=== PATIENT | female | born 1960 | race Caucasian/White ===

== ENCOUNTER 2024-02-18 18:49 | Emergency (ER) | payer MEDICARE, OTHER, SELFPAY ==
[2024-02-18 19:00] VITALS: BP 128/84; PULSE 99; TEMP 36.8; O2SAT 98; BMI 29.0
--- NOTE | 2024-02-18 19:27 | ED_ITS ---
HPI HPI - Extremity Injury (Upper) General Chief Complaint: Extremity Injury, Upper Stated Complaint: UPPER EXTREMITY INJURY Time Seen by Provider: 02/18/24 19:24 Source: patient Mode of arrival: walk-in History of Present Illness HPI narrative: patient states she was playing around with her and grabbed his belt loop. States he turned and her fingers did not slide out and she cut her hand on the belt loop. Has a lac of the web space btw left middle and ring finger. No numbness or weakness. Denies other injury or complaint. She does not remember the last time she had a tetanus shot. 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 Related Data Allergies Allergy/AdvReac Type Severity Reaction Status Date / Time No Known Drug Allergies Allergy Verified 02/18/24 19:03 Opioid HPI Opioid Management Most Recent Pain and Opioid Data: No Data to Display Review of Systems ROS Status of ROS 10 or more systems reviewed and unremark able except as noted in history and below Exam Constitutional Vital Signs, click to edit/add: Last Vital Signs Temp 98.2 F 02/18/24 19:00 Pulse 86 02/18/24 20:38 Resp 16 02/18/24 20:38 BP 130/66 02/18/24 20:38 Pulse Ox 98 02/18/24 20:38 O2 Del Method Room Air 02/18/24 19:00 Common normals: no apparent distress, average body habitus, oriented x3, no limitations, healthy appearing, alert and well nourished [facility] Common normals: normocephalic and head/scalp atraumatic Eye Common normals: PERRL, EOMs intact bilaterally and conjunctivae normal Respiratory Common normals: normal respiratory effort, no retractions, no use of accessory muscles and clear to auscultation bilaterally Cardio Common normals: regular rate, regular rhythm, S1 normal heart sound and S2 normal heart sound Extremity Other: lac btw web space left ring and middle finger. SQ tissue exposed. No obvious FB. sensation of fingers WNL. No obvious weakness of the fingers. ROM limited by pain Neuro Common normals: oriented x3, CN's II-XII intact bilaterally, moves all extremities, no focal motor deficits and no sensory deficits noted Psych Appearance: grossly normal Course Vital Signs Vital signs: Vital Signs Temperature 98.2 F 02/18/24 19:00 Pulse Rate 99 H 02/18/24 19:00 Respiratory Rate 18 02/18/24 19:00 Blood Pressure 128/84 02/18/24 19:00 Pulse Oximetry 98 02/18/24 19:00 Oxygen Delivery Method Room Air 02/18/24 19:00 Temperature 98.2 F 02/18/24 19:00 Pulse Rate 86 02/18/24 20:38 Respiratory Rate 16 02/18/24 20:38 Blood Pressure 130/66 02/18/24 20:38 Pulse Oximetry 98 02/18/24 20:38 Oxygen Delivery Method Room Air 02/18/24 19:00 MDM - Extremity Injury (Upper) MDM Narrative Medical decision making narrative: patient presents with lac web space btw left ring and middle finger. lac repaired as above. Patient discharged and advised to have the wound rechecked in 2-3 days and stitches removed in 10-12 days Discharge Plan Discharge Stand Alone Forms: Work/School Release, Portal Instructions Chief Complaint: Extremity Injury, Upper Clinical Impression: Laceration of hand, left Patient Disposition: Home, Self-Care Condition: Good Mode of Transportation: Private Vehicle Print Language: Welsh Instructions: Laceration (ED) Additional Instructions: have wound rechecked in 2-3 days and stitches removed in 10-12 days Referrals: Physician,Non-Staff, MD [Physician] - 1 week Discharge Date/Time: 02/18/24 20:47 Procedures ED Procedure Instructions Procedures Procedures: 3-3.5 cm SQ lac web space btw left middle and ring finger. lac extends from volar to dorsal side of the hand. No FB seen. 1% lido as local. site cleaned and repaired with # 10 4.0 Prolene sutures. Patient tolerated well. No compl ications.
--- NOTE | 2024-02-18 19:31 | XR_ITS ---
The [address] [address] Patient Name: DEBBIE KC MRN: [id number] date: 1960 Sex: F Assigned Patient Location: ER Current Patient Location: Accession/Order Number: [id number] Exam Date: 02/18/2024 19:40 Report Date: 02/18/2024 20:46 At the request of: ANGELA SEPULVEDA Procedure: XR hand LT min 3V EXAM: XR hand LT min 3V HISTORY: FB soft tissue injury/laceration between third and fourth digit. COMPARISON: None. TECHNIQUE: PA, oblique, lateral x-ray left hand. FINDINGS: Negative for fracture or foreign body. Minor degenerative change without significant joint space narrowing. Normal-appearing carpal bones and wrist. XR/XR hand LT min 3V IMPRESSION: Negative for fracture or foreign body. Electronically authenticated by: MARIBEL FERRARA Date: 02/18/2024 20:46
[2024-02-18] MEDS: ADACEL DIPH,PERTUSS(ACELL),TET VAC/PF 0.5 ML ADULT SYRINGE IM (19:34)
[2024-02-18] MEDS: LIDOCAINE HCL 1% 100 MG/10 ML MDV INJ (19:37)
--- NOTE | 2024-02-18 19:42 | PC.NURSE ---
Gapping laceration web space of 3rd and fourth finger left hand
[2024-02-18 20:38] VITALS: BP 130/66; PULSE 86; O2SAT 98
[2024-02-18] MEDS: AMOXICILLIN/POTASSIUM CLAV 1 TAB TABLET PO ×2 (20:39)
== END 2024-02-18 20:47 | disposition home or self-care (01) ==
PROVIDERS: Emergency Provider Internal Medicine; PCP Internal Medicine
DX: S61.412A Laceration without foreign body of left hand, initial encounter (principal); W45.8XXA Other foreign body or object entering through skin, initial encounter; Z23 Encounter for immunization
CPT/HCPCS: 12002; 73130; 90471; 90715; 99284

== ENCOUNTER 2024-06-22 08:24 | Outpatient (OUT) | payer MEDICARE, OTHER, SELFPAY ==
--- OUTSIDE RECORDS SUMMARY | 2024-06-22 08:39 | XMS_ITS | CCD ---
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 Helio Brice Attending David Brice, Dr. Helio Llanes Primary Care HAN Tamayo Referring Unavailable DELANEY, HAN Referring Unavailable HAN BALTAZAR Attending Unavailable Helio Brice DO Primary Care Provider [phone] HELIO BRICE Primary Care Unavailable LAURIE ANDUJAR Referring Unavailable ERMIAS BOLDEN Attending Unavailable HELIO BRICE Primary Care Unavailable ERMIAS BOLDEN Attending Unavailable ERMIAS BOLDEN Referring Unavailable HELIO BRICE Primary Care Unavailable NABIL MCCANN Referring Unavailable PATRICIA JOE Attending Unavailable HELIO BRICE Primary Care Unavailable SELF, SELF Referring Unavailable PATRICIA JOE Attending Unavailable NABIL MCCANN Referring Unavailable CHARISSA, PATRICIA Annmarie Attending Unavailable HELIO BRICE Primary Care Unavailable SELF, SELF Referring Unavailable HELIO BRICE Primary Care Unavailable NABIL MCCANN Attending Unavailable HELIO BRICE Primary Care Unavailable WILBUR LONGO Attending Unavailable NABIL MCCANN Referring Unavailable HELIO BRICE Primary Care Unavailable HELIO BRICE Primary Care Unavailable HELIO BRICE Primary Care Unavailable HELIO MILLER Attending Unavailable HELIO BRICE Primary Care Unavailable CONSULT, SURGERY - ORTHOPAEDICS Consulting Unavailable NABIL MCCANN Referring Unavailable NABIL MCCANN Admitting Unavailable ELIELNABIL Attending Unavailable HELIO BRICE Primary Care Unavailable SELF, SELF Referring Unavailable HIS ELIELSTACY Lionel Attending Unavailable HELIO BRICE Primary Care Unavailable GIGI MEYERS Attending Unavailable NABIL MCCANN Referring Unavailable YANET SALAZAR Attending Unavailable HELIO BRICE Attending Unavailable HELIO BRICE Referring Unavailable HELIO BRICE Attending Unavailable JACQUE AG Attending Unavailable JACQUE AG Attending Unavailable JACQUE AG Attending Unavailable YANET SALAZAR Attending Unavailable HELIO BRICE Referring Unavailable CHEPE MARKS Attending Unavailable Helio Brice DO Primary Care Provider Helio Brice DO Primary Care Provider HELIO BRICE Referring Unavailable HELIO BRICE Primary Care Unavailable HELIO BRICE Referring Unavailable HELIO BRICE Primary Care Unavailable Allergies Allergy Classification Reported Allergen(s) Allergy Type Date of Onset Reaction(s) Facility (1 source) Tetracycline Drug Allergy [facility] Repository (4 sources) Tetracycline Drug Allergy 02-15-2023 [facility] Medications Current Medications Medication Drug Class(es) Dates Sig (Normalized) Sig (Original) [id number] 200 actuat albuterol 0.09 mg/actuat metered dose inhaler (8 sources) beta2-Adrenergic Agonist take 2 puff(s) by inhalation every four hours as needed Albuterol 108 (90 Base) MCG/ACT Aero Soln inhaler 2 puffs Inhalation every 4hrs as needed for 90 days 0 Active atorvastatin 10 mg oral tablet (16 sources) HMG-CoA Reductase Inhibitor Start: 12-01-2023 take 1 tablet by mouth once daily atorvastatin (Lipitor) 10 MG tablet Indications: Hyperlipidemia, unspecified hyperlipidemia type (CMS/HCC) Take 1 tablet (10 mg) by mouth Daily 90 tablet 3 12/01/2023 Active Start: 11-16-2022 take 1 tablet by destiny th once daily at dinner Atorvastatin 10 MG tablet Take 1 tablet by mouth Daily (with dinner). 0 11/16/2022 Active calcium carbonate 500 mg oral tablet (8 sources) Start: 09-07-2022 calcium carbonate (Os-Rubio) 1250 (500 Ca) MG tablet every 12 (twelve) hours. 09/07/2022 Active clindamycin 150 mg oral capsule (3 sources) Lincosamide Antibacterial Start: 02-15-2023 End: 02-22-2023 take 3 capsules by mouth every eight hours Clindamycin 150 MG capsule Take 3 capsules by mouth every 8 hours for 7 days. 63 capsule 0 02/15/2023 02/22/2023 Active erythromycin 0.005 mg/mg ophthalmic ointment (8 sources) Macrolide, Macrolide Antimicrobial Start: 12-31-2022 Erythromycin 5 MG/GM Ointment ophthalmic ointment APPLY ONE-HALF inch strip to affected eye(s) DAILY AT BEDTIME for 30 days 0 12/31/2022 Active esomeprazole 20 mg delayed release oral capsule (16 sources) Proton Pump Inhibitor take 1 capsule by mouth before mealtime esomeprazole (NexIUM) [address] capsule Take 20 mg by mouth in the morning. Take before meals. Do not open capsule.. Active fexofenadine hydrochloride 180 mg oral tablet (8 sources) Histamine-1 Receptor Antagonist fexofenadine (Breanne) 180 MG tablet 1 (one) time each day at the same time. Active fluconazole 150 mg oral tablet (1 source) Azole Antifungal Start: 02-24-2023 End: 02-24-2023 take 1 tablet by mouth once Fluconazole 150 MG tablet Take 1 tablet by mouth once for 1 dose. 1 tablet 0 02/24/2023 02/24/2023 Active fluticasone propionate 0.05 mg/actuat metered dose nasal spray (16 sources) Corticosteroid Start: 12-01-2023 take 1 spray(s) nasal route once daily fluticasone (Flonase) 50 MCG/ACT nasal spray Indications: Seasonal allergies Administer 1 spray into each nostril Daily Shake gently. Before first use, prime pump. After use, clean tip and replace cap. 48 g 3 12/01/2023 Active fluticasone 50 M CG/ACT Suspension nasal spray 1 spray in each nostril Nasally 2 x a day for 90 days 0 Active gabapentin 100 mg oral capsule (4 sources) Anti-epileptic Agent Start: 02-15-2023 End: 03-17-2023 take 1 capsule by mouth three times daily Gabapentin 100 MG capsule Take 1 capsule by mouth 3 times daily. 90 capsule 0 02/15/2023 Active ibuprofen 200 mg oral tablet (8 sources) Nonsteroidal Anti-inflammatory Drug take 1 tablet by mouth in the morning ibuprofen 200 MG tablet Take 200 mg by mouth in the morning and 200 mg before bedtime. Active metFORMIN hydrochloride 500 mg oral tablet (16 sources) Biguanide Start: 12-01-2023 take 1 tablet by mouth in the morning metFORMIN (Glucophage) 500 MG tablet Indications: Type 2 diabetes mellitus with other specified complication, unspecified whether usp insulin use (CMS/HCC) Take 1 tablet (500 mg) by mouth in the morning and 1 tablet (500 mg) in the evening. Take with meals. 180 tablet 3 12/01/2023 Active Start: 11-16-2022 metFORMIN 500 MG tablet Take 1 tablet by mouth. 0 11/16/2022 Active oxyCODONE hydrochloride 5 mg oral tablet (6 sources) Opioid Agonist Start: 02-01-2023 End: 02-06-2023 take 1 tablet by mouth every six hours as needed for pain oxyCODONE 5 MG tablet Indications: Post-operative pain , Carpal tunnel syndrome of right wrist , Lesion of right ulnar nerve , De Quervain's disease (radial styloid tenosynovitis) Take 1 tablet by mouth every 6 hours as needed for Moderate Pain or Severe Pain for up to 5 days. 12 tablet 0 02/01/2023 Active venlafaxine 37.5 mg oral tablet (16 sources) Serotonin and Norepinephrine Reuptake Inhibitor Start: 12-01-2023 take 1 tablet by mouth in the morning venlafaxine (Effexor) 37.5 MG tablet Indications: Major depressive disorder with single episode, remission status unspecified (CMS/HCC) Take 1 tablet (37.5 mg) by mouth in the morning and 1 tablet (37.5 mg) before bedtime. 180 tablet 3 12/01/2023 Active Start: 11-16-2022 take 1 tablet by destiny th twice daily venlafaxine 37.5 MG tablet Take 1 tablet by mouth Twice daily. 0 11/16/2022 Active Completed/Discontinued Medications Medication Drug Class(es) Dates Sig (Normalized) Sig (Original) calcium chloride 0.0014 meq/ml / potassium chloride 0.004 meq/ml / sodium chloride 0.103 meq/ml / sodium lactate 0.028 meq/ml injectable solution (1 source) Start: 02-01-2023 End: 02-01-2023 Lactated ringers IV solution ceFAZolin 2000 mg injection (2 sources) Cephalosporin Antibacterial Start: 02-15-2023 End: 02-15-2023 ceFAZolin (ANCEF) 2 g in dextrose 100 mL premix IVPB Start: 02-01-2023 End: 02-01-2023 take 2 g intravenously every eight hours ceFAZolin (ANCEF) 2 g in dextrose 100 mL premix IVPB 1 ml dexamethasone phosphate 4 mg/ml injection (2 sources) Corticosteroid Start: 05-26-2023 End: 05-26-2023 dexAMETHasone (DECADRON) injection 4 mg 10 ml lidocaine hydrochloride 10 mg/ml injection (4 sources) Antiarrhythmic, Amide Local Anesthetic Start: 05-26-2023 End: 05-26-2023 Lidocaine (XYLOCAINE) 10 mg/mL injection 0.5 mL Start: 02-15-2023 End: 02-15-2023 Lidocaine (XYLOCAINE) 10 mg/ mL injection 50 mg Start: 02-15-2023 End: 02-15-2023 Lidocaine 1% (PF) (XYLOCAINE MPF) 1 % injection lidocaine 1% buffered in sod ium bicarbonate 1-8.4 % injection SOSY 1 mL (1 source) Start: 02-01-2023 End: 02-01-2023 lidocaine 1% buffered in sod ium bicarbonate 1-8.4 % injection SOSY 1 mL Problems Active Problems Problem Classification Problem Date Documented Date Episodic/Chronic Diabetes mellitus with complications (10 sources) Type 2 diabetes mellitus; Translations: [Type 2 diabetes mellitus with other specified complication] Onset: 02-17-2023 02-17-2023 Chronic Disorders of lipid metabolism (13 sources) Hyperlipidemia, unspecified; Translations: [Hyperlipidemia] Onset: 09-16-2022 Chronic Esophageal disorders (8 sources) Gastroesophageal reflux disease; Translations: [Gastro-esophageal reflux disease without esophagitis] Onset: 02-17-2023 02-17-2023 Chronic Mood disorders (10 sources) Recurrent major depression in partial remission; Translations: [Major depressive disorder, recurrent, in partial remission] Onset: 02-17-2023 02-17-2023 Chronic Open wounds of extremities (6 sources) Laceration of left hand; Translations: [Laceration without foreign body of left hand, subsequent encounter] 03-01-2024 Episodic Other connective tissue disease (2 sources) Pain in right hand; Translations: [Pain in right hand] Onset: 01-06-2023 Episodic Other connective tissue disease (2 sources) Radial styloid tenosynovitis; Translations: [Radial styloid tenosynovitis [de Quervain]] 01-24-2023 Episodic Other nervous system disorders (11 sources) Carpal tunnel syndrome of right wrist; Translations: [Carpal tunnel syndrome, right upper limb] Onset: 02-02-2023 01-27-2023 Chronic Other nervous system disorders (1 source) Lesion of ulnar nerve; Translations: [Lesion of ulnar nerve, unspecified upper limb] 02-01-2023 Chronic Other nervous system disorders (1 source) Carpal tunnel syndrome; Translations: [Carpal tunnel syndrome, unspecified upper limb] 02-01-2023 Chronic Other nervous system disorders (1 source) Lesion of right ulnar nerve; Translations: [Lesion of ulnar nerve, right upper limb] 02-01-2023 Chronic Other nervous system disorders (7 sources) Radial tunnel syndrome; Translations: [Lesion of radial nerve, right upper limb] Onset: 02-02-2023 02-02-2023 Chronic Other nervous system disorders (9 sources) Lesion of ulnar nerve, right upper limb; Translations: [Lesion of ulnar nerve] Onset: 02-02-2023 02-02-2023 Chronic Other nervous system disorders (2 sources) Carpal tunnel syndrome, right upper limb; Translations: [Carpal tunnel syndrome, right upper limb] Onset: 03-14-2023 Chronic Other nervous system disorders (2 sources) Lesion of radial nerve, right upper limb; Translations: [Lesion of radial nerve, right upper limb] Onset: 02-02-2023 Chronic Other nervous system disorders (2 sources) Lesion of ulnar nerve, unspecified upper limb; Translations: [Lesion of ulnar nerve, unspecified upper limb] Onset: 02-01-2023 Chronic Other nervous system disorders (2 sources) Carpal tunnel syndrome, unspecified upper limb; Translations: [Carpal tunnel syndrome, unspecified upper limb] Onset: 02-01-2023 Chronic Other nervous system disorders (1 source) Postoperative pain ; Translations: [Other acute postprocedural pain] 02-01-2023 Episodic Other non-traumatic joint disorders (4 sources) Pain in right wrist; Translations: [Pain in right wrist] Onset: 01-06-2023 Episodic Other non-traumatic joint disorders (2 sources) Pain of right wrist; Translations: [Pain in right wrist] 01-24-2023 Episodic Other nutritional; endocrine; and metabolic disorders (19 sources) Obese class I; Translations: [Obesity, unspecified] Onset: 01-24-2023 01-24-2023 Chronic Prolapse of female genital organs (2 sources) Other female genital prolapse; Translations: [Other female genital prolapse] Onset: 06-26-2024 Chronic Past or Other Problems Problem Classification Problem Date Documented Date Episodic/Chronic E Codes: Fall (1 source) Unspecified fall, initial encounter; Translations: [UNSPECIFIED FALL INITIAL ENCOUNTER] Onset: 09-08-2021 Episodic Other connective tissue disease (8 sources) Tenosynovitis of right radial styloid; Translations: [Radial styloid tenosynovitis [de Quervain]] Onset: 02-02-2023 02-02-2023 Episodic Other connective tissue disease (2 sources) Radial styloid tenosynovitis [de Quervain]; Translations: [Radial styloid tenosynovitis (de quervain)] Onset: 02-02-2023 Episodic Other diseases of veins and lymphatics (8 sources) Vascular insufficiency; Translations: [Venous insufficiency (chronic) (peripheral)] Onset: 03-03-2023 03-03-2023 Episodic Other lower respiratory disease (4 sources) Cough; Translations: [Acute cough] Onset: 04-12-2023 Resolved: 10-20-2023 10-20-2023 Episodic Other lower respiratory disease (4 sources) Cough; Translations: [Acute cough] Onset: 04-12-2023 Resolved: 10-20-2023 10-20-2023 Episodic Other nervous system disorders (2 sources) Other acute postprocedural pain; Translations: [Other acute postprocedural pain] Onset: 02-01-2023 Episodic Other non-traumatic joint disorders (3 sources) Pain in right ankle and joints of right foot; Translations: [PAIN IN RIGHT ANKLE] Onset: 09-07-2021 Episodic Other non-traumatic joint disorders (8 sources) Pain in wrist; Translations: [Pain in right wrist] Onset: 11-11-2022 Resolved: 10-20-2023 10-20-2023 Episodic Other screening for suspected conditions (not mental disorders or infectious disease) (10 sources) Raised TSH level; Translations: [Other specified abnormal findings of blood chemistry] Onset: 02-09-2024 02-09-2024 Episodic Other upper respiratory infections (8 sources) Upper respiratory infection; Translations: [Acute upper respiratory infection, unspecified] Onset: 04-12-2023 Resolved: 10-20-2023 10-20-2023 Episodic Spondylosis; intervertebral disc disorders; other back problems (4 sources) Cervical radiculopathy; Translations: [Radiculopathy, cervical region] Onset: 02-16-2023 02-15-2023 Episodic Sprains and strains (1 source) Sprain of unspecified ligament of right ankle, initial encounter; Translations: [SPRAIN UNS LIGAMENT RT ANKLE INIT] Onset: 09-08-2021 Episodic Results Test Name Value Interpretation Reference Range Facility No Panel Informationon 03-08 Neelam Sprague 03/13/2024 3:16 PM Suture Removal Date/Time: 03/08/2024 11:40 AM Performed by: Jacque Ag NP Authorized by: Jacque Ag NP Consent: Consent obtained: Verbal Consent given by: Patient Risks, benefits, and alternatives were discussed: yes Risks discussed: Wound separation and pain [place] protocol: Procedure explained and questions answered to patient or proxy's satisfaction: yes Procedure details: Wound appearance: No signs of infection Comments: All sutures removed. Top layer of epidermis gaping post removal. Steristrips placed with good approx and closure of laceration. [facility] Jarvam [facility] UPPER EXTREMITY INJECTION: R extensor compartment 05-30-2023 Radiology Study observation (narrative) [facility] UPPER EXTREMITY INJECTION: R extensor compartment 05-26-2023 OLVIN Bolton 05/30/2023 10:24 AM UPPER EXTREMITY INJECTION: R extensor compartment 1 Date/Time: 05/26/2023 11:00 AM Performed by: OLVIN Bolton Authorized by: OLVIN Bolton Supporting Documentation Indications: pain Procedure Details: Procedure: tendon sheath / ligament injection Location: wrist - R extensor compartment 1 Local Anesthetic: ethyl chloride (cold spray) Needle size: 27 G Approach: radial Medications administered: 0.5 mL Lidocaine 10 mg/mL; 4 mg dexAMETHasone 4 MG/ML Medication Verification: I have personally verified and performed the final check of the medication(s) used in this procedure prior to administration. The following items were included during the verification process for medication(s) administered: drug name, strength, volume, expiration, physical integrity and appearance of the medication(s). Consent: Consent was obtained prior to the procedure after discussion of the risks, benefits and alternatives, and expected outcomes were discussed with the patient. The possibilities of reaction to medication, bleeding, infection, the need for additional procedures, failure to diagnosis a condition, and creating a complication requiring operation were discussed with the patient. The patient concurred with the proposed plan, giving consent. Preparation: Patient was prepped in the usual sterile fashion. The patient was prepped with alcohol. [facility] MRI SPINE CERVICAL WITHOUT C [facility] 02-24-2023 MRI SPINE CERVICAL WITHOUT CONTRAST EXAM: MRI SPINE CERVICAL WITHOUT CONTRAST, 02/16/2023 11:11 AM COMPARISON: No priors available for comparison. CLINICAL INDICATIONS: 62 years Female eval for c6-c7 radicular symptoms right side; RELEVANT CLINICAL HISTORY: M54.12:Cervical radiculopathy TECHNIQUE: A series of sagittal and axial multisequence images of the cervical spine were obtained without intravenous contrast using standard protocol. Study was performed at [address]. FINDINGS: Alignment is normal. Vertebral bodies are within normal limits in height and marrow signal. Prevertebral and paraspinal soft tissues are within normal limits. Multilevel loss of disc space height. Multilevel endplate degenerative changes of the cervical spine notably at the superior and inferior endplate of C6, and superior endplate of C7. Visualized spinal cord is within normal limits in caliber and signal. Craniocervical junction and visualized posterior fossa are within normal limits. By levels: C1-C2: Atlanto-axial relationship is within normal limits. C2-C3: Disc osteophyte complex with eccentric right osteophytic spurring partially effacing the right ventral-lateral aspect of the thecal sac. No significant spinal canal or foraminal compromise. C3-C4: Disc osteophyte complex with eccentric right osteophytic spurring and right facet hypertrophy partially effacing the right ventral-lateral aspect of the thecal sac and causing mild right-sided foraminal narrowing. No significant spinal canal compromise. C4-C5: Disc osteophyte complex with asymmetric right greater than left facet hypertrophy causing mild right-sided foraminal narrowing. No significant spinal canal stenosis. C5-C6: Disc osteophyte complex with bilateral facet and uncovertebral hypertrophy causing moderate bilateral foraminal narrowing and mild spinal canal narrowing. C6-C7: Disc osteophyte complex with mild bilateral facet and uncovertebral hypertrophy causing mild spinal canal narrowing, mild right-sided and moderate left-sided neural foraminal narrowing. C7-T1: No disc herniation, cervical stenosis, or foraminal stenosis. IMPRESSION: Multilevel degenerative changes of the cervical spine with moderate bilateral foraminal narrowing at C5-C6 and moderate left-sided foraminal narrowing at C6-C7. I personally viewed and interpreted these images and I have reviewed and approved this report. Normal [facility] CBC AND ELECTRONIC DIFFon Basophils (Bld) [#/Vol] 0.07 10*3/uL Normal 0.00-0.15 [facility] Comment on above: Performed By: #### L [id number] #### [facility] (DEFAULT) [address] [address] Basophils/100 WBC (Bld) 0.5 % Normal [facility] Comment on above: Performed By: #### L [id number] #### [facility] (DEFAULT) [address] [address] DIFF STATUS Electronic Differential Normal [facility] Comment on above: Performed By: #### L [id number] #### [facility] (DEFAULT) [address] [address] Eosinophils (Bld) [#/Vol] 0.36 10*3/uL Normal 0.00-0.42 [facility] Comment on above: Performed By: #### L [id number] #### [facility] (DEFAULT) [address] [address] Eosinophils/100 WBC (Bld) 2.8 % Normal [facility] Comment on above: Performed By: #### L [id number] #### [facility] (DEFAULT) [address] [address] Hematocrit (Bld) [Volume fraction] 42.1 % Normal 34.9-44.3 [facility] Comment on above: Performed By: #### L [id number] #### [facility] (DEFAULT) [address] [address] Hemoglobin (Bld) [Mass/Vol] 13.7 g/dL Normal 11.4-15.2 [facility] Comment on above: Performed By: #### L [id number] #### [facility] (DEFAULT) [address] [address] Immature Grans % 0.2 % Normal [facility] Comment on above: Performed By: #### L [id number] #### [facility] (DEFAULT) [address] [address] Immature Grans Absolute < Normal <=0.08 [facility] Comment on above: Performed By: #### L [id number] #### [facility] (DEFAULT) [address] [address] Lymphocytes (Bld) [#/Vol] 3.83 10*3/uL High 1.16-3.51 [facility] Comment on above: Performed By: #### L [id number] #### [facility] (DEFAULT) [address] [address] Lymphocytes/100 WBC (Bld) 30.1 % Normal [facility] Comment on above: Performed By: #### L [id number] #### [facility] (DEFAULT) [address] [address] MCV (RBC) [Entitic vol] 93.6 fL Normal 79.6-97.7 [facility] Comment on above: Performed By: #### L [id number] #### [facility] (DEFAULT) [address] [address] Mean Cell Hgb 30.4 pg Normal 25.9-33.9 [facility] Comment on above: Performed By: #### L [id number] #### [facility] (DEFAULT) [address] [address] Mean Cell Hgb Conc 32.5 g/dL Normal 31.4-35.9 [facility] Comment on above: Performed By: #### L [id number] #### [facility] (DEFAULT) [address] [address] Monocytes (Bld) [#/Vol] 1.03 10*3/uL High 0.22-0.87 [facility] Comment on above: Performed By: #### L [id number] #### [facility] (DEFAULT) [address] [address] Monocytes/100 WBC (Bld) 8.1 % Normal [facility] Comment on above: Performed By: #### L [id number] #### [facility] (DEFAULT) [address] [address] Nucleated RBC 0.0 /100 WBC Normal <=0.[address] [facility] Comment on above: Performed By: #### L [id number] #### [facility] (DEFAULT) [address] [address] Platelet mean volume (Bld) [Entitic vol] 9.2 fL Normal 8.5-12.2 [facility] Comment on above: Performed By: #### L [id number] #### [facility] (DEFAULT) [address] [address] Platelets (Bld) [#/Vol] 285 10*3/uL Normal 150-393 [facility] Comment on above: Performed By: #### L [id number] #### [facility] (DEFAULT) [address] [place] [address] RBC (Bld) [#/Vol] 4.50 10*6/uL Normal 3.91-5.04 [facility] Comment on above: Performed By: #### L [id number] #### [facility] (DEFAULT) [address] [place] [address] RBC Distribution 13.2 % Normal 10.8-14.9 [facility] Comment on above: Performed By: #### L [id number] #### [facility] (DEFAULT) [address] [place] [address] Segs + Bands Auto 58.3 % Normal [facility] Comment on above: Performed By: #### L [id number] #### [facility] (DEFAULT) [address] [place] [address] Segs + Bands,Absolute Auto 7.42 K/uL High 1.64-7.28 [facility] Comment on above: Performed By: #### L [id number] #### [facility] (DEFAULT) [address] [place] [address] WBC (Bld) [#/Vol] 12.74 10*3/uL High 3.99-11.19 [facility] Comment on above: Performed By: #### L [id number] #### [facility] (DEFAULT) [address] [place] [id number] CH 7 - EDon 02-15-2023 Anion gap [Moles/Vol] 12 mmol/L Normal 7-17 [facility] Comment on above: Performed By: #### C 7ED #### [facility] (DEFAULT) [address] [place] [address] Chloride [Moles/Vol] 101 mmol/L Normal 98-108 [facility] Comment on above: Performed By: #### C 7ED #### [facility] (DEFAULT) [address] [place] [address] CO2 [Moles/Vol] 26 mmol/L Normal 21-[address] [facility] Comment on above: Performed By: #### C 7ED #### [facility] (DEFAULT) [address] [address] Creatinine [Mass/Vol] 0.99 mg/dL Normal 0.50-1.20 [facility] Comment on above: Performed By: #### C 7ED #### [facility] (DEFAULT) [address] [address] GFR/1.73 sq M.predicted among non-blacks MDRD (S/P/Bld) [Vol rate/Area] 64 mL/min/{1.73_m2} Normal >=60 [facility] Comment on above: Result Comment: Repo rted eGFR is based on the CKD-EPI 2020 equation using creatinine, age, and sex. Performed By: #### C 7ED #### [facility] (DEFAULT) [address] [address] Glucose [Mass/Vol] 187 mg/dL High 70-99 [facility] Comment on above: Performed By: #### C 7ED #### [facility] (DEFAULT) [address] [address] Osmolality [Osmolality] 293 mosm/kg Normal 278-305 [facility] Comment on above: Performed By: #### C 7ED #### [facility] (DEFAULT) [address] [address] Potassium [Moles/Vol] 4.1 mmol/L Normal 3.5-5.0 [facility] Comment on above: Performed By: #### C 7ED #### [facility] (DEFAULT) [address] [address] Sodium [Moles/Vol] 135 mmol/L Normal 135-145 [facility] Comment on above: Performed By: #### C 7ED #### [facility] (DEFAULT) [address] [place] [address] Urea nitrogen [Mass/Vol] 23 mg/dL Normal 7-25 [facility] Comment on above: Performed By: #### C 7ED #### [facility] (DEFAULT) [address] [place] [address] Urea nitrogen/Creatinine [Mass ratio] 23 mg/mg Normal [facility] Comment on above: Performed By: #### C 7ED #### [facility] (DEFAULT) [address] [place] [address] CBC AND ELECTRONIC DIFFon Basophils (Bld) [#/Vol] 0.07 10*3/uL 0.00 - 0.15 K/uL [facility] Basophils/100 WBC (Bld) 0.5 % [facility] Differential cell count method Nom (Bld) Electronic Differential [facility] Eosinophils (Bld) [#/Vol] 0.36 10*3/uL 0.00 - 0.42 K/uL [facility] Eosinophils/100 WBC (Bld) 2.8 % [facility] Erythrocyte distribution width (RBC) [Ratio] 13.2 % 10.8 - 14.9 % [facility] Hematocrit (Bld) [Volume fraction] 42.1 % 34.9 - 44.3 % [facility] Hemoglobin (Bld) [Mass/Vol] 13.7 g/dL 11.4 - 15.2 g/dL [facility] Immature granulocytes (Bld) [#/Vol] K/uL NINF - 0.08 K/uL [facility] Immature granulocytes/100 WBC (Bld) 0.2 % [facility] Interpretation and review of laboratory results Abnormal [facility] Lymphocytes (Bld) [#/Vol] 3.83 10*3/uL High 1.16 - 3.51 K/uL [facility] Lymphocytes/100 WBC (Bld) 30.1 % [facility] MCH (RBC) [Entitic mass] 30.4 pg 25.9 - 33.9 pg [facility] MCHC (RBC) [Mass/Vol] 32.5 g/dL 31.4 - 35.9 g/dL [facility] MCV (RBC) [Entitic vol] 93.6 fL 79.6 - 97.7 fL [facility] Monocytes (Bld) [#/Vol] 1.03 10*3/uL High 0.22 - 0.87 K/uL [facility] Monocytes/100 WBC (Bld) 8.1 % [facility] Neutrophils (Bld) [#/Vol] 7.42 10*3/uL High 1.64 - 7.28 K/uL [facility] Nucleated RBC/100 WBC (Bld) [Ratio] 0.0 % [facility] Platelet mean volume (Bld) [Entitic vol] 9.2 fL 8.5 - 12.2 fL [facility] Platelets (Bld) [#/Vol] 285 10*3/uL 150 - 393 K/uL [facility] RBC (Bld) [#/Vol] 4.50 10*6/uL [facility] Segmented neutrophils/100 WBC (Bld) 58.3 % [facility] WBC (Bld) [#/Vol] 12.74 10*3/uL High 3.99 - 11 .19 K/uL [facility] CHM 7 - EDon 02-14-2023 Anion gap [Moles/Vol] 12 mmol/L 7 - 17 mmol/L [facility] Chloride [Moles/Vol] 101 mmol/L 98 - 10 8 mmol/L [facility] CO2 [Moles/Vol] 26 mmol/L 21 - 31 mmol/L [facility] Creatinine [Mass/Vol] 0.99 mg/dL 0.50 - 1.20 mg/dL [facility] GFR/1.73 sq M.predicted CKD-EPI (S/P/Bld) [Vol rate/Area] 64 - PINF [facility] Comment on above: Reported eGFR is bas ed on the CKD-EPI 2020 equation using creatinine, age, and sex. Glucose [Mass/Vol] 187 mg/dL High 70 - 99 mg/dL [facility] Interpretation and review of laboratory results Abnormal [facility] Osmolality Calc [Osmolality] 293 [facility] Potassium [Moles/Vol] 4.1 mmol/L 3.5 - 5.0 mmol/L [facility] Sodium [Moles/Vol] 135 mmol/L 135 - 145 mmol/L [facility] Urea nitrogen [Mass/Vol] 23 mg/dL 7 - 25 mg/dL [facility] Urea nitrogen/Creatinine [Mass ratio] 23 mg/mg [facility] No Panel Informationon 02-14 [facility] GLUCOSE POCon 02-01-2023 Glucose [Mass/Vol] 132 mg/dL High 70 - 99 mg/dL [facility] Interpretation and review of laboratory results Abnormal [facility] POC Sample Type BLOD [facility] Test performed at address of the patient encounter. [facility] Glucose [Mass/Vol] 125 mg/dL High 70 - 99 mg/dL [facility] Interpretation and review of laboratory results Abnormal [facility] POC Sample Type BLOD [facility] Test performed at address of the patient encounter. [facility] US Unspecified body region d uring surgeryOrdered By: Unassigned Pacs on 02-01-2023 [facility] Work Phone: [place] Unspecified body region d uring surgeryon 02-01-2023 Radiology Study observation (narrative) [facility] CT CARDIAC SCORINGon 023 CT CARDIAC SCORING Patient Name: ELVIRA AVALOS STUDY: CT CARDIAC SCORING; 09/16/2022 9:52 am INDICATION: E78.5 Hyperlipidemia, unspecified. COMPARISON: None. ACCESSION NUMBER(S): [id number] ORDERING CLINICIAN: HELIO BRICE TECHNIQUE: Using prospective ECG gating, CT scan of the coronary arteries was performed without intravenous contrast. Coronary calcium scoring was performed according to the method of Agatston. FINDINGS: The score and distribution of calcium in the coronary arteries is as follows: LM: 0. LAD: 0. LCx: 0. RCA: 0. Total: 0. The visualized segments of the lungs are normally expanded. The visualized mid/lower ascending thoracic aorta measures 3.5 cm in diameter. The heart is normal in size. No pericardial effusion is present. No gross evidence of mediastinal or hilar lymphadenopathy is identified. IMPRESSION: 1. Coronary artery calcium score of 0*. *Coronary artery calcium scoring may be helpful in predicting the risk for future coronary heart disease events. According to the [employer] Clinical Expert Consensus Task Force, such testing provides important prognostic information in patients with more than one coronary heart disease risk factor. The coronary artery calcium score correlates with the annual risk of a non-fatal myocardial infarction or coronary heart disease . Coronary artery score Annual Risk 0-99 0.4% 100-399 1.3% >400 2.4% These three breakpoints correspond to lower, intermediate and high risk states for future coronary events. Such information should be used, along with appropriate clinical judgment, to make decisions regarding the intensity of risk factor management strategies to treat blood lipids and to modify other non-lipid coronary risk factors. Reference: Irvine P et al. Circulation. 2007; 115:402-426 Electronically signed by: EDY CHAUHAN MD Normal [facility] SCREENING MAMMOGRAM W/CHHAYA, BILATERAL*on 04-08-2022 SCREENING MAMMOGRAM W/CHHAYA, BILATERAL* CLINICAL HISTORY: Screening Mammogram COMPARISON: Priors from 2020, 2018, 2017 TECHNIQUE: 2D and 3D mammogram imaging of both breasts was performed. RESULT: DENSITY: There are scattered areas of fibroglandular density. There is no suspicious mass, asymmetry, architectural distortion, or calcification. No significant change since the prior mammograms. IMPRESSION: BIRADS 1 : NEGATIVE, NORMAL INTERVAL FOLLOW UP FOLLOW-UP: 12 months DENSITY: Scattered MAMMOGRAPHY IS VERY IMPORTANT TO YOUR HEALTH. THE CURRENT [employer] GUIDELINES RECOMMENDS ANNUAL MAMMOGRAPHY BEGINNING AT AGE 40 THIS FACILITY USES A REMINDER SYSTEM TO ENSURE ALL PATIENTS RECEIVE REMINDER NOTIFICATIONS AT THE APPROPRIATE TIME BASED ON THE RECOMMENDATIONS OF THIS EXAM. Board Certified Radiologist. Accredited by the ACR and FDA. Report reported and signed by Trevor Pina on 04/09/2022 1001 Normal [employer] [facility] [employer] MRI Wrist w/o Righton 2021 MRI Wrist w/o Right CLINICAL HISTORY: Radial sided wrist pain since a fall. COMPARISON: Radiographs of the wrist 01/25/2022 TECHNIQUE: Multiplanar multisequence MRI of the right wrist was performed without contrast FINDINGS: Scapholunate and lunotriquetral ligaments are intact. Articular disc and styloid and foveal attachments of the triangular fibrocartilage complex are intact. Dorsal and volar radioulnar ligaments appear intact. There is attenuation and abnormal signal of the extensor pollicis brevis and abductor pollicis longus tendons. Mild adjacent soft tissue edema. Visualized flexor and extensor tendons are otherwise intact. Median nerve is of normal signal and morphology. No evidence of recent fracture. Mild degenerative changes of the wrist. IMPRESSION: Severe sprain and/or partial tearing of extensor pollicis brevis and abductor pollicis longus tendons with mild adjacent soft tissue edema. No evidence of recent fracture. Mild degenerative changes of the wrist. Report reported and signed by Saroj Romero on 02/25/2022 1421 Normal [facility] XR Forearm 2 Views Righton 0 12-14-2021 XR Forearm 2 Views Right Refer to concurrent right humerus radiograph dictation. Report reported and signed by Trevor Pina on 12/14/2021 1436 Addendum: Large field of the imaging with nondisplaced fracture involving the proximal radial head. Report reported and signed by Trevor Pina on 12/16/2021 1338 Normal [facility] Specialist XR Hip Complete Right*on XR Hip Complete Right* Refer to concurrent right humerus radiograph dictation. Report reported and signed by Trevor Pina on 12/14/2021 1436 Normal [facility] Specialist XR Humerus Righton 2 XR Humerus Right CLINICAL HISTORY: Fall with forearm pain. Proximal humerus pain. Lateral right hip pain. COMPARISON: None. RESULT: Right humerus: No acute fracture of the right humerus. Alignment at the shoulder and elbow are grossly maintained. Right forearm: No distinct acute fracture involving the right radius or ulna. No distinct elbow joint effusion. No distinct acute fracture about the wrist on the large field of view. Scattered degenerative changes within the wrist. Bony pelvis/hips: Bony pelvis appears intact without acute fracture. No acute hip fracture. Mild degenerative changes both hips. Degenerative changes lower lumbar spine. SI joints and pubic symphysis maintained. IMPRESSION: No acute osseous findings involving the right humerus, right forearm, or bony pelvis/hips. Report reported and signed by Trevor Pina on 12/14/2021 1435 Normal [facility] [employer] XR ANKLE RT MIN 3 VIEWSon XR ANKLE RT MIN 3 VIEWS EXAM: XR ANKLE RT MIN 3 VIEWS, XR FOOT RT MIN 3 VIEWS HISTORY: Unspecified fall COMPARISON: None. FINDINGS: 3 views of the right ankle, 3 views of the right foot. There is no acute fracture or dislocation. The joint spaces are well-maintained. There is mild degenerative arthrosis of the great toe interphalangeal joint. There is no soft tissue abnormality. IMPRESSION: No acute osseous abnormality. Consider repeat radiographs in 7-10 days to assess for an occult fracture. Electronically authenticated by: JANNA COTTON Date: 2021-09-07 11:39 Normal [facility] Coding Queryon 03-22-2019 Coding Query - From: Trevor Joshua MD To: Ceci Greene; Sent: 03/22/2019 16:18:37 EDT Subject: RE: Coding Query It looks like we recorded a 04135, but I had believed because she was going to ahve to repeat things with Dr. Diamond, but it looks like she went elsewhere so we can bill the 00958. Thank you. Inocencio Joshua MD From: Ceci Greene To: Trevor Joshua MD; Sent: 03/21/2019 13:34:03 EDT Subject: Coding Query Dr. Joshua, There are no charges attached to this 02/28/19 OV. Do you know what level/cpt code you would like to charge? Thanks Ceci Orellana [facility] Vital Signs Date Time Vital Sign Value Performing Clinician Facility 03-08-2024 11:20-0400 Body mass index (BMI) [Ratio] 28.98 kg/m2 Jacque Ag [employer] SUPERVISOR Work Phone: [facility] 03-08-2024 11:20-0400 Body temperature 97 [degF] Jacque Ancelmo [employer] SUPERVISOR Work Phone: [facility] 03-08-2024 11:20-0400 Body weight 83.92 kg Jacque Dalecarson [employer] SUPERVISOR Work Phone: [facility] 03-08-2024 11:20-0400 Diastolic blood pressure 66 mm[Hg] Jacque Ancelmo [employer] SUPERVISOR Work Phone: [facility] 03-08-2024 11:20-0400 Heart rate 88 /min Jacque Ancelmo [employer] SUPER[employer]OR Work Phone: [facility] 03-08-2024 11:20-0400 SaO2% (BldA) [Mass fraction] 99 % Jacque Ancelmo [employer] SUPERVISOR Work Phone: [facility] 03-08-2024 11:20-0400 Systolic blood pressure 128 mm[Hg] Jacque Ancelmo [employer] SUPERVISOR Work Phone: [facility] 03-05-2024 09:37-0400 Body mass index (BMI) [Ratio] 28.98 kg/m2 Jacque Ancelmo [employer] SUPERVISOR Work Phone: [facility] 03-05-2024 09:37-0400 Body temperature 98.01 [degF] Jacque Ancelmo [employer] SUPERVISOR Work Phone: [facility] 03-05-2024 09:37-0400 Body weight 83.92 kg Jacque Ancelmo [employer] SUPERVISOR Work Phone: [facility] 03-05-2024 09:37-0400 Heart rate 73 /min Jacque Ancelmo [employer] SUPER[employer]OR Work Phone: [facility] 03-05-2024 09:37-0400 SaO2% (BldA) [Mass fraction] 98 % Jacque Ancelmo [employer] SUPERVISOR Work Phone: [facility] 03-01-2024 11:18-0400 Body mass index (BMI) [Ratio] 28.98 kg/m2 Jacque Ancelmo [employer] SUPERVISOR Work Phone: [facility] 03-01-2024 11:18-0400 Body temperature 97.7 [degF] Jacque Arriagamarcella [employer] SUPERVISOR Work Phone: [facility] 03-01-2024 11:18-0400 Body weight 83.92 kg Jacque Ag [employer] SUPERVISOR Work Phone: [facility] 03-01-2024 11:18-0400 Diastolic blood pressure 78 mm[Hg] Jacque Arriagamarcella [employer] SUPERVISOR Work Phone: [facility] 03-01-2024 11:18-0400 Heart rate 76 /min Jacque Arriagamarcella [employer] SUPERVISOR Work Phone: [facility] 03-01-2024 11:18-0400 SaO2% (BldA) [Mass fraction] 97 % Jacque Ag [employer] SUPERVISOR Work Phone: [facility] 03-01-2024 11:18-0400 Systolic blood pressure 122 mm[Hg] Jacque Arriagamarcella [employer] SUPERVISOR Work Phone: [facility] 02-09-2024 09:49-0400 Body height 170.2 cm Helio Brice DO Work Phone: [facility] 02-09-2024 09:49-0400 Body mass index (BMI) [Ratio] 28.98 kg/m2 Helio Brice DO Work Phone: [facility] 02-09-2024 09:49-0400 Body weight 83.92 kg Helio Brice DO Work Phone: [facility] 02-09-2024 09:49-0400 Diastolic blood pressure 90 mm[Hg] Helio Brice DO Work Phone: [facility] 02-09-2024 09:49-0400 Heart rate 62 /min Helio Brice DO Work Phone: [facility] 02-09-2024 09:49-0400 SaO2% (BldA) [Mass fraction] 97 % Helio Brice DO Work Phone: [facility] 02-09-2024 09:49-0400 Systolic blood pressure 110 mm[Hg] Helio Brice DO Work Phone: [facility] 05-26-2023 10:48-0500 Body height 170.2 cm Patriciamiguel Joe [employer] DIST[employer]OR OPERATOR[employer]IOR [employer] Work Phone: [facility] 05-26-2023 10:48-0500 Body mass index (BMI) [Ratio] 31.79 kg/m2 Patriciamiguel Acuñaeo [employer] DISTRIBUTOR OPERATOR[employer]IOR [employer] Work Phone: [facility] 05-26-2023 10:48-0500 Body weight 92.08 kg Patricia 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 [employer] Work Phone: [facility] 02-16-2023 10:47-0400 Diastolic blood pressure 72 mm[Hg] Ermias Bolden MD Work Phone: [facility] 02-16-2023 10:47-0400 Heart rate 67 /min Ermias Bolden MD Work Phone: [facility] 02-16-2023 10:47-0400 Systolic blood pressure 133 mm[Hg] Ermias Bolden MD Work Phone: [facility] 02-15-2023 12:53-0400 Body height 170.2 cm Ermias Bolden MD Work Phone: [facility] 02-15-2023 12:53-0400 Body mass index (BMI) [Ratio] 31.48 kg/m2 Ermias Bolden MD Work Phone: [facility] 02-15-2023 12:53-0400 Body temperature 97.39 [degF] Ermias Bolden MD Work Phone: [facility] 02-15-2023 12:53-0400 Body weight 91.17 kg Ermias Bolden MD Work Phone: [facility] 02-15-2023 12:53-0400 Heart rate 78 /min Ermias Bolden MD Work Phone: [facility] 02-15-2023 12:53-0400 Respiratory rate 16 /min Ermias Bolden MD Work Phone: [facility] 02-15-2023 12:53-0400 SaO2% (BldA) [Mass fraction] 98 % Ermias Bolden MD Work Phone: [facility] 02-15-2023 10:26-0400 Body temperature 97.59 [degF] Helio Miller MD Work Phone: [facility] 02-15-2023 10:26-0400 Diastolic blood pressure 65 mm[Hg] Helio Miller MD Work Phone: [facility] 02-15-2023 10:26-0400 Heart rate 61 /min Helio Miller MD Work Phone: [facility] 02-15-2023 10:26-0400 Respiratory rate 16 /min Helio Miller MD Work Phone: [facility] 02-15-2023 10:26-0400 SaO2% (BldA) [Mass fraction] 94 % Helio Miller MD Work Phone: [facility] 02-15-2023 10:26-0400 Systolic blood pressure 143 mm[Hg] Helio Miller MD Work Phone: [facility] 02-14-2023 21:06-0400 Body height 170.2 cm Helio Miller MD Work Phone: [facility] 02-01-2023 11:00-0400 Diastolic blood pressure 81 mm[Hg] Nabil Mccann MD Work Phone: [facility] 02-01-2023 11:00-0400 Heart rate 61 /min Nabil Mccann MD Work Phone: [facility] 02-01-2023 11:00-0400 Respiratory rate 15 /min Nabil Mccann MD Work Phone: [facility] 02-01-2023 11:00-0400 SaO2% (BldA) [Mass fraction] 96 % Nabil Mccann MD Work Phone: [facility] 02-01-2023 11:00-0400 Systolic blood pressure 155 mm[Hg] Nabil Mccann MD Work Phone: [facility] 02-01-2023 10:17-0400 Body temperature 97.2 [degF] Nabil Mccann MD Work Phone: [facility] 02-01-2023 08:00-0400 Body height 170.2 cm Nabil Mccann MD Work Phone: [facility] 02-01-2023 08:00-0400 Body mass index (BMI) [Ratio] 30.57 kg/m2 Nabil Mccann MD Work Phone: [facility] 02-01-2023 08:00-0400 Body weight 88.54 kg Nabil Mccann MD Work Phone: [facility] 01-27-2023 15:13-0400 Body height 170.2 cm Monika Suazo RN [facility] 01-27-2023 15:13-0400 Body mass index (BMI) [Ratio] 30.85 kg/m2 Monika Suazo RN [facility] 01-27-2023 15:13-0400 Body weight 89.36 kg Monika Suazo RN [facility] 01-27-2023 10:31-0400 Body height 170.2 cm Nabil Mccann MD Work Phone: [facility] 01-27-2023 10:31-0400 Body mass index (BMI) [Ratio] 30.92 kg/m2 Nabil Mccann MD Work Phone: [facility] 01-27-2023 10:31-0400 Body weight 89.54 kg Nabil Mccann MD Work Phone: [facility] 01-24-2023 10:58-0400 Body height 170.2 cm Nabil Mccann MD Work Phone: [facility] 01-24-2023 10:58-0400 Body mass index (BMI) [Ratio] 30.84 kg/m2 Nabil Mccann MD Work Phone: [facility] 01-24-2023 10:58-0400 Body weight 89.31 kg Nabil Mccann MD Work Phone: [facility] Encounters Encounter Date Encounter Type Care Provider Facility Start: 06-26-2024 ambulatory [facility] Start: 06-06-2024 End: 06-06-2024 ambulatory [facility] Start: 06-06-2024 End: 06-06-2024 Subsequent hospital visit by physician Fozia Ruiz PT [facility] Start: 03-08-2024 End: 03-08-2024 ambulatory JACQUE AG Not Available Start: 03-08-2024 End: 03-08-2024 Office outpatient visit 25 minutes Jacque Ag [employer] SUPERVISOR Work Phone: [facility] Comment on above: Laceration of left h and, foreign body presence unspecified, subsequent encounter (Primary Dx) Start: 03-05-2024 End: 03-05-2024 Office outpatient visit 15 minutes Jacque Ag [employer] SUPERVISOR Work Phone: [facility] Comment on above: Laceration of left h and, foreign body presence unspecified, subsequent encounter (Primary Dx) Start: 03-05-2024 End: 03-05-2024 ambulatory JACQUE AG Not Available Start: 03-01-2024 End: 03-01-2024 ambulatory JACQUE AG Not Available Start: 03-01-2024 End: 03-01-2024 Office outpatient visit 15 minutes Jacque Ag [employer] SUPERVISOR Work Phone: [facility] Comment on above: Laceration of left h and, foreign body presence unspecified, subsequent encounter (Primary Dx) Start: 02-09-2024 End: 02-09-2024 Office outpatient visit 25 minutes Helio Brice DO Work Phone: [facility] Comment on above: Type 2 diabetes gwen itus with other specified complication, without long-term current use of insulin (CMS/HCC) (Primary Dx); Mixed hyperlipidemia (CMS/HCC); Recurrent major depressive disorder, in partial remission (HCC) (CMS/HCC); Elevated TSH Start: 02-09-2024 End: 02-09-2024 ambulatory HELIO BRICE Not Available Start: 10-20-2023 End: 10-20-2023 ambulatory HELIO BRICE Not Available Start: 08-23-2023 End: 08-23-2023 ambulatory YANET SALAZAR Not Available Start: 06-14-2023 End: 06-14-2023 ambulatory CHEPE MARKS Not Available Start: 06-03-2023 End: 06-03-2023 ambulatory YANET SALAZAR Not Available Start: 05-26-2023 ambulatory SELF SELF Facility:[facility] Start: 05-26-2023 End: 05-26-2023 Office outpatient visit 15 minutes Patricia Joe [employer] DIST[employer]OR OPERATOR[employer]IOR [employer] Work Phone: [facility] Comment on above: Right wrist pain (Pr imary Dx) Start: 03-14-2023 ambulatory NABIL MCCANN Facility: [facility] Start: 02-24-2023 ambulatory HELIO BRICE Facili ty:[facility] Start: 02-24-2023 End: 02-24-2023 Postop follow up visit related to original px Patricia Joe [employer] DISTRIBUTOR OPERATOR[employer]IOR [employer] Work Phone: [facility] Comment on above: Carpal tunnel syndro me on right (Primary Dx); Radial tunnel syndrome, right; De Quervain's tenosynovitis, right; Cubital tunnel syndrome on right Start: 02-18-2023 ambulatory HELIO Delcid ty:[facility] Start: 02-16-2023 ambulatory HELIO Anguiano BABS Delcid ty:[facility] Start: 02-16-2023 End: 02-16-2023 Subsequent hospital visit by physician Ermias Bolden MD Work Phone: [facility] Comment on above: Arrived Start: 02-15-2023 ambulatory HELIO Annmarie MADISONBABS Farhana ty:[facility] Start: 02-15-2023 End: 02-15-2023 Office consultation new/estab patient 60 min Ermias Bolden MD Work Phone: [facility] Comment on above: Cervical radiculopat hy (Primary Dx) Start: 02-15-2023 End: 02-15-2023 Emergency department patient visit HELIO MILLER Facility:[facility] Start: 02-15-2023 End: 02-15-2023 Emergency department patient visit Helio Miller MD Work Phone: [facility] Start: 02-01-2023 End: 02-01-2023 ambulatory NABIL MCCANN Facility:[facility] Start: 02-01-2023 End: 02-01-2023 Subsequent hospital visit by physician Nabil Mccann MD Work Phone: Outpatient Surgery [facility] Comment on above: Lesion of ulnar nerv e Start: 01-27-2023 End: 01-27-2023 Preprocedural examination done Wilbur Longo MD Work Phone: [facility] Start: 01-27-2023 End: 01-27-2023 ambulatory Wilbur Longo MD Work Phone: Pre-Procedure Preparation [facility] Comment on above: Pre-op evaluation (P rimary Dx) Start: 01-27-2023 Encounter for other preprocedural examination GIGI MEYERS Facility[facility] Start: 01-27-2023 ambulatory SELF SELF Facility[facility] Start: 01-27-2023 End: 01-27-2023 Office outpatient visit 25 minutes Nabil Mccann MD Work Phone: [facility] Comment on above: Carpal tunnel syndro me on right (Primary Dx) Start: 01-27-2023 ambulatory WILBUR LONGO Facilsaul ty:[facility] Start: 01-27-2023 End: 01-27-2023 Subsequent hospital visit by physician Wilbur Longo MD Work Phone: Neurodiagnostic Testing Outpatient Care [facility] Comment on above: Arrived Start: 01-24-2023 ambulatory HELIO BRICE Facili ty:[facility] Start: 01-24-2023 End: 01-24-2023 Office outpatient new 45 minutes Nabil Mccann MD Work Phone: [facility] [place] Comment on above: Carpal tunnel syndro me on right (Primary Dx); De Quervain's tenosynovitis; Right wrist pain Start: 01-06-2023 End: 01-07-[address] [facility] Start: 09-16-[address] Helio Gilbert Facility:[id number] Start: 09-07-2021 End: 09-07-2021 ambulatory AUGUST MENJIVAR Facility:[id number] Start: 07-25-2019 End: 07-25-2019 Subsequent hospital visit by physician Fozia REARDON [facility] Comment on above: Arrived Start: 07-06-2019 End: 07-06-2019 Subsequent hospital visit by physician Gaby Corona PTA [facility] Comment on above: Canceled (Patient) Start: 06-07-2019 End: 06-07-2019 Subsequent hospital visit by physician Savannah Parrish PTA [facility] Comment on above: Canceled (Patient) Start: 06-04-2019 End: 06-04-2019 Subsequent hospital visit by physician Iftikhar Sanchez PTA [facility] Start: 05-28-2019 End: 05-28-2019 Subsequent hospital visit by physician Fozia [facility] Comment on above: Arrived Start: 05-25-2019 End: 05-25-2019 Subsequent hospital visit by physician Savannah [facility] Start: 05-22-2019 End: 05-22-2019 Subsequent hospital visit by physician Savannah [facility] Comment on above: Canceled (Patient) Start: 05-15-2019 End: 05-15-2019 Subsequent hospital visit by physician Savannah [facility] Comment on above: Canceled (Late Cance llation) Start: 05-11-2019 End: 05-11-2019 Subsequent hospital visit by physician [facility] Start: 05-09-2019 End: 05-09-2019 Subsequent hospital visit by physician Iftikhar [facility] Start: 05-03-2019 End: 05-03-2019 Subsequent hospital visit by physician [facility] Start: 05-02-2019 End: 05-02-2019 Subsequent hospital visit by physician Fozia [facility] Comment on above: Arrived Start: 04-30-2019 End: 04-30-2019 Subsequent hospital visit by physician Fozia [facility] Comment on above: Canceled (Patient) Start: 04-26-2019 End: 04-26-2019 Subsequent hospital visit by physician [facility] Start: 04-24-2019 End: 04-24-2019 Subsequent hospital visit by physician Savannah [facility] Start: 04-19-2019 End: 04-19-2019 Subsequent hospital visit by physician [facility] Start: 04-17-2019 End: 04-17-2019 Subsequent hospital visit by physician Savannah [facility] Start: 04-16-2019 End: 04-16-2019 Subsequent hospital visit by physician Iftikhar [facility] Comment on above: Canceled (Patient) Start: 04-12-2019 End: 04-12-2019 Subsequent hospital visit by physician Fozia Ruzi [facility] Comment on above: Arrived Start: 04-09-2019 End: 04-09-2019 Subsequent hospital visit by physician Iftikhar REARDON [facility] Start: 04-05-2019 End: 04-05-2019 Subsequent hospital visit by physician Savannah CARMICHAEL [facility] Start: 04-03-2019 End: 04-03-2019 Subsequent hospital visit by physician Savannah CARMICHAEL [facility] Start: 03-29-2019 End: 03-29-2019 [facility] Start: 03-26-2019 End: 03-26-2019 Subsequent hospital visit by physician Fozia Ruiz [facility] Comment on above: Arrived Start: 03-23-2019 End: 03-23-2019 [facility] Comment on above: Canceled (Patient) Start: 03-21-2019 End: 03-21-2019 Subsequent [facility] Comment on above: Arrived Procedures Date Procedure Procedure Detail Performing Clinician Start: 03-08-2024 SUTURE/STAPLE REMOVAL L chava Ag NP Work Phone: Start: 05-26-2023 Injection 1 tendon sheath/ligament aponeurosis Patricia A 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 [employer] Work Phone: Start: 02-14-2023 CBC AND ELECTRONIC DIFF Cale Lei MD Work Phone: Start: 02-14-2023 Complete blood count with white cell differential, automated Cale Lei MD Work Phone: Start: 02-14-2023 Creatinine blood Cale Lei MD Work Phone: Start: 02-14-2023 MINT GREEN TOP TUBE Rosangela Lei MD Work Phone: Start: 02-01-2023 Glucose measurement, blood Nabil Mccann MD Work Phone: Start: 02-01-2023 US Unspecified body region during surgery German Zarate MD Work Phone: Start: 02-01-2023 Glucose measurement, blood Nabil Mccann MD Work Phone: Start: 04-08-2022 Mammography Helio cardenas DO Work Phone: Plan of Treatment Date Care Activity Detail Author Start: 2033 Respiratory Syncytial Virus (RSV) or age 60 yrs+ (1 - 1-dose 75+ series) Respiratory Syncytial Virus (RSV) or age 60 yrs+ (1 - 1-dose 75+ series) [facility] Start: 11-06-2026 Screening for malignant neoplasm of colon [facility] Start: 01-30-2025 Urine screening for protein Diabetes: Urine Protein Screening [facility] Start: 10-19-2024 Medicare Annual Wellness (AWV) Medicare Annual Wellness (AWV) [facility] Start: 06-22-2024 End: 06-22-2024 Patient encounter procedure 06/22/2024 9:00 AM EST Office Visit [facility] [address] [phone] Helio Brice DO [address] [facility] [address] [place] [address] [facility] Start: 06-15-2024 End: 06-15-2024 Patient encounter procedure 06/15/2024 3:00 PM EST Appointment [facility] [address] [place] [address] Iftikhar Sanchez, REINSURANCE CLAIMS ANALYST weakness of pelvic floor [facility] Comment on above: weakness of pelvic floor Start: 05-24-2024 Annual Wellness Visit (Medicare) Annual Wellness Visit (Medicare) [facility] Start: 05-11-2024 End: 08-11-2024 CBC W Auto Differential panel - Blood CBC and differential Lab Routine Type 2 diabetes mellitus with other specified complication, without long-term current use of insulin ([facility]) Mixed hyperlipidemia ([facility]/HCC) Recurrent major depressive disorder, in partial remission (HCC) (CMS/HCC) Elevated TSH Expected: 05/11/2024 (Approximate), Expires: 08/11/2024 [facility] Work Phone: Comment on above: Expected: 05/11/2024 (Approximate), Expi res: 08/11/2024 Start: 05-11-2024 End: 08-11-2024 Comprehensive metabolic 2000 panel - Serum or Plasma Comprehensive metabolic panel Lab Routine Type 2 diabetes mellitus with other specified complication, without long-term current use of insulin (CMS/HCC) Mixed hyperlipidemia (CMS/HCC) Recurrent major depressive disorder, in partial remission (HCC) (CMS/HCC) Elevated TSH Expected: 05/11/2024 (Approximate), Expires: 08/11/2024 [facility] Comment on above: Expected: 05/11/2024 (Approximate), Expi res: 08/11/2024 Start: 05-11-2024 End: 08-11-2024 Hemoglobin a1c with eag Hemoglobin a1c with eag Lab Routine Type 2 diabetes mellitus with other specified complication, without long-term current use of insulin (CMS/HCC) Expected: 05/11/2024 (Approximate), Expires: 08/11/2024 [facility] Comment on above: Expected: 05/11/2024 (Approximate), Expi res: 08/11/2024 Start: 05-11-2024 End: 08-11-2024 Thyrotropin [Units/volume] in Serum or Plasma TSH Lab Routine Elevated TSH Expected: 05/11/2024 (Approximate), Expires: 08/11/2024 [facility] Comment on above: Expected: 05/11/2024 (Approximate), Expi res: 08/11/2024 Start: 05-11-2024 End: 08-11-2024 Thyroxine (T4) free [Mass/volume] in Serum or Plasma T4, free Lab Routine Elevated TSH Expected: 05/11/2024 (Approximate), Expires: 08/11/2024 [facility] Comment on above: Expected: 05/11/2024 (Approximate), Expi res: 08/11/2024 Start: 05-11-2024 End: 02-22-2025 Triiodothyronine (T3) Free [Mass/volume] in Serum or Plasma T3, free Lab Routine Elevated TSH Expected: 05/11/2024 (Approximate), Expires: 08/11/2024 [facility] Comment on above: Expected: 05/11/2024 (Approximate), Expi res: 08/11/2024 Start: 05-02-2024 Hemoglobin A1c measurement Diabetes: Hemoglobin A1C [facility] Start: 04-08-2024 Screening for malignant neoplasm of breast Breast cancer screen [facility] Start: 02-19-2024 COVID-19 Vaccine () COVID-19 Vaccine () [facility] Start: 02-19-2024 Influenza vaccination Influenza Vaccine (#1) [facility] Start: 01-19-2024 Influenza vaccination Flu vaccine (#1) [facility] Start: 10-23-2023 Glaucoma screening Diabetes: Retinopathy Screening [facility] Start: 04-08-2023 Screening for malignant neoplasm of breast Mammogram [facility] Start: 03-14-2023 End: 03-14-2023 Telemedicine consultation with patient 03/14/2023 12:40 PM EDT Telemedicine [facility] [id number] [place] [phone] Patricia Joe, ASPHALT DISTRIBUTOR OPERATOR-[facility] [address] [facility] [address] [phone] [facility] Start: 03-14-2023 End: 03-14-2023 Patient encounter procedure 03/14/2023 10:15 AM EDT Office Visit [facility] [address] [place] [address] Ermias Bolden MD [address] [place] [address] [facility] Start: 02-24-2023 End: 02-24-2023 Patient encounter procedure 02/24/2023 1:00 PM EDT Office Visit [facility] [address] [facility] [address] [place] [phone] Patricia Joe, ASPHALT DISTRIBUTOR OPERATOR-SENIOR [employer] [address] [facility] [address] [place] [phone] [facility] Start: 02-18-2023 Influenza vaccination INFLUENZA VACCINE (#1) [facility] Start: 02-18-2023 End: 02-18-2023 Telemedicine consultation with patient 02/18/2023 10:40 AM EDT Telemedicine [facility] [address] [facility] [address] [place] [phone] Patricia Joe, ASPHALT DISTRIBUTOR OPERATOR-SENIOR [employer] [address] [facility] [address] [place] [address] [facility] Start: 02-16-2023 End: 02-16-2023 Patient encounter procedure [facility] Start: 02-15-2023 End: 02-16-2024 MR Cervical spine WO contrast MRI SPINE CERVICAL WITHOUT CONTRAST Imaging Routine Cervical radiculopathy Expected: 02/15/2023, Expires: 02/16/2024 [facility] Comment on above: Expected: 02/15/2023, Expires: Start: 02-15-2023 End: 02-15-2023 Patient encounter procedure 02/15/2023 1:00 PM EDT Office Visit [facility] [address] [place] [phone] Ermias Bolden MD [address] [place] [address] [facility] Start: 02-10-2023 End: 02-10-2023 Patient encounter procedure [facility] Start: 02-01-2023 End: 02-01-2023 Admission to same day surgery center 02/01/2023 9:35 AM EDT - 02/01/2023 10:50 AM EDT Surgery Outpatient Surgery [facility] [address] [facility] [address] [place] [address] Nabil Mccann MD [address] [facility] [address] [place] [address] ENDOSCOPY CARPAL TUNNEL RELEASE Outpatient Surgery [facility] Comment on above: ENDOSCOPY CARPAL TUNNEL RELEASE Start: 02-01-2023 End: 02-01-2023 Arthrocentesis aspir&/inj interm jt/burs w/o us [facility] Start: 02-01-2023 End: 02-01-2023 Incision extensor tendon sheath wrist [facility] Start: 02-01-2023 End: 02-01-2023 Ndsc wrst surg w/rls transvrs carpl ligm [facility] Start: 02-01-2023 End: 02-01-2023 Neuroplasty &/transposition ulnar nerve elbow [facility] Start: 02-01-2023 End: 02-01-2023 Neurp major prph nrv arm/leg opn oth/thn spec [facility] Start: 02-01-2023 Subsequent hospital visit by physician 02/01/2023 7:30 AM EDT Hospital Encounter Outpatient Surgery [facility] [address] [facility] [address] [place] [address] Nabil Mccann MD [address] [facility] [address] [place] [address] Lesion of ulnar nerve Outpatient Surgery [facility] Comment on above: Lesion of ulnar nerve Start: 06-27-2021 Screening for malignant neoplasm of breast MAMMOGRAM SCREENING DISCUSSION [facility] Start: 08-15-2019 End: 08-15-2019 Appointment [facility] Start: 07-06-2019 End: 07-06-2019 Patient encounter procedure 07/06/2019 Appointment Physical Therapy Savannah Parrish PTA [facility] Start: 07-02-2019 End: 07-02-2019 Patient encounter procedure [facility] Start: 06-07-2019 End: 06-07-2019 Appointment 06/07/2019 Appointment Physical Therapy Savannah Parrish PTA [facility] Start: 06-04-2019 End: 06-04-2019 Appointment 06/04/2019 Appointment Physical Therapy Iftikhar Sanchez PTA [facility] Start: 06-01-2019 End: 06-01-2019 Appointment CARON [facility] Start: 05-28-2019 End: 05-28-2019 Appointment [facility] Start: 05-25-2019 End: 05-25-2019 Appointment 05/25/2019 Appointment Physical Therapy Savannah Parrish PTA [facility] Start: 05-22-2019 End: 05-22-2019 Appointment 05/22/2019 Appointment Physical Therapy Savannah Parrish PTA [facility] Start: 05-15-2019 End: 05-15-2019 Appointment 05/15/2019 Appointment Physical Therapy Savannah Parrish PTA [facility] Start: 05-14-2019 End: 05-14-2019 Appointment [facility] Start: 05-11-2019 End: 05-11-2019 Appointment 05/11/2019 Appointment Physical Therapy Savannah Parrish PTA [facility] Start: 05-09-2019 End: 05-09-2019 Appointment 05/09/2019 Appointment Physical Therapy Iftikhar Sanchez PTA [facility] Start: 04-30-2019 End: 04-30-2019 Appointment [facility] Start: 04-26-2019 End: 04-26-2019 Appointment 04/26/2019 Appointment Physical Therapy Savannah Parrish PTA [facility] Start: 04-24-2019 End: 04-24-2019 Appointment 04/24/2019 Appointment Physical Therapy Savannah Parrish PTA [facility] Start: 04-23-2019 End: 04-23-2019 Appointment 04/23/2019 Appointment Physical Therapy Iftikhar Sanchez REINSURANCE CLAIMS ANALYST [facility] Start: 04-19-2019 End: 04-19-2019 Appointment 04/19/2019 Appointment Physical Therapy Savannah Parrish REINSURANCE CLAIMS ANALYST [facility] Start: 04-16-2019 End: 04-16-2019 Appointment 04/16/2019 Appointment Physical Therapy Iftikhar Sanchez REINSURANCE CLAIMS ANALYST [facility] Start: 04-12-2019 End: 04-12-2019 Appointment [facility] Start: 04-09-2019 End: 04-09-2019 Appointment 04/09/2019 Appointment Physical Therapy Iftikhar Sanchez REINSURANCE CLAIMS ANALYST [facility] Start: 04-05-2019 End: 04-05-2019 Appointment 04/05/2019 Appointment Physical Therapy Savannah Parrish REINSURANCE CLAIMS ANALYST [facility] Start: 04-03-2019 End: 04-03-2019 Appointment 04/03/2019 Appointment Physical Therapy Savannah Parrish REINSURANCE CLAIMS ANALYST [facility] Start: 03-29-2019 End: 03-29-2019 Appointment 03/29/2019 Appointment Physical Therapy Savannah Parrish REINSURANCE CLAIMS ANALYST [facility] Start: 03-26-2019 End: 03-26-2019 Appointment 03/26/2019 Appointment Physical Therapy Fozia Ruiz PT [facility] Start: 03-23-2019 End: 03-23-2019 Appointment 03/23/2019 Appointment Physical Therapy Savannah Parrish REINSURANCE CLAIMS ANALYST [facility] Start: 02-18-2019 Influenza vaccination Flu vaccine (#1) [place], [place] Start: 06-20-2017 DTaP/Tdap/Td vaccine (2 - Tdap) DTaP/Tdap/Td vaccine (2 - Tdap) [facility] Start: 2008 Breast cancer screen Breast cancer screen [place], [place] Start: 2008 Colon cancer screen colonoscopy Colon cancer screen colonoscopy [place], [place] Start: 2008 Shingles Vaccine (1 of 2) Shingles Vaccine (1 of 2) [facility] Start: 2008 Zoster vaccine hzv live for subcutaneous use ZOSTER (SHINGLES) VACCINE (1 of 2) [facility] Start: 2003 Screening for malignant neoplasm of colon [facility] Start: 1998 Lipid panel [facility] Start: 1998 Lipid screen Lipid screen [place], [place] Start: 1988 Screening for malignant neoplasm of cervix [facility] Start: 1979 Cervical cancer screen Cervical cancer screen [place], [place] Start: 1979 Screening for malignant neoplasm of cervix [facility] Start: 1977 DTaP/Tdap/Td vaccine (1 - Tdap) DTaP/Tdap/Td vaccine (1 - Tdap) [place] Start: 1977 Third diphtheria, tetanus and acellular pertussis (DTaP) vaccination TDAP (ADULT) [facility] Start: 1976 Hepatitis C screening Hepatitis C screen [facility] Start: 1973 HIV screen HIV screen [place], [place] Start: 1973 HIV screening [facility] Start: 1970 Depression Screen Depression Screen [facility] Start: 1958 Hepatitis C screen Hepatitis C screen [place], [place] Start: 1958 Hepatitis C screening HEPATITIS C VIRUS SCREENING [facility] Start: 1958 Screening for malignant neoplasm of colon [facility] Start: 1958 Tetanus vaccination TETANUS [facility] End: 02-01-2023 ASPIRATION OR INJECTION INTERMEDIATE JOINT BURSA ASPIRATION OR INJECTION INTERMEDIATE JOINT BURSA Imaging Routine Lesion of ulnar nerve Carpal tunnel syndrome One Time for 1 Occurrences starting 02/01/2023 until 02/01/2023 [facility] Comment on above: One Time for 1 Occurrences starting 01/18 until 02/01/2023 Electromyography EMG & NERVE CON DUCTION Neurology Routine Carpal tunnel syndrome on right Ordered: 01/24/2023 [facility] Comment on above: Ordered: 01/24/2023 End: 02-14-2023 GOLD TOP TUBE [facility] Comment on above: Once for 1 Occurrences starting 02/15/20 until 02/14/2023 End: 02-14-2023 LAVENDER TOP TUBE [facility] Comment on above: Once for 1 Occurrences starting 02/15/20 23 until 02/14/2023 End: 02-14-2023 LT BLUE TOP TUBE [facility] Comment on above: Once for 1 Occurrences starting 02/15/20 until 02/14/2023 End: 02-16-2023 MR Cervical spine WO contrast [facility] Comment on above: 1 Occurrences starting 02/16/2023 until 02/16/2023 End: 02-14-2023 RAINBOW DRAW [facility] Work Phone: Comment on above: One Time for 1 Occurrences starting 01/19 until 02/14/2023 Immunizations Immunization Date Immunization Notes Care Provider Javier andrews 10-20-2023 Pneumococcal Conjuga te PCV 20 Helio Brice DO Work Phone: [facility] 02-27-2023 influenza, injectabl e, quadrivalent, preservative free Helio Brice DO Work Phone: [facility] 02-27-2023 influenza virus vaccine, unspecified formulation Helio Brice DO Work Phone: [facility] 04-16-2021 influenza, injectabl e, quadrivalent, preservative free Helio Brice DO Work Phone: [facility] 04-16-2021 influenza virus vaccine, unspecified formulation Monika Suazo RN [facility] 09-24-2020 Pfizer Purple Cap SARS-CoV-2 Vaccination Helio Brice DO Work Phone: [facility] 09-03-2020 Pfizer Purple Cap SARS-CoV-2 Vaccination Helio Brice DO Work Phone: [facility] 05-08-2019 Influenza, injectabl e, Madin [place] Canine Kidney, quadrivalent with preservative Helio Brice DO Work Phone: [facility] 04-14-2018 Influenza, injectabl e, Madin [place] Canine Kidney, quadrivalent with preservative Helio Brice DO Work Phone: [facility] 04-03-2017 influenza, injectabl e, quadrivalent, preservative free Helio Brice DO Work Phone: [facility] Healthcare Payers Date Payer Category Payer Medicare MEDICARE MEDICAR E PART B [id number] 2023-Present [address] [address] [place] [address] Medicare [id number] 2023 Medicare [id number] 2016 Unknown [facility] A xxxxxxxxx 2016-Present [phone] [address] [place] [address] xxxxxxxxx [id number] 2016 Unknown [id number] 2016 Unknown [id number] 1959 Self-pay 1959 Unknown [id number] 1958 Unknown [id number] 2.16.840.1.535026.3.579.2.593 1958 Unknown [id number] 2.16.840.1.284068.3.579.2.593 1958 Unknown [id number] 2.16.840.1.530783.3.579.2.106 8 1958 Unknown [id number] 2.16.840.1.937793.3.579.2.594 1958 Unknown [id number] 2.16.840.1.243187.3.579.2.594 1958 Unknown [id number] 2.16.840.1.360039.3.579.2.594 1958 Unknown [id number] 2.16.840.1.342187.3.579.2.594 1958 Unknown [id number] 2.16.840.1.299992.3.579.2.594 1958 Unknown [id number] 2.16.840.1.748417.3.579.2.594 1958 Unknown [id number] 2.16.840.1.321687.3.579.2.594 1958 Unknown [id number] 2.16.840.1.914100.3.579.2.594 1958 Unknown [id number] 2.16.840.1.136956.3.579.2.594 1958 Unknown [id number] 2.16.840.1.902504.3.579.2.594 1958 Unknown [id number] 2.16.840.1.772669.3.579.2.594 1958 Unknown [id number] 2.16.840.1.983580.3.579.2.594 1958 Unknown [id number] 2.16.840.1.163949.3.579.2.594 1958 Unknown [id number] 2.16.840.1.141898.3.579.2.594 1958 Unknown [id number] 2.16.840.1.649976.3.579.2.125 9 1958 Unknown [id number] 2.16.840.1.648336.3.579.2.125 9 1958 Unknown [id number] 1960 Unknown [id number] 9 1960 Unknown [id number] 9 1958 Unknown [id number] 9 1960 Unknown [id number] 9 1958 Unknown [id number] 9 1960 Unknown [id number] 1960 Unknown [id number] Unknown [id number] Social History Date Type Detail Facility [facility] if [facility] smoked [place] Start: 1960 Sex Assigned At Not on file [place] Start: 12-06-2022 End: 01-27-2023 Tobacco smoking status NHIS Never smoked tobacco [facility] Start: 12-06-2022 End: 01-27-2023 Tobacco use and exposure Smokeless tobacco non-user [facility] Start: 01-27-2023 End: 02-01-2023 Alcohol intake Ex-drinker (finding) [facility] Start: 01-27-2023 End: 10-20-2023 History of Social function [facility] Start: 01-27-2023 End: 10-20-2023 Tobacco use panel [facility] smoking consumption unknown [facility] Start: 02-15-2023 End: 03-05-2024 Alcohol intake Lifetime non-drinker (finding) [facility] How often to you hav e a drink containing alcohol? Never [facility] How many standard drinks containing alcohol do you have on a typical day? Patient does not drink [facility] Start: 12-09-2022 Alcohol Comment caffeine several cans of diet coke [facility] Start: 1960 Sex assigned at Female [facility] Start: 02-14-2023 Gender identity Identifies as female gender (finding) [facility] Start: 02-14-2023 Sexual orientation Heterosexual (finding) [facility] Medical Equipment Procedure Code Equipment Code Equipment Origin al Text Equipment Identifier Dates 1 Device in the morning and 1 Device before bedtime. [id number] Start: 10-20-2023 Clinical Notes 01-24-2023 to 03-08-2024 Jacque Ag, KYRIE - 03/08/2024 11:15 AM Cj Ag, KYRIE - 03/05/2024 9:30 AM Cj Ag, KYRIE - 03/01/2024 11:15 AM OLVIN Tracey - 05/26/2023 11:00 AM EST Note Date & Type Note Facility 03-08-2024 History of Presen t illness Narrative Associated Order(s): Suture Removal Post-Procedure Diagnose(s): Laceration of left hand, foreign body presence unspecified, subsequent encounter HPI: Historian of HPI: patient Elvira Avalos is a 63 y.o. female who presents today to the Urgent Care with the following complaints and denials which have been present for 2 week(s) C/O Denies Symptom Comments [x] [] Laceration [] [x] Rash [] [x] Lump [] [x] Bump [] [x] Depression [] [x] abscess [] [x] cellulitis [] [x] itching [] [x] pain [] [x] burning [] [x] Sensation of insects crawling Additional Comments: Pt had sutures placed in her left palm 3 weeks ago at the [facility]. Pt presents for suture removal today. Pt states she is not sure the area is closed up like it should be . ROS: A complete system ROS was performed and negative aside from the pertinent positives noted in the HPI and PE. Examination General Examination: General Examination: Alert, oriented, normal affect, well appearing, in no acute distress, well developed, well nourished Head: normocephalic, atraumatic Skin: web space left hand, 3rd and 4th fingers with laceration present with sutures intact. No s/s infection. Musculoskeletal: left Hand: FROM [place] intact: Swelling: none Palpable tenderness: none Extremities: no cyanosis Peripheral pulses: 2+ radial, 2+ ulnar, nail nemesio intact Neurologic: sensory exam intact Psych: alert, oriented, cognitive function intact, cooperative with exam Patient ID: Elvira Avalos is a 63 y.o. female. Suture Removal Date/Time: 03/08/2024 11:40 AM Performed by: Jacque Ag NP Authorized by: Jacque Ag NP Consent: Consent obtained: Verbal Consent given by: Patient Risks, benefits, and alternatives were discussed: yes Risks discussed: Wound separation and pain [place] protocol: Procedure explained and questions answered to patient or proxy's satisfaction: yes Procedure details: Wound appearance: No signs of infection Comments: All sutures removed. Top layer of epidermis gaping post removal. Steristrips placed with good approx and closure of laceration. 1. Laceration of left hand, foreign body presence unspecified, subsequent encounter Due to length of time sutures intact, all sutures removed at this time. Steri strips placed. Keep clean and dry at this time. Immediate eval if new, worsening or warning s/s otherwise follow up if sx not fully resolved over next 7 days. If delayed healing remains, consider referral to wound clinic. Consulted Dr Orellana regarding pt and plan of care. documented in this encounter [facility] 03-05-2024 History of Presen t illness Narrative HPI: Historian of HPI: patient Elvira Avalos is a 63 y.o. female who presents today to the Urgent Care with the following complaints and denials which have been present for 2 week(s) C/O Denies Symptom Comments [x] [] Lesion [] [x] Rash [] [x] Lump [] [x] Bump [] [x] Depression [] [x] abscess [] [x] cellulitis [] [x] itching [] [x] pain [] [x] burning [] [x] Sensation of insects crawling Additional Comments: Pt had sutures placed in her left palm 16 days ago at the [facility]. Pt presents for suture removal today. Pt states she is not sure the area is closed up like it should be . ROS: A complete system ROS was performed and negative aside from the pertinent positives noted in the HPI and PE. Examination General Examination: General Examination: Alert, oriented, normal affect, well appearing, in no acute distress, well developed, well nourished Head: normocephalic, atraumatic Skin: web space left hand, 3rd and 4th fingers with laceration present with sutures intact. No s/s infection. Musculoskeletal: left Hand: FROM [place] intact: Swelling: none Palpable tenderness: none Extremities: no cyanosis Peripheral pulses: 2+ radial, 2+ ulnar, nail nemesio intact Neurologic: sensory exam intact Psych: alert, oriented, cognitive function intact, cooperative with exam 1. Laceration of left hand, foreign body presence unspecified, subsequent encounter X4 sutures removed and area begins gaping. Remaining sutures left intact at this time. Keep clean and dry. Follow up this Thurs for recheck. Consulted Dr Orellana regarding pt and plan of care. documented in this encounter [facility] 03-01-2024 History of Presen t illness Narrative HPI: Historian of HPI: patient Elvira Avalos is a 63 y.o. female who presents today to the Urgent Care with the following complaints and denials which have been present for 12 days, pt states she needs 10 sutures removed located on her left hand in between fingers 3 and 4. Pt states she got the sutures placed in at [facility]. Pt states she is currently not having any sx or issues from the laceration or sutures. C/O Denies Symptom Comments [x] [] Lesion Laceration in between fingers 3 and 4. [] [x] Rash [] [x] Lump [] [x] Bump [] [x] Depression [] [x] abscess [] [x] cellulitis [] [x] itching [] [x] pain [] [x] burning [] [x] Sensation of insects crawling Additional Comments: pt has taken placed on an ATB and finished the ATB. OTC medication with relief ROS: A complete system ROS was performed and negative aside from the pertinent positives noted in the HPI and PE. Examination General Examination: General Examination: Alert, oriented, normal affect, well appearing, in no acute distress, well developed, well nourished Head: normocephalic, atraumatic Skin: web space left hand, 3rd and 4th fingers with laceration present with sutures intact. There is mild gaping noted when tension placed on along laceration edges. No s/s infection. Musculoskeletal: left Hand: FROM [place] intact: Swelling: none Palpable tenderness: none Extremities: no cyanosis Peripheral pulses: 2+ radial, 2+ ulnar, nail nemesio intact Neurologic: sensory exam intact Psych: alert, oriented, cognitive function intact, cooperative with exam 1. Laceration of left hand, foreign body presence unspecified, subsequent encounter Discussed sutures need to remain in place at this time due to concern for dehiscence if removed at this time. Keep clean and dry. Stop ointments. Cleanse with H2O2 daily. Leave [employer]. Immediate eval if new, worsening sx otherwise follow up this Tuesday for recheck and suture removal. documented in this encounter [facility] 05-26-2023 History of Presen t illness Narrative Associated Order(s): UPPER EXTREMITY INJECTION: R extensor compartment 1 Post-Procedure Diagnose(s): Right wrist pain Images from the original note were not included. Chief Complaint Patient presents with Right Wrist - Follow-up 16 week follow up, Right ulnar nerve decompression. Right endoscopic carpal tunnel release. Right radial tunnel decompression. Right dorsal compartment release. Right ulnar carpal injection. DOS 02/01/23 [place]: Elvira is a 62 y.o. patient is here today for a postop follow-up visit, ~ 16 weeks. She is well known to me PROCEDURES: 02/01/23 Dr. Mccann 1. Right ulnar nerve decompression. 2. Right endoscopic carpal tunnel release. 3. Right radial tunnel decompression. 4. Right dorsal compartment release. 5. Right ulnar carpal injection Patient of Dr. Mccann, well known to me. Comes in today with improvement at all of her surgery sites except her radial wrist. She has been to extensive therapy OT after the surgery and this area continues to be intermittently swollen and her therapists all feel that there is possibly a retained suture. She did have an exploration of this area for an abscess on 02/15/23. Physical Exam: A&Ox3 with normal affect and normal gait. Right upper extremity exam: Radial sided wrist incision is healed. I am unable to palpate a suture or foreign body. No open areas or redness. Able to actively range fingers, hand, wrist and elbow Negative Katie's test NVI A/P Elvira is a 62 y.o. patient who is ~ 16 weeks from surgery. She is doing well with postoperative course from all of the surgical procedures done except residual intermittent radial wrist pain at the first dorsal compartment site. Intermittent swelling. Has done OT. OT concerned for retained suture. She did have an exploration of this area for an abscess on 02/15/23. ICD-10-CM 1. Right wrist pain M25.531 The plan for the patient includes: - Unsure if a suture is retained without exploring. Dr. Mccann also saw her today. He recommended a local subcutaneous injection of steroid. She elected to proceed. See procedure note. Ice on and off the next few days. Continue to work on scar massage. WBAT and use as pain allows - If any questions and/or concerns the patient will call the office. - Followup prn with Dr. Mccann if this does not resolve UPPER EXTREMITY INJECTION: R extensor compartment 1 Date/Time: 05/26/2023 11:00 AM Performed by: OLVIN Bolton Authorized by: OLVIN Bolton Supporting Documentation Indications: pain Procedure Details: Procedure: tendon sheath / ligament injection Location: wrist - R extensor compartment 1 Local Anesthetic: ethyl chloride (cold spray) Needle size: 27 G Approach: radial Medications administered: 0.5 mL Lidocaine 10 mg/mL; 4 mg dexAMETHasone 4 MG/ML Medication Verification: I have personally verified and performed the final check of the medication(s) used in this procedure prior to administration. The following items were included during the verification process for medication(s) administered: drug name, strength, volume, expiration, physical integrity and appearance of the medication(s). Consent: Consent was obtained prior to the procedure after discussion of the risks, benefits and alternatives, and expected outcomes were discussed with the patient. The possibilities of reaction to medication, bleeding, infection, the need for additional procedures, failure to diagnosis a condition, and creating a complication requiring operation were discussed with the patient. The patient concurred with the proposed plan, giving consent. Preparation: Patient was prepped in the usual sterile fashion. The patient was prepped with alcohol. - A copy of today's visit was electronically sent to the attending for review documented in this encounter [facility] 02-24-2023 History of Presen t illness Narrative Chief Complaint Patient presents with Right Elbow - Post Op Visit 3 week follow up, Right ulnar nerve decompression. Right endoscopic carpal tunnel release. Right radial tunnel decompression. Right dorsal compartment release. Right ulnar carpal injection. DOS 02/01/23 Right Thumb - Post Op Visit 3 week follow up, Right ulnar nerve decompression. Right endoscopic carpal tunnel release. Right radial tunnel decompression. Right dorsal compartment release. Right ulnar carpal injection. DOS 02/01/23 [place]: Elvira is a 62 y.o. patient is here today for a postop follow-up visit, ~ 3 weeks She was seen in the ED on 02/15/23 and underwent an I&D of her right first dorsal compartment incision. I did a telehealth visit with her on 02/18/23 and she was doing well. Taking Clindamycin and stopped and then restarted because her redness started to return. Appears to be irritation from a thick suture. Denies drainage. Feels like she is getting a yeast infection In OT and has a progress note with her today. She feels improvement in her symptoms to date. PROCEDURES: 02/01/23 Dr. Mccann 1. Right ulnar nerve decompression. 2. Right endoscopic carpal tunnel release. 3. Right radial tunnel decompression. 4. Right dorsal compartment release. 5. Right ulnar carpal injection. Physical Exam: Right upper extremity exam: Radial sided wrist incision is clean, dry and intact with one suture. Mild redness, no drainage Able to actively range fingers, hand, wrist and elbow NVI A/P Elvira is a 62 y.o. patient who is ~ 3 weeks from surgery. She is doing well with postoperative course. ICD-10-CM 1. Carpal tunnel syndrome on right G56.01 2. Radial tunnel syndrome, right G56.31 3. De Quervain's tenosynovitis, right M65.4 4. Cubital tunnel syndrome on right G56.21 The plan for the patient includes: - Suture removed in the office today with instructions on local wound care with soap and water. - Continue OT, signed the care plan - Instructed on ROM, scar massage and WBAT - Diflucan 150mg x1 prescribed. Will followup with OB if not improved - Continue pain control as needed. - If any questions and/or concerns the patient will call the office. - Followup 2 weeks telehealth with me - A copy of today's visit was electronically sent to the attending for review documented in this encounter [facility] 02-15-2023 History of Presen t illness Narrative Images from the original note were not included. Attending Physician Note (YESSICA) I personally examined and evaluated the patient. I reviewed the case and the medical record with the resident. Based on the history and exam, I agree with the medical decision making. Dr. Mansfield performed the interview and exam however, I was present and participated significantly in the evaluation, examination, and documentation of this patient. Elvira Avalos presents with ongoing right upper extremity numbness and tingling sensation. She also this pain starts in her neck and radiates down the lateral aspect of her arm to her fingers. Unfortunately even though she has had several upper extremity surgeries, this has persisted. She has had an EMG which suggested a possible cervical radiculopathy. As such we will obtain a cervical MRI to further evaluate for possible spine causes to this pain. She is interested in possible injection options however we will perform this imaging 1st prior to proceeding. [facility] Referral: Neck and back pain History of Present Illness Elvira Avalos is a 62 y.o. female with a history of neck pain here to establish medical care. Pain Location: Right scapula and back shoulder. Pain radiates: Yes, right arm Pain duration: Constant Timing: Years Pain severity: 4/10 Pain described as Sharp Aggravating Factors: activity Relieving Factors: rest Associated numbness/tingling: Yes Associated weakness: No The patient denies difficulty with bowel or bladder control, unintentional weight loss, fevers, chills, or night sweats, arm or leg weakness, saddle anesthesia, pain which is worse at night, recent trauma, IV drug use, issues with balance or changes in writing or hand dexterity. Current medications for this issue: - none Treatment --Physical therapy: none --Injections: none --Spine Surgery: none [facility] Report Reviewed 02/15/23 Review of Systems Remainder of ROS was negative or as above and below. (positive if in bold) General/Constitutional: no fevers, night sweats, or unintentional wt loss GI: No new diarrhea or constipation : No new dysuria or incontinence MSK: per HPI Neuro: per HPI Surgical History Past Surgical History: Procedure Laterality Date ENDOSCOPY CARPAL TUNNEL RELEASE Right 02/01/2023 Laterality: Right; Surgeon: Nabil Mccann MD; Location: [facility] DECOMPRESSION TRANSPOSITION ULNAR NERVE ELBOW Right 02/01/2023 Laterality: Right; Surgeon: Nabil Mccann MD; Location: [facility] DECOMPRESSION MAJOR PERIPHERAL NERVE Right 02/01/2023 Laterality: Right; Surgeon: Nabil Mccann MD; Location: [facility] INCISION TENDON SHEATH WRIST Right 02/01/2023 Laterality: Right; Surgeon: Nabil Mccann MD; Location: [facility] ASPIRATION OR INJECTION INTERMEDIATE JOINT BURSA Right 02/01/2023 Laterality: Right; Surgeon: Nabil cMcann MD; Location: [facility] Social History Social History Tobacco Use Smoking status: Never Smokeless tobacco: Never Vaping Use Vaping Use: Never used Substance Use Topics Alcohol use: Never Drug use: Never Physical Examination Pulse 78 Temp 97.4 F (36.3 C) (Temporal) Resp 16 Ht 1.702 m (5' 7 ) Wt 91.2 kg (201 lb) SpO2 98% BMI 31.48 kg/m Smoking Status Never Body mass index is 31.48 kg/m . GENERAL: NAD, good eye contact, well appearing, responds appropriately. Obese/Overweight: no HEENT: Atraumatic, normocephalic. EOMI grossly intact to tracking examiner, sclerae anicteric. PSYCH: Affect appears normal, mood congruent. Observation: Visible Spine/Back Deformity: no Palpation: Tenderness to palpation of the cervical paraspinal muscles and scapular area: yes ROM: Pain worse with rotation. Seated SLR: while seated was normal in bilateral lower extremities. Spurling's Test: - on R, - on L Empty can test: - Manual Muscle Testing: Upper Extremity MMT: -/5 SA EF EE WE Inter. APB Right 5 5 5 5 5 5 Left 5 5 5 5 5 5 Sensation: Grossly normal to light touch over BUL. Gait: Grossly Normal Labs and imaging Reviewed Images and radiology reports personally reviewed. Diagnostic studies were also reviewed with and explained to patient using their images, reports, diagrams, and/or models. Lab Results Component Value Date SODIUM 135 02/14/2023 POTASSIUM 4.1 02/14/2023 CHLORIDE 101 02/14/2023 CO2 26 02/14/2023 BUN 23 02/14/2023 CREATSERUM 0.99 02/14/2023 GLUCOSE 187 (H) 02/14/2023 Lab Results Component Value Date WBC 12.74 (H) 02/14/2023 HGB 13.7 02/14/2023 HCT 42.1 02/14/2023 PLATELET 285 02/14/2023 MCV 93.6 02/14/2023 No results found for: SEDRATE No results found for: CRP EMG 01/2023 Assessment and Plan Trish is a pleasant patient who came with c/o chronic upper back pain that has been getting worse over the months. She has recently underwent R ulnar and carpal tunnel release for nerve entrapment. Associative symptoms include tingling, numbness in C5, T1 distribution and weakness. Pain is mainly in R paraspinal and scapular area and radiates to the right arm. She has been doing PT for her entrapment issues and she is not taking any medication for this pain. Unfortunately, her son unexpectedly recently and her pain is limiting her ability to take care of grandsons. The patient's pain appears to be multifactorial in nature with multiple possible pain generators. However, history and physical is mostly consistent with a radicular source of pain. The differential diagnosis would include disk herniation with subsequent nerve root compression or degenerative spondylosis leading to central canal stenosis or neuroforaminal stenosis as potential etiologies. Plan: Physical Therapy -Start physical therapy Imaging -Will obtain MRI of the Spine, as is warranted at this time to further investigate the spine in the setting of in the setting of progressive and worsening symptoms Medical management to be discussed/communicated with the referring physician/ clinician. Ermias Bolden MD Interventional Pain Management Department of Anesthesiology This note was dictated using medical dictation software [employer]. This note has been proofread for errors but typos and grammatical errors from dictation may still be present. Fred Mansfield MD Department of Anesthesiology documented in this encounter [facility] 02-15-2023 Emergency department Note ED Attending Chief complaint: Chief Complaint Patient presents with Post-Op Problem Elvira Avalos is a 62 y.o. female Past Medical History: Diagnosis Date Arthritis Depression Diabetes mellitus Migraine BP 143/65 Pulse 61 Temp 97.6 F (36.4 C) (Oral) Resp 16 Ht 1.702 m (5' 7 ) SpO2 94% BMI 30.57 kg/m Smoking Status Never This patient's history and physical exam were performed by the resident. On 02/14/2023 I saw and examined the patient. I discussed the history and examination with the resident and agree with the plan of care. Medical Decision Making Amount and/or Complexity of Data Reviewed External Data Reviewed: notes. Details: OR notes Discussion of management or test interpretation with external provider(s): Orthopedic hand Risk Prescription drug management. Differential diagnosis includes but is not limited to the following:: Infected surgical wound Patient with hand surgery several weeks ago. She has new redness and tenderness at the site of her carpal tunnel portion of the surgery. We consulted Orthopedic can three evaluate her. They recommended one dose of IV followed by oral antibiotics. Patient will be discharged on these medications. Helio Miller MD 02/15/23 1447 Helio Miller MD 02/15/23 1447 EMERGENCY DEPARTMENT ENCOUNTER CHIEF COMPLAINT Chief Complaint Patient presents with Post-Op Problem HPI Elvira Avalos is a 62 y.o. female with history significant for prior carpal tunnel release who presents with a chief complaint as above. Went to clinic two days ago and had some redness and tenderness noted to site of carpal tunnel issue. No fever, chills, or SOB. PAST MEDICAL HISTORY Past Medical History: Diagnosis Date Arthritis Depression Diabetes mellitus Migraine SURGICAL HISTORY Past Surgical History: Procedure Laterality Date ENDOSCOPY CARPAL TUNNEL RELEASE Right 02/01/2023 Laterality: Right; Surgeon: Nabil Mccann MD; Location: [facility] DECOMPRESSION TRANSPOSITION ULNAR NERVE ELBOW Right 02/01/2023 Laterality: Right; Surgeon: Nabil Mccann MD; Location: [facility] DECOMPRESSION MAJOR PERIPHERAL NERVE Right 02/01/2023 Laterality: Right; Surgeon: Nabil Mccann MD; Location: [facility] INCISION TENDON SHEATH WRIST Right 02/01/2023 Laterality: Right; Surgeon: Nabil Mccann MD; Location: [facility] ASPIRATION OR INJECTION INTERMEDIATE JOINT BURSA Right 02/01/2023 Laterality: Right; Surgeon: Nabil Mccann MD; Location: [facility] CURRENT MEDICATIONS Current Outpatient Medications Medication Sig Albuterol 108 (90 Base) MCG/ACT Aero Soln inhaler 2 puffs Inhalation every 4hrs as needed for 90 days Atorvastatin 10 MG tablet Take 1 tablet by mouth Daily (with dinner). Erythromycin 5 MG/GM Ointment ophthalmic ointment APPLY ONE-HALF inch strip to affected eye(s) DAILY AT BEDTIME for 30 days esomeprazole [address] capsule Take 1 capsule by mouth. fluticasone 50 MCG/ACT Suspension nasal spray 1 spray in each nostril Nasally 2 x a day for 90 days metFORMIN 500 MG tablet Take 1 tablet by mouth. oxyCODONE 5 MG tablet Take 1 tablet by mouth every 6 hours as needed for Moderate Pain or Severe Pain for up to 5 days. venlafaxine 37.5 MG tablet Take 1 tablet by mouth Twice daily. ALLERGIES Not on File FAMILY HISTORY No family history on file. SOCIAL HISTORY Social History Socioeconomic History Marital status: Spouse name: Not on file Number of children: Not on file Years of education: Not on file Highest education level: Not on file Occupational History Not on file Tobacco Use Smoking status: Never Smokeless tobacco: Never Vaping Use Vaping Use: Never used Substance and Sexual Activity Alcohol use: Not Currently Drug use: Never Sexual activity: Not on file Other Topics Concern Not on file Social History Narrative Not on file Social Determinants of Health Financial Resource Strain: Not on file Food Insecurity: Not on file Transportation Needs: Not on file Physical Activity: Not on file Stress: Not on file Social Connections: Not on file Intimate Partner Violence: Not on file Housing Stability: Not on file PHYSICAL EXAM Vital Signs:BP 147/70 (BP Position: Sitting) Pulse 64 Temp 97.4 F (36.3 C) Resp 16 Ht 1.702 m (5' 7 ) SpO2 97% BMI 30.57 kg/m Smoking Status Never Physical Exam HENT: Right Ear: External ear normal. Left Ear: External ear normal. Cardiovascular: Rate and Rhythm: Normal rate and regular rhythm. Pulses: Normal pulses. Heart sounds: Normal heart sounds. Musculoskeletal: General: Tenderness present. Comments: Redness noted to surgical site on wrist. Labs: Results for orders placed or performed during the hospital encounter of 02/15/23 [facility] 7 - ED Result Value Ref Range Sodium 135 135 - 145 mmol/L Potassium 4.1 3.5 - 5.0 mmol/L Chloride 101 98 - 108 mmol/L CO2 26 21 - 31 mmol/L Glucose 187 (H) 70 - 99 mg/dL BUN 23 7 - 25 mg/dL Creatinine 0.99 0.50 - 1.20 mg/dL Bun/Crea Ratio 23 Osmolality (Calculated) 293 278 - 305 mOsm/kg Anion Gap 12 7 - 17 mmol/L eGFR, CKD-EPI, Female 64 >=60 mL/min/1.73m2 CBC AND ELECTRONIC DIFF Result Value Ref Range WBC Count 12.74 (H) 3.99 - 11.19 K/uL RBC Count 4.50 3.91 - 5.04 M/uL Hemoglobin 13.7 11.4 - 15.2 g/dL Hematocrit 42.1 34.9 - 44.3 % Mean Cell Volume 93.6 79.6 - 97.7 fL Mean Cell Hgb 30.4 25.9 - 33.9 pg Mean Cell Hgb Conc 32.5 31.4 - 35.9 g/dL RBC Distribution 13.2 10.8 - 14.9 % Platelet Count 285 150 - 393 K/uL Mean Platelet Volume 9.2 8.5 - 12.2 fL DIFF STATUS Electronic Differential Segs + Bands Auto 58.3 % Immature Grans % 0.2 % Lymphocyte % Auto 30.1 % Monocyte % Auto 8.1 % Eosinophil % Auto 2.8 % Basophil % Auto 0.5 % Nucleated RBC 0.0 <=0.2 /100 WBC Segs + Bands,Absolute Auto 7.42 (H) 1.64 - 7.28 K/uL Immature Grans Absolute <0.04 <=0.08 K/uL Abs Lymph Auto 3.83 (H) 1.16 - 3.51 K/uL Abs [place] Auto 1.03 (H) 0.22 - 0.87 K/uL Abs Eos Auto 0.36 0.00 - 0.42 K/uL Abs Baso Auto 0.07 0.00 - 0.15 K/uL Radiology: No orders to display ED COURSE & MEDICAL DECISION MAKING Elvira Avalos is a 62 y.o. female who presents with post op problem Differential includes but not limited to: Local site infection Plan: consult ortho and then likely dispo Will give one dose of IV antibiotics and then send off with 7 days of clinda. I reviewed previous records, examined and spoke to the patient, and ordered the above labs, imaging, therapeutics, and consultations. I have discussed the patient with the attending physician and they agree with the work up and plan. Impression: Post op cellulitis Disposition: Home This note was dictated with Vocab dictation software. Every effort was made to correct edits but please excuse any incorrections. Medical Decision Making De Quervain's tenosynovitis, right: chronic illness or injury with exacerbation, progression, or side effects of treatment Amount and/or Complexity of Data Reviewed Labs: ordered. Risk Prescription drug management. Alexx Fraser MD PGY-2 Emergency Medicine Alexx Fraser MD Resident 02/15/23 1101 Pt arrives with complaint of concern for infection at right wrist surgical site. Pt states surgery to area for Quervain tenosynovitis. Pt states today increased redness and tender to touch. Pt arrives with skin pen applied to area. Area with redness, no drainage visualized. documented in this encounter [facility] 02-15-2023 Physician Emergency department Note ED Attending Chief complaint: Chief Complaint Patient presents with Post-Op Problem Elvira Avalos is a 62 y.o. female Past Medical History: Diagnosis Date Arthritis Depression Diabetes mellitus Migraine BP 143/65 Pulse 61 Temp 97.6 F (36.4 C) (Oral) Resp 16 Ht 1.702 m (5' 7 ) SpO2 94% BMI 30.57 kg/m Smoking Status Never This patient's history and physical exam were performed by the resident. On 02/14/2023 I saw and examined the patient. I discussed the history and examination with the resident and agree with the plan of care. Medical Decision Making Amount and/or Complexity of Data Reviewed External Data Reviewed: notes. Details: OR notes Discussion of management or test interpretation with external provider(s): Orthopedic hand Risk Prescription drug management. Differential diagnosis includes but is not limited to the following:: Infected surgical wound Patient with hand surgery several weeks ago. She has new redness and tenderness at the site of her carpal tunnel portion of the surgery. We consulted Orthopedic can three evaluate her. They recommended one dose of IV followed by oral antibiotics. Patient will be discharged on these medications. Helio Miller MD 02/15/23 1447 Helio Miller MD 02/15/23 1447 [facility] Work Phone: 02-15-2023 Hospital Discharg e instructions Alexx Fraser MD - 02/15/2023 11:46 AM EDT Please follow up in hand clinic after antibiotics are given. The following attachments cannot be sent through Care Everywhere.De Quervain's: Tendon Release: Post-op (Turkish)documented in this encounter [facility] 02-15-2023 Physician Emergency department Note EMERGENCY DEPARTMENT ENCOUNTER CHIEF COMPLAINT Chief Complaint Patient presents with Post-Op Problem HPI Elvira Avalos is a 62 y.o. female with history significant for prior carpal tunnel release who presents with a chief complaint as above. Went to clinic two days ago and had some redness and tenderness noted to site of carpal tunnel issue. No fever, chills, or SOB. PAST MEDICAL HISTORY Past Medical History: Diagnosis Date Arthritis Depression Diabetes mellitus Migraine SURGICAL HISTORY Past Surgical History: Procedure Laterality Date ENDOSCOPY CARPAL TUNNEL RELEASE Right 02/01/2023 Laterality: Right; Surgeon: Nabil Mccann MD; Location: [facility] PERIOP DECOMPRESSION TRANSPOSITION ULNAR NERVE ELBOW Right 02/01/2023 Laterality: Right; Surgeon: Nabil Mccann MD; Location: [facility] PERIOP DECOMPRESSION MAJOR PERIPHERAL NERVE Right 02/01/2023 Laterality: Right; Surgeon: Nabil Mccann MD; Location: [facility] PERIOP INCISION TENDON SHEATH WRIST Right 02/01/2023 Laterality: Right; Surgeon: Nabil Mccann MD; Location: [facility] PERIOP ASPIRATION OR INJECTION INTERMEDIATE JOINT BURSA Right 02/01/2023 Laterality: Right; Surgeon: Nabil Mccann MD; Location: [facility] PERIOP CURRENT MEDICATIONS Current Outpatient Medications Medication Sig Albuterol 108 (90 Base) MCG/ACT Aero Soln inhaler 2 puffs Inhalation every 4hrs as needed for 90 days Atorvastatin 10 MG tablet Take 1 tablet by mouth Daily (with dinner). Erythromycin 5 MG/GM Ointment ophthalmic ointment APPLY ONE-HALF inch strip to affected eye(s) DAILY AT BEDTIME for 30 days esomeprazole [address] capsule Take 1 capsule by mouth. fluticasone 50 MCG/ACT Suspension nasal spray 1 spray in each nostril Nasally 2 x a day for 90 days metFORMIN 500 MG tablet Take 1 tablet by mouth. oxyCODONE 5 MG tablet Take 1 tablet by mouth every 6 hours as needed for Moderate Pain or Severe Pain for up to 5 days. venlafaxine 37.5 MG tablet Take 1 tablet by mouth Twice daily. ALLERGIES Not on File FAMILY HISTORY No family history on file. SOCIAL HISTORY Social History Socioeconomic History Marital status: Spouse name: Not on file Number of children: Not on file Years of education: Not on file Highest education level: Not on file Occupational History Not on file Tobacco Use Smoking status: Never Smokeless tobacco: Never Vaping Use Vaping Use: Never used Substance and Sexual Activity Alcohol use: Not Currently Drug use: Never Sexual activity: Not on file Other Topics Concern Not on file Social History Narrative Not on file Social Determinants of Health Financial Resource Strain: Not on file Food Insecurity: Not on file Transportation Needs: Not on file Physical Activity: Not on file Stress: Not on file Social Connections: Not on file Intimate Partner Violence: Not on file Housing Stability: Not on file PHYSICAL EXAM Vital Signs:BP 147/70 (BP Position: Sitting) Pulse 64 Temp 97.4 F (36.3 C) Resp 16 Ht 1.702 m (5' 7 ) SpO2 97% BMI 30.57 kg/m Smoking Status Never Physical Exam HENT: Right Ear: External ear normal. Left Ear: External ear normal. Cardiovascular: Rate and Rhythm: Normal rate and regular rhythm. Pulses: Normal pulses. Heart sounds: Normal heart sounds. Musculoskeletal: General: Tenderness present. Comments: Redness noted to surgical site on wrist. Labs: Results for orders placed or performed during the hospital encounter of 02/15/23 [facility] 7 - ED Result Value Ref Range Sodium 135 135 - 145 mmol/L Potassium 4.1 3.5 - 5.0 mmol/L Chloride 101 98 - 108 mmol/L CO2 26 21 - 31 mmol/L Glucose 187 (H) 70 - 99 mg/dL BUN 23 7 - 25 mg/dL Creatinine 0.99 0.50 - 1.20 mg/dL Bun/Crea Ratio 23 Osmolality (Calculated) 293 278 - 305 mOsm/kg Anion Gap 12 7 - 17 mmol/L eGFR, CKD-EPI, Female 64 >=60 mL/min/1.73m2 CBC AND ELECTRONIC DIFF Result Value Ref Range WBC Count 12.74 (H) 3.99 - 11.19 K/uL RBC Count 4.50 3.91 - 5.04 M/uL Hemoglobin 13.7 11.4 - 15.2 g/dL Hematocrit 42.1 34.9 - 44.3 % Mean Cell Volume 93.6 79.6 - 97.7 fL Mean Cell Hgb 30.4 25.9 - 33.9 pg Mean Cell Hgb Conc 32.5 31.4 - 35.9 g/dL RBC Distribution 13.2 10.8 - 14.9 % Platelet Count 285 150 - 393 K/uL Mean Platelet Volume 9.2 8.5 - 12.2 fL DIFF STATUS Electronic Differential Segs + Bands Auto 58.3 % Immature Grans % 0.2 % Lymphocyte % Auto 30.1 % Monocyte % Auto 8.1 % Eosinophil % Auto 2.8 % Basophil % Auto 0.5 % Nucleated RBC 0.0 <=0.2 /100 WBC Segs + Bands,Absolute Auto 7.42 (H) 1.64 - 7.28 K/uL Immature Grans Absolute <0.04 <=0.08 K/uL Abs Lymph Auto 3.83 (H) 1.16 - 3.51 K/uL Abs [place] Auto 1.03 (H) 0.22 - 0.87 K/uL Abs Eos Auto 0.36 0.00 - 0.42 K/uL Abs Baso Auto 0.07 0.00 - 0.15 K/uL Radiology: No orders to display ED COURSE & MEDICAL DECISION MAKING Elvira Avalos is a 62 y.o. female who presents with post op problem Differential includes but not limited to: Local site infection Plan: consult ortho and then likely dispo Will give one dose of IV antibiotics and then send off with 7 days of clinda. I reviewed previous records, examined and spoke to the patient, and ordered the above labs, imaging, therapeutics, and consultations. I have discussed the patient with the attending physician and they agree with the work up and plan. Impression: Post op cellulitis Disposition: Home This note was dictated with [employer] dictation software. Every effort was made to correct edits but please excuse any incorrections. Medical Decision Making De Quervain's tenosynovitis, right: chronic illness or injury with exacerbation, progression, or side effects of treatment Amount and/or Complexity of Data Reviewed Labs: ordered. Risk Prescription drug management. Alexx Fraser MD PGY-2 Emergency Medicine Alexx Fraser MD Resident 02/15/23 1101 [facility] 02-14-2023 Emergency department Note Pt arrives with complaint of concern for infection at right wrist surgical site. Pt states surgery to area for Quervain tenosynovitis. Pt states today increased redness and tender to touch. Pt arrives with skin pen applied to area. Area with redness, no drainage visualized. [facility] 02-01-2023 History of Presen t illness Narrative 10:50 AM Reviewed AVS, discharge instructions, nerve block, sling, prescription, follow-up appointment, and when to call the office with patient and patient's . All questions answered. Peripheral IV access removed. Prescription for oxycodone sent to patient's pharmacy. Patient states readiness for discharge. Kenisha Armstrong RN documented in this encounter [facility] 02-01-2023 Hospital Discharg e instructions DIONE Martins - 02/01/2023 10:13 AM EDT [facility] Home Care after Hand or Upper Extremity Surgery 1. PAIN CONTROL Prescription Medications: Oxycodone: this is a narcotic pain medication. You may experience nausea, constipation, and/or tiredness from this medication. You should use this for breakthrough pain. Over the Counter Medications: If you are medically able to do so, take 1 Aleve 220 mg in the morning and 1 in the evening for up to 10 days after surgery. You can stop if your post-operative pain is controlled sooner. If you are medically able to do so, take Tylenol Arthritis (or any brand of acetaminophen 8-hour) every 8 hours for up to 10 days after surgery. Take no more than 4000 mg in a 24-hour period. Tylenol Arthritis plus Aleve work together as a team to make each other stronger. The maximum amount of Tylenol is 4000 mg from all sources in a 24-hour period. Remember; don t substitute any other medication for the Tylenol. It must be Tylenol (also called acetaminophen) for it to work as a team. Remember also that the Tylenol Arthritis is taken every 8 hours, or three times a day, and Aleve is only twice a day. Over the Counter Medications to take as needed: Colace: You can take this if you are taking a narcotic pain medication to prevent constipation. Hold for loose stools or diarrhea. Take 100 mg 1-2 times a day. Pepcid: You can take this while taking Naproxen/Aleve or other NSAIDs such as ibuprofen/Motrin/Advil to prevent stomach upset or Acid-reflux symptoms. Take 1 tablet 1-2 times a day. Elevation: Keep your arm elevated above the level of your heart as much as possible to prevent swelling and help with pain. Ice: You can apply an ice pack for 20 minutes at a time outside of your splint or dressing (for instance on the forearm or in your arm pit.) Put a protective layer against your skin. Other medications: You may restart your own medications that you have at home as prescribed by your respective physicians. 2. DRESSINGS AND WOUND CARE Remove the dressings or splint in two days. You may cover your incision(s) with a light dressing, band-aid or leave it uncovered. Begin washing the incision(s) gently with soap and water after the dressing is removed. Pat dry with a soft towel. Do not soak your incision(s) in water including in dish water, bath tub or hot tub. Do not use creams, salves or balms on your incision(s). 3. DIET AND ACTIVITY Drink plenty of fluids and eat light meals today. Start your regular diet when you feel up to it. Work on moving your fingers if they are available, making a fist and opening the fist. Limit your activity. No heavy lifting, pushing or pulling. 4. NERVE BLOCK You may have received a nerve block as part of your anesthesia. If so, your arm will be completely numb from the shoulder down. If you had a block, use the sling it until the block wears off, then for comfort. The length of time the block will work is different for every patient. The block often wears off suddenly and you may experience rebound pain. If this happens, do not panic. Sometimes the pain is worse when the block first wears off, then returns to a more tolerable level. You should take pain medication before your block wears off. If you wait until the feeling returns to your arm you may find it difficult to get back ahead of the pain. 5. WHAT TO EXPECT AFTER SURGERY Pain controlled with medication, ice and elevation Minimal drainage from incision Swelling 6. WHEN TO CALL YOUR DOCTOR If you cannot get your pain under control If you have a temperature greater than 101 degrees Fahrenheit For increased amounts of redness, swelling or drainage from the incision For bleeding through your dressing Other Instructions: Please be sure to eat the day of your post op appointment before you come. This can help prevent you from feeling sick or lightheaded. Do not drive, operate equipment, sign important papers or make important decisions for 24 hours after anesthesia. Smoking and all nicotine products can impair bone healing and lead to wound infections. If you smoke or use tobacco, please consider quitting or cutting back as much as possible. You should not drive if you are in a splint or sling. Contacts: If you have any questions or problems, contact your doctor s office during office hours. [address], [address] [place] [address] Phone: [phone]). If after hours, call or the hospital blueprint machine operator at and ask for the Hand Resident media sales consultant or go to your local or [facility] Emergency room. documented in this encounter [facility] 02-01-2023 Nurse Surgical operation note Patient transferred to PACU via cart. Report given to [facility]RISTINE Sims. [facility] Note Patient transferred to PACU via cart. Report given to CHRISTINE Sims. documented in this encounter [facility] 02-01-2023 Nurse Note Timeout completed at the bedside correct pt, correct MRN, correct birthday, correct procedure and allergies reviewed pt is comfortable 2liters nasal cannula applied [facility] 02-01-2023 Miscellaneous Notes Timeout completed at the bedside correct pt, correct MRN, correct birthday, correct procedure and allergies reviewed pt is comfortable 2liters nasal cannula applied documented in this encounter [facility] 01-27-2023 Instructions Monika Suazo RN - 01/27/2023 3:30 PM EDT Here is a copy of the instructions we reviewed. Please let me know if you have any additional questions or concerns before the day of your surgery that I can help you with. Patient Medication Instructions: ONLY TAKE Nexium, claritin, effexor on the morning of surgery with a small sip of water, if tolerated on an empty stomach. DO NOT TAKE any other medications on the morning of surgery unless directed by your surgeon. If you use inhalers then use all your inhalers morning of surgery. Also BRING your inhalers with you to surgery. - Do NOT take Herbal Medication (including multi-vitamin, fish oil (Cicero-3), garlic, Glucosamine - Chondroitin ,gingko, ginseng, Vitamin E, probiotics) vitamins and supplements 7 days before surgery, unless surgeon instructed differently. - Do NOT take Excedrin, ibuprofen, Advil, Voltaren (Diclofenac), Motrin, naproxen, or Aleve, Mobic (Meloxicam) for 5 days before surgery, unless your surgeon tells you otherwise. *Exception-Patients of the [facility] & [facility]remity Center do not need to hold these medications before surgery* Acetaminophen (Tylenol) is ok to take up until the day of surgery, unless surgeon instructed differently. If you use inhalers then use all your inhalers morning of surgery. Also BRING your inhalers with you to surgery. Patient Pre-Operative Instructions: - Do NOT wear any jewelry, body piercing's, watches, rings, hairpieces, makeup, contact lenses with you the day of your surgery your surgery. - Shower the night before or the morning of surgery. If your surgeon provided you with a special soap, follow those directions for showering the night before and day of your surgery. - DO NOT Put anything on your skin, hair or NAILS, including makeup and nail lithuanian - Do NOT shave, or pluck hair from anywhere near the surgical site 48 hours prior to surgery. Diet Instructions - NO food or drink after midnight the night before surgery (No Candy, Mints and/or Gum) - [place] your teeth and rinse your mouth the morning of surgery. YOU ARE REQUIRED TO HAVE A RESPONSIBLE ADULT DRIVE YOU TO YOUR PROCEDURE, STAY DURING YOUR SURGERY , AND LISTEN TO DISCHARGE INSTRUCTIONS - Please call [phone] to update a nurse if you start any new medications, if you are hospitalized or if you have a new medical condition diagnosed prior to your surgery date. If you have cold or flu symptoms, please call your provider before your scheduled visit. On the day of surgery, limit responsible person to 1 adult. IF YOU HAVE ANY QUESTIONS IN REGARDS TO YOUR SURGERY , PLEASE CONTACT YOUR SURGEON'S OFFICE. You will receive reminders by text or phone between 3:30-4:00 pm. If you do not receive this communication, please call the physician's office. 4 Business Days before surgery: Courtesy text or call to remind you of your upcoming surgery. 3 Business Days before surgery: Arrival text or call to inform you what time you need to arrive for your surgery. Please arrive at [phone] [phone] on the first floor for surgery documented in this encounter [facility] 01-27-2023 Surgery Preoperative evaluation and management note Procedure Information Visit type: Video chat Planned Procedure: ENDOSCOPY CARPAL TUNNEL RELEASE - Right Date of Planned Procedure:02-01-23 Surgeon Name: Dr. Mccann Anesthesia Type: block/mac DNR Status: DNR not discussed during anesthesia pre-evaluation Patient does not have difficulty lying flat If yes what is the problem? Nursing Disposition Disposition: RN-OK for [facility] as Scheduled. Patient verbalizes understanding of pre surgery instructions. promise han in past 90 days Privacy Information What is the best phone # to reach you at between 7am-3pm: [phone] May leave detailed message regarding surgery details Ok to leave message with another individual: Name and relationship to patient: Contact phone number: Comment: Surgical Transportation Ride & caregiver name day of procedure: sheldon avalos Relationship to patient: Patient History Patient has a family doctor Name:Helio Brice [address] [place] [address] Last visit this summer Corticosteroid Use Steroid use Allergies Nasal spray as needed Patient Surgical History prior surgeries Anesthetic History Have you or a family member had a problem with Anesthesia or Surgery? Took a long time to wake up? No for patient The pt or family member did not need to go to the ICU Have you or a family member had a high fever or malignant hyperthemia? No for patient Did someone say that they had a hard time putting in the breathing tube or did you wake up with a VERY BAD sore throat? No for patient Anesthesia Comment: States some N & V after surgery but nothing severe Airway Patient has numbness or tingling in arms or hands when they move their neck Patient does not have a history of severe pain or limited movement of the neck Patient does not have a limited mouth opening or problems opening their mouth Patient has no TMJ problem TMJ severity: PONV: no PONV PONV Comment: Sleep Apnea Assessment Patient does not have Obstructive Sleep Apnea Did patient have a sleep study: Sleep study date if applicable: CPAP Recommended? CPAP: Patient does not snore loudly Cardiovascular History Have you ever had any heart problems? no heart problem Respiratory History Have you had any lung or breathing problems? no respiratory complications If you use inhalers, do they help you? Any triggers related to your asthma? Do you get short of breath when you lie flat? How long before you get short of breath? Respiratory Comment: Uses inhaler when gets bronchitis. Diabetic History Patient has: diabetes Patient is:not using insulin Patient does: no blood sugar check at home How often: What are the usual results? Diabetes Comment: Uses metformin -does not check BS at home. States A1C around 5.9-6.5 Last drawn at PCP office this summer-unable to locate in care everywhere. Last A1C found in care everywhere is dated 08/26/22 with value of 7.1 Gastrointestinal History Patient has no gastrointestinal problem Gastrointestinal problem comment: Patient has no difficulty swallowing Patient has history of frequent: no vomiting When was the last time you threw up or spit up? Patient has heartburn indicated as severe Patient has a history of no liver disease Hepatitis, jaundice or other liver disease comment: Gastrointestinal comment: Renal History Patient has no kidney problem (excluding kidney stones) Kidney problem comment: Patient requires Days and location of dialysis: Neurological History Patient has a history of neurological problem MS or other neurologic problem comment: right hand pain Patient has no difficulty walking Wheelchair or movement limitation comment: Patient does not have a history of a stroke or bleeding in the brain Patient has history of no TIA TIA comment: Patient has a history of no seizures How long ago? Seizure details: Hematologic/Vascular History Patient has no bleeding problem history Bleeding problem details: Patient has no sickle cell disease Type: Patient has no blood clot present in their history within the leg or lung Blood clot in lung or leg details: Patient has no history of aortic aneurysm or other blood vessel Aortic aneurysm or other blood vessel comment: Other History Vitals Wt Readings from Last 3 Encounters: 01/27/23 89.4 kg (197 lb) 01/27/23 89.5 kg (197 lb 6.4 oz) 01/24/23 89.3 kg (196 lb 14.4 oz) Ht Readings from Last 3 Encounters: 01/27/23 1.702 m (5' 7 ) 01/27/23 1.702 m (5' 7 ) 01/24/23 1.702 m (5' 7 ) Body mass index is 30.85 kg/m . Lab No results found for: HGBA1C Allergies Patient has no allergy information on record. Medications has a current medication list which includes the following prescription(s): albuterol, atorvastatin, erythromycin, esomeprazole, fluticasone, metformin, and venlafaxine. Problem List Patient Active Problem List Diagnosis Obesity (BMI 30.0-34.9) Smoking/Tobacco Social History Tobacco Use Smoking status: Never Smokeless tobacco: Never Vaping Use Vaping Use: Never used Substance Use Topics Alcohol use: Not Currently Drug use: Never [facility] 01-27-2023 Surgical operatio n note Procedure Information Visit type: Video chat Planned Procedure: ENDOSCOPY CARPAL TUNNEL RELEASE - Right Date of Planned Procedure:02-01-23 Surgeon Name: Dr. Mccann Anesthesia Type: block/mac DNR Status: DNR not discussed during anesthesia pre-evaluation Patient does not have difficulty lying flat If yes what is the problem? Nursing Disposition Disposition: RN-OK for [facility] as Scheduled. Patient verbalizes understanding of pre surgery instructions. promise guille in past 90 days Privacy Information What is the best phone # to reach you at between 7am-3pm: [phone] May leave detailed message regarding surgery details Ok to leave message with another individual: Name and relationship to patient: Contact phone number: Comment: Surgical Transportation Ride & caregiver name day of procedure: sheldon avalos Relationship to patient: Patient History Patient has a family doctor Name:Helio Brice [address] [place] [address] Last visit this summer Corticosteroid Use Steroid use Allergies Nasal spray as needed Patient Surgical History prior surgeries Anesthetic History Have you or a family member had a problem with Anesthesia or Surgery? Took a long time to wake up? No for patient The pt or family member did not need to go to the ICU Have you or a family member had a high fever or malignant hyperthemia? No for patient Did someone say that they had a hard time putting in the breathing tube or did you wake up with a VERY BAD sore throat? No for patient Anesthesia Comment: States some N & V after surgery but nothing severe Airway Patient has numbness or tingling in arms or hands when they move their neck Patient does not have a history of severe pain or limited movement of the neck Patient does not have a limited mouth opening or problems opening their mouth Patient has no TMJ problem TMJ severity: PONV: no PONV PONV Comment: Sleep Apnea Assessment Patient does not have Obstructive Sleep Apnea Did patient have a sleep study: Sleep study date if applicable: CPAP Recommended? CPAP: Patient does not snore loudly Cardiovascular History Have you ever had any heart problems? no heart problem Respiratory History Have you had any lung or breathing problems? no respiratory complications If you use inhalers, do they help you? Any triggers related to your asthma? Do you get short of breath when you lie flat? How long before you get short of breath? Respiratory Comment: Uses inhaler when gets bronchitis. Diabetic History Patient has: diabetes Patient is:not using insulin Patient does: no blood sugar check at home How often: What are the usual results? Diabetes Comment: Uses metformin -does not check BS at home. States A1C around 5.9-6.5 Last drawn at PCP office this summer-unable to locate in care everywhere. Last A1C found in care everywhere is dated 08/26/22 with value of 7.1 Gastrointestinal History Patient has no gastrointestinal problem Gastrointestinal problem comment: Patient has no difficulty swallowing Patient has history of frequent: no vomiting When was the last time you threw up or spit up? Patient has heartburn indicated as severe Patient has a history of no liver disease Hepatitis, jaundice or other liver disease comment: Gastrointestinal comment: Renal History Patient has no kidney problem (excluding kidney stones) Kidney problem comment: Patient requires Days and location of dialysis: Neurological History Patient has a history of neurological problem MS or other neurologic problem comment: right hand pain Patient has no difficulty walking Wheelchair or movement limitation comment: Patient does not have a history of a stroke or bleeding in the brain Patient has history of no TIA TIA comment: Patient has a history of no seizures How long ago? Seizure details: Hematologic/Vascular History Patient has no bleeding problem history Bleeding problem details: Patient has no sickle cell disease Type: Patient has no blood clot present in their history within the leg or lung Blood clot in lung or leg details: Patient has no history of aortic aneurysm or other blood vessel Aortic aneurysm or other blood vessel comment: Other History Vitals Wt Readings from Last 3 Encounters: 01/27/23 89.4 kg (197 lb) 01/27/23 89.5 kg (197 lb 6.4 oz) 01/24/23 89.3 kg (196 lb 14.4 oz) Ht Readings from Last 3 Encounters: 01/27/23 1.702 m (5' 7 ) 01/27/23 1.702 m (5' 7 ) 01/24/23 1.702 m (5' 7 ) Body mass index is 30.85 kg/m . Lab No results found for: HGBA1C Allergies Patient has no allergy information on record. Medications has a current medication list which includes the following prescription(s): albuterol, atorvastatin, erythromycin, esomeprazole, fluticasone, metformin, and venlafaxine. Problem List Patient Active Problem List Diagnosis Obesity (BMI 30.0-34.9) Smoking/Tobacco Social History Tobacco Use Smoking status: Never Smokeless tobacco: Never Vaping Use Vaping Use: Never used Substance Use Topics Alcohol use: Not Currently Drug use: Never documented in this encounter [facility] 01-27-2023 History of Presen t illness Narrative Chief Complaint Patient presents with Right Wrist - Follow-up EMG results HISTORY OF PRESENT ILLNESS Elvira Avalos presents to the [facility] for follow up of right upper extremity pain. We sent her for an EMG. Past Medical History: Diagnosis Date Arthritis Depression Diabetes mellitus Migraine Past Surgical History: Procedure Laterality Date ENDOSCOPY CARPAL TUNNEL RELEASE Right 02/01/2023 Laterality: Right; Surgeon: Nabil Mccann MD; Location: [facility] PERIOP DECOMPRESSION TRANSPOSITION ULNAR NERVE ELBOW Right 02/01/2023 Laterality: Right; Surgeon: Nabil Mccann MD; Location: [facility] PERIOP DECOMPRESSION MAJOR PERIPHERAL NERVE Right 02/01/2023 Laterality: Right; Surgeon: Nabil Mccann MD; Location: [facility] PERIOP INCISION TENDON SHEATH WRIST Right 02/01/2023 Laterality: Right; Surgeon: Nabil Mccann MD; Location: [facility] PERIOP ASPIRATION OR INJECTION INTERMEDIATE JOINT BURSA Right 02/01/2023 Laterality: Right; Surgeon: Nabil Mccann MD; Location: [facility] PERIOP Current Outpatient Medications: Albuterol 108 (90 Base) MCG/ACT Aero Soln inhaler, 2 puffs Inhalation every 4hrs as needed for 90 days, Disp: , Rfl: Atorvastatin 10 MG tablet, Take 1 tablet by mouth Daily (with dinner)., Disp: , Rfl: Erythromycin 5 MG/GM Ointment ophthalmic ointment, APPLY ONE-HALF inch strip to affected eye(s) DAILY AT BEDTIME for 30 days, Disp: , Rfl: esomeprazole [address] capsule, Take 1 capsule by mouth., Disp: , Rfl: fluticasone 50 MCG/ACT Suspension nasal spray, 1 spray in each nostril Nasally 2 x a day for 90 days, Disp: , Rfl: metFORMIN 500 MG tablet, Take 1 tablet by mouth., Disp: , Rfl: oxyCODONE 5 MG tablet, Take 1 tablet by mouth every 6 hours as needed for Moderate Pain or Severe Pain for up to 5 days., Disp: 12 tablet, Rfl: 0 venlafaxine 37.5 MG tablet, Take 1 tablet by mouth Twice daily., Disp: , Rfl: Not on File ROS: negative for shortness of breath or chest pain PHYSICAL EXAMINATION General appearance: alert, well-appearing, no acute distress Alert and oriented times 3 Right Upper Extremity: Tenderness to palpation: 1st DC, radial tunnel ROM of affected joint(s): normal Instability: none + tinel's at wrist and elbow REVIEW OF STUDIES EMG: mild CTS and CuTS ASSESSMENT 1. Right cubital tunnel syndrome. 2. Right carpal tunnel syndrome. 3. Right radial tunnel syndrome. 4. Right de Quervain tenosynovitis. 5. Right ulnar-sided wrist pain. PLAN We discussed treatment options. she opted for surgical treatment. Risks and benefits of the procedure were explained to the patient including: Bleeding, infection, risks of anesthesia, incomplete relief of symptoms, damage to surrounding structures, postoperative stiffness. These risks were explained and the patient did wish to proceed. Follow up after surgery without x-rays on return Patient was instructed to call the office with questions or concerns. documented in this encounter [facility] 01-24-2023 History of Presen t illness Narrative Chief Complaint Patient presents with Right Wrist - Pain RHD right wrsit pain-- Pt fell down the stairs on 11/2021 fell onto this arm.Hasd a subsepquent fall since. Was told she had DeQ syndrome. Has been wearing splint for a few weeks, helps somewhat. [place]: Elvira Avalos is a 62 y.o. right handed female who has been sent to [facility] for an evaluation of right hand pain. Ms. Avalos reports onset of pain about the radial aspect of the hand and wrist approximately 20 year ago. She has tried a variety of splints and braces over that time. She had a fall in November 2021 that resulted in a radial head fracture and she began seeing OT, who helped with her elbow and wrist. She no longer has issues with the elbow, but she continues to have problems with the right hand. Currently, she complains of pain along the radial aspect of the wrist and the base of the thumb. She occasionally has pain about the ulnar aspect of the wrist, but does not feel this is particularly activity limiting. She notes some numbness/tingling in the middle, ring, and small fingers. She feels an electric shock feeling from her neck down the back of her arm. She has difficulty with gripping, twisting motion, and lifting. Her pain is improved with thumb spica splinting. She had a steroid injection in the right 1st dorsal compartment in Fall 2021. She did not feel that it helped, though her pain is now decreased since prior to the injection. She had a 1st CMC injection performed in December 2022 and does not feel that this improved her pain. Over the last couple of months, she has noted intermittent bruising overlying the first dorsal compartment with activity. 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 No past surgical history on file. No family history on file. Social History Socioeconomic History Marital status: No current outpatient medications on file. Not on File ROS: General: Negative for fevers, chills, night sweats Cardiovascular: Negative for chest pain or dyspnea on exertion GI: Negative nausea or vomiting Physical Exam: Right Upper Extremity Exam Ht 1.702 m (5' 7 ) Wt 89.3 kg (196 lb 14.4 oz) BMI 30.84 kg/m , Body mass index is 30.84 kg/m . General: Well-appearing female with no acute distress. Skin: clean, dry and intact. No cellulitis, warmth, or active drainage from the area. without edema. Vascular: Fingers are warm and well perfused with good capillary refill. Neurovascular: Neurovascular intact distally in the radial, median, and ulnar nerve distribution. Pulmonary: Respirations unlabored, no SOB Psych: Alert and oriented x3 Musculoskeletal: Hypopigmentation of the skin overlying the first dorsal compartment. Tender to palpation of the right hand overlying the first dorsal compartment, mildly tender to palpation of the 1st CMC and the volar ulnar aspect of the wrist. Full elbow and wrist ROM. Pain radially with ulnar deviation of the wrist. Able to flex/extend/abduct all digits against resistance. Sensation intact to light touch in the radial, median, and ulnar nerve distributions. Slight hyperesthesia of the SBRN distribution at the wrist. Hand is warm and well perfused. Special tests: Positive Spurlings. Mildly positive tinels over the medial elbow. Mildly positive elbow flexion compression. Negative Tinels at the volar wrist. Negative modified durkans. Positive Finkelsteins. Mildly positive CMC grind. Imaging: Independently reviewed/interpreted: MRI of the right wrist performed in Feb 2022 demonstrates a small cyst on the volar, ulnar aspect of the wrist. There is increased fluid signal, consistent with inflammation within the first dorsal compartment. Radiographs of the right hand were performed in [place] on 01/06/2023. Images not available at this time, radiologist read indicates degenerative changes of the radiocarpal, intercarpal, and 1st CMC joints. A/P Ms. Avalos is a 62 year old right hand dominant female with right hand pain that is likely multifactorial. 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 She has mild ulnar sided wrist pain, which we have discussed can be from both arthritis as well as the cyst noted on MRI. Though she continues to have radial sided wrist pain, her symptoms have improved somewhat after injections/bracing. She will continue use of the thumb spica splint as needed for activity. We have discussed additional treatment with possible surgical intervention if symptoms fail to improve or worsen. We have discussed that her numbness/tingling symptoms can be due to peripheral nerve compression, but her complaint of neck pain and symptoms radiating from the neck down her arm are concerning for cervical radiculopathy. We have recommended undergoing EMG/NCS to help delineate the source nerve compression. She will follow up after the EMG/NCS has been completed for review of results and discussion of treatment options. She can follow up for results review via telehealth if desired. She was advised to contact the clinic if any questions or concerns arise in the interim. This patient was seen and examined with Dr. Mccann. Li Grimaldo MD I saw and evaluated the patient with the fellow and agree with the fellow's plan. Please see the fellow's note for further details about the patient's history and findings. Diagnosis: Encounter Diagnoses Name Primary? Carpal tunnel syndrome on right Yes De Quervain's tenosynovitis Right wrist pain Sincerely, Nabil Mccann M.D. Professor of Orthopaedics [facility] documented in this encounter [facility] Evaluation note Diagnosis Pre-op evaluation- Primary Preoperative examination, unspecified Lesion of ulnar nerve Carpal tunnel syndrome [facility] Carpal tunnel syndrome on right Carpal tunnel syndrome Lesion of ulnar nerve Carpal tunnel syndrome [facility] Diagnosis Carpal tunnel syndrome on right- Primary Carpal tunnel syndrome De Quervain's tenosynovitis Radial styloid tenosynovitis Right wrist pain Pain in joint, forearm Lesion of ulnar nerve Carpal tunnel syndrome [facility] Diagnosis Post-operative pain- Primary Other acute postoperative pain Lesion of ulnar nerve Carpal tunnel syndrome Carpal tunnel syndrome of right wrist Carpal tunnel syndrome Lesion of right ulnar nerve Lesion of ulnar nerve De Quervain's disease (radial styloid tenosynovitis) Radial styloid tenosynovitis [facility] Diagnosis Carpal tunnel syndrome on right- Primary Carpal tunnel syndrome [facility] Diagnosis De Quervain's tenosynovitis, right- Primary Radial styloid tenosynovitis [facility] Diagnosis Cervical radiculopathy- Primary Brachial neuritis or radiculitis nos [facility] Diagnosis Cervical radiculopathy Brachial neuritis or radiculitis nos [facility] Diagnosis Carpal tunnel syndrome on right- Primary Carpal tunnel syndrome Radial tunnel syndrome, right De Quervain's tenosynovitis, right Radial styloid tenosynovitis Cubital tunnel syndrome on right Lesion of ulnar nerve [facility] Diagnosis Right wrist pain- Primary Pain in joint, forearm [facility] Diagnosis Laceration of left hand, foreign body presence unspecified, subsequent encounter- Primary [facility] Diagnosis Type 2 diabetes mellitus with other specified complication, without long-term current use of insulin (CMS/HCC)- Primary Mixed hyperlipidemia (CMS/HCC) Mixed hyperlipidemia Recurrent major depressive disorder, in partial remission (HCC) (CMS/HCC) Elevated TSH Other abnormal blood chemistry documented in this encounter [facility] Summary Purpose Family History No Family History Records FoundNo Family History Records FoundNo Family History Records FoundNo Family History Records FoundNo Family History Records FoundNo Family History Records FoundNo Family History Records FoundNo Family History Records Found Advance Directives No Advanced Directives Records FoundDocuments on File Type Date Recorded Patient Steel Tester Expl anation Advance Directives and Living Will Power of Dairy Technologist Documents on File Type Date Recorded Patient Steel Tester Expl anation Advance Directives and Living Will Power of Dairy Technologist Reason for Referral Specialty Diagnoses / Procedures Referred By Lyle andrade Referred To Contact Diagnoses Carpal tunnel syndrome on right Procedures EMG & NERVE CONDUCTION Nabil Mccann MD [address] [facility] [address] [place] [address] Referral ID Status Reason Start Date Expiration Date V isits Requested Visits Authorized [id number] New Request 01/24/2023 02/18/2024 1 1 Specialty Diagnoses / Procedures Referred By Lyle t Referred To Contact Procedures US IMAGING OR German Zarate MD [address] [place] [address] [place] [phone] Referral ID Status Reason Start Date Expiration Date V isits Requested Visits Authorized [id number] New Request 02/01/2023 02/26/2024 1 1 Specialty Diagnoses / Procedures Referred By Lyle t Referred To Contact Diagnoses Cervical radiculopathy Procedures MRI SPINE CERVICAL WITHOUT CONTRAST [place] MRI, CERV SPINE Ermias Bolden MD [address] [place] [address] Referral ID Status Reason Start Date Expiration Date V isits Requested Visits Authorized [id number] Auth Not Needed 02/15/2023 03/11/2024 1 1 Referral ID Status Reason Start Date Expiration Date Visits Re quested Visits Authorized [id number] Closed 02/15/2023 03/11/2024 1 1 Additional Source Comments INFORMATION SOURCE (unrecogn ized section and content) DATE CREATED AUTHOR 03/22/2019 [facility] DATE CREATED AUTHOR AUTHOR'S ORGANIZ ATION 12/30/2021 [facility] DATE CREATED AUTHOR AUTHOR'S ORGANIZ ATION 04/13/2022 [facility] dical Specialist DATE CREATED AUTHOR AUTHOR'S ORGANIZ ATION 09/21/2022 [facility] DATE CREATED AUTHOR AUTHOR'S ORGANIZ ATION 01/07/2023 [facility] DATE CREATED AUTHOR AUTHOR'S ORGANIZ ATION 06/01/2023 [facility] DATE CREATED AUTHOR AUTHOR'S ORGANIZ ATION 03/10/2024 [facility] dical Specialists EPIC DATE CREATED AUTHOR AUTHOR'S ORGANIZ ATION 06/16/2024 [facility] Reason for Visit (unrecogniz ed section and content) Status Reason Specialty Diagnoses / Procedures Referred By Contact Referred To Contact Closed Physical Therapy Diagnoses Other female genital prolapse Other muscle spasm Procedures PT EVAL AND TREAT Yessica Zhang MD [address] [facility] [address] [place] [address] [facility] Floor [address] [facility] [place] [address] Fozia Ruiz, PT Reason Comments Preoperative Assessment Specialty Diagnoses / Procedures Referred By Contac t Referred To Contact Diagnoses Carpal tunnel syndrome on right Procedures EMG & NERVE CONDUCTION Nabil Mccann MD [address] [facility] [address] [place] [address] Referral ID Status Reason Start Date Expiration Date V isits Requested Visits Authorized [id number] New Request 01/24/2023 02/18/2024 1 1 Reason Comments Pain RHD right wrsit pain -- Pt fell down the stairs on 11/2021 fell onto this arm.Hasd a subsepquent fall since. Was told she had DeQ syndrome. Has been wearing splint for a few weeks, helps somewhat. Specialty Diagnoses / Procedures Referred By Lyle andrade Referred To Contact Orthopaedic Surgery / Sports Medicine Diagnoses Wrist pain Procedures NEW HAND MYCHART OPEN Nabil Mccann MD [address] [place] [phone] Referral ID Status Reason Start Date Expiration Date V isits Requested Visits Authorized [id number] New Request 01/24/2023 02/18/2024 1 1 Specialty Diagnoses / Procedures Referred By Lyle andrade Referred To Contact Diagnoses Lesion of ulnar nerve Carpal tunnel syndrome 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] Carpal tunnel syndrome [G56.00] Procedures NV WRIST ARTHROSCOP,RELEASE XVERS LIG NV REVISE ULNAR NERVE AT ELBOW NV REVISE/REPAIR ARM/LEG NERVE NV INCIS TENDON SHEATH,RADIAL STYLOID NV ARTHROCENTESIS ASPIR&/INJ INTERM JT/BURS W/O US ENDOSCOPY CARPAL TUNNEL RELEASE DECOMPRESSION TRANSPOSITION ULNAR NERVE ELBOW DECOMPRESSION MAJOR PERIPHERAL NERVE INCISION TENDON SHEATH WRIST ASPIRATION OR INJECTION INTERMEDIATE JOINT BURSA Nabil Mccann MD [address] [place] [phone] [facility] [address] [place] [address] Referral ID Status Reason Start Date Expiration Date Visits Re quested Visits Authorized [id number] 1 1 Reason Comments Follow-up EMG results Reason Comments Post-Op Problem Reason Comments New Patient Right side, numbness in the back of the arm, scapula right side, OT believes the start of winging. EMG study done 3 weeks ago Specialty Diagnoses / Procedures Referred By Lyle andrade Referred To Contact Spine Diagnoses Neck pain Laurie Andujar PAC [address] [phone] Referral ID Status Reason Start Date Expiration Date V isits Requested Visits Authorized [id number] New Request 02/08/2023 03/04/2024 1 1 Specialty Diagnoses / Procedures Referred By Lyle andrade Referred To Contact Diagnoses Cervical radiculopathy Procedures MRI SPINE CERVICAL WITHOUT CONTRAST [place] MRI, CERV SPINE Cortez, Ermias, MD [address] [place] [address] Referral ID Status Reason Start Date Expiration Date Visits Re quested Visits Authorized [id number] Closed 02/15/2023 03/11/2024 1 1 Reason Comments Post Op Visit 3 week follow up, Ri ght ulnar nerve decompression.Right endoscopic carpal tunnel release.Right radial tunnel decompression. Right dorsal compartment release.Right ulnar carpal injection.DOS 02/01/23 Reason Comments Follow-up 16 week follow up, R ight ulnar nerve decompression.Right endoscopic carpal tunnel release.Right radial tunnel decompression. Right dorsal compartment release.Right ulnar carpal injection.DOS 02/01/23 Reason Comments 4 month follow up [facility] follow up for A1C. She had labs done prior to this visit. She would like to have an RX to take with them to [place]. They will be staying with their grand kids for an extended period of time and would like to have an antibiotic just incase. Specialty Diagnoses / Procedures Referred By Lyle andrade Referred To Contact Physical Therapy Diagnoses Other female genital prolapse Procedures HC PT THERAPEUTIC EXERCISE,EA 15 MIN HC PT EVAL LOW COMPLEX Helio Brice DO [address] [place] [address] Fozia Ruiz PT Referral ID Status Reason Start Date Expiration Date V isits Requested Visits Authorized [id number] Authorized 06/06/2024 06/19/2025 1 99 Care Teams (unrecognized sec tion and content) Upholstery Auto Trimmer Relationship Specialty Start Date End Date Helio Brice DO [address] [place] [address] PCP - General 01/24/23 Upholstery Auto Trimmer Relationship Specialty Start Date End Date Helio Brice DO [address] [place] [address] PCP - General 01/24/23 Upholstery Auto Trimmer Relationship Specialty Start Date End Date Helio Brice DO [address] [place] [address] PCP - General 01/24/23 Upholstery Auto Trimmer Relationship Specialty Start Date End Date Helio Brice DO [address] [place] [address] PCP - General 01/24/23 Upholstery Auto Trimmer Relationship Specialty Start Date End Date Helio Brice DO [address] [place] [address] PCP - General 01/24/23 Upholstery Auto Trimmer Relationship Specialty Start Date End Date Helio Brice DO [address] [place] [address] PCP - General 01/24/23 Upholstery Auto Trimmer Relationship Specialty Start Date End Date Helio Brice DO [address] [place] [address] PCP - General 01/24/23 Upholstery Auto Trimmer Relationship Specialty Start Date End Date Helio Brcie DO [address] [place] [address] PCP - General 01/24/23 Upholstery Auto Trimmer Relationship Specialty Start Date End Date Helio Brice DO [address] [place] [address] PCP - General 01/24/23 Upholstery Auto Trimmer Relationship Specialty Start Date End Date Helio Brice DO [address] [place] [address] PCP - General 01/24/23 Upholstery Auto Trimmer Relationship Specialty Start Date End Date Helio Brice DO [address] [place] [address] PCP - General Internal Medicine 12/06/22 Upholstery Auto Trimmer Relationship Specialty Start Date End Date BabsHelio DO [address] [place] [address] PCP - General Internal Medicine 12/06/22 Upholstery Auto Trimmer Relationship Specialty Start Date End Date BabsHelio DO [address] [place] [address] PCP - General Internal Medicine 03/20/19 Scheduled Active and Recently Administ ered Medications (unrecognized section and content) Medication Order 01/30/2023 01/31/2023 02/01/2023 Acetaminophen (TYLENOL) tablet 975 mg 975 mg, Oral, ONCE, 1 dose, On Tue02/01/23 at 0830, Pre-op/Pre-Proc 0830 (Canceled Entry - Provider: System Discharge - Comment: Automatically canceled at discontinue of medication order) ceFAZolin (ANCEF) 2 g in dextrose 100 mL premix IVPB 2 g, Intravenous, Administer over 30 Minutes, EVERY 8 HOURS NON-STANDARD, First dose on Tue02/01/23 at 0830, Until Discontinued 0830 (Canceled Entry - Provider: System Discharge - Comment: Automatically canceled at discontinue of medication order)0855 (Given - Provider: Amaya Sanches APRN-CONE CLEANER) Gabapentin (NEURONTIN) capsule 300 mg 300 mg, Oral, ONCE, 1 dose, On Tue02/01/23 at 0830, Pre-op/Pre-Proc 0830 (Canceled Entry - Provider: System Discharge - Comment: Automatically canceled at discontinue of medication order) Continuous Medication Order 01/30/2023 01/31/2023 02/01/2023 Lactated ringers IV solution Intravenous, at 20 mL/hr, CONTINUOUS, Starting on Tue02/01/23 at 0830, Until Tue02/01/23 at 1348, Pre-op/Pre-Proc 0845 ($$New Bag$$ - Provider: Logan Forbes MD)1011 (Stopped - Provider: Amaya Sanches APRN-CONE CLEANER) PRN Medication Order 01/30/2023 01/31/2023 02/01/2023 dexAMETHasone PF (DECADRON) injection (CANCELED) NEEDED, Starting on Tue02/01/23 at 0921, Until Tue02/01/23 at 1013, Intra-op/Intra-Proc 0921 (Canceled Entry - Provider: Nabil Mccann MD - Comment: On field for injection at the end of the case.)1002 (Given - Provider: DIONE Martins) lidocaine 1% buffered in sodium bicarbonate 1-8.4 % injection SOSY 1 mL 1 mL, Intradermal, ONCE NEEDED, 1 dose, Starting on Tue02/01/23 at 0820, Until Tue02/01/23 at 1348, Other, Use for peripheral IV insertion, Use when inserting peripheral IV, Pre-op/Pre-Proc Scheduled Medication Order 02/13/2023 02/14/2023 02/15/2023 ceFAZolin (ANCEF) 2 g in dextrose 100 mL premix IVPB (COMPLETED) 2 g, Intravenous, Administer over 30 Minutes, ONCE, 1 dose, On Tue02/15/23 at 1030 1113 ($$New Bag$$ - Provider: Maria Esther Chávez RN)1201 (Stopped - Provider: Maria Esther Chávez RN) Lidocaine (XYLOCAINE) 10 mg/mL injection 50 mg (COMPLETED) 50 mg (5 mL), Infiltration, ONCE, 1 dose, On Tue02/15/23 at 0915 0900 (Given - Provid er: Maria Esther Chávez RN - Comment: Administered by physician pre-procedure) No Frequency Medication Order 02/13/2023 02/14/2023 02/15/2023 Lidocaine 1% (PF) (XYLOCAINE MPF) 1 % injection 1 dose, Starting on Tue02/15/23 at 0850, Until Tue02/15/23 at 1253, Created by cabinet override 0901 (Not Given - Pr ovider: Maria Esther Chávez RN - Reason: Other) FOR RECORDS PERTAINING TO PATIENTS WHO ARE OR HAVE BEEN ENROLLED IN A CHEMICAL DEPENDENCY/SUBSTANCEABUSE PROGRAM, SOME INFORMATION MAY BE OMITTED. This clinical summary was aggregated from multiple sources. Caution should be exercised in using it in the provision of clinical care. This summary normalizes information from multiple sources, and as a consequence, information in this document may materially change the coding, format and clinical context of patient data. In addition, data may be omitted in some cases. CLINICAL DECISIONS SHOULD BE BASED ON THE PRIMARY CLINICAL RECORDS. [employer] provides no warranty or guarantee of the accuracy or completeness of information in this document.
[2024-06-22 09:17] LABS: Basophils Absolute Auto 0.1 10^3/uL (0.0-0.1); Basophils Percent Auto 0.9 % (0.2-2.0); Eosinophils Absolute Auto 0.2 10^3/uL (0.0-0.7); Eosinophils Percent Auto 3.6 % (0.9-7.0); Hematocrit 39.3 % (36.0-48.0); Hemoglobin 12.9 g/dL (12.0-16.0); Immature Granulocytes Abs Auto 0.01 10^3/uL (0.00-0.03); Immature Granulocytes Pct Auto 0.2 % (0.0-0.5); Lymphocytes Absolute Auto 2.4 10^3/uL (1.2-3.8); Mean Corpuscular HGB Conc 32.8 g/dL (29.9-35.2); Mean Corpuscular Hemoglobin 30.2 pg (26.7-34.0); Mean Platelet Volume 9.2 fL (9.5-13.5); Monocytes Absolute Auto 0.8 10^3/uL (0.3-0.8); Monocytes Percent Auto 11.7 % (1.7-12.0); Neutrophils Absolute Auto 3.1 10^3/uL (1.4-6.5); Neutrophils Percent Auto 46.6 % (43.0-75.0); Platelet Count 265 10^3/uL (150-450); Red Blood Count 4.27 10^6/uL (4.20-5.40); Red Cell Distribution Width 12.8 % (11.0-15.0); White Blood Count 6.6 10^3/uL (4.0-11.0)
[2024-06-22 09:28] LABS: Estimated Average Glucose 169 mg/dL; Glycohemoglobin A1C 7.5 % (4.5-6.2)
[2024-06-22 10:21] LABS: Alanine Aminotransferase 27 U/L (14-59); Albumin Globulin Ratio 1.3; Albumin Level 3.9 g/dL (3.4-5.0); Alkaline Phosphatase 120 U/L (46-116); Anion Gap 12.5; Aspartate Amino Transferase 18 U/L (15-37); BUN Creatinine Ratio 23.3; Bilirubin Total 0.5 mg/dL (0.2-1.0); Calcium 8.8 mg/dL (8.5-10.1); Carbon Dioxide 28.3 mmol/L (21.0-32.0); Chloride 103 mmol/L (98-107); Estimated GFR (African America >60 (>=60 mL/min/1.73m^2); Estimated GFR (Non-African Ame >60 (>=60 mL/min/1.73m^2); Free T3 2.24 pg/mL (2.18-3.98); Globulin 2.9 g/dL; Glucose 146 mg/dL (74-106); Potassium 3.8 mmol/L (3.5-5.1); Sodium 140 mmol/L (136-145); Thyroid Stimulating Hormone 2.817 uIU/mL (0.358-3.740); Total Protein 6.8 g/dL (6.4-8.2)
== END 2024-06-22 08:25 | disposition home or self-care (01) ==
LOC: LAB 08:26
PROVIDERS: PCP Internal Medicine; Visit Provider Internal Medicine
DX: R79.89 Other specified abnormal findings of blood chemistry (principal); E11.69 Type 2 diabetes mellitus with other specified complication; E78.2 Mixed hyperlipidemia; F33.41 Major depressive disorder, recurrent, in partial remission
CPT/HCPCS: 36415; 80053; 83036; 84439; 84443; 84481; 85025

== ENCOUNTER 2025-02-08 07:55 | Outpatient (OUT) | payer MEDICARE, OTHER, SELFPAY ==
--- OUTSIDE RECORDS SUMMARY | 2025-01-25 10:00 | XMS_ITS | Encounter Summary ---
Author Organization [facility] Address [address] [place] [address] Care Team Providers Care Mortuary Technician Name Role Phone Saroj Penn MD Primary Care Provider [phone] Reason for Visit * Consultation (Routine) - Authorized Specialty Diagnoses / Procedures Referred By Lyle andrade Referred To Contact Physical Therapy Diagnoses Neck pain Procedures [place] OFFICE/OUTPATIENT [facility] 60 MINUTES Helio Callejas DO [address] [facility] [address] [place] [address] Phone: tel: fax: Ana Ramirez PT Referral ID Status Reason Start Date Expiration Date Visits Requested Visits Authorized [id number] Authorized Consult and Treat 12/07/2024 06/19/2025 10 20 Encounter Details Date Type Department Care Team (Late st Contact Info) Description 01/25/2025 10:00 AM EDT Treatment [facility] [address] [place] [address] Barry Zarate PTA Pain, neck (Primary Dx); Neck pain Social History Tobacco Use Types Packs/Day Years Used Date Smoking Tobacco: Never Smokeless Tobacco: Never Alcohol Use Standard Drinks/Week Comments Never 0 (1 standard drink = 0.6 oz pure alcohol) caffeine several cans of diet coke AUDIT-C Answer Date Recorded Q1: How often do you have a drink containing alcohol? Never 10/20/2023 Q2: How many drinks containi ng alcohol do you have on a typical day when you are drinking? Patient does not drink Q3: How often do you have si x or more drinks on one occasion? Never 10/20/2023 PHQ-2 Answer Date Recorded Patient Health Questionnaire-2 Score 6 10/20/2023 Comments Unknown Sex and Gender Information Value Date Recorded Sex Assigned at Female 02/14/2023 4:27 PM EDT Legal Sex Female 9:35 PM EDT Gender Identity Female 02/14/2023 4:27 PM EDT Sexual Orientation Straight 02/14/2023 4: 27 PM EDT documented as of this encounter Progress Notes * Barry Zarate, AUTOMATIC GLOVE TURNER AND FORMER - 01/25/2025 10:00 AM EDT Images from the original note were not included. Physical Therapy Treatment Visit Patient Name: Elvira Avalos Today's Date: 01/25/2025 Encounter Diagnoses Name Primary? Pain, neck Yes Neck pain Visit number: 12 Timed Code Treatment: 30 minutes Total Treatment Time: 60 minutes Time In: 10:00 AM Time Out: 11:00 AM History: Pt states she has been having neck pain for quite some time. Pt states she fell about 3 year ago which effected right UE. Right arm was treated with improvements but states told her untilher neck is worked, her right UE will not improve. Pt states she has been doing therapy locally andwhen out of town ([place]). 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 States she has also noticed her arms going numb. States she was having numbness in bilateral UE in the past but was not happening as frequently when she was getting therapy in [place]. 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 Thinks tingling is more on thumb side of hands. Getting a lot of neck pain and PINEDA throughout the evening. Precautions: [place] Subjective: Pt is pleased with her progress, no N/T. Pt reports she was more aware of posture mechanics when playing harp. Pain: denies Objective: PT Evaluation (12/07/2024) CERVICAL AROM: 25 degrees flexion, 40 degrees extension with right sided neck pain, 23 degrees right SB, 25 degrees left SB, 49 degrees right rotation, 53 degrees left rotation Joint play: limited mobility noted with right lateral glides MMT: bilateral UE strength grossly 4+/5 except right thumb extension 4-/5. Journeyman Operator Assistant: right 50 psi, left 52 psi Palpation: increase muscle tone bilateral UT, mild to moderate tenderness bilateral UT and LS Special Test: Cervical compression negative; ipsilateral neck pain noted with bilateral Neurological: Reflexes: not tested Myotomes: decreased right C7 Dermatomes: intact Special test: negative Hoffmans Treatment: Manual Therapy: (15 minutes ) Delivered manual ther pt supine cervical distraction, SOR, upper trapleveator stretching, CROM all to improve mobility decrease pain and inflammation. MET R/L UT. Therapeutic Exercise: (15 minutes supervised, 30 minutes total) guided pt through ther and flex ex per grid to improve cervical postural scapular muscle complex stability, functional mobility and strength UBE () focusing on postural Therapeutic Activity: Exercises to improve dynamic activities, functional tasks, functional mobility to return to prior activity level as needed. Neuromuscular re-education: Balance Training, Muscle Facilitation, Dynamic Stability, Core Stabilization, and Blood Flow Restriction Training (BFRT) as needed. Modalities: (15 minutes) Post session, pt prone IFC/ MHP to cervical area to reduce pain and musclesoreness Assessment: Visit #12 for pt with complaints of cervical / neck pain with I.E on 12-07-24. Reports positive feedback from PT interventions, denies numbness and tingling. Discussed posture mechanics when playing harp, pt verbalized understanding. Progressing per tolerance. Responding appropriately to PT interventions Outcome Measure: Neck Disability Index (NDI): 1950 Rehab Diagnosis: Short Term Goal: To be met in 2 weeks Goal 1: Pt to be instructed in home exercise program. Injection Molding Machine Setter Goals: To be met in 10 weeks Goal 1: Pt to report independence and compliance with home program. Met and progressing Goal 2: Pt to achieve 60 degrees of bilateral cervical rotation to assist with driving and ADL's. progressing Goal 3: Pt to report pain no greater than 2/10 in cervical region with functional mobility and ADL's. met Goal 4: Pt to score no greater than 10/50 on NDI indicating improved QOL. progressing Pt will benefit from skilled PT for 2x/week from 12/07/2024 to 03/01/2025 to address the above impairments. I hereby deem this POC medically necessary. Please sign below. Date: Cosigned by Ana Ramirez, PT at 01/25/2025 2:37 PM EDT documented in this encounter Plan of Treatment Upcoming Encounters Date Type Department Care Team (Late st Contact Info) Description 02/12/2025 8:30 AM EDT Office Visit [facility] [place] [facility] [address] [place] [address] Stephane Cope, KYRIE [address] [place] [address] 02/20/2025 1:00 PM EDT Treatment [facility] [address] [facility] [address] [place] [address] Tereza Coppola, AUTOMATIC GLOVE TURNER AND FORMER 02/22/2025 1:30 PM EDT Treatment [facility] [address] [place] [address] Tereza Coppola, AUTOMATIC GLOVE TURNER AND FORMER 02/26/2025 11:00 AM EDT Treatment [facility] [address] [facility] [address] [place] [address] Tereza Coppola, AUTOMATIC GLOVE TURNER AND FORMER documented as of this encounter Visit Diagnoses Diagnosis Pain, neck- Primary Neck pain Cervicalgia documented in this encounter Care Teams Mortuary Technician Relationship Specialty Start Date End Date Saroj Penn MD [address] [place] [address] PCP - General Internal Medicine 01/08/25 documented as of this encounter
--- OUTSIDE RECORDS SUMMARY | 2025-01-29 14:30 | XMS_ITS | Encounter Summary ---
Author Organization [facility] Address [address] [place] [address] Care Team Providers Care Lecturer Of Portuguese Name Role Phone Saroj Penn MD Primary Care Provider [phone] Reason for Visit * Consultation (Routine) - Authorized Specialty Diagnoses / Procedures Referred By Lyle andrade Referred To Contact Physical Therapy Diagnoses Neck pain Procedures [place] OFFICE/OUTPATIENT [facility] 60 MINUTES Helio Callejas DO [address] [facility] [address] [place] [address] Phone: tel: fax: Ana Ramirez PT Referral ID Status Reason Start Date Expiration Date Visits Requested Visits Authorized [id number] Authorized Consult and Treat 12/07/2024 06/19/2025 10 20 Encounter Details Date Type Department Care Team (Late st Contact Info) Description 01/29/2025 2:30 PM EDT Treatment [facility] [address] [place] [phone] Tereza Coppola, CLERK OF WORKS Pain, neck (Primary Dx); Neck pain Social [...] as of this encounter Progress Notes * Tereza Coppola, CLERK OF WORKS - 01/29/2025 2:30 PM EDT Images from the original note were not included. Physical Therapy Treatment Visit Patient Name: Elvira Avalos Today's Date: 01/29/2025 Encounter Diagnoses Name Primary? Pain, neck Yes Neck pain Visit number: 13 Timed Code Treatment: 41 minutes Total Treatment Time: 60 minutes Time In: 2:30 PM Time Out: 3:30 PM History: Pt states she has been having neck pain for quite some time. Pt states she fell about 3 year ago which effected right UE. Right arm was treated with improvements but states told her untilher neck is worked, her right UE will not improve. Pt states she has been doing therapy locally andwhen out of town ([place]). 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 States she has also noticed her arms going numb. States she was having numbness in bilateral UE in the past but was not happening as frequently when she was getting therapy in [place]. 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 Thinks tingling is more on thumb side of hands. Getting a lot of neck pain and PINEDA throughout the evening. Precautions: [place] Subjective: Pt is pleased with her progress, [...] grossly 4+/5 except right thumb extension 4-/5. C Architect: right 50 psi, left 52 psi Palpation: increase muscle tone bilateral UT, mild to moderate tenderness bilateral UT and LS Special Test: Cervical compression negative; ipsilateral neck pain noted with bilateral Neurological: Reflexes: not tested Myotomes: decreased right C7 Dermatomes: intact Special test: negative Hoffmans Treatment: Manual Therapy: (18 minutes ) Delivered manual ther pt supine cervical distraction, SOR, upper trapleveator stretching, CROM all to improve mobility decrease pain and inflammation. MET R/L UT. Therapeutic Exercise: (23 minutes supervised, minutes total) guided pt through ther and flex ex pergrid to improve cervical postural scapular muscle complex stability, functional mobility and strength UBE (4 min) focusing on postural Therapeutic Activity: Exercises to improve dynamic activities, functional tasks, functional mobility to return to prior activity level as needed. Neuromuscular re-education: Balance Training, Muscle Facilitation, Dynamic Stability, Core Stabilization, and Blood Flow Restriction Training (BFRT) as needed. Modalities: (15 minutes) Post session, pt prone IFC/ MHP to cervical area to reduce pain and musclesoreness Assessment: Visit #13 for pt with complaints of cervical / neck pain with I.E on 12-07-24. Reports positive feedback from PT interventions, denies numbness and tingling. Discussed posture mechanics when playing harp, pt verbalized understanding. Progressing per tolerance. Responding appropriately to PT interventions Outcome Measure: Neck Disability Index (NDI): 19/50 Rehab Diagnosis: Short Term Goal: To be met in 2 weeks Goal 1: Pt to be instructed in home exercise program. Fci Goals: To be met in 10 weeks [...] Please sign below. Date: Cosigned by Ana Ramirez PT at 01/30/2025 4:29 PM EDT documented in this encounter Plan of Treatment Upcoming Encounters Date Type Department Care Team (Late st Contact Info) Description 02/12/2025 8:30 AM EDT Office Visit [facility] [place] [facility] [address] [facility] [address] [place] [address] Stephane Cope NP [address] [facility] [address] [place] [address] 02/20/2025 1:00 PM EDT Treatment [facility] [address] [place] [address] Tereza Coppola, TIFFANY 02/22/2025 1:30 PM EDT Treatment [facility] [address] [place] [address] Tereza Coppola, TIFFANY 02/26/2025 11:00 AM EDT Treatment [facility] [address] [place] [address] Tereza Coppola PTA documented as of this encounter Visit Diagnoses Diagnosis Pain, neck- Primary Neck pain Cervicalgia documented in this encounter Care Teams Lecturer Of Portuguese Relationship Specialty Start Date End Date Saroj Penn MD [address] [facility] [address] [place] [address] PCP - General Internal Medicine 01/08/25 documented as of this encounter
--- OUTSIDE RECORDS SUMMARY | 2025-01-31 10:30 | XMS_ITS | Encounter Summary ---
Author Organization [facility] Address [address] [place] [address] Care Team Providers Care Stone Paver Name Role Phone Saroj Penn MD Primary Care Provider [phone] Reason for Visit * Consultation (Routine) - Authorized Specialty Diagnoses / Procedures Referred By Lyle andrade Referred To Contact Physical Therapy Diagnoses Neck pain Procedures CT OFFICE/OUTPATIENT [facility] 60 MINUTES Helio Callejas DO [address] [facility] [address] [place] [address] Phone: tel: fax: Ana Ramirez PT Referral ID Status Reason Start Date Expiration Date Visits Requested Visits Authorized [id number] Authorized Consult and Treat 12/07/2024 06/19/2025 10 20 Encounter Details Date Type Department Care Team (Late st Contact Info) Description 01/31/2025 10:30 AM EDT Treatment [facility] [address] [place] [address] Tereza Coppola, COUNSELOR EDUCATION PROFESSOR Pain, neck (Primary Dx); Neck pain Social [...] this encounter Progress Notes * Tereza Coppola, COUNSELOR EDUCATION PROFESSOR - 01/31/2025 10:30 AM EDT Images from the original note were not included. Physical Therapy Treatment Visit Patient Name: Elvira Avalos Today's Date: 01/31/2025 Encounter Diagnoses Name Primary? Pain, neck Yes Neck pain Visit number: 14 Timed Code Treatment: 32 minutes Total Treatment Time: 60 minutes Time In: 10:30 AM Time Out: 11:350 AM History: Pt states she has been having neck pain for quite some time. Pt states she fell about 3 year ago which effected right UE. Right arm was treated with improvements but states told her untilher neck is worked, her right UE will not improve. Pt states she has been doing therapy locally andwhen out of town ([place]). 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 States she has also noticed her arms going numb. States she was having numbness in bilateral UE in the past but was not happening as frequently when she was getting therapy in [place]. 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 Thinks tingling is more on thumb side of hands. Getting a lot of neck pain and PINEDA throughout the evening. Precautions: [place] Subjective: Pt is pleased with her progress, [...] grossly 4+/5 except right thumb extension 4-/5. Weblogic Administrator: right 50 psi, left 52 psi Palpation: [...] R/L UT. Therapeutic Exercise: (15 minutes supervised, 25 minutes total) guided pt through ther and flex ex per grid to improve cervical postural scapular muscle complex stability, functional mobility and strength UBE (5 min) focusing on postural Therapeutic Activity: Exercises to improve dynamic activities, functional tasks, functional mobility to return to prior activity level as needed. Neuromuscular re-education: Balance Training, Muscle Facilitation, Dynamic Stability, Core Stabilization, and Blood Flow Restriction Training (BFRT) as needed. Modalities: (15 minutes) Post session, pt prone IFC/ MHP to cervical area to reduce pain and musclesoreness Assessment: Visit #14 for pt with complaints of cervical / [...] to be instructed in home exercise program. Pot Fluxer Goals: To be met in 10 weeks [...] Date: Cosigned by Ana Ramirez PT at 02/01/2025 2:30 PM EDT documented in this encounter Plan of Treatment Upcoming Encounters Date Type Department Care Team (Late st Contact Info) Description 02/12/2025 8:30 AM EDT Office Visit [facility] [address] [facility] [address] [place] [address] Stephane Cope NP [address] [facility] [address] [place] [address] 02/20/2025 1:00 PM EDT Treatment [facility] [address] [place] [address] Tereza Coppola, TIFFANY 02/22/2025 1:30 PM EDT Treatment [facility] [address] [place] [address] Tereza Coppola, TIFFANY 02/26/2025 11:00 AM EDT Treatment [facility] [address] [place] [address] Tereza Coppola PTA documented as of this encounter Visit Diagnoses Diagnosis Pain, neck- Primary Neck pain Cervicalgia documented in this encounter Care Teams Stone Paver Relationship Specialty Start Date End Date Saroj Penn MD [address] [facility] [address] [place] [address] PCP - General Internal Medicine 01/08/25 documented as of this encounter
--- OUTSIDE RECORDS SUMMARY | 2025-02-08 08:00 | XMS_ITS | Encounter Summary ---
Author Organization [facility] Address [address] [place] [address] Care Team Providers Care Radiological Technician Name Role Phone Saroj Penn MD Primary Care Provider [phone] Encounter Details Date Type Department Care Team (Late st Contact Info) Description 01/29/2025 Bamboo flowsheet [facility] [address] [place] [address] Tereza Coppola, TIFFANY Social History Tobacco Use Types Packs/Day Years [...] PM EDT documented as of this encounter Plan of Treatment Upcoming Encounters Date Type Department Care Team (Late st Contact Info) Description 02/12/2025 8:30 AM EDT Office Visit [facility] [place] [facility] [address] [place] [address] Stephane Cope, KYRIE [address] [place] [address] 02/20/2025 1:00 PM EDT Treatment [facility] [address] [place] [address] Tereza Coppola, SENIOR BI ARCHITECT 02/22/2025 1:30 PM EDT Treatment [facility] [address] [place] [address] Tereza Coppola, SENIOR BI ARCHITECT 02/26/2025 11:00 AM EDT Treatment [facility] [address] [place] [address] Tereza Coppola, SENIOR BI ARCHITECT documented as of this encounter Visit Diagnoses Not on filedocumented in this encounter Care Teams Radiological Technician Relationship Specialty Start Date End Date Saroj Penn MD [address] [place] [address] PCP - General Internal Medicine 01/08/25 documented as of this encounter
--- OUTSIDE RECORDS SUMMARY | 2025-02-08 08:00 | XMS_ITS | Encounter Summary ---
Author Organization [facility] Address [address] [place] [address] Care Team Providers Care Patient Accounting Representative Name Role Phone Saroj Penn MD Primary Care Provider [phone] Encounter Details Date Type Department Care Team (Latest Contact Info) Description 01/25/2025 Travel Social History Tobacco Use Types Packs/Day Years [...] Description 02/12/2025 8:30 AM EDT Office Visit [facility] [address] [place] [address] Stephane Cope, TRIMMER CLIMBER [address] [facility] [address] [place] [address] 02/20/2025 1:00 PM EDT Treatment [facility] [address] [facility] [address] [place] [address] Tereza Coppola, HOME ENERGY RATER 02/22/2025 1:30 PM EDT Treatment [facility] [address] [facility] [address] [place] [address] Tereza Coppola, HOME ENERGY RATER 02/26/2025 11:00 AM EDT Treatment [facility] [address] [facility] [address] [place] [address] Tereza Coppola, HOME ENERGY RATER documented as of this encounter Visit Diagnoses Not on filedocumented in this encounter Care Teams Patient Accounting Representative Relationship Specialty Start Date End Date Saroj Penn MD [address] [facility] [address] [place] [address] PCP - General Internal Medicine 01/08/25 documented as of this encounter
--- OUTSIDE RECORDS SUMMARY | 2025-02-08 08:00 | XMS_ITS | Encounter Summary ---
Author Organization [facility] Address [address] [place] [address] Care Team Providers Care [employer] Name Role Phone Saroj Penn MD Primary Care Provider [phone] Encounter Details Date Type Department Care Team (Late st Contact Info) Description 01/31/2025 Bamboo flowsheet [facility] [address] [place] [address] Tereza Coppola, TIFFANY Social History [...] [address] [place] [address] Stephane Cope, KYRIE [address] [place] [address] 02/20/2025 1:00 PM EDT Treatment [facility] [address] [place] [address] Tereza Coppola, JOSS HOUSE KEEPER 02/22/2025 1:30 PM EDT Treatment [facility] [address] [place] [address] Tereza Coppola, JOSS HOUSE KEEPER 02/26/2025 11:00 AM EDT Treatment [facility] [address] [place] [address] Tereza Coppola, JOSS HOUSE KEEPER documented as of this encounter Visit Diagnoses Not on filedocumented in this encounter Care Teams [employer] Relationship Specialty Start Date End Date Saroj Penn MD [address] [place] [address] PCP - General Internal Medicine 01/08/25 documented as of this encounter
--- OUTSIDE RECORDS SUMMARY | 2025-02-08 08:00 | XMS_ITS | Encounter Summary ---
Author Organization [facility] Address [address] [place] [address] Care Team Providers Care Grave Digger Name Role Phone Unavailable Primary Care Provider Unavailabl e Source Comments In the event this information is protected by the Federal Confidentiality of Alcohol and Drug AbusePatient Records regulations: The Federal rules restrict any use of the information to criminally investigate or prosecute any alcohol or drug abuse patient.[facility] Encounter Details Date Type Department Care Team (Late st Contact Info) Description 2023 [place] [address] Provider, [facility] Medicare Coverage of Physical Exams Social History Tobacco Use Types Packs/Day Years Used Date Smoking Tobacco: Never Assessed Comments Unknown Sex and Gender Information Value Date Recorded Sex Assigned at Female 12/30/2022 2:41 PM EDT Legal Sex Female 2:34 PM EDT Gender Identity Female 12/30/2022 2:41 PM EDT Sexual Orientation Straight 12/30/2022 2: 41 PM EDT documented as of this encounter Plan of Treatment Not on file documented as of this encounter Visit Diagnoses Not on filedocumented in this encounter
--- OUTSIDE RECORDS SUMMARY | 2025-02-08 08:00 | XMS_ITS | Clinical Summary ---
Author Organization [facility] Address [address] [place] [address] Care Team Providers Care Show Host/Hostess Name Role Phone Saroj Penn MD Primary Care Provider [phone] Allergies No known active allergies Medications fexofenadine (Breanne) 180 MG tablet 1 (one) time each day at the same time. Active ibuprofen 200 MG tablet Take 200 mg by mouth in the morning and 200 mg before bedtime. Active Lancets 28G miscIndications:Ty pe 2 diabetes mellitus with other specified complication, without long-term current use of insulin (HCC) 1 Device in the morning and 1 Device before bedtime. 100 each 11 06/27/19 25 Active glucose blood test stripIndications:T ype 2 diabetes mellitus with other specified complication, without long-term current use of insulin (HCC) 1 each by Other route in the morning and 1 each in the evening and 1 each before bedtime. One touch Ultra 2. 100 each 3 06/28/19 25 Active meloxicam (Mobic) 15 MG tabletIndications: Pain of left hip Take 1 tablet (15 mg) by mouth in the morning. 30 tablet 3 09/04/19 25 Active atorvastatin (Lipitor) 10 MG tabletIndications: Hyperlipidemia, unspecified hyperlipidemia type Take 1 tablet (10 mg) by mouth Daily 90 tablet 3 01/11/20 25 Active fluticasone (Flonase) 50 MCG/ACT nasal sprayIndications:S easonal allergies Administer 1 spray into each nostril Daily Shake gently. Before first use, prime pump. After use, clean tip and replace cap. 48 g 3 01/11/20 25 Active venlafaxine (Effexor) 37.5 MG tabletIndications: Major depressive disorder with single episode, remission status unspecified Take 1 tablet (37.5 mg) by mouth in the morning and 1 tablet (37.5 mg) before bedtime. 90 tablet 3 01/11/20 25 025 Active metFORMIN (Glucophage) 500 MG tabletIndications: Type 2 diabetes mellitus with other specified complication, unspecified whether shelter insulin use (HCC) Take 1 tablet (500 mg) by mouth in the morning and 1 tablet (500 mg) in the evening. Take with meals. 180 tablet 3 01/11/20 25 Active esomeprazole (NexIUM) [address] capsuleIndications :Gastroesophageal reflux disease without esophagitis Take 1 capsule (20 mg) by mouth in the morning. Take before meals. Do not open capsule. 90 capsule 01/11/20 25 Active Cholecalciferol (Vitamin D) 50 MCG (1999) capsuleIndications :Vitamin D deficiency Take 1 capsule (50 mcg) by mouth Daily 100 capsule 3 01/11/20 25 Active esomeprazole (NexIUM) [address] capsule Take 20 mg by mouth in the morning. Take before meals. Do not open capsule.. 025 Discontin ued(Reord er) atorvastatin (Lipitor) 10 MG tabletIndications: Hyperlipidemia, unspecified hyperlipidemia type Take 1 tablet (10 mg) by mouth Daily 90 tablet 3 12/01/19 24 025 Discontin ued(Reord er) fluticasone (Flonase) 50 MCG/ACT nasal sprayIndications:S easonal allergies Administer 1 spray into each nostril Daily Shake gently. Before first use, prime pump. After use, clean tip and replace cap. 48 g 3 12/01/19 24 025 Discontin ued(Reord er) Cholecalciferol (Vitamin D) 50 MCG (1999 UT) capsule Take by mouth 12/19 09/19 025 Discontin ued(Reord er) venlafaxine (Effexor) 37.5 MG tabletIndications: Major depressive disorder with single episode, remission status unspecified Take 1 tablet (37.5 mg) by mouth in the morning and 1 tablet (37.5 mg) before bedtime. Do all this for 14 days. 28 tablet 10/27/19 025 Discontin ued(Reord er) metFORMIN (Glucophage) 500 MG tabletIndications: Type 2 diabetes mellitus with other specified complication, unspecified whether shelter insulin use (HCC) TAKE 1 TABLET BY MOUTH 2 TIMES A DAY IN THE MORNING AND EVENING WITH MEALS FOR 14 DAYS 28 tablet 11/02/19 025 Discontin ued(Reord er) Active Problems Problem Noted Date Diagnosed Date Venous insufficiency 03/03/2023 GERD (gastroesophageal reflux disease) Hyperlipidemia, unspecified 02/17/2023 Recurrent major depressive disorder, in partial remission 02/17/2023 Type 2 diabetes mellitus with other specified co mplication 02/17/2023 Obesity (BMI 30.0-34.9) 01/24/2023 Resolved Problems Problem Noted Date Diagnosed Date Resolved Date Elevated TSH 02/09/2024 06/27/2024 Upper respiratory tract infection 04/12/2023 10/20/2023 Acute cough 04/12/2023 10/20/2023 Acute pain of right wrist 11/11/2022 Encounters Date Type Department Care Team Description 01/31/2025 10:30 AM EDT Treatment [facility] [address] [facility] [address] [place] [address] Kelbley, Tereza, SUPERVISOR JOINERS Pain, neck (Primary Dx); Neck pain 01/31/2025 Bamboo flowsheet [facility] [address] [facility] [address] [place] [address] Kelbley, Tereza, SUPERVISOR JOINERS 01/31/2025 Travel 01/29/2025 2:30 PM EDT Treatment [facility] [address] [facility] [address] [place] [address] Kelbley, Tereza, SUPERVISOR JOINERS Pain, neck (Primary Dx); Neck pain 01/29/2025 Bamboo flowsheet [facility] [address] [facility] [address] [place] [address] Kelbley, Tereza, SUPERVISOR JOINERS 01/29/2025 Travel 01/25/2025 10:00 AM EDT Treatment [facility] [address] [place] [address] Elliot Barry, SUPERVISOR JOINERS Pain, neck (Primary Dx); Neck pain 01/25/2025 Travel 01/23/2025 2:30 PM EDT Treatment [facility] [address] [place] [address] Elliot Barry, SUPERVISOR JOINERS Pain, neck (Primary Dx); Neck pain 01/23/2025 Bamboo flowsheet [facility] [address] [place] [address] Elliot Barry, SUPERVISOR JOINERS 01/23/2025 Travel 01/18/2025 2:00 PM EDT Treatment [facility] [address] [place] [address] Tereza Coppola, SUPERVISOR JOINERS Pain, neck (Primary Dx); Neck pain 01/18/2025 Bamboo flowsheet [facility] [address] [place] [address] Tereza Coppola, SUPERVISOR JOINERS 01/18/2025 Travel 01/14/2025 Telephone [facility] [address] [place] [address] Tereza Coppola, SUPERVISOR JOIN[employer] Cx PT today 01/10/2025 Refill [facility] [address] [place] [phone] Saroj Penn MD Vitamin D deficiency; Gastroesophageal reflux disease without esophagitis 01/10/2025 Refill [facility] [address] [place] [address] Helio Callejas DO Hyperlipidemia, unspecified hyperlipidemia type ; Seasonal allergies; Major depressive disorder with single episode, remission status unspecified ; Type 2 diabetes mellitus with other specified complication, unspecified whether watermelon inspector insulin use (HCC) 01/09/2025 2:00 PM EDT Treatment [facility] [address] [place] [address] Kelbley, Tereza, SUPERVISOR JOINERS Pain, neck (Primary Dx); Neck pain 01/09/2025 Bamboo flowsheet [facility] [address] [place] [address] Kelbley, Tereza, SUPERVISOR JOINERS 01/09/2025 Travel 01/02/2025 2:30 PM EDT Treatment [facility] [address] [place] [address] Kelbley, Tereza, SUPERVISOR JOINERS Pain, neck (Primary Dx); Neck pain 01/02/2025 Bamboo flowsheet [facility] [address] [place] [address] Kelbley, Tereza, SUPERVISOR JOINERS 01/02/2025 Travel 12/31/2024 10:00 AM EDT Treatment [facility] [address] [place] [address] Lars Meyer T, PT Pain, neck (Primary Dx); Neck pain 12/31/2024 Bamboo flowsheet [facility] [address] [place] [address] Lars Meyer T, PT 12/31/2024 Travel 12/26/2024 10:00 AM EDT Treatment [facility] [address] [place] [address] Kelbley, Tereza, SUPERVISOR JOINERS Pain, neck (Primary Dx); Neck pain 12/26/2024 Bamboo flowsheet [facility] [address] [place] [address] Kelbley, Tereza, SUPERVISOR JOINERS 12/26/2024 Travel 12/24/2024 9:30 AM EDT Treatment [facility] [address] [place] [address] Vasquezbley, Tereza, SUPERVISOR JOINERS Pain, neck (Primary Dx) 12/24/2024 Bamboo flowsheet [facility] [address] [facility] [address] [place] [address] Kelbley, Tereza, SUPERVISOR JOINERS 12/24/2024 Travel 12/19/2024 9:00 AM EDT Treatment [facility] [address] [facility] [address] [place] [address] Lars Meyer T, PT Pain, neck (Primary Dx); Neck pain 12/19/2024 Bamboo flowsheet [facility] [address] [facility] [address] [place] [address] Lars Meyer T, PT 12/19/2024 Travel 12/17/2024 10:00 AM EDT Treatment [facility] [address] [facility] [address] [place] [address] Lars Meyer T, PT Pain, neck (Primary Dx); Neck pain 12/17/2024 Bamboo flowsheet [facility] [address] [facility] [address] [place] [address] Lars Meyer T, PT 12/17/2024 Travel 12/10/2024 1:00 PM EDT Treatment [facility] [address] [facility] [address] [place] [address] Kelbley, Tereza, SUPERVISOR JOINERS Pain, neck (Primary Dx); Neck pain 12/10/2024 Bamboo flowsheet [facility] [address] [facility] [address] [place] [address] Vasquezbley, Tereza, SUPERVISOR JOINERS 12/10/2024 Travel 12/10/2024 Plan of Care Documentation [facility] [address] [facility] [address] [place] [address] 12/07/2024 7:30 AM EDT Evaluation [facility] [address] [facility] [address] [place] [address] Ana Ramirez, PT Pain, neck (Primary Dx); Neck pain 12/07/2024 Bamboo flowsheet [facility] [address] [place] [place] [address] Ana Ramirez, PT 12/07/2024 Travel 12/05/2024 Telephone [facility] [place] [facility] [address] [place] [address] Yashira Jacobs Wants to go back to PT for Neck Issues 11/19/2024 9:35 AM EDT Office Visit [facility] [place] [facility] [address] [place] [address] 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, 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 Rash (Primary Dx) 11/19/2024 Travel from Last 3 Months Immunizations Immunization Administration Dates Next Due Influenza, injectable, MDCK, quadrivalent 2018,04/14/2018 Influenza, injectable, quadr ivalent, preservative free 02/27/2023,04/16/2021,04/03/2017 Influenza, trivalent, adjuvanted 06/27/2024 Pfizer Purple Cap SARS-CoV-2 Vaccination 021,09/03/2020 Pneumococcal Conjugate PCV 20 10/20/2023 Family History Medical History Relation Name Comments Diabetes Father Inocencio Junior Heart disease Father Inocencio Pacheco Arthritis Maternal Grandmother Cristina Garcia Stroke Maternal Grandmother Cristina Garcia Vision loss Maternal Grandmother Cristina Garcia Arthritis Mother Lee Ann Pacheco Hearing loss Mother Lee Ann Pacheco Miscarriages / Stillbirths Mother Lee Ann Domingo ld Heart disease Paternal Grandmother Chelsea Rajput s Relation Name Status Comments Father Inocencio Pacheco Maternal Grandmother Cristina Garcia Mother Lee Ann Pacheco Alive Paternal Grandmother Chelsea Dougherty Social History Tobacco Use Types Packs/Day Years [...] Orientation Straight 02/14/2023 4: 27 PM EDT Last Filed Vital Signs Vital Sign Reading Time Taken Comments Blood Pressure 116/78 11/19/2024 9:44 AM EDT Pulse 68 11/19/2024 9:44 AM EDT Temperature 36.5 C (97.7 F) 11/19/2024 9:44 AM EDT Respiratory Rate 18 06/14/2023 12:19 PM EST Oxygen Saturation 98% 11/19/2024 9:44 AM EDT Inhaled Oxygen Concentration - - Weight 84.4 kg (186 lb) 11/19/2024 9:44 AM EDT Height 170.2 cm (5' 7 ) 02/09/2024 9:49 AM EDT Body Mass Index 29.13 02/09/2024 9:49 AM EDT Plan of Treatment Upcoming Encounters Date Type Department Care Team (Late st Contact Info) Description 02/12/2025 8:30 AM EDT Office Visit [facility] [address] [place] [address] Stephane Cope NP [address] [place] [address] 02/20/2025 1:00 PM EDT Treatment [facility] [address] [place] [place] [address] Tereza Coppola PTA 02/22/2025 1:30 PM EDT Treatment [facility] [address] [place] [address] KyreeTereza pastrana, SUPERVISOR JOINERS 02/26/2025 11:00 AM EDT Treatment [facility] [address] [place] [place] [address] Tereza Coppola, SUPERVISOR JOINERS Health Maintenance Due Date Last Done Comments CT Colonography 1960 Colonoscopy 1960 FIT 1960 FOBT 1960 Medicare Annual Wellness (AWV) 1960 Sigmoidoscopy 1960 Diabetes: Retinopathy Screening 10/23/2023 10/22/2021, 10/22/2021, 07/13/2021, Additional history exists Diabetes: Hemoglobin A1C 05/02/2024 024, 12/21/2023, 10/17/2023, Additional history exists Diabetes: Urine Protein Screening 10/16/2024 10/17/2023, 08/26/2022, 12/09/2021, Additional history exists Influenza Vaccine (#1) 2025 , 02/27/2023, 04/16/2021, Additional history exists Mammogram 07/30/2025 07/30/2024, 03/21, 06/27/2020, Additional history exists Colorectal Cancer Screening 11/06/2026 FIT-DNA 11/06/2026 11/07/2023, 01/12/2021 Pneumococcal Vaccine: 65+ Years Completed 4 Procedures Procedure Name Priority Date/Time Associated Diagnosis Comments BI MAMMOGRAM SCREENING TOMOSYNTHESIS BILATERAL Routine 07/30/2024 7:44 PM EST Breast cancer screening by mammogram HEMOGLOBIN A1C WITH EAG Routine 01/31/2024 8:00 AM EDT LAB COLOGUARD COLON CANCER SCREEN Routine 11/07/2023 7:45 PM EDT Colon cancer screening MICROALBUMIN / CREATININE URINE RATIO Routine 10/17/2023 8:21 AM EDT Type 2 diabetes mellitus with other specified complication, without long-term current use of insulin (HCC) COLOR FUNDUS PHOTOGRAPHY - OU - BOTH EYES Routine 10/22/2021 12:00 PM EDT from Last 3 Months or Most Recently Relevant to Health Maintenance Results * Bilateral screening mammogram with tomosynthesis (07/30/2024 7:44 PM EST) Anatomical Region Laterality Modality Breast Bilateral Mammography 08/01/2024 12:1 1 PM EST Impressions 08/01/2024 12:18 PM EST Impression: No specific evidence of malignancy seen in either breast. BIRADS 2 - Benign Findings DENSITY: There are scattered areas of fibroglandular density. FOLLOW-UP: Routine Screening Mammogram ELECTRONICALLY SIGNED BY: Tejinder Melo M.D. Narrative 08/01/2024 12:18 PM EST Examination: BI MAMMOGRAM SCREENING TOMOSYNTHESIS BILATERAL Clinical History: breast cancer screening Technique: Screening digital mammography study of both breasts was performed with 2-D and 3-D tomosynthesis imaging. Study was compared to the prior exam dated 04/08/2022. Findings: There is no evidence of interval dominant spiculated mass, grouped microcalcifications, or skin thickening which would be suggestive of malignancy. A few benign-appearing calcifications noted bilaterally. Axillary lymph nodes are noted on the left which appear grossly unremarkable. Partially visualized axillary lymph node suggested on the right which appears grossly unremarkable. Procedure Note Tejinder Melo MD - 08/01/2024 Examination: BI MAMMOGRAM SCREENING TOMOSYNTHESIS BILATERAL Clinical History: breast cancer screening Technique: Screening digital mammography study of both breasts wasperformed with 2-D and 3-D tomosynthesis imaging. Study was compared tothe prior exam dated 04/08/2022. Findings: There is no evidence of interval dominant spiculated mass,grouped microcalcifications, or skin thickening which would be suggestiveof malignancy. A few benign-appearing calcifications noted bilaterally. Axillary lymphnodes are noted on the left which appear grossly unremarkable. Partiallyvisualized axillary lymph node suggested on the right which appearsgrossly unremarkable. IMPRESSION: Impression: No specific evidence of malignancy seen in either breast. BIRADS 2 - Benign Findings DENSITY: There are scattered areas of fibroglandular density. FOLLOW-UP: Routine Screening Mammogram ELECTRONICALLY SIGNED BY: Tejinder Melo M.D. us Helio Callejas DO IMG BI PROCEDURES Final Resu lt * (ABNORMAL) Hemoglobin a1c with eag (01/31/2024 8:00 AM EDT) Hemoglobin A1C 7.2(H) <5.7 % of total Hgb [facility] Comment: For someone without known diabetes, a hemoglobin A1c value of 6.5% or greater indicates that they may have diabetes and this should be confirmed with a follow-up test. For someone with known diabetes, a value <7% indicates that their diabetes is well controlled and a value greater than or equal to 7% indicates suboptimal control. A1c targets should be individualized based on duration of diabetes, age, comorbid conditions, and other considerations. Currently, no consensus exists regarding use of hemoglobin A1c for diagnosis of diabetes for children. EAG (MG/DL) 160 mg/dL [facility] EAG (MMOL/L) 8.9 mmol/L [facility] Comment: This test was performed on the Monica ervin c503 platform. Effective 06/06/23, a change in test platforms from the Cade Bin Tripper Operator to the Monica ervin c503 may have shifted HbA1c results compared to historical results. Based on laboratory validation testing conducted at [facility], the Monica platform relative to the Cade platform had an average increase in HbA1c value of < or = 0.3%. This difference is within accepted variability established by the National Glycohemoglobin Standardization Program. Note that not all individuals will have had a shift in their results and direct comparisons between historical and current results for testing conducted on different platforms is not recommended. 01/31/2024 8:00 AM EDT 01/31/2024 3:06 PM EDT Narrative [facility] - 02/01/2024 3:02 AM EDT FASTING:YES FASTING: YES Resulting Agency Comment Performing Organization Information Site ID: QPT Name: [facility] Address: [address] [place] [address], [address] [place] [id number] Director: Molina Norwood MD us Helio Callejas DO LAB BLOOD ORDERABLES Final R esult [facility] * Cologuard?? colon cancer screening (11/07/2023 7:45 PM EDT) NONINV COLON CA DNA+OCC BLD SCRN STL-IMP Negative Negative 11/15/2023 8:33 PM EDT [facility] (CLIA #:[id number]) Comment: NEGATIVE TEST RESULT. A negative Cologuard result indicates a low likelihood that a colorectal cancer (CRC) or advanced adenoma (adenomatous polyps with more advanced pre-malignant features) is present. The chance that a person with a negative Cologuard test has a colorectal cancer is less than 1 in 1500 (negative predictive value >99.9%) or has an advanced adenoma is less than 5.3% (negative predictive value 94.7%). These data are based on a prospective cross-sectional study of 10,000 individuals at average risk for colorectal cancer who were screened with both Cologuard and colonoscopy. (Jersey Austin et al, N Engl J Med 2014;370(14):4453-1670) The normal value (reference range) for this assay is negative. COLOGUARD RE-SCREENING RECOMMENDATION: Periodic colorectal cancer screening is an important part of preventive healthcare for asymptomatic individuals at average risk for colorectal cancer. Following a negative Cologuard result, the [place] Cancer Society and U.S. Multi-Society Task Force screening guidelines recommend a Cologuard re-screening interval of 3 years. References: [place] [employer] Guideline for Colorectal Cancer Screening: https://www.cancer.org/cancer/rzqpd-diuwux-tsizxw/birywklwx-kkstcpnpf-uehdtrv/ac s-rec ommendations.html.; Wisam DK, Sienna CR, Preet HawkinsK, Colorectal Cancer Screening: Recommendations for Physicians and Patients from the U.S. Multi-Society Task Force on Colorectal Cancer Screening , Am J Gastroenterology 2017; 112:4696-3221. TEST DESCRIPTION: Composite algorithmic analysis of stool DNA-biomarkers with hemoglobin immunoassay. Quantitative values of individual biomarkers are not reportable and are not associated with individual biomarker result reference ranges. Cologuard is intended for colorectal cancer screening of adults of either sex, 45 years or older, who are at average-risk for colorectal cancer (CRC). Cologuard has been approved for use by the U.S. FDA. The performance of Cologuard was established in a cross sectional study of average-risk adults aged 50-84. Cologuard performance in patients ages 45 to 49 years was estimated by sub-group analysis of near-age groups. Colonoscopies performed for a positive result may find as the most clinically significant lesion: colorectal cancer [4.0%], advanced adenoma (including sessile serrated polyps greater than or equal to 1cm diameter) [20%] or non- advanced adenoma [31%]; or no colorectal neoplasia [45%]. These estimates are derived from a prospective cross-sectional screening study of 10,000 individuals at average risk for colorectal cancer who were screened with both Cologuard and colonoscopy. (Jersey Guadarrama al, N Engl J Med 2014;370(14):5527-5531.) Cologuard may produce a false negative or false positive result (no colorectal cancer or precancerous polyp present at colonoscopy follow up). A negative Cologuard test result does not guarantee the absence of CRC or advanced adenoma (pre-cancer). The current Cologuard screening interval is every 3 years. ([place] Cancer Society and U.S. Multi-Society Task Force). Cologuard performance data in a 10,000 patient pivotal study using colonoscopy as the reference method can be accessed at the following location: www.[employer]/results. Additional description of the Cologuard test process, warnings and precautions can be found at www.[email or web address].com. Stool specimen (specimen) 11/07/2023 7:45 PM EDT 11/09/2023 9:16 AM EDT Helio Callejas DO LAB MOLECULAR DIAGNOSTICS OR DERABLES Final Result [facility] (CLIA #:[id number]) [address] [address], [facility] (CLIA #:[id number]) [address] [address] * Microalbumin / creatinine urine ratio (10/17/2023 8:21 AM EDT) CREATININE, RANDOM URINE 82 20 - 275 mg/dL [facility] ALBUMIN, URINE <0.2 See Note: mg/dL [facility] Comment: Reference Range: Reference Range Not established ALBUMIN/CREATININE RATIO, RANDOM URINE NOTE <30 mg/g creat [facility] Comment: NOTE: The urine albumin value is less than 0.2 mg/dL therefore we are unable to calculate excretion and/or creatinine ratio. The ADA defines abnormalities in albumin excretion as follows: Albuminuria Category Result (mg/g creatinine) Normal to Mildly increased <30 Moderately increased 30-299 Severely increased > OR = 300 The ADA recommends that at least two of three specimens collected within a 3-6 month period be abnormal before considering a patient to be within a diagnostic category. Urine Urine specimen obtained by clean catch procedure / Unknown 10/17/2023 8:21 AM EDT 10/17/2023 8:21 AM EDT Narrative [facility] - 10/18/2023 1:20 PM EDT FASTING:YES FASTING: YES Resulting Agency Comment Performing Organization Information Site ID: QPT Name: [facility] Address: [address] [place] [address], [address] [place] [phone] Director: Molina Norwood MD Helio Callejas DO LAB URINE ORDERABLES Final R esult [facility] * Color Fundus Photography - OU - Both Eyes (10/22/2021 12:00 PM EDT) Anatomical Region Laterality Modality Head Fundus Photograp hy 10/22/2021 12:0 0 PM EDT Narrative 10/22/2021 12:00 PM EDT PERFORMED AT [facility] LOCATION:[id number] Procedure Note CONVERSION, GENERIC - 11/03/2022 PERFORMED AT [facility] LOCATION:[id number] Helio Callejas DO OPHTH PHOTOGRAPHY Final Resu lt from Last 3 Months or Most Recently Relevant to Health Maintenance Insurance [facility] MEDICARE Care Teams Show Host/Hostess Relationship Specialty Start Date End Date Saroj Penn MD [address] [place] [address] PCP - General Internal Medicine 01/08/25
--- OUTSIDE RECORDS SUMMARY | 2025-02-08 08:00 | XMS_ITS | Encounter Summary ---
Author Organization [facility] Address [address] [place] [address] Care Team Providers Care Wicker Worker Name Role Phone Helio Callejas DO Primary Care Provider [phone] Saroj Penn MD Primary Care Provider [phone] Encounter Details Date Type Department Care Team (Late st Contact Info) Description 03/20/2024 Orders Only [facility] [address] [place] [id number] A, Unknown Practice [address] [place], [place] [id number] Social History Tobacco Use Types Packs/Day Years [...] [address] [place] [address] Stephane Cope, PPAP COORDINATOR [address] [place] [address] 02/20/2025 1:00 PM EDT Treatment [facility] [address] [place] [address] Tereza Coppola, NEWSPAPER EDITOR MANAGING 02/22/2025 1:30 PM EDT Treatment [facility] [address] [place] [address] Tereza Coppola, NEWSPAPER EDITOR MANAGING 02/26/2025 11:00 AM EDT Treatment [facility] [address] [place] [address] Tereza Coppola, NEWSPAPER EDITOR MANAGING documented as of this encounter Procedures Procedure Name Priority Date/Time Associated Diagnosis Comments DIABETIC RETINOPATHY SCREENING - OU - BOTH EYES Routine 10/22/2021 3:10 PM EDT DIABETIC RETINOPATHY SCREENING - OU - BOTH EYES Routine 07/13/2021 3:09 PM EST DIABETIC RETINOPATHY SCREENING - OU - BOTH EYES Routine 12/24/2020 3:09 PM EDT documented in this encounter Results * Diabetic Retinopathy Screening - OU - Both Eyes (10/22/2021 3:10 PM EDT) Anatomical Region Laterality Modality Head Other us Unknown Practice [facility]GR[facility] Final Resul t * Diabetic Retinopathy Screening - OU - Both Eyes (07/13/2021 3:09 PM EST) Anatomical Region Laterality Modality Head Other us Unknown Practice A OPHTH PHOTOGRAPHY Final Resul t * Diabetic Retinopathy Screening - OU - Both Eyes (12/24/2020 3:09 PM EDT) Anatomical Region Laterality Modality Head Other us Unknown Practice A OPH[facility] PHOTOGRAPHY Final Resul t documented in this encounter Visit Diagnoses Not on filedocumented in this encounter Care Teams Wicker Worker Relationship Specialty Start Date End Date Helio Callejas DO [address] [place] [address] PCP - General Internal Medicine 12/06/22 01/07/25 Saroj Penn MD [address] [place] [address] PCP - General Internal Medicine 01/08/25 documented as of this encounter
--- OUTSIDE RECORDS SUMMARY | 2025-02-08 08:00 | XMS_ITS | Clinical Summary ---
Author Organization [facility] Address [address] [place], [place] [id number] Care Team Providers Care Senior Business Development Analyst Name Role Phone Unavailable Primary Care Provider Unavailabl e Social History Tobacco Use Types Packs/Day Years Used Date Smoking Tobacco: Never Assessed Comments Unknown Sex and Gender Information Value Date Recorded Sex Assigned at Female 12/30/2022 2:41 PM EDT Legal Sex Female 2:34 PM EDT Gender Identity Female 12/30/2022 2:41 PM EDT Sexual Orientation Straight 12/30/2022 2: 41 PM EDT Plan of Treatment Health Maintenance Due Date Last Done Comments Anxiety Screening 1976 Depression Screening 1976 Hepatitis C Screening 1976 DTaP,Tdap,Td Vaccine (1 - Tdap) [address] Colonography 2003 Cologuard (FIT-DNA) 2003 Colonoscopy 2003 Colorectal Cancer Screening 2003 Diabetes Screening 2003 Fecal Occult Blood 2003 Lipid Screening 2003 Sigmoidoscopy 2003 Pneumococcal Vaccine: 50+ (1 of 1 - PCV) 2008 Shingrix Vaccine (1 of 2) 2008 Bone Density Screening 2023 Advance Directive Discussion 06/20/2024 Influenza Vaccine (#1) 2025 RSV Vaccine (1 - 1-dose 75+ series) 2033 Insurance
--- OUTSIDE RECORDS SUMMARY | 2025-02-08 08:00 | XMS_ITS | Encounter Summary ---
Author Organization [facility] Address [address] [place] [address] Care Team Providers Care Incident Manager Name Role Phone Saroj Penn MD Primary Care Provider [phone] Encounter Details Date Type Department Care Team (Latest Contact Info) Description 01/29/2025 Travel Social History Tobacco Use Types Packs/Day [...] Medicine [address] [place] [address] Stephane Cope, CHEMICAL PLANT WORKER [address] [facility] [address] [place] [address] 02/20/2025 1:00 PM EDT Treatment [facility] [address] [facility] [address] [place] [address] Tereza Coppola, JOB COST ESTIMATOR 02/22/2025 1:30 PM EDT Treatment [facility] [address] [facility] [address] [place] [address] Tereza Coppola, JOB COST ESTIMATOR 02/26/2025 11:00 AM EDT Treatment [facility] [address] [facility] [address] [place] [address] Tereza Coppola, JOB COST ESTIMATOR documented as of this encounter Visit Diagnoses Not on filedocumented in this encounter Care Teams Incident Manager Relationship Specialty Start Date End Date Saroj Penn MD [address] [facility] [address] [place] [address] PCP - General Internal Medicine 01/08/25 documented as of this encounter
--- OUTSIDE RECORDS SUMMARY | 2025-02-08 08:00 | XMS_ITS | Continuity of Care Document ---
Author Organization [facility] Address [address] [place] [address] Care Team Providers Care Iron Caster Name Role Phone JúniorHelio dover Primary Care Provider Encounters Date Type Department Care Team Description 06/26/2024 8:30 AM EST Office Visit [facility] [place] [address] [phone] Derrick Thorpe MD Greater trochanteric bursitis of left hip (Primary Dx); Tendinopathy of left gluteus medius; Iliotibial band syndrome of left side; Weakness of left hip 05/26/2023 11:00 AM EST Office Visit [facility] [place] [address] [facility] [address] [place] [address] Mary Lou Joe, CUSTOMER SERVICER-CORN CROP SUPERVISOR Right wrist pain (Primary Dx) 03/14/2023 12:40 PM EDT Telemedicine [facility] [place] [address] [facility] [address] [place] [address] Mary Lou Joe, CUSTOMER SERVICER-CORN CROP SUPERVISOR Carpal tunnel syndrome on right (Primary Dx); Radial tunnel syndrome, right; De Quervain's tenosynovitis, right; Cubital tunnel syndrome on right 03/09/2023 Orders Only [facility] Out[facility] [address] [address] Ermias Toro MD Facet arthropathy, cervical (Primary Dx) 02/24/2023 1:00 PM EDT Office Visit [facility] [place] [address] [facility] [address] [place] [phone] Dimeo, Mary Lou A, CUSTOMER SERVICER-CORN CROP SUPERVISOR Carpal tunnel syndrome on right (Primary Dx); Radial tunnel syndrome, right; De Quervain's tenosynovitis, right; Cubital tunnel syndrome on right 02/22/2023 Telephone Central Scheduling [address] [place] [address] Dimeo, Mary Lou A, CUSTOMER SERVICER-CORN CROP SUPERVISOR Advice Only (Call back ) 02/18/2023 10:40 AM EDT Telemedicine [facility] [place] [address] [facility] [address] [place] [address] Dimeo, Mary Lou A, CUSTOMER SERVICER-CORN CROP SUPERVISOR Carpal tunnel syndrome on right (Primary Dx); Radial tunnel syndrome, right; De Quervain's tenosynovitis, right; Cubital tunnel syndrome on right 02/16/2023 10:33 AM EDT - 02/16/2023 11:59 PM EDT Hospital Encounter Department of Radiology [address] [facility] [address] [place] [phone] Ermias Toro MD Discharge Disposition: Home or Self Care 02/15/2023 Telephone Central Scheduling [address] [place] [address] Josh Mccann MD Other 02/15/2023 1:00 PM EDT Office Visit Sp[facility] Care Out[facility] [address] [phone] Ermias Toro MD Cervical radiculopathy (Primary Dx) 02/15/2023 7:19 AM EDT - 02/15/2023 12:09 PM EDT Emergency [place] [facility] [address] [place], [place] [address] [place] [phone] Helio Miller MD Discharge Disposition: Home or Self Care 02/08/2023 Telephone Central Scheduling [address] [place] [address] Josh Mccann MD Referral 02/02/2023 Telephone Central Scheduling [address] [place] [address] Josh Mccann MD Order Request 02/01/2023 9:35 AM EDT - 02/01/2023 10:50 AM EDT Surgery Outpatient Surgery [facility] [address] [place] [address] Josh Mccann MD ENDOSCOPY CARPAL TUNNEL RELEASE 02/01/2023 8:55 AM EDT Anesthesia Event Outpatient Surgery [facility] [address] [place] [address] Logan Forbes MD Lawrence, Alec T, MD 02/01/2023 7:23 AM EDT - 02/01/2023 11:48 AM EDT Hospital Encounter Outpatient Surgery [facility] [address] [place] [address] Josh Mccann MD Lesion of ulnar nerve Discharge Disposition: Home or Self Care 01/27/2023 3:30 PM EDT Telemed Clin Support Pre-Procedure Preparation [facility] [address] [place] [address] Gloria Patel MD Heard, Jarrett A, MD McBrien, Lora, RN Pre-op evaluation (Primary Dx) 01/27/2023 10:30 AM EDT Office Visit [facility] [place] [address] [facility] [address] [place] [address] Josh Mccann MD Carpal tunnel syndrome on right (Primary Dx) 01/27/2023 8:23 AM EDT - 01/27/2023 11:59 PM EDT Hospital Encounter Neurodiagnostic Testing Outpatient Care [address] [phone] Gloria Patel MD Discharge Disposition: Home or Self Care 01/24/2023 11:10 AM EDT Office Visit Sports Medicine Outpatient Care [address] [place] [address] Josh Mccann MD Carpal tunnel syndrome on right (Primary Dx); De Quervain's tenosynovitis; Right wrist pain Medications Albuterol 108 (90 Base) MCG/ACT Aero Soln inhaler 2 puffs Inhalation every 4hrs as needed for 90 days Active Atorvastatin 10 MG tablet Take 1 tablet by mouth Daily (with dinner). 3 Active Erythromycin 5 MG/GM Ointment ophthalmic ointment APPLY ONE-HALF inch strip to affected eye(s) DAILY AT BEDTIME for 30 days 3 Active esomeprazole [address] capsule Take 1 capsule by mouth. Active fluticasone 50 MCG/ACT Suspension nasal spray 1 spray in each nostril Nasally 2 x a day for 90 days Active metFORMIN 500 MG tablet Take 1 tablet by mouth. 3 Active venlafaxine 37.5 MG tablet Take 1 tablet by mouth Twice daily. 3 Active oxyCODONE 5 MG tabletIndications :Post-operative pain,Carpal tunnel syndrome of right wrist,Lesion of right ulnar nerve,De Quervain's disease (radial styloid tenosynovitis) Take 1 tablet by mouth every 6 hours as needed for Moderate Pain or Severe Pain for up to 5 days. 12 tablet 3 Active Gabapentin 100 MG capsule Take 1 capsule by mouth 3 times daily. 90 capsule 3 Active Meloxicam 15 MG tabletIndications :Greater trochanteric bursitis of left hip,Tendinopathy of left gluteus medius,Iliotibial band syndrome of left side,Weakness of left hip Take 1 tablet by mouth daily. Take with food 30 tablet 1 5 Active Active Problems Problem Noted Date Diagnosed Date Radial tunnel syndrome, right 02/02/2023 De Quervain's tenosynovitis, right 02/02/2023 Cubital tunnel syndrome on right 02/02/2023 Right carpal tunnel syndrome 02/02/2023 Obesity (BMI 30.0-34.9) 01/24/2023 Family History Medical History Relation Name Comments Diabetes Father Dad Myocardial Infarction Father Dad Stroke Maternal Grandmother Gram C Vision Problems Mother Mom Diabetes Paternal Grandmother Grama B Relation Name Status Comments Father Dad Maternal Grandmother Gram C Mother Mom Paternal Grandmother Grama B Social History Smoking Status as of 02/08/2025 Tobacco Use Types Packs/Day Years Used Date Smoking Tobacco: Never Assessed Sex and Gender Information Value Date Recorded Sex Assigned at Not on file Legal Sex Female 9:44 PM EDT Gender Identity Female 06/25/2024 6:16 PM EST Sexual Orientation Straight 06/25/2024 6: 16 PM EST Last Filed Vital Signs Vital Sign Reading Time Taken Comments Blood Pressure 133/72 02/16/2023 10:47 AM EDT Pulse 67 02/16/2023 10:47 AM EDT Temperature 36.3 C (97.4 F) 02/15/2023 12:53 PM EDT Respiratory Rate 16 02/15/2023 12:53 PM EDT Oxygen Saturation 98% 02/15/2023 12:53 PM EDT Inhaled Oxygen Concentration - - Weight 92.1 kg (203 lb) 05/26/2023 10:48 AM EST Height 170.2 cm (5' 7 ) 05/26/2023 10:48 AM EST Body Mass Index 31.79 05/26/2023 10:48 AM EST Plan of Treatment Not on file Procedures Procedure Name Priority Date/Time Associated Diagnosis Comments DE INJECT TENDON SHEATH/LIGAMENT PERFORMABLE Routine 05/26/2023 11:00 AM EST Right wrist pain MRI SPINE CERVICAL WITHOUT CONTRAST Routine 02/16/2023 11:11 AM EDT Cervical radiculopathy LT BLUE TOP TUBE Routine 02/14/2023 10:1 2 PM EDT LAVENDER TOP TUBE Routine 02/14/2023 10: 12 PM EDT MINT GREEN TOP TUBE Routine 02/14/2023 1 0:12 PM EDT GOLD TOP TUBE Routine 02/14/2023 10:12 PM EDT CBC AND ELECTRONIC DIFF STAT 02/14/2023 10:12 PM EDT RAINBOW DRAW Routine 02/14/2023 10:12 PM EDT CHM 7 - ED STAT 02/14/2023 10:12 PM EDT CBC, EDIF, PLATELET STAT 02/14/2023 1 0:12 PM EDT GLUCOSE POC Routine 02/01/2023 10:42 AM EDT CHG US GUIDANCE NEEDLE PLACEMENT IMG S&I Routine 02/01/2023 9:25 AM EDT DE INJECTION AA&/STRD OTHER PERIPHERAL NERVE/BRANCH Routine 02/01/2023 9:25 AM EDT HC INJECTION ANESTHETIC PERIPHERAL NERVE OR BRANCH Routine 02/01/2023 9:25 AM EDT DE INJECTION AA&/STRD BRACHIAL PLEXUS W/IMG GDN Routine 02/01/2023 9:24 AM EDT HC INJECTION NERVE BRACHIAL PLEXUS FOR PAIN MGMT INCL IMAGING GUIDANCE Routine 02/01/2023 9:24 AM EDT US IMAGING OR Routine 02/01/2023 9:01 AM EDT DE ARTHROCENTESIS ASPIR&/INJ INTERM JT/BURS W/O US 02/01/2023 8:57 AM EDT Lesion of ulnar nerve Carpal tunnel syndrome DE INCISION EXTENSOR TENDON SHEATH WRIST 02/01/2023 8:57 AM EDT Lesion of ulnar nerve Carpal tunnel syndrome DE NEURP MAJOR PRPH NRV ARM/LEG OPN OTH/THN SPEC 02/01/2023 8:57 AM EDT Lesion of ulnar nerve Carpal tunnel syndrome DE NEUROPLASTY &/TRANSPOSITION ULNAR NERVE ELBOW 02/01/2023 8:57 AM EDT Lesion of ulnar nerve Carpal tunnel syndrome DE NDSC WRST SURG W/RLS TRANSVRS CARPL LIGM 02/01/2023 8:57 AM EDT Lesion of ulnar nerve Carpal tunnel syndrome GLUCOSE POC Routine 02/01/2023 8:13 AM EDT ASPIRATION OR INJECTION INTERMEDIATE JOINT BURSA Routine 02/01/2023 7:51 AM EDT Lesion of ulnar nerve Carpal tunnel syndrome EMG AND NERVE CONDUCTION (SCANNED) Routine 01/27/2023 MRI (OUTSIDE) Routine 02/25/2022 MRI WRIST RIGHT (OUTSIDE IMAGE) Routine 02/25/2022 Results * DE INJECT TENDON SHEATH/LIGAMENT PERFORMABLE (05/26/2023 11:00 AM EST) Anatomical Region Laterality Modality Other Narrative 05/26/2023 11:00 AM EST OLVIN Bolton 05/30/2023 10:24 AM UPPER EXTREMITY [...] fashion. The patient was prepped with alcohol. us Mary Lou BAH BEDSIDE PROCEDURES Final Result * MRI SPINE CERVICAL WITHOUT CONTRAST (02/16/2023 11:11 AM EDT) Anatomical Region Laterality Modality C-spine Magnetic Resonan ce 02/24/2023 10:4 3 AM EDT Impressions 02/24/2023 11:14 AM EDT IMPRESSION: Multilevel degenerative changes of the cervical spine with moderate bilateral foraminal narrowing at C5-C6 and moderate left-sided foraminal narrowing at C6-C7. I personally viewed and interpreted these images and I have reviewed and approved this report. Narrative 02/24/2023 11:14 AM EDT EXAM: MRI SPINE CERVICAL WITHOUT CONTRAST, 02/16/2023 [...] disc herniation, cervical stenosis, or foraminal stenosis. Procedure Note VenuGilma phillip DIONE Anguiano - 02/24/2023 EXAM: MRI SPINE CERVICAL WITHOUT CONTRAST, 02/16/2023 11:11 AM COMPARISON: No priors available for comparison. CLINICAL INDICATIONS: 62 years Female eval for c6-c7 radicular symptomsright side; RELEVANT CLINICAL HISTORY: M54.12:Cervical radiculopathy TECHNIQUE: A series of sagittal and axial multisequence images of thecervical spine were obtained without intravenous contrast using standard protocol. Study was performed at [address] [place]. FINDINGS: Alignment is normal. Vertebral bodies are within normal limits in height and marrow signal. Prevertebral and paraspinal soft tissues are within normal limits. Multilevel loss of disc space height. Multilevel endplate degenerative changes of the cervical spine notably atthe superior and inferior endplate of C6, and superior endplate of C7. Visualized spinal cord is within normal limits in caliber and signal. Craniocervical junction and visualized posterior fossa are within normal limits. By levels: C1-C2: Atlanto-axial relationship is within normal limits. C2-C3: Disc osteophyte complex with eccentric right osteophytic spurringpartially effacing the right ventral-lateral aspect of the thecal sac. Nosignificant spinal canal or foraminal compromise. C3-C4: Disc osteophyte complex with eccentric right osteophytic spurring andright facet hypertrophy partially effacing the right ventral-lateral aspect ofthe thecal sac and causing mild right-sided foraminal narrowing. Nosignificant spinal canal compromise. C4-C5: Disc osteophyte complex with asymmetric right greater than left facet hypertrophy causing mild right-sided foraminal narrowing. No significant spinal canal stenosis. C5-C6: Disc osteophyte complex with bilateral facet and uncovertebralhypertrophy causing moderate bilateral foraminal narrowing and mild spinal canal narrowing. C6-C7: Disc osteophyte complex with mild bilateral facet and uncovertebral hypertrophy causing mild spinal canal narrowing, mild right-sided andmoderate left-sided neural foraminal narrowing. C7-T1: No disc herniation, cervical stenosis, or foraminal stenosis. IMPRESSION IMPRESSION: Multilevel degenerative changes of the cervical spine with moderatebilateral foraminal narrowing at C5-C6 and moderate left-sided foraminal narrowingat C6-C7. I personally viewed and interpreted these images and I have reviewed and approved this report. us Ermias Toro MD MR ORDERABLES Final Result * (ABNORMAL) CBC AND ELECTRONIC DIFF (02/14/2023 10:12 PM EDT) WBC Count 12.74(H) 3.99 - 11.19 K/uL 02/14/2023 10:30 PM EDT [facility] RBC Count 4.50 3.91 - 5.04 M/uL 02/14/2023 10:30 PM EDT [facility] Hemoglobin 13.7 11.4 - 15.2 g/dL 02/14/2023 10:30 PM EDT [facility] Hematocrit 42.1 34.9 - 44.3 % 02/14/2023 10:30 PM EDT [facility] Mean Cell Volume 93.6 79.6 - 97.7 fL 02/14/2023 10:30 PM EDT [facility] Mean Cell Hgb 30.4 25.9 - 33.9 pg 02/14/2023 10:30 PM EDT [facility] Mean Cell Hgb Conc 32.5 31.4 - 35.9 g/dL 02/14/2023 10:30 PM EDT [facility] RBC Distribution 13.2 10.8 - 14.9 % 02/14/2023 10:30 PM EDT [facility] Platelet Count 285 150 - 393 K/uL 02/14/2023 10:30 PM EDT [facility] Mean Platelet Volume 9.2 8.5 - 12.2 fL 02/14/2023 10:30 PM EDT [facility] DIFF STATUS Electronic Differential 02/14/2023 10:30 PM EDT [facility] Segs + Bands Auto 58.3 % 02/14/2023 10:30 PM EDT [facility] Immature Grans % 0.2 % 02/14/2023 10:30 PM EDT [facility] Lymphocyte % Auto 30.1 % 02/14/2023 10:30 PM EDT [facility] Monocyte % Auto 8.1 % 10:30 PM EDT [facility] Eosinophil % Auto 2.8 % 02/14/2023 10:30 PM EDT [facility] Basophil % Auto 0.5 % 10:30 PM EDT [facility] Nucleated RBC 0.0 <=0.2 /100 WBC 02/14/2023 10:30 PM EDT [facility] Segs + Bands,Absolute Auto 7.42(H) 1.64 - 7.28 K/uL 02/14/2023 10:30 PM EDT [facility] Immature Grans Absolute <0.04 <=0.08 K/uL 02/14/2023 10:30 PM EDT [facility] Abs Lymph Auto 3.83(H) 1.16 - 3.51 K/uL 02/14/2023 10:30 PM EDT [facility] Abs [place] Auto 1.03(H) 0.22 - 0.87 K/uL 02/14/2023 10:30 PM EDT [facility] Abs Eos Auto 0.36 0.00 - 0.42 K/uL 02/14/2023 10:30 PM EDT [facility] Abs Baso Auto 0.07 0.00 - 0.15 K/uL 02/14/2023 10:30 PM EDT [facility] Blood Venipuncture / Unknown 02/14/2023 10:12 PM EDT 02/14/2023 10:25 PM EDT us Cale Lei MD HEMATOLOGY ORDERABLES Final Res ult Performing Organization Address [facility] Co de Phone Number [facility] [address] [place] [address] * LT BLUE TOP TUBE (02/14/2023 10:12 PM EDT) Blood Venipuncture / Unknown 02/14/2023 10:12 PM EDT 02/14/2023 10:25 PM EDT us Cale Lei MD HEMATOLOGY ORDERABLES Final Res ult Performing Organization Address [facility] Co de Phone Number [facility] [address] [place] [address] * LAVENDER TOP TUBE (02/14/2023 10:12 PM EDT) Blood Venipuncture / Unknown 02/14/2023 10:12 PM EDT 02/14/2023 10:25 PM EDT us Cale Lei MD HEMATOLOGY ORDERABLES Final Res ult Performing Organization Address [facility] de Phone Number [facility] [address] [place] [address] * MINT GREEN TOP TUBE (02/14/2023 10:12 PM EDT) Blood Venipuncture / Unknown 02/14/2023 10:12 PM EDT 02/14/2023 10:25 PM EDT us Cale Lei MD CHEMISTRY ORDERABLES Final Resu lt Performing Organization Address [facility] Phone Number [facility] [address] [place] [address] * GOLD TOP TUBE (02/14/2023 10:12 PM EDT) Blood Venipuncture / Unknown 02/14/2023 10:12 PM EDT 02/14/2023 10:25 PM EDT us Cale Lei MD CHEMISTRY ORDERABLES Final Resu lt Performing Organization Address [facility] de Phone Number [facility] [address] [place] [address] * (ABNORMAL) [facility] 7 - ED (02/14/2023 10:12 PM EDT) Sodium 135 135 - 145 mmol/L 02/14/2023 10:52 PM EDT [facility] Potassium 4.1 3.5 - 5.0 mmol/L 02/14/2023 10:52 PM EDT [facility] Chloride 101 98 - 108 mmol/L 02/14/2023 10:52 PM EDT [facility] CO2 26 21 - 31 mmol/L 02/14/2023 10:52 PM EDT [facility] Glucose 187(H) 70 - 99 mg/dL 02/14/2023 10:52 PM EDT [facility] BUN 23 7 - 25 mg/dL 02/14/2023 10:52 PM EDT [facility] Creatinine 0.99 0.50 - 1.20 mg/dL 02/14/2023 10:52 PM EDT [facility] Bun/Crea Ratio 23 02/14/2023 10:52 PM EDT [facility] Osmolality (Calculated) 293 278 - 305 mOsm/kg 02/14/2023 10:52 PM EDT [facility] Anion Gap 12 7 - 17 mmol/L 02/14/2023 10:52 PM EDT [facility] eGFR, CKD-EPI, Female 62 >=60 mL/min/1.7 3m2 02/14/2023 10:52 PM EDT [facility] Comment:Reported eGFR is bas ed on the CKD-EPI 2020 equation using creatinine, age, and sex. Blood Venipuncture / Unknown 02/14/2023 10:12 PM EDT 02/14/2023 10:25 PM EDT us Cale Lei MD CHEMISTRY ORDERABLES Final Resu lt [facility] [address] [place] [address] * (ABNORMAL) GLUCOSE POC (02/01/2023 10:42 AM EDT) Only the most recent of2 resultswithin the time period is included. Glucose (POC Device) 132(H) 70 - 99 mg/dL 02/01/2023 10:49 AM EDT [facility] POC Sample Type BLOD 02/01/2023 10:49 AM EDT [facility] Blood 02/01/2023 10:4 2 AM EDT 02/01/2023 10:49 AM EDT Narrative [facility] - 02/01/2023 10:49 AM EDT Test performed at address of the patient encounter. us Josh Mccann MD POINT OF CARE TESTING Final Res ult U [facility] [address] [place] [address] * HC INJECTION ANESTHETIC PERIPHERAL NERVE OR BRANCH, DE INJECTION AA&/STRD OTHER PERIPHERAL NERVE/BRANCH, CHG US GUIDANCE NEEDLE PLACEMENT IMG S&I (02/01/2023 9:25 AM EDT) Anatomical Region Laterality Modality Other Narrative 02/01/2023 9:25 AM EDT Logan Forbes MD 02/01/2023 12:45 PM Nerve Block Other Peripheral [id number] Patient location during procedure: pre-op Room: Reason for block: post-op pain management Diagnosis: Pain in right upper arm Staffing Anesthesiologist: Logan Forbes MD Other staff: Mary Lou Jason RN Performed: Anesthesiologist [place] Protocol Verbal consent obtained Written consent obtained Risks and benefits discussed Consent given by: patient Patient states understanding of procedure being performed: Yes The patient's understanding of the procedure matches consent given Procedure consent matches procedure scheduled Relevant documents present and verified: Yes Test results available and properly labeled: N/A Site marked: Yes Imaging studies available: N/A Required blood products, implants, devices, and special equipment available Patient identity confirmed: verbally with patient, provided demographic data, arm band and hospital-assigned identification number Immediately prior to procedure a time out was called to verify the correct patient, procedure, equipment, product support manager and site/side marked as required Procedure Details Patient position: sitting Prep: ChloraPrep, cap and mask and sterile gloves Patient monitoring: heart rate, cardiac cath lab technologist, continuous pulse ox and blood pressure Laterality: right Technique: ultrasound guided Medications documented on the MAR Number of Attempts: 1 Needle Needle type: B-bevel Needle gauge: Other ((25 G)) Needle length: Other ((1.5 inch)) Needle localization: ultrasound guidance Assessment Injection: incremental injection Blood aspirated: no Pain on injection: no Paresthesia: no Paresthesia pain: EPIC#[id number] ORDER Additional Notes Vital signs stable throughout the procedure. Patient responsive to verbal commands throughout the procedure. Intercostobrachial block was requested by Dr. Mccann for post-operative analgesia in medial arm area not covered by brachial plexus block. us Logan Forbes MD BEDSIDE PROCEDURES Edited Resu lt - Final * HC INJECTION NERVE BRACHIAL PLEXUS FOR PAIN MGMT INCL IMAGING GUIDANCE, DE INJECTION AA&/STRD BRACHIAL PLEXUS W/IMG GDN (02/01/2023 9:24 AM EDT) Anatomical Region Laterality Modality Other Narrative 02/01/2023 9:24 AM EDT Logan Forbes MD 02/01/2023 12:44 PM Nerve Block Supraclavicular [id number] Patient location during procedure: pre-op Room: Reason for block: post-op pain management Diagnosis: Right arm pain Staffing Anesthesiologist: Logan Forbes MD Other staff: Mary Lou Jason RN Performed: Anesthesiologist [place] Protocol Verbal consent obtained Written consent obtained Risks and benefits discussed Consent given by: patient Patient states understanding of procedure being performed: Yes The patient's understanding of the procedure matches consent given Procedure consent matches procedure scheduled Relevant documents present and verified: Yes Test results available and properly labeled: N/A Site marked: Yes Imaging studies available: N/A Required blood products, implants, devices, and special equipment available Patient identity confirmed: verbally with patient, provided demographic data, arm band and hospital-assigned identification number Immediately prior to procedure a time out was called to verify the correct patient, procedure, equipment, product support manager and site/side marked as required Procedure Details Patient position: sitting Prep: ChloraPrep, cap and mask and sterile gloves Patient monitoring: heart rate, cardiac cath lab technologist, continuous pulse ox and blood pressure Laterality: right Technique: ultrasound guided Medications documented on the MAR Number of Attempts: 1 Needle Needle type: Blunt tip Needle gauge: Other ((22 G)) Needle length: 50 mm Needle localization: ultrasound guidance Assessment Injection: incremental injection and local visualized surrounding nerve on ultrasound Blood aspirated: no Pain on injection: no Paresthesia: no Paresthesia pain: EPIC#[id number] ORDER Additional Notes Vital signs stable throughout the procedure. Patient responsive to verbal commands throughout the procedure. Supraclavicular block was requested by Dr. Mccann for post-op analgesia. us Logan Forbes MD BEDSIDE PROCEDURES Edited Resu lt - Final * US IMAGING OR (02/01/2023 9:01 AM EDT) Anatomical Region Laterality Modality Ultrasound 02/01/2023 9:01 AM EDT us German Zarate MD US ORDERABLES Final Result * EMG AND NERVE CONDUCTION (SCANNED) (01/27/2023) us Historical Provider NEUROLOGY ORDERABLES Edited Result - Final * MRI WRIST RIGHT (OUTSIDE IMAGE) (02/25/2022) 02/25/2022 Narrative RADIOLOGY - 01/24/2023 5:52 PM EDT Outside Imaging Study for Support of Clinical Care. This study was sent from an outside facility to [facility] for support of clinical care of the patient within the [facility]. Procedure Note [facility] Outside Orders, External Images - 01/24/2023 Outside Imaging Study for Support of Clinical Care. This study was sentfrom an outside facility to [facility] for support of clinical care of thepatient within the [facility] system. us Josh Mccann MD MR ORDERABLES Final Result RADIOLOGY * MRI (OUTSIDE) (02/25/2022) us Historical Provider MR ORDERABLES Final Result Visit Diagnoses Diagnosis Start Date Carpal tunnel syndrome on right Carpal tunnel syndrome 01/24/2023 De Quervain's tenosynovitis Radial styloid tenosynovitis 01/24/2023 Right wrist pain Pain in joint, forearm 01/24/2023 Pre-op evaluation Preoperative examination, unspecified 01/27/2023 Carpal tunnel syndrome on right Carpal tunnel syndrome 01/27/2023 Carpal tunnel syndrome on right Carpal tunnel syndrome 01/27/2023 Lesion of ulnar nerve 02/01/2023 Carpal tunnel syndrome 02/01/2023 Lesion of ulnar nerve 02/01/2023 Carpal tunnel syndrome 02/01/2023 Post-operative pain Other acute postoperative pain 02/01/2023 Carpal tunnel syndrome of right wrist Carpal tunnel syndrome 02/01/2023 Lesion of right ulnar nerve Lesion of ulnar nerve 02/01/2023 De Quervain's disease (radial styloid tenosynovitis) Radial styloid tenosynovitis 02/01/2023 Right carpal tunnel syndrome Carpal tunnel syndrome 02/02/2023 Cubital tunnel syndrome on right Lesion of ulnar nerve 02/02/2023 Radial tunnel syndrome, right 02/02/2023 De Quervain's tenosynovitis, right Radial styloid tenosynovitis 02/02/2023 Neck pain Cervicalgia 02/08/2023 Cervical radiculopathy Brachial neuritis or radiculitis nos 02/15/2023 De Quervain's tenosynovitis, right Radial styloid tenosynovitis 02/15/2023 Cervical radiculopathy Brachial neuritis or radiculitis nos 02/16/2023 Carpal tunnel syndrome on right Carpal tunnel syndrome 02/18/2023 Radial tunnel syndrome, right 02/18/2023 De Quervain's tenosynovitis, right Radial styloid tenosynovitis 02/18/2023 Cubital tunnel syndrome on right Lesion of ulnar nerve 02/18/2023 Carpal tunnel syndrome on right Carpal tunnel syndrome 02/24/2023 Radial tunnel syndrome, right 02/24/2023 De Quervain's tenosynovitis, right Radial styloid tenosynovitis 02/24/2023 Cubital tunnel syndrome on right Lesion of ulnar nerve 02/24/2023 Facet arthropathy, cervical Cervical spondylosis without myelopathy 03/09/2023 Carpal tunnel syndrome on right Carpal tunnel syndrome 03/14/2023 Radial tunnel syndrome, right 03/14/2023 De Quervain's tenosynovitis, right Radial styloid tenosynovitis 03/14/2023 Cubital tunnel syndrome on right Lesion of ulnar nerve 03/14/2023 Right wrist pain Pain in joint, forearm 05/26/2023 Greater trochanteric bursitis of left hip Enthesopathy of hip region 06/26/2024 Tendinopathy of left gluteus medius Enthesopathy of hip region 06/26/2024 Iliotibial band syndrome of left side Other disorder of muscle, ligament, and fascia 06/26/2024 Weakness of left hip 06/26/2024 Care Teams Iron Caster Relationship Specialty Start Date End Date Helio Callejas DO [address] [place] [address] PCP - General 01/24/23
--- OUTSIDE RECORDS SUMMARY | 2025-02-08 08:00 | XMS_ITS | Clinical Summary ---
Author Organization [facility] Address [address], [address] [place] [address] Care Team Providers Care Motor Runner Name Role Phone Helio Callejas DO Primary Care Provider [phone] Social History Tobacco Use Types Packs/Day Years Used Date Smoking Tobacco: Never Assessed Comments Unknown Sex and Gender Information Value Date Recorded Sex Assigned at Female 06/04/2024 11:34 PM EST Legal Sex Female 11:04 AM EDT Gender Identity Female 06/04/2024 11:34 PM EST Sexual Orientation Straight 06/04/2024 11 :34 PM EST Plan of Treatment Health Maintenance Due Date Last Done Comments Depression Screen 1970 Hepatitis C screen 1976 Lipids 1998 Colonoscopy 2003 FIT/FOBT: Average risk 2003 Sigmoidoscopy/CT colonography 2003 Shingles vaccine (1 of 2) 2008 COVID-19 Vaccine ( season) 2024 03/17/2023, 03/11/2022, 09/24/2020, Additional history exists Breast cancer screen 04/08/2024 04/08/2022, 06/27/2020, 08/01/2017, Additional history exists Annual Wellness Visit (Medicare) 05/24/2024 Flu vaccine (#1) 01/18/2025 06/27/2024, 03/2023, 04/16/2021, Additional history exists Colorectal Cancer Screen 11/06/2026 Fecal-DNA (Cologuard): Average risk 11/06/2026 11/07/2023 Respiratory Syncytial Virus (RSV) or age 60 yrs+ (1 - 1-dose 75+ series) 2033 DTaP/Tdap/Td vaccine (3 - Td or Tdap) 02/17/2034 02/18/2024, 06/20/2007 DEXA (modify frequency per FRAX score) Completed 08/30/2022, 02/12/2020 Pneumococcal 0-49 years Vaccine Discontinued 10/20/2023 Pneumococcal 50+ years Vaccine Completed 10/20/2023 Hepatitis A vaccine Aged Out No longe r eligible based on patient's age to complete this topic Hepatitis B vaccine Aged Out No longe r eligible based on patient's age to complete this topic Hib vaccine Aged Out No longer eligi ble based on patient's age to complete this topic Meningococcal (ACWY) vaccine Aged Out No longer eligible based on patient's age to complete this topic Meningococcal B vaccine Aged Out No l onger eligible based on patient's age to complete this topic Polio vaccine Aged Out No longer elig ible based on patient's age to complete this topic [place] [address] [address] [place] [address] MEDICARE [place] [id number] Care Teams Motor Runner Relationship Specialty Start Date End Date Helio Callejas DO [address] [place] [address] PCP - General Internal Medicine 03/20/19
--- OUTSIDE RECORDS SUMMARY | 2025-02-08 08:00 | XMS_ITS | Clinical Summary ---
Author Organization [facility] Address [address] [place] [address] Care Team Providers Care Carton Lettering Machine Operator Name Role Phone Helio Callejas MD Primary Care Provider [phone] Allergies No known active allergies Medications albuterol 90 mcg/actuation inhaler 2 puffs Inhalation every 4hrs as needed for 90 days Active atorvastatin (Lipitor) 10 mg tablet Take 10 mg by mouth in the morning. 3 Active erythromycin (Romycin) 5 mg/gram (0.5 %) ophthalmic ointment APPLY ONE-HALF inch strip to affected eye(s) DAILY AT BEDTIME for 30 days 3 Active esomeprazole (NexIUM) [address] capsule Take 20 mg by mouth. Active fluticasone (Flonase) 50 mcg/actuation nasal spray 1 spray in each nostril Nasally 2 x a day for 90 days Active metFORMIN (Glucophage) 500 mg tablet Take 500 mg by mouth. 3 Active venlafaxine (Effexor) 37.5 mg tablet Take 37.5 mg by mouth twice a day. 3 Active Social History Tobacco Use Types Packs/Day Years Used Date Smoking Tobacco: Never Smokeless Tobacco: Never Alcohol Use Standard Drinks/Week Comments Never 0 (1 standard drink = 0.6 oz pur e alcohol) Humiliation, Afraid, Rape, and Kick questionnair e Answer Date Recorded Within the last year, have y ou been afraid of your partner or ex-partner? No 01/06/2023 Within the last year, have y ou been humiliated or emotionally abused in other ways by your partner or ex-partner? No Within the last year, have y ou been kicked, hit, slapped, or otherwise physically hurt by your partner or ex-partner? No 01/06/2023 Within the last year, have y ou been raped or forced to have any kind of sexual activity by your partner or ex-partner? No 01/06/2023 PHQ-2 Answer Date Recorded Patient Health Questionnaire-2 Score 0 01/06/2023 [place] [facility] [place] Answer Date Rec orded Within the last year, have y ou been afraid of your partner or ex-partner? No 01/06/2023 Within the last year, have y ou been humiliated or emotionally abused in other ways by your partner or ex-partner? No 01/06/2023 Within the last year, have y ou been kicked, hit, slapped, or otherwise physically hurt by your partner or ex-partner? No 01/06/2023 Within the last year, have y ou been raped or forced to have any kind of sexual activity by your partner or ex-partner? No 01/06/2023 Physically or Sexually Abused Not on file Comments Unknown Sex and Gender Information Value Date Recorded Sex Assigned at Not on file Legal Sex Female 3:51 PM EDT Gender Identity Not on file Sexual Orientation Not on file Last Filed Vital Signs Vital Sign Reading Time Taken Comments Blood Pressure - - Pulse - - Temperature - - Respiratory Rate - - Oxygen Saturation - - Inhaled Oxygen Concentration - - Weight 87.1 kg (192 lb) 01/06/2023 1:04 PM EDT Height 170.2 cm (5' 7 ) 01/06/2023 1:04 PM EDT Body Mass Index 30.07 01/06/2023 1:04 PM EDT Plan of Treatment Health Maintenance Due Date Last Done Comments CT Colonography 1958 Colonoscopy 1958 Colorectal Cancer Screening 1958 FIT-DNA 1958 FIT 1958 FOBT 1958 Sigmoidoscopy 1958 Depression Screening 1970 Adult Tetanus 1980 Mammogram 1998 Pneumococcal Vaccine: 50+ Years (1 of 1 - PCV) 2008 Zoster Vaccines (1 of 2) 2008 Fall Risk Screening 2023 COVID-19 Vaccine ( season) 2024 03/11/2022, 09/24/2020, 09/03/2020 Influenza Vaccine (#1) 2025 , 05/08/2019, 04/14/2018, Additional history exists HIB Vaccines Aged Out No longer eligi ble based on patient's age to complete this topic HPV Vaccines Aged Out No longer eligi ble based on patient's age to complete this topic IPV Vaccines Aged Out No longer eligi ble based on patient's age to complete this topic Meningococcal B Vaccine Aged Out No l onger eligible based on patient's age to complete this topic Meningococcal Vaccine Aged Out No yumiko sanjiv eligible based on patient's age to complete this topic Rotavirus Vaccines Aged Out No longer eligible based on patient's age to complete this topic Care Teams Carton Lettering Machine Operator Relationship Specialty Start Date End Date Helio Callejas MD [address] PCP - General 12/22/22
--- OUTSIDE RECORDS SUMMARY | 2025-02-08 08:00 | XMS_ITS | Encounter Summary ---
Author Organization [facility] Address [address] [address] Care Team Providers Care Brokerage Purchase And Sale Clerk Name Role Phone Helio Callejas DO Primary Care Provider Saroj Penn MD Primary Care Provider [phone] Encounter Details Date Type Department Care Team (Late st Contact Info) Description 02/22/2024 Orders Only [facility] [address] [place] [id number] Jaswinder Paez MD [address] [place] [phone] (Work) Social History Tobacco Use Types Packs/Day Years [...] 02/12/2025 8:30 AM EDT Office Visit [facility] [address] [place] [address] Stephane Cope NP [address] [place] [address] 02/20/2025 1:00 PM EDT Treatment [facility] [address] [place] [address] Tereza Coppola, BLASTING COAL MINER 02/22/2025 1:30 PM EDT Treatment [facility] [address] [place] [address] Felicia Coppolaissa, BLASTING COAL MINER 02/26/2025 11:00 AM EDT Treatment [facility] [address] [place] [address] Tereza Coppola, BLASTING COAL MINER documented as of this encounter Procedures Procedure Name Priority Date/Time Associated Diagnosis Comments XR HAND 3+ VIEWS LEFT Routine 02/18/2024 1:16 PM EDT documented in this encounter Results * XR hand 3+ views left (02/18/2024 1:16 PM EDT) Anatomical Region Laterality Modality Upper Extremities, Hand Left Radiogra phic Imaging us Jaswinder Paez MD IMG XR PROCEDURES Final Result documented in this encounter Visit Diagnoses Not on filedocumented in this encounter Care Teams Brokerage Purchase And Sale Clerk Relationship Specialty Start Date End Date Helio Callejas DO [address] [place] [address] PCP - General Internal Medicine 12/06/22 01/07/25 Saroj Penn MD [address] [facility] [address] [place] [address] PCP - General Internal Medicine 01/08/25 documented as of this encounter
--- OUTSIDE RECORDS SUMMARY | 2025-02-08 08:00 | XMS_ITS | CCD ---
Author Organization [facility] Care Team Providers Care Help Desk Support Name Role Phone Helio Brice Primary Care Provider AUGUST MENJIVAR Attending Unavailable DR HELIO BRICE Primary Care Unavailable AUGUST MENJIVAR Admitting Unavailable AUGUST MENJIVAR Consulting Unavailable JANNA COTTON Consulting Unavailable DR HELIO BRICE Primary Care Unavailable MISC, DR LONG Admitting Unavailable MISC, DR LONG Attending Unavailable Babs, Dr. Helio Llanes Attending David Brice, Dr. Helio Llanes Primary Care David leary DELANEYHAN VARGAS Referring Unavailable DELANEY, HAN Referring Unavailable DELANEY HAN Attending Unavailable Helio Brice DO Primary Care Provider Helio Brice DO Primary Care Provider Helio Brice DO Primary Care Provider CARLOS THORPE Attending Unavailable HELIO BRICE Primary Care Unavailable SELF, SELF Referring Unavailable HELIO BRICE Primary Care Unavailable HELIO BRICE Referring Unavailable HELIO BRICE Primary Care Unavailable HELIO BRICE Referring Unavailable HELIO BRICE Primary Care Unavailable HELIO BRICE Referring Unavailable HELIO BRICE Referring Unavailable HELIO BRICE Primary Care Unavailable Saroj Penn MD Primary Care Provider TEREZA VALLECILLO Attending Unavailable HELIO BRICE Referring Unavailable HERNÁN MADSEN Attending Unavailable HELIO BRICE Referring Unavailable HELIO BRICE Referring Unavailable HERNÁN MADSEN Attending Unavailable HELIO BRICE Referring Unavailable HERNÁN MADSEN Attending Unavailable BABS, HELIO A Referring Unavailable JACQUE AG Attending Unavailable ANA RAMIREZ Attending Unavailable BABSHELIO DOMINGUEZ A Referring Unavailable KELMICHAELY, TEREZA Attending Unavailable BABSHELIO A Referring Unavailable HERNÁN MADSEN Attending Unavailable BABS, HELIO A Referring Unavailable BLACKSTON, HERNÁN T Attending Unavailable BABSARLETH DOMINGUEZREY A Referring Unavailable KELMICHAELY, TEREZA Attending Unavailable BABS, HELIO A Referring Unavailable KELBLEY, TEREZA Attending Unavailable BABS, HELIO A Referring Unavailable BLACKSTON, HERNÁN T Attending Unavailable BABS, HELIO A Referring Unavailable KELBLEY, TEREZA Attending Unavailable BABS, HELIO A Referring Unavailable KELBLEY, TEREZA Attending Unavailable BABS, HELIO A Referring Unavailable YONYY, TEREAZ Attending Unavailable BABSHELIO DOMINGUEZ A Referring Unavailable BARRY CHANG Attending Unavailable BABS, HELIO A Referring Unavailable BARRY CHANG Attending Unavailable BABS, HELIO A Referring Unavailable KELMICHAELY, TEREZA Attending Unavailable BABS, HELIO A Referring Unavailable KELBLEY, TEREZA Attending Unavailable BABS, HELIO A Referring Unavailable BABSHELIO DOMINGUEZ Attending Unavailable JACQUE AG Attending Unavailable JACQUE AG Attending Unavailable JACQUE AG Attending Unavailable BABSHELIO DOMINGUEZ Attending Unavailable BABSHELIO DOMINGUEZ A Referring Unavailable BABSHELIO A Referring Unavailable BLACKSHERNÁN WOOD T Attending Unavailable BABS, HELIO A Referring Unavailable HERNÁN MADSEN T Attending Unavailable BABSHELIO DOMINGUEZ A Referring Unavailable HERNÁN MADSEN T Attending Unavailable HELIO BRICE A Referring Unavailable Allergies Allergy Classification Reported Allergen(s) Allergy Type Date of Onset Reaction(s) Facility (1 source) Tetracycline Drug Allergy [facility] Repository (4 sources) Tetracycline Drug Allergy 02-15-2023 [facility] Medications Current Medications Medication Drug Class(es) Dates Sig (Normalized) Sig (Original) [id number] 200 actuat albuterol 0.09 mg/actuat metered dose inhaler (9 sources) beta2-Adrenergic Agonist take 2 puff(s) by inhalation every four hours as needed Albuterol 108 (90 Base) MCG/ACT Aero Soln inhaler 2 puffs Inhalation every 4hrs as needed for 90 days Active atorvastatin 10 mg oral tablet (20 sources) HMG-CoA Reductase Inhibitor Start: 11-16-2022 take 1 tablet by mouth once daily atorvastatin (Lipitor) 10 MG tablet Indications: Hyperlipidemia, unspecified hyperlipidemia type Take 1 tablet (10 mg) by mouth Daily 90 tablet 3 01/10/2025 Active calcium carbonate 500 mg oral tablet (11 sources) Start: 09-07-2022 End: 06-28-2024 calcium carbonate (Os-Rubio) 1250 (500 Ca) MG tablet every 12 (twelve) hours. 09/07/2022 06/28/2024 Discontinued cholecalciferol 0.05 mg oral capsule (20 sources) Vitamin D Start: 01-10-2025 take 1 capsule by mouth once daily Cholecalciferol (Vitamin D) 50 MCG (2000 UT) capsule Indications: Vitamin D deficiency Take 1 capsule (50 mcg) by mouth Daily 100 capsule 3 01/10/2025 Active clindamycin 150 mg oral capsule (3 sources) Lincosamide Antibacterial Start: 02-15-2023 End: 02-22-2023 take 3 capsules by mouth every eight hours Clindamycin 150 MG capsule Take 3 capsules by mouth every 8 hours for 7 days. 63 capsule 0 02/15/2023 02/22/2023 Active erythromycin 0.005 mg/mg ophthalmic ointment (9 sources) Macrolide, Macrolide Antimicrobial Start: 12-31-2022 Erythromycin 5 MG/GM Ointment ophthalmic ointment APPLY ONE-HALF inch strip to affected eye(s) DAILY AT BEDTIME for 30 days 12/31/2022 Active esomeprazole 20 mg delayed release oral capsule (20 sources) Proton Pump Inhibitor Start: 01-10-2025 take 1 capsule by mouth before mealtime esomeprazole (NexIUM) [address] capsule Indications: Gastroesophageal reflux disease without esophagitis Take 1 capsule (20 mg) by mouth in the morning. Take before meals. Do not open capsule. 90 capsule 3 01/10/2025 Active fexofenadine hydrochloride 180 mg oral tablet (20 sources) Histamine-1 Receptor Antagonist fexofenadine (Breanne) 180 [...] propionate 0.05 mg/actuat metered dose nasal spray (20 sources) Corticosteroid Start: 12-01-2023 take 1 spray(s) nasal route once daily fluticasone (Flonase) 50 MCG/ACT nasal spray Indications: Seasonal allergies Administer 1 spray into each nostril Daily Shake gently. Before first use, prime pump. After use, clean tip and replace cap. 48 g 3 01/10/2025 Active fluticasone 50 M CG/ACT Suspension nasal spray 1 spray in each nostril Nasally 2 x a day for 90 days Active gabapentin 100 mg oral capsule (5 sources) Anti-epileptic Agent Start: 02-15-2023 End: 03-17-2023 take 1 capsule by mouth three times daily Gabapentin 100 MG capsule Take 1 capsule by mouth 3 times daily. 90 capsule 02/15/2023 Active ibuprofen 200 mg oral tablet (20 sources) Nonsteroidal Anti-inflammatory Drug take 1 tablet by mouth in the morning ibuprofen 200 MG tablet Take 200 mg by mouth in the morning and 200 mg before bedtime. Active meloxicam 15 mg oral tablet (20 sources) Nonsteroidal Anti-inflammatory Drug Start: 09-03-2024 take 1 tablet by mouth in the morning meloxicam (Mobic) 15 MG tablet Indications: Pain of left hip Take 1 tablet (15 mg) by mouth in the morning. 30 tablet 3 09/03/2024 Active Start: 06-26-2024 take 1 tablet by destiny th in the morning meloxicam (Mobic) 15 MG tablet Take 15 mg by mouth in the morning. 06/26/2024 Active metFORMIN hydrochloride 500 mg oral tablet (20 sources) Biguanide Start: 11-01-2024 take 1 tablet by mouth in the morning metFORMIN (Glucophage) 500 MG tablet Indications: Type 2 diabetes mellitus with other specified complication, unspecified whether [place] insulin use (HCC) Take 1 tablet (500 mg) by mouth in the morning and 1 tablet (500 mg) in the evening. Take with meals. 180 tablet 3 01/10/2025 Active Start: 11-16-2022 take 1 tablet by destiny th in the morning metFORMIN (Glucophage) 500 MG tablet Indications: Type 2 diabetes mellitus with other specified complication, unspecified whether [place] [facility] insulin use (CMS/HCC) Take 1 tablet (500 mg) by mouth in the morning and 1 tablet (500 mg) in the evening. Take with meals. 180 tablet 3 12/01/2023 Active oxyCODONE hydrochloride 5 mg oral tablet (7 sources) Opioid Agonist Start: 02-01-2023 End: 02-06-2023 [...] for up to 5 days. 12 tablet 02/01/2023 Active predniSONE 20 mg oral tablet (2 sources) Start: 11-19-2024 End: 11-24-2024 take 1 tablet by mouth in the morning predniSONE (Deltasone) 20 MG tablet Indications: Rash Take 1 tablet (20 mg) by mouth in the morning and 1 tablet (20 mg) before bedtime. Do all this for 5 days. 10 tablet 11/19/2024 11/24/2024 Active valACYclovir 1000 mg oral tablet (2 sources) Herpesvirus Nucleoside Analog DNA Polymerase Inhibitor, Herpes Simplex Virus Nucleoside Analog DNA Polymerase Inhibitor, Herpes Zoster Virus Nucleoside Analog DNA Polymerase Inhibitor Start: 11-19-2024 End: 11-26-2024 take 1 tablet by mouth every eight hours valACYclovir (Valtrex) 1 g tablet Indications: Rash Take 1 tablet (1,000 mg) by mouth every 8 (eight) hours for 7 days 21 tablet 11/19/2024 11/26/2024 Active venlafaxine 37.5 mg oral tablet (20 sources) Serotonin and Norepinephrine Reuptake Inhibitor Start: 10-26-2024 End: 04-10-2025 take 1 tablet by mouth in the morning venlafaxine (Effexor) 37.5 MG tablet Indications: Major depressive disorder with single episode, remission status unspecified Take 1 tablet (37.5 mg) by mouth in the morning and 1 tablet (37.5 mg) before bedtime. 90 tablet 3 01/10/2025 04/10/2025 Active Start: 11-16-2022 take 1 tablet by destiny th in the morning venlafaxine (Effexor) 37.5 MG tablet Indications: Major depressive disorder with single episode, remission status unspecified (CMS/[facility]) Take 1 tablet (37.5 mg) by mouth in the morning and 1 tablet (37.5 mg) before bedtime. 180 tablet 3 12/01/2023 Active Completed/Discontinued Medications Medication Drug Class(es) Dates [...] Documented Date Episodic/Chronic Diabetes mellitus with complications (20 sources) Type 2 diabetes mellitus; Translations: [Type 2 diabetes mellitus with other specified complication] Onset: 02-17-2023 02-17-2023 Chronic Disorders of lipid metabolism (20 sources) Hyperlipidemia, unspecified; Translations: [Hyperlipidemia] Onset: 09-16-2022 Chronic Esophageal disorders (20 sources) Gastroesophageal reflux disease; Translations: [Gastro-esophageal reflux disease without esophagitis] Onset: 02-17-2023 02-17-2023 Chronic Immunizations and screening for infectious disease (2 sources) Needs influenza immunization; Translations: [Encounter for immunization] 06-27-2024 Episodic Mood disorders (20 sources) Recurrent major depression in partial remission; Translations: [Major depressive disorder, recurrent, in partial remission] Onset: 02-17-2023 02-17-2023 Chronic Open wounds of extremities (6 sources) Laceration of left hand; Translations: [Laceration without foreign body of left hand, subsequent encounter] 03-01-2024 Episodic Other aftercare (2 sources) Patient encounter status; Translations: [Other director long term care (current) drug therapy] 06-27-2024 Episodic Other connective tissue disease (2 sources) Pain in right hand; Translations: [Pain in right hand] Onset: 01-06-2023 Episodic Other connective tissue disease (2 sources) Radial styloid tenosynovitis; Translations: [Radial styloid tenosynovitis [de Quervain]] 01-24-2023 Episodic Other connective tissue disease (7 sources) Trochanteric bursitis; Translations: [Trochanteric bursitis, left hip] 06-26-2024 Episodic Other connective tissue disease (1 source) Disorder of tendon; Translations: [Unspecified disorder of synovium and tendon, left thigh] 06-26-2024 Episodic Other connective tissue disease (1 source) Iliotibial band friction syndrome of left knee; Translations: [Iliotibial band syndrome, left leg] 06-26-2024 Episodic Other connective tissue disease (1 source) Disorder of hip; Translations: [Other symptoms and signs involving the musculoskeletal system] 06-26-2024 Episodic Other connective tissue disease (2 sources) Trochanteric bursitis, left hip; Translations: [Trochanteric bursitis, left hip] Onset: 06-26-2024 Episodic Other connective tissue disease (2 sources) Unspecified disorder of synovium and tendon, left thigh; Translations: [Unspecified disorder of synovium and tendon, left thigh] Onset: 06-26-2024 Episodic Other connective tissue disease (2 sources) Iliotibial band syndrome, left leg; Translations: [Iliotibial band syndrome, left leg] Onset: 06-26-2024 Episodic Other connective tissue disease (2 sources) Other symptoms and signs involving the musculoskeletal system; Translations: [Other symptoms and signs involving the musculoskeletal system] Onset: 06-26-2024 Episodic Other nervous system disorders (12 sources) Carpal tunnel syndrome of right wrist; [...] limb] 02-01-2023 Chronic Other nervous system disorders (8 sources) Radial tunnel syndrome; Translations: [Lesion of radial nerve, right upper limb] Onset: 02-02-2023 02-02-2023 Chronic Other nervous system disorders (8 sources) Lesion of ulnar nerve, right upper limb; Translations: [Lesion of ulnar nerve] Onset: 02-02-2023 02-02-2023 Chronic Other nervous system disorders (1 source) Postoperative pain ; Translations: [Other acute postprocedural pain] 02-01-2023 Episodic Other non-traumatic joint disorders (2 sources) Pain in right wrist; Translations: [Pain in right wrist] Onset: 01-06-2023 Episodic Other non-traumatic joint disorders (2 sources) Pain of right wrist; Translations: [Pain in right wrist] 01-24-2023 Episodic Other non-traumatic joint disorders (12 sources) Hip pain; Translations: [Pain in left hip] 06-27-2024 Episodic Other nutritional; endocrine; and metabolic disorders (20 sources) Obese class I; Translations: [Obesity, unspecified] Onset: 01-24-2023 01-24-2023 Chronic Other skin disorders (2 sources) Eruption; Translations: [Rash and other nonspecific skin eruption] 11-19-2024 Episodic Prolapse of female genital organs (2 sources) Other female genital prolapse; Translations: [Other female genital prolapse] Onset: 07-10-2024 Chronic Retinal detachments; defects; vascular occlusion; and retinopathy (2 sources) Age related macular degeneration; Translations: [Unspecified macular degeneration] 06-27-2024 Chronic Spondylosis; intervertebral disc disorders; other back problems (20 sources) Cervical radiculopathy; Translations: [Radiculopathy, cervical region] 02-15-2023 Episodic Past or Other Problems Problem Classification Problem Date Documented Date Episodic/Chronic E Codes: Fall (1 source) Unspecified fall, initial encounter; Translations: [UNSPECIFIED FALL INITIAL ENCOUNTER] Onset: 09-08-2021 Episodic Other connective tissue disease (9 sources) Tenosynovitis of right radial styloid; Translations: [Radial styloid tenosynovitis [de Quervain]] Onset: 02-02-2023 02-02-2023 Episodic Other diseases of veins and lymphatics (20 sources) Vascular insufficiency; Translations: [Venous insufficiency (chronic) (peripheral)] Onset: 03-03-2023 03-03-2023 Episodic Other lower respiratory disease (4 sources) Cough; Translations: [Acute cough] Onset: 04-12-2023 Resolved: 10-20-2023 10-20-2023 Episodic Other lower respiratory disease (20 sources) Cough; Translations: [Acute cough] Onset: 04-12-2023 Resolved: 10-20-2023 10-20-2023 Episodic Other non-traumatic joint disorders (3 sources) Pain in right ankle and joints of right foot; Translations: [PAIN IN RIGHT ANKLE] Onset: 09-07-2021 Episodic Other non-traumatic joint disorders (20 sources) Pain in wrist; Translations: [Pain in right wrist] Onset: 11-11-2022 Resolved: 10-20-2023 10-20-2023 Episodic Other screening for suspected conditions (not mental disorders or infectious disease) (20 sources) Raised TSH level; Translations: [Other specified abnormal findings of blood chemistry] Onset: 02-09-2024 Resolved: 06-27-2024 02-09-2024 Episodic Other upper respiratory infections (20 sources) Upper respiratory infection; Translations: [Acute upper respiratory infection, unspecified] Onset: 04-12-2023 Resolved: 10-20-2023 10-20-2023 Episodic Sprains and strains (1 source) Sprain of unspecified ligament of right ankle, initial encounter; Translations: [SPRAIN UNS LIGAMENT RT ANKLE INIT] Onset: 09-08-2021 Episodic Results Test Name Value Interpretation Reference Range Facility BI MAMMOGRAM SCREENING TOMOS YKENDRICKHESIS BILATERALon 07-30-2024 BI MAMMOGRAM SCREENING TOMOSYNTHESIS BILATERAL This is a summary report. The complete report is available in the patient's medical record. If you cannot access the medical record, please contact the sending organization for a detailed fax or copy. Examination: BI MAMMOGRAM SCREENING TOMOSYNTHESIS BILATERAL Clinical [...] on the right which appears grossly unremarkable. IMPRESSION: Impression: No specific evidence of malignancy seen in either breast. BIRADS 2 - Benign Findings DENSITY: There are scattered areas of fibroglandular density. FOLLOW-UP: Routine Screening Mammogram ELECTRONICALLY SIGNED BY: Tejinder Melo M.D. Normal Not Available XR HIP 2 OR 3 VW LEFTon XR HIP 2 OR 3 VW LEFT XR HIP 2 OR 3 VW LEFT Reason for exam: Left lateral hip pain, left jame pain Prior comparative studies: None Findings: Joint space narrowing with sclerosis and osteophyte formation is present in both hips, right more so than left. No fracture or malalignment is apparent. SI joints are symmetric. Sacral ala are intact. IMPRESSION: 1. Moderate degenerative changes of both hips, right more so than left. Normal Not Available XR Hip - left 3 Viewson XR HIP 2 OR 3 VW LEF T Reason for exam: Left lateral hip pain, left jame pain Prior comparative studies: None Findings: Joint space narrowing with sclerosis and osteophyte formation is present in both hips, right more so than left. No fracture or malalignment is apparent. SI joints are symmetric. Sacral ala are intact. IMPRESSION: 1. Moderate degenerative changes of both hips, right more so than left. IMAGING Willie Addison MD - 06/27/2024 XR HIP 2 OR 3 VW LEFT Reason for exam: Left lateral hip pain, left jame pain Prior comparative studies: None Findings: Joint space narrowing with sclerosis and osteophyte formation is present in both hips, right more so than left. No fracture or malalignment is apparent. SI joints are symmetric. Sacral ala are intact. IMPRESSION: 1. Moderate degenerative changes of both hips, right more so than left. [facility] Radiology Study observation (narrative) [facility] XR Hip - left 3 ViewsOrdered By: Willie Addison on 06-27-2024 [facility] [employer] Work Phone: ALL CBC WITH AUTO DIFFon BASOPHILS ABSOLUTE AUTO 0.1 [facility] Basophils/100 WBC (Bld) 0.9 % 0.2 - 2.0 % [facility] Eosinophils/100 WBC (Bld) 3.6 % 0.9 - 7.0 % [facility] Erythrocyte distribution width (RBC) [Ratio] 12.8 % 11.0 - 15.0 % [facility] Hematocrit (Bld) [Volume fraction] 39.3 % 36.0 - 48.0 % [facility] [employer] e Hemoglobin (Bld) [Mass/Vol] 12.9 g/dL 12.0 - 16.0 g/dL [facility] IMMATURE GRANULOCYTES ABS AUTO 0.01 [facility] Immature granulocytes/100 WBC (Bld) 0.2 % 0.0 - 0.5 % [facility] Interpretation and review of laboratory results Abnormal [facility] LYMPHOCYTES ABSOLUTE AUTO 2.4 [facility] Lymphocytes/100 WBC (Bld) 37 % 20.5 - 60.0 % [facility] MCH (RBC) [Entitic mass] 30.2 pg 26.7 - 34.0 pg [facility] MCHC (RBC) [Mass/Vol] 32.8 g/dL 29.9 - 35.2 g/dL [facility] MCV (RBC) [Entitic vol] 92 fL 81.0 - 99.0 fL [facility] MONOCYTES ABSOLUTE AUTO 0.8 [facility] Monocytes/100 WBC (Bld) 11.7 % 1.7 - 12.0 % [facility] NEUTROPHILS ABSOLUTE AUTO 3.1 [facility] Neutrophils/100 WBC (Bld) 46.6 % 43.0 - 75.0 % [facility] Platelet mean volume (Bld) [Entitic vol] 9.2 fL Low 9.5 - 13.5 fL [facility] EO # 0.2 [facility] PLT 265 [facility] RBC 4.27 [facility] WBC 6.6 [facility] No Panel Informationon 03-08 Neelam Sprague 03/13/2024 3:16 PM Suture Removal Date/Time: 03/08/2024 11:40 AM Performed by: Jacque Ag NP Authorized by: Jacque Ag NP Consent: Consent obtained: Verbal Consent given by: Patient Risks, benefits, and alternatives were discussed: yes Risks discussed: Wound separation and pain [place] protocol: Procedure explained and questions answered to patient or proxy's satisfaction: yes Procedure details: Wound appearance: No signs of infection Comments: All sutures removed. Top layer of epidermis gaping post removal. Steristrips placed with good approx and closure of laceration. [facility] UPPER EXTREMITY INJECTION: R extensor compartment 05-30-2023 Radiology Study observation (narrative) [facility] UPPER EXTREMITY INJECTION: R extensor compartment 05-26-2023 [...] fashion. The patient was prepped with alcohol. [facility] CBC AND ELECTRONIC DIFFon Basophils (Bld) [#/Vol] 0.07 10*3/uL 0.00 - 0.15 K/uL [facility] Basophils/100 WBC (Bld) 0.5 % [facility] Differential cell count method Nom (Bld) Electronic Differential [facility] Eosinophils (Bld) [#/Vol] 0.36 10*3/uL 0.00 - 0.42 K/uL [facility] Eosinophils/100 WBC (Bld) 2.8 % [facility] Erythrocyte distribution width (RBC) [Ratio] 13.2 % 10.8 - 14.9 % [facility] Hematocrit (Bld) [Volume fraction] 42.1 % 34.9 - 44.3 % [facility] Hemoglobin (Bld) [Mass/Vol] 13.7 g/dL 11.4 - 15.2 g/dL [facility] Immature granulocytes (Bld) [#/Vol] K/uL NINF - 0.08 K/uL [facility] Immature granulocytes/100 WBC (Bld) 0.2 % [facility] Interpretation and review of laboratory results Abnormal [facility] Lymphocytes (Bld) [#/Vol] 3.83 10*3/uL High 1.16 - 3.51 K/uL [facility] Lymphocytes/100 WBC (Bld) 30.1 % [facility] MCH (RBC) [Entitic mass] 30.4 pg 25.9 - 33.9 pg [facility] MCHC (RBC) [Mass/Vol] 32.5 g/dL 31.4 - 35.9 g/dL [facility] MCV (RBC) [Entitic vol] 93.6 fL 79.6 - 97.7 fL [facility] Monocytes (Bld) [#/Vol] 1.03 10*3/uL High 0.22 - 0.87 K/uL [facility] Monocytes/100 WBC (Bld) 8.1 % [facility] Neutrophils (Bld) [#/Vol] 7.42 10*3/uL High 1.64 - 7.28 K/uL [facility] Nucleated RBC/100 WBC (Bld) [Ratio] 0.0 % [facility] Platelet mean volume (Bld) [Entitic vol] 9.2 fL 8.5 - 12.2 fL [facility] Platelets (Bld) [#/Vol] 285 10*3/uL 150 - 393 K/uL [facility] RBC (Bld) [#/Vol] 4.50 10*6/uL [facility] Segmented neutrophils/100 WBC (Bld) 58.3 % [facility] WBC (Bld) [#/Vol] 12.74 10*3/uL High 3.99 - 11 .19 K/uL [facility] CHM 7 - EDon 02-14-2023 Anion gap [Moles/Vol] 12 mmol/L 7 - 17 mmol/L [facility] Chloride [Moles/Vol] 101 mmol/L 98 - 10 8 mmol/L [facility] CO2 [Moles/Vol] 26 mmol/L 21 - 31 mmol/L [facility] Creatinine [Mass/Vol] 0.99 mg/dL 0.50 - 1.20 mg/dL [facility] GFR/1.73 sq M.predicted CKD-EPI (S/P/Bld) [Vol rate/Area] 64 - PINF [facility] Comment on above: Reported eGFR is bas ed on the CKD-EPI 2020 equation using creatinine, age, and sex. Glucose [Mass/Vol] 187 mg/dL High 70 - 99 mg/dL [facility] Interpretation and review of laboratory results Abnormal [facility] Osmolality Calc [Osmolality] 293 [facility] Potassium [Moles/Vol] 4.1 mmol/L 3.5 - 5.0 mmol/L [facility] Sodium [Moles/Vol] 135 mmol/L 135 - 145 mmol/L [facility] Urea nitrogen [Mass/Vol] 23 mg/dL 7 - 25 mg/dL [facility] Urea nitrogen/Creatinine [Mass ratio] 23 mg/mg [facility] No Panel Informationon 02-14 [facility] GLUCOSE POCon 02-01-2023 Glucose [Mass/Vol] 132 mg/dL High 70 - 99 mg/dL [facility] Interpretation and review of laboratory results Abnormal [facility] POC Sample Type [facility] Test performed at address of the patient encounter. [facility] Glucose [Mass/Vol] 125 mg/dL High 70 - 99 mg/dL [facility] Interpretation and review of laboratory results Abnormal [facility] POC Sample Type [facility] Test performed at address of the patient encounter. [facility] US Unspecified body region d uring surgeryOrdered By: Unassigned Pacs on 02-01-2023 [facility] Work Phone: US Unspecified body region d uring surgeryon 02-01-2023 Radiology Study observation (narrative) [facility] CT CARDIAC SCORINGon 023 CT CARDIAC SCORING Patient Name: ELVIRA AVALOS STUDY: CT CARDIAC SCORING; 09/16/2022 9:52 am INDICATION: E78.5 Hyperlipidemia, unspecified. COMPARISON: None. ACCESSION NUMBER(S): [id number] ORDERING CLINICIAN: HELIO BRICE TECHNIQUE: Using prospective [...] coronary heart disease events. According to the [employer] Clinical Expert Consensus [...] modify other non-lipid coronary risk factors. Reference: Bolton P et al. Circulation. 2007; 115:402-426 Electronically signed by: EDY CHAUHAN MD Normal [facility] SCREENING MAMMOGRAM W/CHHAYA, BILATERAL*on 04-08-2022 SCREENING MAMMOGRAM [...] VERY IMPORTANT TO YOUR HEALTH. THE CURRENT [employer] GUIDELINES RECOMMENDS ANNUAL MAMMOGRAPHY BEGINNING AT AGE 38 THIS FACILITY USES A REMINDER SYSTEM TO ENSURE ALL PATIENTS RECEIVE REMINDER NOTIFICATIONS AT THE APPROPRIATE TIME BASED ON THE RECOMMENDATIONS OF THIS EXAM. Board Certified Radiologist. Accredited by the ACR and FDA. Report reported and signed by Trevor Pina on 04/09/2022 1001 Normal [facility] MRI Wrist w/o Righton 2021 MRI Wrist [...] by Saroj Romero on 02/25/2022 1421 Normal [facility] XR Forearm 2 Views Righton 0 12-14-2021 XR Forearm 2 Views Right Refer to concurrent right humerus radiograph dictation. Report reported and signed by Trevor Pina on 12/14/2021 1436 Addendum: Large field of the imaging with nondisplaced fracture involving the proximal radial head. Report reported and signed by Trevor Pina on 12/16/2021 1338 Normal [facility] Specialist XR Hip Complete Right*on XR Hip Complete Right* Refer to concurrent right humerus radiograph dictation. Report reported and signed by Trevor Pina on 12/14/2021 1436 Normal [facility] XR Humerus Righton 2 XR Humerus Right [...] bony pelvis/hips. Report reported and signed by Trevro Pina on 12/14/2021 1435 Normal [facility] Process Control Specialist XR ANKLE RT MIN 3 VIEWSon XR [...] by: JANNA COTTON Date: 2021-09-07 11:39 Normal [facility] Coding Queryon 03-22-2019 Coding Query - From: Trevor Joshua MD To: Ceci Greene; Sent: 03/22/2019 16:18:37 EDT Subject: RE: Coding Query It looks like we recorded a [id number], but I had believed because she was going to ahve to repeat things with Dr. Diamond, but it looks like she went elsewhere so [place] [id number]. Thank you. Inocencio Joshua MD From: Ceci Greene To: Trevor Joshua MD; Sent: 03/21/2019 13:34:03 EDT Subject: Coding Query Dr. Joshua, There are no charges attached to this 02/28/19 OV. Do you know what level/cpt code you would like to charge? Joey Orellana [facility] Vital Signs Date Time Vital Sign Value Performing Clinician Facility 11-19-2024 09:44-0400 Body mass index (BMI) [Ratio] 29.13 kg/m2 Jacque Ag NP Work Phone: [facility] 11-19-2024 09:44-0400 Body temperature 97.7 [degF] Jacque Ancelmo FINISHING MACHINE OPERATOR AUTOMATIC Work Phone: [facility] 11-19-2024 09:44-0400 Body weight 84.37 kg Jacque Dalecarson FINISHING MACHINE OPERATOR [employer]OMATIC Work Phone: [facility] 11-19-2024 09:44-0400 Diastolic blood pressure 78 mm[Hg] Jacque Ancelmo FINISHING MACHINE OPERATOR AUTOMATIC Work Phone: [facility] 11-19-2024 09:44-0400 Heart rate 68 /min Jacque Ancelmo FINISHING MACHINE OPERATOR AUTOMATIC Work Phone: [facility] 11-19-2024 09:44-0400 SaO2% (BldA) [Mass fraction] 98 % Jacque Ancelmo FINISHING MACHINE OPERATOR AUTOMATIC Work Phone: [facility] 11-19-2024 09:44-0400 Systolic blood pressure 116 mm[Hg] Jacque Ancelmo FINISHING MACHINE OPERATOR AUTOMATIC Work Phone: [facility] 06-27-2024 10:03-0500 Body mass index (BMI) [Ratio] 29.13 kg/m2 Heliosoraya Brice DO Work Phone: [facility] 06-27-2024 10:03-0500 Body weight 84.37 kg Helio Brice DO Work Phone: [facility] 06-27-2024 10:03-0500 Diastolic blood pressure 82 mm[Hg] Helio Babs DO Work Phone: [facility] 06-27-2024 10:03-0500 Heart rate 86 /min Heliosoraya Brice DO Work Phone: [facility] 06-27-2024 10:03-0500 SaO2% (BldA) [Mass fraction] 96 % Heliosoraya Brice DO Work Phone: [facility] 06-27-2024 10:03-0500 Systolic blood pressure 122 mm[Hg] Helio Brice DO Work Phone: [facility] 03-08-2024 11:20-0400 Body mass index (BMI) [Ratio] 28.98 kg/m2 Jacque Arriagas FINISHING MACHINE OPERATOR AUTOMATIC Work Phone: [facility] 03-08-2024 11:20-0400 Body temperature 97 [degF] Jacque Ancelmo FINISHING MACHINE OPERATOR AUTOMATIC Work Phone: [facility] 03-08-2024 11:20-0400 Body weight 83.92 kg Jacque Ancelmo FINISHING MACHINE OPERATOR AUTOMATIC Work Phone: [facility] 03-08-2024 11:20-0400 Diastolic blood pressure 66 mm[Hg] Jacque Ancelmo FINISHING MACHINE OPERATOR AUTOMATIC Work Phone: [facility] 03-08-2024 11:20-0400 Heart rate 88 /min Jacque Ancelmo FINISHING MACHINE OPERATOR AUTOMATIC Work Phone: [facility] 03-08-2024 11:20-0400 SaO2% (BldA) [Mass fraction] 99 % Jacque Ancelmo FINISHING MACHINE OPERATOR AUTOMATIC Work Phone: [facility] 03-08-2024 11:20-0400 Systolic blood pressure 128 mm[Hg] Jacque Ancelmo FINISHING MACHINE OPERATOR AUTOMATIC Work Phone: [facility] 03-05-2024 09:37-0400 Body mass index (BMI) [Ratio] 28.98 kg/m2 Jacque Ancelmo FINISHING MACHINE OPERATOR AUTOMATIC Work Phone: [facility] 03-05-2024 09:37-0400 Body temperature 98.01 [degF] Jacque Ancelmo FINISHING MACHINE OPERATOR AUTOMATIC Work Phone: [facility] 03-05-2024 09:37-0400 Body weight 83.92 kg Jacque Ancelmo FINISHING MACHINE OPERATOR AUTOMATIC Work Phone: [facility] 03-05-2024 09:37-0400 Heart rate 73 /min Jacque Ancelmo FINISHING MACHINE OPERATOR AUTOMATIC Work Phone: [facility] 03-05-2024 09:37-0400 SaO2% (BldA) [Mass fraction] 98 % Jacque Ancelmo FINISHING MACHINE OPERATOR AUTOMATIC Work Phone: [facility] 03-01-2024 11:18-0400 Body mass index (BMI) [Ratio] 28.98 kg/m2 Jacque Ag FINISHING MACHINE OPERATOR AUTOMATIC Work Phone: [facility] 03-01-2024 11:18-0400 Body temperature 97.7 [degF] Jacque Ancelmo FINISHING MACHINE OPERATOR AUTOMATIC Work Phone: [facility] 03-01-2024 11:18-0400 Body weight 83.92 kg Jacque Ag FINISHING MACHINE OPERATOR AUTOMATIC Work Phone: [facility] 03-01-2024 11:18-0400 Diastolic blood pressure 78 mm[Hg] Jacque Ancelmo FINISHING MACHINE OPERATOR AUTOMATIC Work Phone: [facility] 03-01-2024 11:18-0400 Heart rate 76 /min Jacque Dalecarson FINISHING MACHINE OPERATOR AUTOMATIC Work Phone: [facility] 03-01-2024 11:18-0400 SaO2% (BldA) [Mass fraction] 97 % Jacque Arriagamarcella FINISHING MACHINE OPERATOR AUTOMATIC Work Phone: [facility] 03-01-2024 11:18-0400 Systolic blood pressure 122 mm[Hg] Jacque Arriagamarcella FINISHING MACHINE OPERATOR AUTOMATIC Work Phone: [facility] 02-09-2024 09:49-0400 Body height 170.2 cm Helio Brice DO Work Phone: [facility] 02-09-2024 09:49-0400 Body mass index (BMI) [Ratio] 28.98 kg/m2 Helio Brice DO Work Phone: [facility] 02-09-2024 09:49-0400 Body weight 83.92 kg Helio Brice DO Work Phone: [facility] 02-09-2024 09:49-0400 Diastolic blood pressure 90 mm[Hg] Helio Brice DO Work Phone: [facility] 02-09-2024 09:49-0400 Heart rate 62 /min Helio Brice DO Work Phone: [facility] 02-09-2024 09:49-0400 SaO2% (BldA) [Mass fraction] 97 % Helio Brice DO Work Phone: [facility] 02-09-2024 09:49-0400 Systolic blood pressure 110 mm[Hg] Helio Brice DO Work Phone: [facility] 05-26-2023 10:48-0500 Body height 170.2 cm Mary Lou Supersoniceo SEPARATOR OPERATOR [employer] Work Phone: [facility] 05-26-2023 10:48-0500 Body mass index (BMI) [Ratio] 31.79 kg/m2 Mary Lou Supersoniceo SEPARATOR OPERATOR [employer] Work Phone: [facility] 05-26-2023 10:48-0500 Body weight 92.08 kg Mary Lou Supersoniceo SEPARATOR OPERATOR [employer] Work Phone: [facility] 02-16-2023 10:47-0400 Diastolic blood pressure 72 mm[Hg] Ermias Toro MD Work Phone: [facility] 02-16-2023 10:47-0400 Heart rate 67 /min Ermias Toro MD Work Phone: [facility] 02-16-2023 10:47-0400 Systolic blood pressure 133 mm[Hg] Ermias Toro MD Work Phone: [facility] 02-15-2023 12:53-0400 Body height 170.2 cm rEmias Toro MD Work Phone: [facility] 02-15-2023 12:53-0400 Body mass index (BMI) [Ratio] 31.48 kg/m2 Ermias Toro MD Work Phone: [facility] 02-15-2023 12:53-0400 Body temperature 97.39 [degF] Ermias Toro MD Work Phone: [facility] 02-15-2023 12:53-0400 Body weight 91.17 kg Ermias Toro MD Work Phone: [facility] 02-15-2023 12:53-0400 Heart rate 78 /min Ermias Toro MD Work Phone: [facility] 02-15-2023 12:53-0400 Respiratory rate 16 /min Ermias Toro MD Work Phone: [facility] 02-15-2023 12:53-0400 SaO2% (BldA) [Mass fraction] 98 % Ermias Toro MD Work Phone: [facility] 02-15-2023 10:26-0400 Body temperature 97.59 [degF] Helio Miller MD Work Phone: [facility] 02-15-2023 10:26-0400 Diastolic blood pressure 65 mm[Hg] Helio Miller MD Work Phone: [facility] 02-15-2023 10:26-0400 Heart rate 61 /min Helio Miller MD Work Phone: [facility] 02-15-2023 10:26-0400 Respiratory rate 16 /min Helio Miller MD Work Phone: [facility] 02-15-2023 10:26-0400 SaO2% (BldA) [Mass fraction] 94 % Helio Miller MD Work Phone: [facility] 02-15-2023 10:26-0400 Systolic blood pressure 143 mm[Hg] Helio Miller MD Work Phone: [facility] 02-14-2023 21:06-0400 Body height 170.2 cm Helio Miller MD Work Phone: [facility] 02-01-2023 11:00-0400 Diastolic blood pressure 81 mm[Hg] Josh Mccann MD Work Phone: [facility] 02-01-2023 11:00-0400 Heart rate 61 /min Josh Mccann MD Work Phone: [facility] 02-01-2023 11:00-0400 Respiratory rate 15 /min Josh Mccann MD Work Phone: [facility] 02-01-2023 11:00-0400 SaO2% (BldA) [Mass fraction] 96 % Josh Mccann MD Work Phone: [facility] 02-01-2023 11:00-0400 Systolic blood pressure 155 mm[Hg] Josh Mccann MD Work Phone: [facility] 02-01-2023 10:17-0400 Body temperature 97.2 [degF] Josh Mccann MD Work Phone: [facility] 02-01-2023 08:00-0400 Body height 170.2 cm Josh Mccann MD Work Phone: [facility] 02-01-2023 08:00-0400 Body mass index (BMI) [Ratio] 30.57 kg/m2 Josh Mccann MD Work Phone: [facility] 02-01-2023 08:00-0400 Body weight 88.54 kg Josh Mccann MD Work Phone: [facility] 01-27-2023 15:13-0400 Body height 170.2 cm Monika Suazo RN [facility] 01-27-2023 15:13-0400 Body mass index (BMI) [Ratio] 30.85 kg/m2 Monika Suazo RN [facility] 01-27-2023 15:13-0400 Body weight 89.36 kg Monika Suazo RN [facility] 01-27-2023 10:31-0400 Body height 170.2 cm Josh Mccann MD Work Phone: [facility] 01-27-2023 10:31-0400 Body mass index (BMI) [Ratio] 30.92 kg/m2 Josh Mcacnn MD Work Phone: [facility] 01-27-2023 10:31-0400 Body weight 89.54 kg Josh Mccann MD Work Phone: [facility] 01-24-2023 10:58-0400 Body height 170.2 cm Josh Mccann MD Work Phone: [facility] 01-24-2023 10:58-0400 Body mass index (BMI) [Ratio] 30.84 kg/m2 Josh Mccann MD Work Phone: [facility] 01-24-2023 10:58-0400 Body weight 89.31 kg Josh Mccann MD Work Phone: [facility] Encounters Encounter Date Encounter Type Care Provider Facility Start: 01-31-2025 End: 01-31-2025 Bamboo flowsheet Tereza Yonyy SET UP MECHANIC COATING MACH[employer]ES [facility] Start: 01-31-2025 End: 01-31-2025 Bamboo flowsheet Tereza Kelbley SET UP [employer]CH[employer] [facility] Start: 01-31-2025 End: 01-31-2025 ambulatory Tereza Adornoy SET UP [employer] [facility] Comment on above: Pain, neck (Primary Dx); Neck pain Start: 01-29-2025 End: 01-30-2025 ambulatory Tereza Yonyy [employer] UP [employer] [facility] Comment on above: Pain, neck (Primary Dx); Neck pain Start: 01-29-2025 End: 01-29-2025 Bamboo flowsheet Tereza Kelmichaely SET UP [employer] [facility] Start: 01-29-2025 End: 01-29-2025 Bamboo flowsheet Tereza Yonyy [employer] UP [employer] [facility] Start: 01-25-2025 End: 01-25-2025 ambulatory Barry Chang [employer] UP [employer] [facility] Comment on above: Pain, neck (Primary Dx); Neck pain Start: 01-23-2025 End: 01-23-2025 ambulatory Barry Chang [employer] UP [employer] [facility] Comment on above: Pain, neck (Primary Dx); Neck pain Start: 01-23-2025 End: 01-23-2025 Bamboo flowsheet Barry Chang SET UP [employer] [facility] Start: 01-23-2025 End: 01-23-2025 Bamboo flowsheet Barry Chang SET UP [employer] [facility] Start: 01-18-2025 End: 01-18-2025 ambulatory Tereza Vallecillo [employer] UP [employer] [facility] Comment on above: Pain, neck (Primary Dx); Neck pain Start: 01-18-2025 End: 01-18-2025 Bamboo flowsheet Tereza Vallecillo SET UP [employer] [facility] Start: 01-18-2025 End: 01-18-2025 Bamboo flowsheet Tereza Vallecillo SET UP [employer] [facility] Start: 01-14-2025 End: 01-14-2025 Telephone encounter Tereza Vallecillo [employer] UP [employer] [facility] Comment on above: Cx PT today Start: 01-09-2025 End: 01-09-2025 ambulatory Tereza Adornoy [employer] UP [employer] [facility] Comment on above: Pain, neck (Primary Dx); Neck pain Start: 01-09-2025 End: 01-09-2025 Bamboo flowsheet Tereza Adornoy SET UP [employer] [facility] Start: 01-09-2025 End: 01-09-2025 Bamboo flowsheet Tereza Adornoy SET UP [employer] [facility] Start: 01-02-2025 End: 01-02-2025 ambulatory Tereza Adornoy [employer] UP [employer] [facility] Comment on above: Pain, neck (Primary Dx); Neck pain Start: 01-02-2025 End: 01-02-2025 Bamboo flowsheet Tereza Adornoy SET UP [employer] [facility] Start: 01-02-2025 End: 01-02-2025 Bamboo flowsheet Tereza Adornoy SET UP [employer] [facility] Start: 12-31-2024 End: 12-31-2024 Bamboo flowsheet Hernán Madsen PT Work Phone: [facility] Start: 12-31-2024 End: 12-31-2024 Bamboo flowsheet Hernán Madsen PT Work Phone: [facility] Start: 12-31-2024 End: 12-31-2024 ambulatory Hernán Madsen PT Work Phone: [facility] Comment on above: Pain, neck (Primary Dx); Neck pain Start: 12-26-2024 End: 12-26-2024 Bamboo flowsheet Terezabriseida Ovallebley SET UP ME[employer] [facility] Start: 12-26-2024 End: 12-26-2024 Bamboo flowsheet Tereza Vaqsuezbley SET UP MECH[employer] [facility] Start: 12-26-2024 End: 12-26-2024 ambulatory Tereza Vasquezbley SET UP [employer] [facility] Comment on above: Pain, neck (Primary Dx); Neck pain Start: 12-24-2024 End: 12-24-2024 Bamboo flowsheet Tereza Kelbley SET UP MECH[employer] [facility] Start: 12-24-2024 End: 12-24-2024 Bamboo flowsheet Tereza Kelbley SET UP [employer] [facility] Start: 12-24-2024 End: 12-24-2024 ambulatory Tereza Vasquezbley SET UP [employer] [facility] Comment on above: Pain, neck (Primary Dx) Start: 12-19-2024 End: 12-19-2024 Bamboo flowsheet Hernán Madsen PT Work Phone: [facility] Start: 12-19-2024 End: 12-19-2024 Bamboo flowsheet Hernán Madsen PT Work Phone: [facility] Start: 12-19-2024 End: 12-19-2024 ambulatory Hernán Madsen PT Work Phone: [facility] Comment on above: Pain, neck (Primary Dx); Neck pain Start: 12-17-2024 End: 12-17-2024 Bamboo flowsheet Hernán Madsen PT Work Phone: [facility] Start: 12-17-2024 End: 12-17-2024 Bamboo flowsheet Hernán Madsen PT Work Phone: [facility] Start: 12-17-2024 End: 12-17-2024 ambulatory Hernán Madsen PT Work Phone: [facility] Comment on above: Pain, neck (Primary Dx); Neck pain Start: 12-10-2024 End: 12-10-2024 Bamboo flowsheet Tereza Vallecillo SET UP [employer] [facility] Start: 12-10-2024 End: 12-10-2024 Bamboo flowsheet Tereza Vallecillo SET UP [employer] [facility] Start: 12-10-2024 End: 12-10-2024 ambulatory Tereza Vallecillo [employer] [facility] Comment on above: Pain, neck (Primary Dx); Neck pain Start: 12-07-2024 End: 12-07-2024 Bamboo flowsheet Ana Ramirez PT [facility] Start: 12-07-2024 End: 12-07-2024 Bamboo flowsheet Ana Ramirez PT [facility] Start: 12-07-2024 End: 12-07-2024 ambulatory Ana Ramirez PT [facility] Comment on above: Pain, neck (Primary Dx); Neck pain Start: 11-19-2024 End: 11-19-2024 ambulatory JACQUE AG Not Available Start: 11-19-2024 End: 11-19-2024 Office outpatient visit 25 minutes Jacque Ag FINISHING MACHINE OPERATOR [employer]OMATIC Work Phone: [facility] Comment on above: Rash (Primary Dx) Start: 09-06-2024 End: 09-06-2024 ambulatory Hernán Madsen PT Work Phone: [facility] Comment on above: Pain of left hip (Pr imary Dx); Left hip pain; Greater trochanteric bursitis of left hip Start: 07-31-2024 End: 07-31-2024 Bamboo flowsheet Hernán Madsen PT Work Phone: [facility] Start: 07-31-2024 End: 07-31-2024 Bamboo flowsheet Hernán Madsen PT Work Phone: [facility] Start: 07-31-2024 End: 07-31-2024 ambulatory Hernán Madsen PT Work Phone: [facility] Comment on above: Pain of left hip (Pr imary Dx) Start: 07-30-2024 End: 07-30-2024 ambulatory [facility] Start: 07-16-2024 End: 07-16-2024 Bamboo flowsheet Hernán Madsen PT Work Phone: [facility] Start: 07-16-2024 End: 07-16-2024 Bamboo flowsheet Hernán Madsen PT Work Phone: [facility] Start: 07-16-2024 End: 07-16-2024 ambulatory Hernán Madsen PT Work Phone: [facility] Comment on above: Left hip pain (Prima ry Dx); Greater trochanteric bursitis of left hip Start: 07-12-2024 End: 07-12-2024 Bamboo flowsheet Tereza Adornoy SET UP [employer] [facility] Start: 07-12-2024 End: 07-12-2024 Bamboo flowsheet Tereza Ovallebley SET UP [employer] [facility] Start: 07-12-2024 End: 07-12-2024 ambulatory Tereza Adornoy SET UP [employer] [facility] Comment on above: Left hip pain (Prima ry Dx); Greater trochanteric bursitis of left hip Start: 07-10-2024 End: 07-10-2024 ambulatory [facility] Start: 07-10-2024 End: 07-10-2024 Subsequent hospital visit by physician Iftikhar Sanchez SET UP [employer] [facility] Start: 07-09-2024 End: 07-09-2024 ambulatory Hernán Madsen PT Work Phone: [facility] Comment on above: Left hip pain (Prima ry Dx); Greater trochanteric bursitis of left hip Start: 07-09-2024 End: 07-09-2024 Bamboo flowsion Madsen PT Work Phone: [facility] Start: 07-09-2024 End: 07-09-2024 Bamboo flowsheet Hernán Madsen PT Work Phone: [facility] Start: 07-05-2024 End: 07-05-2024 Bamboo flowsheet Hernán Madsen PT Work Phone: [facility] Start: 07-05-2024 End: 07-05-2024 Bamboo flowsion Madsen PT Work Phone: [facility] Start: 07-05-2024 End: 07-05-2024 ambulatory Hernán Madsen PT Work Phone: [facility] Comment on above: Left hip pain (Prima ry Dx); Greater trochanteric bursitis of left hip Start: 07-03-2024 End: 07-03-2024 Bamboo flowsion Madsen PT Work Phone: [facility] Start: 07-03-2024 End: 07-03-2024 Bamboo flowsheet Hernán Madsen PT Work Phone: [facility] Start: 07-03-2024 End: 07-03-2024 ambulatory Hernán Madsen PT Work Phone: [facility] Comment on above: Left hip pain (Prima ry Dx); Greater trochanteric bursitis of left hip Start: 06-29-2024 End: 06-29-2024 ambulatory HELIO BRICE [facility] Start: 06-29-2024 End: 06-29-2024 Subsequent hospital visit by physician Iftikhar Sanchez [facility] Start: 06-27-2024 End: 06-27-2024 ambulatory HELIO BRICE Not Available Start: 06-27-2024 End: 06-27-2024 Office outpatient visit 40 minutes Helio Brice DO Work Phone: [facility] Comment on above: Pain of left hip (Pr imary Dx); Type 2 diabetes mellitus with other specified complication, without long-term current use of insulin (CMS/HCC); Need for immunization against influenza; Mixed hyperlipidemia (CMS/HCC); Recurrent major depressive disorder, in partial remission (HCC) (CMS/HCC); Gastroesophageal reflux disease without esophagitis; SMD (senile macular degeneration); Medication management; Breast cancer screening by mammogram Start: 06-27-2024 End: 06-27-2024 ambulatory HELIO BRICE Not Available Start: 06-26-2024 End: 06-26-2024 Office outpatient new 45 minutes Carlos Thorpe MD Work Phone: [facility] [place] Comment on above: Greater trochanteric bursitis of left hip (Primary Dx); Tendinopathy of left gluteus medius; Iliotibial band syndrome of left side; Weakness of left hip Start: 06-26-2024 ambulatory CARLOS THORPE Faci lity:[facility] Start: 06-22-2024 End: 06-22-2024 Clinisync Result Encounter Helio Brice DO Work Phone: [facility] Unsolicited Start: 06-22-2024 End: 06-22-2024 Clinisync Result Encounter Helio Brice DO Work Phone: [facility] Unsolicited Start: 06-06-2024 End: 06-06-2024 ambulatory HELIO BRICE [facility] Start: 06-06-2024 End: 06-06-2024 Subsequent hospital visit by physician [facility] Start: 03-08-2024 End: 03-08-2024 ambulatory JACQUE AG Not Available Start: 03-08-2024 End: 03-08-2024 Office outpatient visit 25 minutes Jacque Ag FINISHING MACHINE OPERATOR [employer] Work Phone: [facility] Comment on above: Laceration of left h and, foreign body presence unspecified, subsequent encounter (Primary Dx) Start: 03-05-2024 End: 03-05-2024 Office outpatient visit 15 minutes Jacque Ag FINISHING MACHINE OPERATOR [employer]IC Work Phone: [facility] Comment on above: Laceration of left h and, foreign body presence unspecified, subsequent encounter (Primary Dx) Start: 03-05-2024 End: 03-05-2024 ambulatory JACQUE AG Not Available Start: 03-01-2024 End: 03-01-2024 ambulatory JACQUE AG Not Available Start: 03-01-2024 End: 03-01-2024 Office outpatient visit 15 minutes Jacque Ag FINISHING MACHINE OPERATOR AUTOMATIC Work Phone: [facility] Comment on above: Laceration of left h and, foreign body presence unspecified, subsequent encounter (Primary Dx) Start: 02-09-2024 End: 02-09-2024 Office outpatient visit 25 minutes Helio Brice DO Work Phone: [facility] Comment on above: Type 2 diabetes gwen itus with other specified complication, without long-term current use of insulin (CMS/HCC) (Primary Dx); Mixed hyperlipidemia (CMS/HCC); Recurrent major depressive disorder, in partial remission (HCC) (CMS/HCC); Elevated TSH Start: 02-09-2024 End: 02-09-2024 ambulatory HELIO BRICE Not Available Start: 05-26-2023 End: 05-26-2023 Office outpatient visit 15 minutes Mary Lou A Domenicoeo SEPARATOR OPERATOR [employer]IN[employer]NER Work Phone: [facility] Comment on above: Right wrist pain (Pr imary Dx) Start: 02-24-2023 End: 02-24-2023 Postop follow up visit related to original px Mary Lou A Dimeo SEPARATOR OPERATOR [employer]IN[employer]NER Work Phone: [facility] Comment on above: Carpal tunnel syndro me on right (Primary Dx); Radial tunnel syndrome, right; De Quervain's tenosynovitis, right; Cubital tunnel syndrome on right Start: 02-16-2023 End: 02-16-2023 Subsequent hospital visit by physician Ermias Toro MD Work Phone: Department of Radiology Comment on above: Arrived Start: 02-15-2023 End: 02-15-2023 Office consultation new/estab patient 60 min Ermias Toro MD Work Phone: [facility] Comment on above: Cervical radiculopat hy (Primary Dx) Start: 02-15-2023 End: 02-15-2023 Emergency department patient visit Helio Miller MD Work Phone: [facility] Start: 02-01-2023 End: 02-01-2023 Subsequent hospital visit by physician Josh Mccann MD Work Phone: Outpatient Surgery [facility] Comment on above: Lesion of ulnar nerv e Start: 01-27-2023 End: 01-27-2023 ambulatory Gloria Patel MD Work Phone: Pre-Procedure Preparation [facility] Comment on above: Pre-op evaluation (P rimary Dx) Start: 01-27-2023 End: 01-27-2023 Preprocedural examination done Gloria Patel MD Work Phone: [facility] Start: 01-27-2023 End: 01-27-2023 Office outpatient visit 25 minutes Josh Mccann MD Work Phone: [facility] Comment on above: Carpal tunnel syndro me on right (Primary Dx) Start: 01-27-2023 End: 01-27-2023 Subsequent hospital visit by physician Gloria Patel MD Work Phone: Neurodiagnostic Testing Outpatient Care [facility] Comment on above: Arrived Start: 01-24-2023 End: 01-24-2023 Office outpatient new 45 minutes Josh Mccann MD Work Phone: [facility] Comment on above: Carpal tunnel syndro me on right (Primary Dx); De Quervain's tenosynovitis; Right wrist pain Start: 01-06-2023 End: 01-07-2023 ambulatory [facility] Start: 09-16-[address] Helio Gilbert Facility:[id number] Start: 09-07-2021 End: 09-07-2021 ambulatory AUGUST MENJIVAR Facility:[id number] Start: 07-25-2019 End: 07-25-2019 Subsequent hospital visit by physician Fozia Ruiz [facility] Comment on above: Arrived Start: 07-06-2019 End: 07-06-2019 Subsequent hospital visit by physician Gaby Corona SET UP MECHANIC COATING MACHINES [facility] Comment on above: Canceled (Patient) Start: 06-07-2019 End: 06-07-2019 Subsequent hospital visit by physician Savannah Parrish SET UP MECHANIC COATING MACHINES [facility] Comment on above: Canceled (Patient) Start: 06-04-2019 End: 06-04-2019 Subsequent hospital visit by physician Iftikhar Sanchez SET UP MECHANIC COATING MACHINES [facility] Start: 05-28-2019 End: 05-28-2019 Subsequent hospital visit by physician Fozia Ruiz PT [facility] Comment on above: Arrived Start: 05-25-2019 End: 05-25-2019 Subsequent hospital visit by physician [place] Parrish [facility] Start: 05-22-2019 End: 05-22-2019 Subsequent hospital visit by physician [place] Parrish [facility] Comment on above: Canceled (Patient) Start: 05-15-2019 End: 05-15-2019 Subsequent hospital visit by physician [place] Parrish [facility] Comment on above: Canceled (Late Cance llation) Start: 05-11-2019 End: 05-11-2019 Subsequent hospital visit by physician [place] Parrish [facility] Start: 05-09-2019 End: 05-09-2019 Subsequent hospital visit by physician Iftikhar Sanchez [facility] Start: 05-03-2019 End: 05-03-2019 Subsequent hospital visit by physician [place] [facility] Start: 05-02-2019 End: 05-02-2019 Subsequent hospital visit by physician Fozia [facility] Comment on above: Arrived Start: 04-30-2019 End: 04-30-2019 Subsequent hospital visit by physician Fozia [facility] Comment on above: Canceled (Patient) Start: 04-26-2019 End: 04-26-2019 Subsequent hospital visit by physician [place] [facility] Start: 04-24-2019 End: 04-24-2019 Subsequent hospital visit by physician [place] [facility] Start: 04-19-2019 End: 04-19-2019 Subsequent hospital visit by physician [place] [facility] Start: 04-17-2019 End: 04-17-2019 Subsequent hospital visit by physician [place] [facility] Start: 04-16-2019 End: 04-16-2019 Subsequent hospital visit by physician Iftikhar [facility] Comment on above: Canceled (Patient) Start: 04-12-2019 End: 04-12-2019 Subsequent hospital visit by physician Fozia REARDON [facility] Comment on above: Arrived Start: 04-09-2019 End: 04-09-2019 Subsequent hospital visit by physician Iftikhar [facility] Start: 04-05-2019 End: 04-05-2019 Subsequent hospital visit by physician [place] [facility] Start: 04-03-2019 End: 04-03-2019 Subsequent hospital visit by physician [place] [facility] Start: 03-29-2019 End: 03-29-2019 Subsequent hospital visit by physician [place] [facility] Start: 03-26-2019 End: 03-26-2019 Subsequent hospital visit by physician Fozia [facility] Comment on above: Arrived Start: 03-23-2019 End: 03-23-2019 Subsequent hospital visit by physician [place] [facility] Comment on above: Canceled (Patient) Start: 03-21-2019 End: 03-21-2019 Subsequent hospital visit by physician [facility] Comment on above: Arrived Procedures Date Procedure Procedure Detail Performing Clinician Start: 07-30-2024 Mammography Hernán Man daisharon PT Work Phone: Start: 06-27-2024 Radex hip unilateral with pelvis 2-3 views Helio Brice DO Work Phone: Start: 06-22-2024 ALL CBC WITH AUTO DIFF Helio Brice DO Work Phone: Start: 03-08-2024 SUTURE/STAPLE REMOVAL L chava Ag FINISHING MACHINE OPERATOR AUTOMATIC Work Phone: Start: 05-26-2023 Injection 1 tendon sheath/ligament aponeurosis Mary Lou A Dimeo SEPARATOR OPERATOR [employer]NER Work Phone: Start: 02-14-2023 CBC AND ELECTRONIC DIFF Cale Lei MD Work Phone: Start: 02-14-2023 Complete blood count with white cell differential, automated Cale Lei MD Work Phone: Start: 02-14-2023 Creatinine blood Cale Lei MD Work Phone: Start: 02-14-2023 MINT GREEN TOP TUBE Mar daina Lei MD Work Phone: Start: 02-01-2023 Glucose measurement, blood Josh Mccann MD Work Phone: Start: 02-01-2023 US Unspecified body region during surgery German Chang MD Work Phone: Start: 02-01-2023 Glucose measurement, blood Josh Mccann MD Work Phone: Start: 04-08-2022 Mammography Helio cardenas DO Work Phone: Plan of Treatment Date Care Activity Detail Author Start: 02-17-2034 DTaP/Tdap/Td vaccine (3 - Td or Tdap) DTaP/Tdap/Td vaccine (3 - Td or Tdap) [facility] Start: 02-17-2034 Tetanus vaccination TETANUS [facility] Start: 2033 Respiratory Syncytial Virus (RSV) or age 60 yrs+ (1 - 1-dose 75+ series) Respiratory Syncytial Virus (RSV) or age 60 yrs+ (1 - 1-dose 75+ series) [facility] Start: 11-06-2026 Screening for malignant neoplasm of colon [facility] Start: 07-30-2025 Screening for malignant neoplasm of breast Mammogram [facility] Start: 02-18-2025 Influenza vaccination Influenza Vaccine (#1) [facility] Start: 02-12-2025 End: 02-12-2025 Patient encounter procedure [facility] Start: 01-31-2025 End: 01-31-2025 ambulatory [facility] Start: 01-30-2025 Urine screening for protein Diabetes: Urine Protein Screening [facility] Start: 01-29-2025 End: 01-29-2025 ambulatory [facility] Start: 01-25-2025 End: 01-25-2025 ambulatory [facility] Start: 01-23-2025 End: 01-23-2025 ambulatory [facility] Start: 01-21-2025 End: 01-21-2025 ambulatory 01/21/2025 10:30 AM EDT Treatment [facility] [address] [facility] [address] [place] [address] Tereza Vallecillo SET UP MECHANIC COATING MACHINES [facility] Start: 01-18-2025 End: 01-18-2025 ambulatory [facility] Start: 01-14-2025 End: 01-14-2025 ambulatory 01/14/2025 1:00 PM EDT Treatment [facility] [address] [facility] [address] [place] [address] Tereza Vallecillo SET UP MECHANIC COATING MACHINES [facility] Start: 01-11-2025 End: 01-11-2025 ambulatory 01/11/2025 10:00 AM EDT Treatment [facility] [address] [facility] [address] [place] [address] Ana Ramirez, PT [facility] Start: 01-09-2025 End: 01-09-2025 ambulatory 01/09/2025 2:00 PM EDT Treatment [facility] [address] [place] [address] Tereza Vallecillo, SET UP MECHANIC COATING MACHINES [facility] Start: 01-07-2025 End: 01-07-2025 ambulatory 01/07/2025 2:00 PM EDT Treatment [facility] [address] [place] [address] Tereza Vallecillo, SET UP MECHANIC COATING MACHINES [facility] Start: 01-02-2025 End: 01-02-2025 ambulatory 01/02/2025 2:30 PM EDT Treatment [facility] [address] [place] [address] Tereza Vallecillo, SET UP MECHANIC COATING MACHINES [facility] Start: 01-02-2025 End: 01-02-2025 ambulatory 01/02/2025 9:30 AM EDT Treatment [facility] [address] [facility] [address] [place] [address] Ana Ramirez, PT [facility] Start: 12-31-2024 End: 12-31-2024 ambulatory [facility] Start: 12-26-2024 End: 12-26-2024 ambulatory [facility] Comment on above: Arrived Start: 12-24-2024 End: 12-24-2024 ambulatory 12/24/2024 9:30 AM EDT Treatment [facility] [address] [facility] [address] [place] [address] Tereza Vallecillo, SET UP MECHANIC COATING MACHINES [facility] Start: 12-19-2024 End: 12-19-2024 ambulatory 12/19/2024 9:00 AM EDT Treatment [facility] [address] [facility] [address] [place] [address] Hernán Madsen, PT [address] [facility] [address] [place] [address] [facility] Start: 12-17-2024 End: 12-17-2024 ambulatory [facility] Comment on above: Arrived Start: 12-10-2024 End: 12-10-2024 ambulatory 12/10/2024 1:00 PM EDT Treatment [facility] [address] [place] [address] Tereza Vallecillo, TIFFANY Arrived [facility] Comment on above: Arrived Start: 11-06-2024 Screening for malignant neoplasm of colon COLORECTAL CANCER SCREENING DISCUSSION [facility] Start: 10-25-2024 End: 10-25-2024 Patient encounter procedure 10/25/2024 9:45 AM EDT Office Visit [facility] [address] [place] [address] Helio Brice DO [address] [place] [address] [facility] Start: 10-19-2024 Medicare Annual Wellness (AWV) Medicare Annual Wellness (AWV) [facility] Start: 10-16-2024 Urine screening for protein Diabetes: Urine Protein Screening [facility] Start: 09-25-2024 End: 12-25-2024 Comprehensive metabolic 2000 panel - Serum or Plasma Comprehensive metabolic panel Lab Routine Type 2 diabetes mellitus with other specified complication, without long-term current use of insulin ([facility]) Medication management Expected: 09/25/2024 (Approximate), Expires: 12/25/2024 [facility] Comment on above: Expected: 09/25/2024 (Approximate), Expi res: 12/25/2024 Start: 09-25-2024 End: 12-25-2024 Hemoglobin a1c with eag Hemoglobin a1c with eag Lab Routine Type 2 diabetes mellitus with other specified complication, without long-term current use of insulin ([facility]/HCC) Medication management Expected: 09/25/2024 (Approximate), Expires: 12/25/2024 [facility] Comment on above: Expected: 09/25/2024 (Approximate), Expi res: 12/25/2024 Start: 09-25-2024 End: 12-25-2024 Lipid 1996 panel - Serum or Plasma Lipid panel Lab Routine Mixed hyperlipidemia (CMS/HCC) Expected: 09/25/2024 (Approximate), Expires: 12/25/2024 [facility] Work Phone: Comment on above: Expected: 09/25/2024 (Approximate), Expi res: 12/25/2024 Start: 08-01-2024 End: 08-01-2024 ambulatory 08/01/2024 10:00 AM EST Treatment [facility] [address] [facility] [address] [place] [address] Hernán Madsen, PT [address] [facility] [address] [place] [address] [facility] Start: 07-31-2024 End: 07-31-2024 Patient encounter procedure 07/31/2024 1:00 PM EST Appointment [facility] [address] [place] [address] Iftikhar Sanchez, SET UP MECHANIC COATING MACHINES weakness of pelvic floor [facility] Comment on above: weakness of pelvic floor Start: 07-30-2024 End: 07-30-2024 Professional / ancillary services management 07/30/2024 7:30 PM EST Ancillary Procedure [facility] [place] [address] [facility] [address] [place] [phone] [facility] Start: 07-30-2024 End: 07-30-2024 ambulatory [facility] Start: 07-27-2024 End: 07-27-2024 ambulatory 07/27/2024 3:00 PM EST Treatment [facility] [address] [facility] [address] [place] [address] Aramis Loaiza PTA [facility] Start: 07-19-2024 End: 07-19-2024 Patient encounter procedure 07/19/2024 2:00 PM EST Office Visit [facility] [place] [address] [facility] [address] [place] [address] Carlos Thorpe MD [address] [facility] [address] [place], [place] [id number] [facility] [place] Start: 07-16-2024 End: 07-16-2024 ambulatory [facility] Start: 07-13-2024 End: 07-13-2024 ambulatory 07/13/2024 9:30 AM EST Treatment [facility] [address] [facility] [address] [place] [address] Aramis Loaiza, SET UP MECHANIC COATING MACHINES [facility] Start: 07-12-2024 End: 07-12-2024 ambulatory [facility] Comment on above: Left hip pain (Primary Dx); Greater trochanteric bursitis of left hip Start: 07-10-2024 End: 07-10-2024 Patient encounter procedure 07/10/2024 1:00 PM EST Appointment [facility] [address] [place] [address] Iftikhar Sanchez, SET UP MECHANIC COATING MACHINES weakness of pelvic floor [facility] Comment on above: weakness of pelvic floor Start: 07-10-2024 End: 07-10-2024 ambulatory 07/10/2024 9:00 AM EST Treatment [facility] [address] [facility] [address] [place] [address] Aramis Loaiza PTA [facility] Start: 07-09-2024 End: 07-09-2024 ambulatory 07/09/2024 2:00 PM EST Treatment [facility] [address] [facility] [address] [place] [address] Hernán Madsen, PT [address] [facility] [address] [place] [address] [facility] Start: 07-05-2024 End: 07-05-2024 ambulatory [facility] Start: 07-04-2024 End: 07-04-2024 Patient encounter procedure 07/04/2024 11:00 AM EST Appointment [facility] [address] [place] [phone] Iftikhar Sanchez, SET UP MECHANIC COATING MACHINES weakness of pelvic floor [facility] Comment on above: weakness of pelvic floor Start: 07-03-2024 End: 07-03-2024 ambulatory 07/03/2024 12:30 PM EST Evaluation [facility] [address] [place] [address] Hernán Madsen, PT [address] [place] [address] [facility] Start: 06-27-2024 End: 09-25-2024 DBT Breast - bilateral screening Bilateral screening mammogram with tomosynthesis Imaging Routine Breast cancer screening by mammogram Expected: 06/27/2024 (Approximate), Expires: 09/25/2024 [facility] Comment on above: Expected: 06/27/2024 (Approximate), Expi res: 09/25/2024 Start: 06-27-2024 End: 06-27-2024 Patient encounter procedure 06/27/2024 9:30 AM EST Office Visit [facility] [address] [place] [address] Helio Brice, DO [address] [place] [address] [facility] Start: 06-22-2024 End: 06-22-2024 Patient encounter procedure 06/22/2024 9:00 AM EST Office Visit [facility] [address] [place] [address] Helio Brice, DO [address] [place] [address] [facility] Start: 06-15-2024 End: 06-15-2024 Patient encounter procedure 06/15/2024 3:00 PM EST Appointment [facility] [address] [place] [phone] Iftikhar Sanchez, SET UP MECHANIC COATING MACHINES weakness of pelvic floor [facility] Comment on above: weakness of pelvic floor Start: 05-24-2024 Annual Wellness Visit (Medicare) Annual Wellness Visit (Medicare) [facility] Start: 05-11-2024 End: 08-11-2024 CBC W Auto Differential panel - Blood CBC and differential Lab Routine Type 2 diabetes mellitus with other specified complication, without long-term current use of insulin (CMS/HCC) Mixed hyperlipidemia (CMS/HCC) Recurrent major depressive disorder, in partial remission (HCC) (CMS/HCC) Elevated TSH Expected: 05/11/2024 (Approximate), Expires: 08/11/2024 [facility] Work Phone: Comment on above: Expected: 05/11/2024 (Approximate), Expi res: 08/11/2024 Start: 05-11-2024 End: 08-11-2024 Comprehensive metabolic 2000 panel - Serum or Plasma Comprehensive metabolic panel Lab Routine Type 2 diabetes mellitus with other specified complication, without long-term current use of insulin (CMS/HCC) Mixed hyperlipidemia (CMS/HCC) Recurrent major depressive disorder, in partial remission (HCC) (CMS/HCC) Elevated TSH Expected: 05/11/2024 (Approximate), Expires: 08/11/2024 [facility] Comment on above: Expected: 05/11/2024 (Approximate), Expi res: 08/11/2024 Start: 05-11-2024 End: 08-11-2024 Hemoglobin a1c with eag Hemoglobin a1c with eag Lab Routine Type 2 diabetes mellitus with other specified complication, without long-term current use of insulin (CMS/HCC) Expected: 05/11/2024 (Approximate), Expires: 08/11/2024 [facility] Comment on above: Expected: 05/11/2024 (Approximate), Expi res: 08/11/2024 Start: 05-11-2024 End: 08-11-2024 Thyrotropin [Units/volume] in Serum or Plasma TSH Lab Routine Elevated TSH Expected: 05/11/2024 (Approximate), Expires: 08/11/2024 [facility] Comment on above: Expected: 05/11/2024 (Approximate), Expi res: 08/11/2024 Start: 05-11-2024 End: 08-11-2024 Thyroxine (T4) free [Mass/volume] in Serum or Plasma T4, free Lab Routine Elevated TSH Expected: 05/11/2024 (Approximate), Expires: 08/11/2024 [facility] Comment on above: Expected: 05/11/2024 (Approximate), Expi res: 08/11/2024 Start: 05-11-2024 End: 08-11-2024 Triiodothyronine (T3) Free [Mass/volume] in Serum or Plasma T3, free Lab Routine Elevated TSH Expected: 05/11/2024 (Approximate), Expires: 08/11/2024 [facility] Comment on above: Expected: 05/11/2024 (Approximate), Expi res: 08/11/2024 Start: 05-02-2024 Hemoglobin A1c measurement Diabetes: Hemoglobin A1C [facility] Start: 04-08-2024 Screening for malignant neoplasm of breast Breast cancer screen [facility] Start: 02-19-2024 COVID-19 Vaccine ( season) COVID-19 Vaccine ( season) [facility] Start: 02-19-2024 COVID-19 VACCINE ( season) COVID-19 VACCINE ( season) [facility] Start: 02-19-2024 COVID-19 Vaccine ( season) COVID-19 Vaccine ( season) [facility] Start: 02-19-2024 Influenza vaccination Influenza Vaccine (#1) [facility] Start: 01-19-2024 Influenza vaccination Flu vaccine (#1) [facility] Start: 10-23-2023 Glaucoma screening Diabetes: Retinopathy Screening [facility] Start: 2023 Pneumococcal vaccination PNEUMOCOCCAL VACCINE SERIES (1 of 1 - PCV) [facility] Start: 04-08-2023 Screening for malignant neoplasm of breast [facility] Start: 03-14-2023 End: 03-14-2023 Telemedicine consultation with patient 03/14/2023 12:40 PM EDT Telemedicine [facility] [address] [facility] [address] [place] [phone] Mary Lou Joe, SEPARATOR OPERATOR [employer] [address] [facility] [address] [place] [address] [facility] Start: 03-14-2023 End: 03-14-2023 Patient encounter procedure 03/14/2023 10:15 AM EDT Office Visit [facility] [address] [place] [address] Ermias Toro MD [address] [place] [address] [facility] Start: 02-24-2023 End: 02-24-2023 Patient encounter procedure 02/24/2023 1:00 PM EDT Office Visit [facility] [address] [facility] [address] [place] [address] Mary Lou Joe, SEPARATOR OPERATOR [employer] [address] [facility] [address] [place] [address] [facility] Start: 02-18-2023 Influenza vaccination INFLUENZA VACCINE (#1) [facility] Start: 02-18-2023 End: 02-18-2023 Telemedicine consultation with patient 02/18/2023 10:40 AM EDT Telemedicine [facility] [address] [facility] [address] [place] [phone] Mary Lou Joe, SEPARATOR OPERATOR [employer] [address] [facility] [address] [place] [phone] [facility] Start: 02-16-2023 End: 02-16-2023 Patient encounter procedure [facility] [place] Start: 02-15-2023 End: 02-16-2024 MR Cervical spine WO contrast MRI SPINE CERVICAL WITHOUT CONTRAST Imaging Routine Cervical radiculopathy Expected: 02/15/2023, Expires: 02/16/2024 [facility] Comment on above: Expected: 02/15/2023, Expires: Start: 02-15-2023 End: 02-15-2023 Patient encounter procedure 02/15/2023 1:00 PM EDT Office Visit [facility] [address] [place] [address] Ermias Toro MD [address] [place] [address] [facility] Start: 02-10-2023 End: 02-10-2023 Patient encounter procedure [facility] Start: 02-01-2023 End: 02-01-2023 Admission to same day surgery center 02/01/2023 9:35 AM EDT - 02/01/2023 10:50 AM EDT Surgery Outpatient Surgery [facility] [address] [facility] [address] [place] [address] Josh Mccann MD [address] [facility] [address] [place] [address] ENDOSCOPY CARPAL TUNNEL RELEASE Outpatient Surgery [facility] Comment on above: ENDOSCOPY CARPAL TUNNEL RELEASE [...] 7:30 AM EDT Hospital Encounter Outpatient Surgery [facility] [address] [address] [facility] [address] [place] [address] Josh Mccann MD [address] [facility] [address] [place] [address] Lesion of ulnar nerve Outpatient Surgery [facility] Comment on above: Lesion of ulnar nerve Start: 06-27-2021 Screening for malignant neoplasm of breast MAMMOGRAM SCREENING DISCUSSION [facility] Start: 08-15-2019 End: 08-15-2019 Appointment [facility] Start: 07-06-2019 End: 07-06-2019 Patient encounter procedure 07/06/2019 Appointment Physical Therapy Savannah Parrish PTA [facility] Start: 07-02-2019 End: 07-02-2019 Patient encounter procedure [facility] Start: 06-07-2019 End: 06-07-2019 Appointment 06/07/2019 Appointment Physical Therapy Savannah Parrish PTA [facility] Start: 06-04-2019 End: 06-04-2019 Appointment 06/04/2019 Appointment Physical Therapy Iftikhar Sanchez PTA [facility] Start: 06-01-2019 End: 06-01-2019 Appointment [facility] Start: 05-28-2019 End: 05-28-2019 Appointment [facility] Start: 05-25-2019 End: 05-25-2019 Appointment 05/25/2019 Appointment Physical Therapy Savannah Parrish PTA [facility] Start: 05-22-2019 End: 05-22-2019 Appointment 05/22/2019 Appointment Physical Therapy Savannah Parrish PTA [facility] Start: 05-15-2019 End: 05-15-2019 Appointment 05/15/2019 Appointment Physical Therapy Savannah Parrish PTA [facility] Start: 05-14-2019 End: 05-14-2019 Appointment [facility] Start: 05-11-2019 End: 05-11-2019 Appointment 05/11/2019 Appointment Physical Therapy Savannah Parrish PTA [facility] Start: 05-09-2019 End: 05-09-2019 Appointment 05/09/2019 Appointment Physical Therapy Iftikhar Sanchez PTA [facility] Start: 04-30-2019 End: 04-30-2019 Appointment [facility] Start: 04-26-2019 End: 04-26-2019 Appointment 04/26/2019 Appointment Physical Therapy Savannah Parrish PTA [facility] Start: 04-24-2019 End: 04-24-2019 Appointment 04/24/2019 Appointment Physical Therapy Savannah Parrish PTA [facility] Start: 04-23-2019 End: 04-23-2019 Appointment 04/23/2019 Appointment Physical Therapy Iftikhar Sanchez PTA [facility] Start: 04-19-2019 End: 04-19-2019 Appointment 04/19/2019 Appointment Physical Therapy aSvannah Parrish PTA [facility] Start: 04-16-2019 End: 04-16-2019 Appointment 04/16/2019 Appointment Physical Therapy Iftikhar Sanchez PTA [facility] Start: 04-12-2019 End: 04-12-2019 Appointment [facility] Start: 04-09-2019 End: 04-09-2019 Appointment 04/09/2019 Appointment Physical Therapy Iftikhar Sanchez PTA [facility] Start: 04-05-2019 End: 04-05-2019 Appointment 04/05/2019 Appointment Physical Therapy Savannah Parrish PTA [facility] Start: 04-03-2019 End: 04-03-2019 Appointment 04/03/2019 Appointment Physical Therapy Savannah Parrish PTA [facility] Start: 03-29-2019 End: 03-29-2019 Appointment 03/29/2019 Appointment Physical Therapy Savannah Parrish, [employer] [facility] Start: 03-26-2019 End: 03-26-2019 Appointment 03/26/2019 Appointment Physical Therapy Fozia Ruiz PT [facility] Start: 03-23-2019 End: 03-23-2019 Appointment 03/23/2019 Appointment Physical Therapy Savannah Parrish, SET UP [employer] [facility] Start: 02-18-2019 Influenza vaccination Flu vaccine (#1) [place], [place] Start: 2018 RSV VACCINE (1 - 1-dose 60+ series) RSV VACCINE (1 - 1-dose 60+ series) [facility] Start: 06-20-2017 DTaP/Tdap/Td vaccine (2 - Tdap) DTaP/Tdap/Td vaccine (2 - Tdap) [facility] Start: 2008 Breast cancer screen Breast cancer screen [place], [place] Start: 2008 Colon cancer screen colonoscopy Colon cancer screen colonoscopy [place], [place] Start: 2008 Shingles Vaccine (1 of 2) Shingles Vaccine (1 of 2) [facility] Start: 2008 Zoster vaccine hzv live for subcutaneous use ZOSTER (SHINGLES) VACCINE (1 of 2) [facility] Start: 2003 Screening for malignant neoplasm of colon [facility] Start: 1998 Lipid panel [facility] Start: 1998 Lipid screen Lipid screen [place], [place] Start: 1988 Screening for malignant neoplasm of cervix [facility] Start: 1979 Cervical cancer screen Cervical cancer screen [place], [place] Start: 1979 Screening for malignant neoplasm of cervix [facility] Start: 1977 DTaP/Tdap/Td vaccine (1 - Tdap) DTaP/Tdap/Td vaccine (1 - Tdap) [place] Start: 1977 Third diphtheria, tetanus and acellular pertussis (DTaP) vaccination TDAP (ADULT) [facility] Start: 1976 Hepatitis C screening Hepatitis C screen [facility] Start: 1973 HIV screen HIV screen [place], [place] Start: 1973 HIV screening [facility] Start: 1970 Depression Screen Depression Screen [facility] Start: 1958 Hepatitis C screen Hepatitis C screen [place], [place] Start: 1958 Hepatitis C screening HEPATITIS C VIRUS SCREENING [facility] Start: 1958 Medicare Annual Wellness (AWV) Medicare Annual Wellness (AWV) [facility] Start: 1958 Screening for malignant neoplasm of colon [facility] Start: 1958 Screening for osteoporosis DEXA SCAN DISCUSSION [facility] Start: 1958 Tetanus vaccination TETANUS [facility] End: 02-01-2023 ASPIRATION OR INJECTION INTERMEDIATE JOINT BURSA ASPIRATION OR INJECTION INTERMEDIATE JOINT BURSA Imaging Routine Lesion of ulnar nerve Carpal tunnel syndrome One Time for 1 Occurrences starting 02/01/2023 until 02/01/2023 [facility] Comment on above: One Time for 1 Occurrences starting 01/18 until 02/01/2023 Electromyography EMG & NERVE CON DUCTION Neurology Routine Carpal tunnel syndrome on right Ordered: 01/24/2023 [facility] Comment on above: Ordered: 01/24/2023 End: 02-14-2023 GOLD TOP TUBE [facility] Comment on above: Once for 1 Occurrences starting 02/15/20 until 02/14/2023 End: 02-14-2023 LAVENDER TOP TUBE [facility] Comment on above: Once for 1 Occurrences starting 02/15/20 until 02/14/2023 End: 02-14-2023 LT BLUE TOP TUBE [facility] Comment on above: Once for 1 Occurrences starting 02/15/20 until 02/14/2023 End: 02-16-2023 MR Cervical spine WO contrast [facility] Comment on above: 1 Occurrences starting 02/16/2023 until 02/16/2023 End: 02-14-2023 RAINBOW DRAW [facility] Work Phone: Comment on above: One Time for 1 Occurrences starting 01/19 until 02/14/2023 Immunizations Immunization Date Immunization Notes Care Provider Javier tatetessy 06-27-2024 Seasonal trivalent influenza vaccine, adjuvanted, preservative free Helio Brice DO Work Phone: [facility] 06-27-2024 influenza virus vaccine, unspecified formulation Hernán Madsen PT Work Phone: [facility] 10-20-2023 Pneumococcal Conjuga te PCV 20 Helio Brice DO Work Phone: [facility] 02-27-2023 influenza, injectabl e, quadrivalent, preservative free Helio Brice DO Work Phone: [facility] 02-27-2023 influenza virus vaccine, unspecified formulation Helio Brice DO Work Phone: [facility] 04-16-2021 influenza, injectabl e, quadrivalent, preservative free Helio Brice DO Work Phone: [facility] 04-16-2021 influenza virus vaccine, unspecified formulation Monika Suazo RN [facility] 09-24-2020 Pfizer Purple Cap SARS-CoV-2 Vaccination Helio Brice DO Work Phone: [facility] 09-03-2020 Pfizer Purple Cap SARS-CoV-2 Vaccination Helio Brice DO Work Phone: [facility] 05-08-2019 Influenza, injectabl e, Madin Vicky Canine Kidney, quadrivalent with preservative Helio Brice DO Work Phone: [facility] 04-14-2018 Influenza, injectabl e, Madin [place] Canine Kidney, quadrivalent with preservative Helio Babs DO Work Phone: [facility] 04-03-2017 influenza, injectabl e, quadrivalent, preservative free Helio Brice DO Work Phone: [facility] Payers Date Payer Category Payer Medicare [id number] 2023 Medicare [id number] 2016 Government (not [facility] or Medicaid) [id number] 2016 Unknown [facility] Jaime Anguiano xxxxxxxxx 2016-Present [phone] [address] [place] [address] xxxxxxxxx [id number]. 2.7.3.823577.315 2016 Unknown [id number]. 1.13.172. 2.7.3.762177.315 2016 Unknown [id number] 1959 Self-pay 1959 Unknown [id number] 1958 Unknown [id number] 2.16.840.1.194422.3.579. 2.593 1958 Unknown [id number] 2.16.840.1.132461.3.579. 2.593 1958 Unknown [id number] 2.16.840.1.476385.3.579. 2.1068 1958 Unknown [id number] 2.16.840.1.700292.3.579. 2.594 1958 Unknown [id number] 2.16.840.1.245941.3.579. 2.175 1958 Unknown [id number] 2.16.840.1.183852.3.579. 2.175 1958 Unknown [id number] 2.16.840.1.244548.3.579. 2.175 1958 Unknown [id number] 2.16.840.1.551367.3.579. 2.175 1958 Unknown [id number] 2.16.840.1.346340.3.579. 2.125 1958 Unknown [id number] 2.16.840.1.976468.3.579. 2.125 1958 Unknown [id number] 2.16.840.1.158411.3.579. 2.125 1958 Unknown [id number] 2.16.840.1.691398.3.579. 2.1258 1958 Unknown [id number] 2.16.840.1.965037.3.579. 2.1258 1958 Unknown [id number] 2.16.840.1.527401.3.579. 2.1258 1958 Unknown [id number] 2.16.840.1.234858.3.579. 2.125 1958 Unknown [id number] 2.16.840.1.850088.3.579. 2.1258 1958 Unknown [id number] 2.16.840.1.736572.3.579. 2.1258 1958 Unknown [id number] 2.16.840.1.542339.3.579. 2.125 1958 Unknown [id number] 2.16.840.1.091140.3.579. 2.125 1958 Unknown [id number] 2.16.840.1.210907.3.579. 2.1258 1958 Unknown [id number] 2.16.840.1.625495.3.579. 2.1258 1958 Unknown [id number] 2.16.840.1.971796.3.579. 2.1258 1958 Unknown [id number] 2.16.840.1.983014.3.579. 2.1259 1958 Unknown [id number] 2.16.840.1.060823.3.579. 2.1258 1958 Unknown [id number] 2.16.840.1.152758.3.579. 2.125 1958 Unknown [id number] 2.16.840.1.378423.3.579. 2.125 1958 Unknown [id number] 2.16840.1.104518.3.579. 2.125 1958 Unknown [id number] 2.16840.1.031636.3.579. 2.125 1958 Unknown [id number] 2.16840.1.295921.3.579. 2.1258 1958 Unknown [id number] 2.840.1.236419.3.579. 2.1258 1958 Unknown [id number] 2.16840.1.141788.3.579. 2.125 1958 Unknown [id number] 2.840.1.486756.3.579. 2.1258 1958 Unknown [id number] 2.16840.1.640462.3.579. 2.125 1958 Unknown [id number] 2.840.1.050280.3.579. 2.125 1958 Unknown [id number] 2.16840.1.304481.3.579. 2.125 1958 Unknown [id number] 2.16840.1.935983.3.579. 2.1258 1958 Unknown [id number] 2.16840.1.090190.3.579. 2.1258 Unknown [id number] Social History Date Type Detail [facility] [place] [place] Start: 1960 Sex Assigned At Not on file [facility] KATIE SEGURA Start: 12-06-2022 End: 01-27-2023 Tobacco smoking status NHIS Never smoked tobacco [facility] Start: 12-06-2022 End: 01-27-2023 Tobacco use and exposure Smokeless tobacco non-user [facility] Start: 01-27-2023 End: 02-01-2023 Alcohol intake Ex-drinker (finding) [facility] Start: 01-27-2023 End: 10-20-2023 History of Social function [facility] Start: 01-27-2023 End: 10-20-2023 Tobacco use panel [facility] Tobacco smoking stat us [facility]IS Tobacco smoking consumption unknown [facility] Start: 02-15-2023 End: 06-27-2024 Alcohol intake Lifetime non-drinker (finding) [facility] How often to you hav e a drink containing alcohol? Never [facility] How many standard drinks containing alcohol do you have on a typical day? Patient does not drink [facility] Start: 12-09-2022 Alcohol Comment caffeine several cans of diet coke [facility] Start: 1960 Sex assigned at Female [facility] Start: 02-14-2023 Gender identity Identifies as female gender (finding) [facility] Start: 02-14-2023 Sexual orientation Heterosexual (finding) [facility] Medical Equipment Procedure Code Equipment Code Equipment Origin al Text Equipment Identifier Dates 1 Device in the morning and 1 Device before bedtime. [id number] Start: 10-20-2023 End: 06-27-2024 1 Device in the morning and 1 Device before bedtime. [id number] Start: 06-27-2024 1 each by Other route in the morning and 1 each in the evening and 1 each before bedtime. One touch Ultra 2. [id number] Start: 06-28-2024 Clinical Notes 01-24-2023 to 01-14-2025 Telephone Encounter - Salud Fowler - 01/14/2025 11:49 AM EDTTelephone Encounter - Salud Fowler - 01/14/2025 11:49 AM María Elena Madsen PT - 12/31/2024 10:00 AM EDTPatient InstructionsAttachments Note Date & Type Note Facility 01-14-2025 Telephone encounter Note She contacted and lm indicating she had to have blood drawn today, and at the location it is really backed up; no blood drawn yet. She cx her PT for today due to now knowing when she'll be done. [facility] 01-14-2025 Miscellaneous Notes She contacted and lm indicating she had to have blood drawn today, and at the location it is really backed up; no blood drawn yet. She cx her PT for today due to now knowing when she'll be done. documented in this encounter [facility] 12-31-2024 History of Presen t illness Narrative Images from the original note were not included. Physical Therapy Treatment Visit Patient Name: Elvira Avalos Today's Date: 12/31/2024 Encounter Diagnoses Name Primary? Pain, neck Yes Neck pain Visit number: 7 Timed Code Treatment: 42 minutes Total Treatment Time: 57 minutes Time In: 10:02 AM Time Out: 11:00 AM History: Pt states she has been having neck pain for quite some time. Pt states she fell about 3 year ago which effected right UE. Right arm was treated with improvements but states told her until her neck is worked, her right UE will not improve. Pt states she has been doing therapy locally and when out of town ([place]). 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 States she has also noticed her arms going numb. States she was having numbness in bilateral UE in the past but was not happening as frequently when she was getting therapy in [place]. 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 Thinks tingling is more on thumb side of hands. Getting a lot of neck pain and PINEDA throughout the evening. Precautions: Savannah Subjective: pt. Is pleased with her progress, no N/T. Less neck pain throughout the day. Pleased with her progress. Pain: 3/10 Objective: PT Evaluation (12/07/2024) CERVICAL AROM: 25 degrees flexion, 40 degrees extension with right sided neck pain, 23 degrees right SB, 25 degrees left SB, 49 degrees right rotation, 53 degrees left rotation Joint play: limited mobility noted with right lateral glides MMT: bilateral UE strength grossly 4+/5 except right thumb extension 4-/5. Cloth Hauler: right 50 psi, left 52 psi Palpation: increase muscle tone bilateral UT, mild to moderate tenderness bilateral UT and LS Special Test: Cervical compression negative; ipsilateral neck pain noted with bilateral Neurological: Reflexes: not tested Myotomes: decreased right C7 Dermatomes: intact Special test: negative Hoffmans Treatment: Manual Therapy: (25 minutes ) Delivered manual ther pt supine cervical distraction, SOR, upper trap leveator stretching, CROM all to improve mobility decrease pain and inflammation Therapeutic Exercise: ( 15 minutes supervised ) guided pt through ther and flex ex per grid to improve cervical postural scapular muscle complex stability, functional mobility and strength Therapeutic Activity: Exercises to improve dynamic activities, functional tasks, functional mobility to return to prior activity level as needed. Neuromuscular re-education: Balance Training, Muscle Facilitation, Dynamic Stability, Core Stabilization, and Blood Flow Restriction Training (BFRT) as needed. Modalities: (15 minutes) Post session, pt prone IFC/ MHP to cervical area to reduce pain and muscle soreness Assessment: Visit #7 for pt with complaints of cervical / neck pain with I.E on 12-07-24. Reports positive feed back from PT interventions, denies numbness and tingling. Continue to work on improving neck muscle flexibility with manual and self stretching. Responding appropriately to PT interventions Outcome Measure: Neck Disability Index (NDI): Rehab Diagnosis: Short Term Goal: To be met in 2 weeks Goal 1: Pt to be instructed in home exercise program. Fpc Goals: To be met in 10 weeks Goal 1: Pt to report independence and compliance with home program. Goal 2: Pt to achieve 60 degrees of bilateral cervical rotation to assist with driving and ADL's. Goal 3: Pt to report pain no greater than 2/10 in cervical region with functional mobility and ADL's. Goal 4: Pt to score no greater than 10/50 on NDI indicating improved QOL. Pt will benefit from skilled PT for 2x/week from 12/07/2024 to 03/01/2025 to address the above impairments. I hereby deem this POC medically necessary. Please sign below. Date: documented in this encounter [facility] 12-19-2024 History of Ángel t illness Narrative Physical Therapy Treatment Visit Patient Name: Elvira Avalos Today's Date: 12/19/2024 Encounter Diagnoses Name Primary? Pain, neck Yes Neck pain Visit number: 4 Timed Code Treatment: 45 minutes Total Treatment Time: 60 minutes Time In: 10:00 AM Time Out: 11:00 AM History: Pt states she has been having neck pain for quite some time. Pt states she fell about 3 year ago which effected right UE. Right arm was treated with improvements but states Dr told her until her neck is worked, her right UE will not improve. Pt states she has been doing therapy locally and when out of town ([place]). 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 States she has also noticed her arms going numb. States she was having numbness in bilateral UE in the past but was not happening as frequently when she was getting therapy in [place]. 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 Thinks tingling is more on thumb side of hands. Getting a lot of neck pain and PINEDA throughout the evening. Precautions: Savannah Subjective: improvement numbness and tingling in bilateral UE into fingers. Continues to have neck pain today. Pain: 310 Objective: PT Evaluation (12/07/2024) CERVICAL AROM: 25 degrees flexion, 40 degrees extension with right sided neck pain, 23 degrees right SB, 25 degrees left SB, 49 degrees right rotation, 53 degrees left rotation Joint play: limited mobility noted with right lateral glides MMT: bilateral UE strength grossly 4+/5 except right thumb extension 4-/5. Cloth Hauler: right 50 psi, left 52 psi Palpation: increase muscle tone bilateral UT, mild to moderate tenderness bilateral UT and LS Special Test: Cervical compression negative; ipsilateral neck pain noted with bilateral Neurological: Reflexes: not tested Myotomes: decreased right C7 Dermatomes: intact Special test: negative Hoffmans Treatment: Manual Therapy: (30 minutes ) Delivered manual ther pt supine cervical distraction, SOR, upper trap leveator stretching, CROM all to improve mobility decrease pain and inflammation Therapeutic Exercise: (15 minutes supervised/ 15 min total ) guided pt through ther and flex ex per grid to improve cervical postural scapular muscle complex stability, functional mobility and strength Therapeutic Activity: Exercises to improve dynamic activities, functional tasks, functional mobility to return to prior activity level as needed. Neuromuscular re-education: Balance Training, Muscle Facilitation, Dynamic Stability, Core Stabilization, and Blood Flow Restriction Training (BFRT) as needed. Modalities: ( 15 minutes) Post session IFC/ MHP to cervical area to reduce pain and muscle soreness Assessment: Visit 4 for pt with complaints of cervical / neck pain with I.E on 12-07-24. Reports positive feed back from evaluation, denies numbness and tingling since that day. Continue to work to improve neck muscle flexibility. Progressing well. Outcome Measure: Neck Disability Index (NDI): 50 Rehab Diagnosis: Short Term Goal: To be met in 2 weeks Goal 1: Pt to be instructed in home exercise program. Fpc Goals: To be met in 10 weeks Goal 1: Pt to report independence and compliance with home program. Goal 2: Pt to achieve 60 degrees of bilateral cervical rotation to assist with driving and ADL's. Goal 3: Pt to report pain no greater than 2/10 in cervical region with functional mobility and ADL's. Goal 4: Pt to score no greater than 10/50 on NDI indicating improved QOL. Pt will benefit from skilled PT for 2x/week from 12/07/2024 to 03/01/2025 to address the above impairments. I hereby deem this POC medically necessary. Please sign below. Date: documented in this encounter [facility] 12-17-2024 History of Ángel andrade illness Narrative Physical Therapy Treatment Visit Patient Name: Elvira Avalos Today's Date: 12/17/2024 Encounter Diagnoses Name Primary? Pain, neck Yes Neck pain Visit number: 3 Timed Code Treatment: 45 minutes Total Treatment Time: 60 minutes Time In: 10:00 AM Time Out: 11:00 AM History: Pt states she has been having neck pain for quite some time. Pt states she fell about 3 year ago which effected right UE. Right arm was treated with improvements but states Dr told her until her neck is worked, her right UE will not improve. Pt states she has been doing therapy locally and when out of town ([place]). 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 States she has also noticed her arms going numb. States she was having numbness in bilateral UE in the past but was not happening as frequently when she was getting therapy in [place]. 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 Thinks tingling is more on thumb side of hands. Getting a lot of neck pain and PINEDA throughout the evening. Precautions: [place] Subjective: improvement numbness and tingling in bilateral UE into fingers. Continues to have neck pain today. Pain: 08/27 Objective: PT Evaluation (12/07/2024) CERVICAL AROM: 25 degrees flexion, 40 degrees extension with right sided neck pain, 23 degrees right SB, 25 degrees left SB, 49 degrees right rotation, 53 degrees left rotation Joint play: limited mobility noted with right lateral glides MMT: bilateral UE strength grossly 4+/5 except right thumb extension 4-/5. Cloth Hauler: right 50 psi, left 52 psi Palpation: increase muscle tone bilateral UT, mild to moderate tenderness bilateral UT and LS Special Test: Cervical compression negative; ipsilateral neck pain noted with bilateral Neurological: Reflexes: not tested Myotomes: decreased right C7 Dermatomes: intact Special test: negative Hoffmans Treatment: Manual Therapy: (30 minutes ) Delivered manual ther pt supine cervical distraction, SOR, upper trap leveator stretching, CROM all to improve mobility decrease pain and inflammation Therapeutic Exercise: (15 minutes supervised/ 15 min total ) guided pt through ther and flex ex per grid to improve cervical postural scapular muscle complex stability, functional mobility and strength Therapeutic Activity: Exercises to improve dynamic activities, functional tasks, functional mobility to return to prior activity level as needed. Neuromuscular re-education: Balance Training, Muscle Facilitation, Dynamic Stability, Core Stabilization, and Blood Flow Restriction Training (BFRT) as needed. Modalities: ( 15 minutes) Post session IFC/ MHP to cervical area to reduce pain and muscle soreness Assessment: Visit #3 for pt with complaints of cervical / neck pain with I.E on 12-07-24. Reports positive feed back from evaluation, denies numbness and tingling since that day. Continue to work to improve neck muscle flexibility. Outcome Measure: Neck Disability Index (NDI): 19/50 Rehab Diagnosis: Short Term Goal: To be met in 2 weeks Goal 1: Pt to be instructed in home exercise program. Fpc Goals: To be met in 10 weeks Goal 1: Pt to report independence and compliance with home program. Goal 2: Pt to achieve 60 degrees of bilateral cervical rotation to assist with driving and ADL's. Goal 3: Pt to report pain no greater than 2/10 in cervical region with functional mobility and ADL's. Goal 4: Pt to score no greater than 10/50 on NDI indicating improved QOL. Pt will benefit from skilled PT for 2x/week from 12/07/2024 to 03/01/2025 to address the above impairments. I hereby deem this POC medically necessary. Please sign below. Date: documented in this encounter [facility] 12-07-2024 History of Presen t illness Narrative Images from the original note were not included. Physical Therapy Evaluation Visit Patient Name: Elvira Avalos Today's Date: 12/07/2024 Encounter Diagnoses Name Primary? Pain, neck Yes Neck pain Visit number: 1 Timed Code Treatment Minutes: 55 minutes Total Treatment Time: 65 minutes Time In: 733 Time Out: 08 History: Pt states she has been having neck pain for quite some time. Pt states she fell about 3 year ago which effected right UE. Right arm was treated with improvements but states Dr told her until her neck is worked, her right UE will not improve. Pt states she has been doing therapy locally and when out of town ([place]). 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 States she has also noticed her arms going numb. States she was having numbness in bilateral UE in the past but was not happening as frequently when she was getting therapy in [place]. 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 Thinks tingling is more on thumb side of hands. Getting a lot of neck pain and PINEDA throughout the evening. Precautions: [place] Subjective: neck pain, PINEDA's Pain: 3-4/10 Objective: PT Evaluation (12/07/2024) CERVICAL AROM: 25 degrees flexion, 40 degrees extension with right sided neck pain, 23 degrees right SB, 25 degrees left SB, 49 degrees right rotation, 53 degrees left rotation Joint play: limited mobility noted with right lateral glides MMT: bilateral UE strength grossly 4+/5 except right thumb extension 4-/5. Cloth Hauler: right 50 psi, left 52 psi Palpation: increase muscle tone bilateral UT, mild to moderate tenderness bilateral UT and LS Special Test: Cervical compression negative; ipsilateral neck pain noted with bilateral Spurling's Neurological: Reflexes: not tested Myotomes: decreased right C7 Dermatomes: intact Special test: negative Hoffmans Treatment: Education: HEP education with demonstration, Educated on Eval Findings and POC Manual Therapy: (12 minutes) Passive ROM, Joint mobilization, Soft Tissue Mobilization, Myofascial Release, Muscle Energy Technique, Neural Mobilization, Myofascial Cupping, Dry Needling, IASTM, and Scar mobilization as needed. Manual cervical distraction and STM in supine. Therapeutic Exercise: (12 minutes) Strength, Endurance, Flexibility, ROM, HEP, Neural Mobilization, Power, and Core Stability as needed. Pt performed and instructed in home program this date; written instructions and pictures issued with good pt understanding. Therapeutic Activity: Exercises to improve dynamic activities, functional tasks, functional mobility to return to prior activity level as needed. Neuromuscular re-education: Balance Training, Muscle Facilitation, Dynamic Stability, Core Stabilization, and Blood Flow Restriction Training (BFRT) as needed. Modalities: Heat, Ice, Electrical Stimulation, Ultrasound, Cervical Mechanical Traction, Lumbar Mechanical Traction, Iontophoresis, and Fluidotherapy as needed. Assessment: Pt is 64 y/o female with complaints of neck pain and N/T in bilateral UE. Limited CROM and mobility noted on exam. Increase muscle tone bilateral UT regions. Pt instructed in home program and will benefit from further PT. Outcome Measure: Neck Disability Index (NDI): Rehab Diagnosis: neck pain, bilateral UE pain and tingling Short Term Goal: To be met in 2 weeks Goal 1: Pt to be instructed in home exercise program. Fpc Goals: To be met in 10 weeks Goal 1: Pt to report independence and compliance with home program. Goal 2: Pt to achieve 60 degrees of bilateral cervical rotation to assist with driving and ADL's. Goal 3: Pt to report pain no greater than 2/10 in cervical region with functional mobility and ADL's. Goal 4: Pt to score no greater than 10/50 on NDI indicating improved QOL. Pt will benefit from skilled PT for 2x/week from 12/07/2024 to 03/01/2025 to address the above impairments. I hereby deem this POC medically necessary. Please sign below. Date: documented in this encounter [facility] 11-19-2024 History of Presen t illness Narrative Images from the original note were not included. [address], [address] [facility] [place], [address] P: [phone] F: [phone] [facility] Historian of [facility]: patient Elvira Avalos is a 64 y.o. female who presents today to the Urgent Care with the following complaints and denials which have been present for 2 day(s) C/O Denies Symptom Comments [] [x] Lesion [x] [] Rash [] [x] Lump [] [x] Bump [] [x] Depression [] [x] abscess [] [x] cellulitis [x] [] itching [x] [] pain [x] [] burning [] [x] Sensation of insects crawling Additional Comments: pt has taken oral benadryl, benadryl cream OTC medication with relief Pt stated the rash on the left side of her back and some on her left side. Pt stated she was out in the yard working but the rash is nowhere else. Denies fever. C/o mild chills. Denies flu like sx. ROS A complete system ROS was performed and negative aside from the pertinent positives noted in the HPI and PE. PHYSICAL EXAM Examination General Examination: General Examination: Alert, oriented, normal affect, well-appearing, in no acute distress, well developed, well nourished. Head: normocephalic, atraumatic Eyes: Sclera clear Nose: nares patent Oral Cavity: mucosa moist, no lesions Throat: clear Neck/Thyroid: neck supple, full range of motion Skin: scattered grouped papular erythematous rash to left posterior torso. There is x1 lesion that is midline but slightly extends to the right aspect of the midline spline. There is a x1 single lesion noted to the nape of neck. No pustular lesions. A few areas have vesicular centers. No specific dermatome noted, however the rash does have a linear appearance in spots of the left side of the torso. Heart: no murmurs, regular rate and rhythm, S1, S2 normal Lungs: clear to auscultation bilaterally Extremities: no edema, no cyanosis Neurologic: nonfocal Psych: alert, oriented, cognitive function intact, cooperative with exam. TREATMENT PLAN 1. Rash (Primary) Pt does report burning and itching to area, however the rash does not have a definite shingles appearance. Will have pt start valtrex due to linear, mostly unilaterally located rash to cover for shingles and prednisone to cover for underlying insect bites-see rx, discussed Se, no NSAIDS With use of steroid. Avoid hot showers. Avoid others who have not had varicella dz or IZ until lesions crusted in case VZ related. Immediate eval if new, worsening or warning s/s otherwise follow up with PCP 1 week for recheck. - predniSONE (Deltasone) 20 MG tablet; Take 1 tablet (20 mg) by mouth in the morning and 1 tablet (20 mg) before bedtime. Do all this for 5 days. Dispense: 10 tablet; Refill: 0 - valACYclovir (Valtrex) 1 g tablet; Take 1 tablet (1,000 mg) by mouth every 8 (eight) hours for 7 days Dispense: 21 tablet; Refill: 0 documented in this encounter [facility] 09-06-2024 History of Presen t illness Narrative Images from the original note were not included. Physical Therapy Treatment Visit Patient Name: Elvira Avalos Today's Date: 09/06/2024 Encounter Diagnoses Name Primary? Pain of left hip Yes Left hip pain Greater trochanteric bursitis of left hip Visit number: 7 Timed Code Treatment: 40 minutes Total Treatment Time: 55 minutes Time In: 1500 Time Out: 1555 History: Pt. Presents to PT with c/c of left hip pain which started fall of 2023. Pt. Did have PT on her low back and hips but did not help. Most pain is lateral left hip but does have groin/SIJ. Pt. Has been taking Meloxicam which has really helped to decrease hip pain. Before medication 01/27 but after taking medication she has 3/10. Pt. Is very active enjoys hiking but hip pain is limiting her functional mobility. Precautions: as tolerated Subjective: Pt. Returns to PT after her stay in [place]. Pt. Reports of increase low back and neck muscle tightness. Pain: 0-4/10 depending on the day Objective: PT Evaluation (07/03/24) Left hip ROM: flexion 115 deg, abduction 25 deg, ER 25 deg, IR 15 deg *pain* at end range Left LE flexibility: moderate piriformis and hamstring tightness, QL and ITB tightness Strength: left hip flexion 4/5, abduction 4-/5 with pain, extension 4-/5 Palpation: TTP left greater trochanteric bursea Treatment: Manual Therapy: (30 minutes) Delivered manual ther to pt prone, lumbar spine PA mobs, STM to paraspinals MFR to left lateral hip and ITB, cervical pt supine cervical distraction, bilateral upper trap stretching, STM Therapeutic Exercise: (10 minutes supervised ) exercises in grid; Strength, Endurance, Flexibility, ROM, HEP, Neural Mobilization, Power, and Core Stability Therapeutic Activity: Exercises to improve dynamic activities, functional tasks, functional mobility to return to prior activity level Neuromuscular re-education: Balance Training, Muscle Facilitation, Dynamic Stability, Core Stabilization, and Blood Flow Restriction Training (BFRT) Modalities: (15 minutes) Post session pt prone: IFC/MHP to LB and MHP to cervical area DN: left greater trochanteric protocol, 3x needles, (held minute rest) Assessment: Pt has participated in 7 PT session with start of POC on 07/03/24 for left greater trochanteric bursitis. Performed manual techniques to help improve muscle flexibility in cervical and lumbar spine today. Will be be seen for 1 PT session then head back to [place]. Please sign and return PT note. Outcome Measure: Short Term Goal: To be met in 2 weeks Goal 1: Pt to be instructed in home exercise program. Fpc Goals: To be met in 10 weeks Goal 1: Pt to report independence and compliance with home program. Goal 2: Pt. Will report of 0/10 left hip pain while walking/standing for long periods of time to help improve her functional mobility. Goal 3: Pt. Will demonstrate normal left hip ROM grossly in all planes to allow her to walk/stand for long periods of time to help improve her functional mobility. Goal 4: Pt. Will demonstrate 5/5 left hip strength grossly in all planes to allow her walk/stand for long periods to help her return to PLOF. Goal 5: Pt. Will demonstrate normal left LE muscle flexibility to help decrease pain and improve her functional mobility. Goal 6: Pt. Will score 65 or greater on LEFS to help her return to PLOF. Pt. Returns to PT for 1x treatment due to exacerbation of back pain. PT note sent to PCP for co-sign. I hereby deem this POC medically necessary. Please sign below. Date: documented in this encounter [facility] 07-31-2024 History of Presen t illness Narrative Images from the original note were not included. Physical Therapy Treatment Visit Patient Name: Elvira Avalos Today's Date: 07/31/2024 Encounter Diagnoses Name Primary? Pain of left hip Yes Visit number: 6 Timed Code Treatment: 40 minutes Total Treatment Time: 55 minutes Time In: 829 Time Out: 924 History: Pt. Presents to PT with c/c of left hip pain which started fall of 2023. Pt. Did have PT on her low back and hips but did not help. Most pain is lateral left hip but does have groin/SIJ. Pt. Has been taking Meloxicam which has really helped to decrease hip pain. Before medication 10 but after taking medication she has 3/10. Pt. Is very active enjoys hiking but hip pain is limiting her functional mobility. Precautions: as tolerated Subjective: Reports back is feel and was able to climb up step ladder yesterday. Pain: 0-2/10 minimal pain Objective: PT Evaluation (07/03/24) Left hip ROM: flexion 115 deg, abduction 25 deg, ER 25 deg, IR 15 deg *pain* at end range Left LE flexibility: moderate piriformis and hamstring tightness, QL and ITB tightness Strength: left hip flexion 4/5, abduction 4-/5 with pain, extension 4-/5 Palpation: TTP left greater trochanteric bursea Treatment: Manual Therapy: (30 minutes) Delivered manual ther to pt prone, lumbar spine PA mobs, STM to paraspinals MFR to left lateral hip and ITB, cervical pt supine cervical distraction, bilateral upper trap stretching, STM Therapeutic Exercise: (10 minutes supervised ) exercises in grid; Strength, Endurance, Flexibility, ROM, HEP, Neural Mobilization, Power, and Core Stability Therapeutic Activity: Exercises to improve dynamic activities, functional tasks, functional mobility to return to prior activity level Neuromuscular re-education: Balance Training, Muscle Facilitation, Dynamic Stability, Core Stabilization, and Blood Flow Restriction Training (BFRT) Modalities: (15 minutes) Post session pt prone: IFC/MHP to LB and MHP to cervical area DN: left greater trochanteric protocol, 3x needles, (held minute rest) Assessment: Pt has participated in 6 PT session with start of POC on 07/03/24 for left greater trochanteric bursitis. Pt. Demonstrates good progress toward PT goals, 80% MET. Pt. Will be leaving for [place] for a couple of months. Pt. Was insturcted to call our office if she has questions. Outcome Measure: Short Term Goal: To be met in 2 weeks Goal 1: Pt to be instructed in home exercise program. Fpc Goals: To be met in 10 weeks Goal 1: Pt to report independence and compliance with home program. Goal 2: Pt. Will report of 0/10 left hip pain while walking/standing for long periods of time to help improve her functional mobility. Goal 3: Pt. Will demonstrate normal left hip ROM grossly in all planes to allow her to walk/stand for long periods of time to help improve her functional mobility. Goal 4: Pt. Will demonstrate 5/5 left hip strength grossly in all planes to allow her walk/stand for long periods to help her return to PLOF. Goal 5: Pt. Will demonstrate normal left LE muscle flexibility to help decrease pain and improve her functional mobility. Goal 6: Pt. Will score 65 or greater on LEFS to help her return to PLOF. Pt. Will be discharged. I hereby deem this POC medically necessary. Please sign below. Date: documented in this encounter [facility] 07-16-2024 History of Presen t illness Narrative Images from the original note were not included. Physical Therapy Treatment Visit Patient Name: Elvira Avalos Today's Date: 07/16/2024 Encounter Diagnoses Name Primary? Left hip pain Yes Greater trochanteric bursitis of left hip Visit number: 5 Timed Code Treatment: 40minutes Total Treatment Time: 55 minutes Time In: 829 Time Out: 924 History: Pt. Presents to PT with c/c of left hip pain which started fall of 2023. Pt. Did have PT on her low back and hips but did not help. Most pain is lateral left hip but does have groin/SIJ. Pt. Has been taking Meloxicam which has really helped to decrease hip pain. Before medication 01/27 but after taking medication she has 3/10. Pt. Is very active enjoys hiking but hip pain is limiting her functional mobility. Precautions: as tolerated Subjective: Reports if she does not do her stretches everyday her back muscles tighten up. Pain: LB ,L hip 07/30, cervical and upper trap / Objective: PT Evaluation (07/03/24) Left hip ROM: flexion 115 deg, abduction 25 deg, ER 25 deg, IR 15 deg *pain* at end range Left LE flexibility: moderate piriformis and hamstring tightness, QL and ITB tightness Strength: left hip flexion 4/5, abduction 4-/5 with pain, extension 4-/5 Palpation: TTP left greater trochanteric bursea Treatment: Manual Therapy: (30 minutes) Delivered manual ther to pt prone, lumbar spine PA mobs, STM to paraspinals MFR to left lateral hip and ITB, cervical pt supine cervical distraction, bilateral upper trap stretching, STM Therapeutic Exercise: (10 minutes supervised ) exercises in grid; Strength, Endurance, Flexibility, ROM, HEP, Neural Mobilization, Power, and Core Stability Therapeutic Activity: Exercises to improve dynamic activities, functional tasks, functional mobility to return to prior activity level Neuromuscular re-education: Balance Training, Muscle Facilitation, Dynamic Stability, Core Stabilization, and Blood Flow Restriction Training (BFRT) Modalities: (15 minutes) Post session pt prone: IFC/MHP to LB and MHP to cervical area DN: left greater trochanteric protocol, 3x needles, (held minute rest) Assessment: Pt has participated in 5 PT session with start of POC on 07/03/24 for left greater trochanteric bursitis. Manual techniques from last PT session helped decrease back and cervical pain. Pt. Is responding well to PT treatment. Stretching helping to decrease her back pain. Feels better after PT session. Outcome Measure: 42/80 Short Term Goal: To be met in 2 weeks Goal 1: Pt to be instructed in home exercise program. Fpc Goals: To be met in 10 weeks Goal 1: Pt to report independence and compliance with home program. Goal 2: Pt. Will report of 0/10 left hip pain while walking/standing for long periods of time to help improve her functional mobility. Goal 3: Pt. Will demonstrate normal left hip ROM grossly in all planes to allow her to walk/stand for long periods of time to help improve her functional mobility. Goal 4: Pt. Will demonstrate 5/5 left hip strength grossly in all planes to allow her walk/stand for long periods to help her return to PLOF. Goal 5: Pt. Will demonstrate normal left LE muscle flexibility to help decrease pain and improve her functional mobility. Goal 6: Pt. Will score 65 or greater on LEFS to help her return to PLOF. Pt will benefit from skilled PT for 2-3x/week from 07/03/24 to 09/11/24 to address the above impairments. I hereby deem this POC medically necessary. Please sign below. Date: documented in this encounter [facility] 07-09-2024 History of Presen t illness Narrative Images from the original note were not included. Physical Therapy Treatment Visit Patient Name: Elvira Avalos Today's Date: 07/09/2024 Encounter Diagnoses Name Primary? Left hip pain Yes Greater trochanteric bursitis of left hip Visit number: 3 Timed Code Treatment Minutes: 40 minutes Total Treatment Time: 60 minutes Time In: 1400 Time Out: 1500 History: Pt. Presents to PT with c/c of left hip pain which started fall of 2023. Pt. Did have PT on her low back and hips but did not help. Most pain is lateral left hip but does have groin/SIJ. Pt. Has been taking Meloxicam which has really helped to decrease hip pain. Before medication 01/27 but after taking medication she has 08/27. Pt. Is very active enjoys hiking but hip pain is limiting her functional mobility. Precautions: as tolerated Subjective: Pt. Reports her back and hip is feeling a lot better. Increased upper back tightness today. Played with grandchild all weekend and with no back issues. Pain: 07/30 Objective: PT Evaluation (07/03/24) Left hip ROM: flexion 115 deg, abduction 25 deg, ER 25 deg, IR 15 deg *pain* at end range Left LE flexibility: moderate piriformis and hamstring tightness, QL and ITB tightness Strength: left hip flexion 4/5, abduction 4-/5 with pain, extension 4-/5 Palpation: TTP left greater trochanteric bursea Treatment: PT evaluation (minutes) Education: HEP education with demonstration, Educated on Eval Findings and POC Manual Therapy: (30 minutes) MFR to left lateral hip and ITB, Passive ROM, Joint mobilization, Soft Tissue Mobilization, Myofascial Release, Muscle Energy Technique, Neural Mobilization, Myofascial Cupping, Dry Needling, IASTM, and Scar mobilization Therapeutic Exercise: (10 minutes) exercises in grid; Strength, Endurance, Flexibility, ROM, HEP, Neural Mobilization, Power, and Core Stability Therapeutic Activity: Exercises to improve dynamic activities, functional tasks, functional mobility to return to prior activity level Neuromuscular re-education: Balance Training, Muscle Facilitation, Dynamic Stability, Core Stabilization, and Blood Flow Restriction Training (BFRT) Modalities: (15 minutes) prone: IFC with MHP to LB, Heat, Ice, Electrical Stimulation, Ultrasound, Cervical Mechanical Traction, Lumbar Mechanical Traction, Iontophoresis, and Fluidotherapy DN: left greater trochanteric protocol, 3x needles, (held minute rest) Assessment: Pt. Has participated in 3 PT session with start of POC on 07/03/24 for left greater trochanteric bursitis. Pt. Will benefit from skilled PT services. Manual techniques from last PT session helped to decrease back pain. Slight discomfort with exercises. Manual stretching on her neck/upper back today Outcome Measure: 42/80 Short Term Goal: To be met in 2 weeks Goal 1: Pt to be instructed in home exercise program. Fpc Goals: To be met in 10 weeks Goal 1: Pt to report independence and compliance with home program. Goal 2: Pt. Will report of 0/10 left hip pain while walking/standing for long periods of time to help improve her functional mobility. Goal 3: Pt. Will demonstrate normal left hip ROM grossly in all planes to allow her to walk/stand for long periods of time to help improve her functional mobility. Goal 4: Pt. Will demonstrate 5/5 left hip strength grossly in all planes to allow her walk/stand for long periods to help her return to PLOF. Goal 5: Pt. Will demonstrate normal left LE muscle flexibility to help decrease pain and improve her functional mobility. Goal 6: Pt. Will score 65 or greater on LEFS to help her return to PLOF. Pt will benefit from skilled PT for 2-3x/week from 07/03/24 to 09/11/24 to address the above impairments. I hereby deem this POC medically necessary. Please sign below. Date: documented in this encounter [facility] 07-05-2024 History of Presen t illness Narrative Images from the original note were not included. Physical Therapy Evaluation Visit Patient Name: Elvira Avalos Today's Date: 07/05/2024 Encounter Diagnoses Name Primary? Left hip pain Yes Greater trochanteric bursitis of left hip Visit number: 2 Timed Code Treatment Minutes: 42 minutes Total Treatment Time: 60 minutes Time In: 829 Time Out: 929 History: Pt. Presents to PT with c/c of left hip pain which started fall of 2023. Pt. Did have PT on her low back and hips but did not help. Most pain is lateral left hip but does have groin/SIJ. Pt. Has been taking Meloxicam which has really helped to decrease hip pain. Before medication 01/27 but after taking medication she has 3/. Pt. Is very active enjoys hiking but hip pain is limiting her functional mobility. Precautions: as tolerated Subjective: Pt. Reports of increased back and hip pain since last PT session. Reports she was difficulty moving yesterday due to pain after PT session. Increase low back pain today. Pain: 5-6/10 Objective: PT Evaluation (07/03/24) Left hip ROM: flexion 115 deg, abduction 25 deg, ER 25 deg, IR 15 deg *pain* at end range Left LE flexibility: moderate piriformis and hamstring tightness, QL and ITB tightness Strength: left hip flexion 4/5, abduction 4-/5 with pain, extension 4-/5 Palpation: TTP left greater trochanteric bursea Treatment: PT evaluation (minutes) Education: HEP education with demonstration, Educated on Eval Findings and POC Manual Therapy: (30 minutes) MFR to left lateral hip and ITB, Passive ROM, Joint mobilization, Soft Tissue Mobilization, Myofascial Release, Muscle Energy Technique, Neural Mobilization, Myofascial Cupping, Dry Needling, IASTM, and Scar mobilization Therapeutic Exercise: (12 minutes) exercises in grid; Strength, Endurance, Flexibility, ROM, HEP, Neural Mobilization, Power, and Core Stability Therapeutic Activity: Exercises to improve dynamic activities, functional tasks, functional mobility to return to prior activity level Neuromuscular re-education: Balance Training, Muscle Facilitation, Dynamic Stability, Core Stabilization, and Blood Flow Restriction Training (BFRT) Modalities: (15 minutes) prone: IFC with MHP to LB, Heat, Ice, Electrical Stimulation, Ultrasound, Cervical Mechanical Traction, Lumbar Mechanical Traction, Iontophoresis, and Fluidotherapy DN: left greater trochanteric protocol, 3x needles, (held minute rest) Assessment: Pt. Has participated in 2 PT session with start of POC on 07/03/24 for left greater trochanteric bursitis. Pt. Will benefit from skilled PT services. Held DN tx today due to increased soreness after last PT session. Focused on more lumbar manual techniques today. Pt demonstrate lumbar paraspinal muscle tightness. E-stim and MHP at end of PT session to help decrease inflammation and pain. Outcome Measure: Short Term Goal: To be met in 2 weeks Goal 1: Pt to be instructed in home exercise program. 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 Goal 2: Pt. Will report of 0/10 left hip pain while walking/standing for long periods of time to help improve her functional mobility. Goal 3: Pt. Will demonstrate normal left hip ROM grossly in all planes to allow her to walk/stand for long periods of time to help improve her functional mobility. Goal 4: Pt. Will demonstrate 5/5 left hip strength grossly in all planes to allow her walk/stand for long periods to help her return to PLOF. Goal 5: Pt. Will demonstrate normal left LE muscle flexibility to help decrease pain and improve her functional mobility. Goal 6: Pt. Will score 65 or greater on LEFS to help her return to PLOF. Pt will benefit from skilled PT for 2-3x/week from 07/03/24 to 09/11/24 to address the above impairments. I hereby deem this POC medically necessary. Please sign below. Date: documented in this encounter [facility] 07-03-2024 History of Presen t illness Narrative Images from the original note were not included. Physical Therapy Evaluation Visit Patient Name: Elvira Avalos Today's Date: 07/03/2024 Encounter Diagnoses Name Primary? Left hip pain Yes Greater trochanteric bursitis of left hip Visit number: 1 Timed Code Treatment Minutes: 60 minutes Total Treatment Time: 60 minutes Time In: 1230 Time Out: 1330 History: Pt. Presents to PT with c/c of left hip pain which started fall of 2023. Pt. Did have PT on her low back and hips but did not help. Most pain is lateral left hip but does have groin/SIJ. Pt. Has been taking Meloxicam which has really helped to decrease hip pain. Before medication 01/27 but after taking medication she has 3/10. Pt. Is very active enjoys hiking but hip pain is limiting her functional mobility. Precautions: as tolerated Subjective Pain: 08/27 Objective: PT Evaluation (07/03/24) Left hip ROM: flexion 115 deg, abduction 25 deg, ER 25 deg, IR 15 deg *pain* at end range Left LE flexibility: moderate piriformis and hamstring tightness, QL and ITB tightness Strength: left hip flexion 4/5, abduction 4-/5 with pain, extension 4-/5 Palpation: TTP left greater trochanteric bursea Treatment: PT evaluation (20 minutes) Education: HEP education with demonstration, Educated on Eval Findings and POC Manual Therapy: (10 minutes) MFR to left lateral hip and ITB, Passive ROM, Joint mobilization, Soft Tissue Mobilization, Myofascial Release, Muscle Energy Technique, Neural Mobilization, Myofascial Cupping, Dry Needling, IASTM, and Scar mobilization Therapeutic Exercise: (16 minutes) exercises in grid; Strength, Endurance, Flexibility, ROM, HEP, Neural Mobilization, Power, and Core Stability Therapeutic Activity: Exercises to improve dynamic activities, functional tasks, functional mobility to return to prior activity level Neuromuscular re-education: Balance Training, Muscle Facilitation, Dynamic Stability, Core Stabilization, and Blood Flow Restriction Training (BFRT) Modalities: Heat, Ice, Electrical Stimulation, Ultrasound, Cervical Mechanical Traction, Lumbar Mechanical Traction, Iontophoresis, and Fluidotherapy DN: left greater trochanteric protocol, 3x needles, (10 minute rest) Assessment: Pt. Has participated in 1 PT session with start of POC on 07/03/24 for left greater trochanteric bursitis. Pt. Will benefit from skilled PT services. Outcome Measure: 42/80 Short Term Goal: To be met in 2 weeks Goal 1: Pt to be instructed in home exercise program. [facility] Goals: To be met in 10 weeks Goal 1: Pt to report independence and compliance with home program. Goal 2: Pt. Will report of 0/10 left hip pain while walking/standing for long periods of time to help improve her functional mobility. Goal 3: Pt. Will demonstrate normal left hip ROM grossly in all planes to allow her to walk/stand for long periods of time to help improve her functional mobility. Goal 4: Pt. Will demonstrate 5/5 left hip strength grossly in all planes to allow her walk/stand for long periods to help her return to PLOF. Goal 5: Pt. Will demonstrate normal left LE muscle flexibility to help decrease pain and improve her functional mobility. Goal 6: Pt. Will score 65 or greater on LEFS to help her return to PLOF. Pt will benefit from skilled PT for 2-3x/week from 07/03/24 to 09/11/24 to address the above impairments. I hereby deem this POC medically necessary. Please sign below. Date: documented in this encounter [facility] 06-27-2024 History of Presen t illness Narrative Images from the original note were not included. Elvira Avalos is a 63 y.o. female presents with chief complaint of 3 month follow up (Pt is being seen today for her 3 month follow up. Pt had lab work done in preparations for todays visit, results and recommendations will be reviewed with them. ) HPI: I have reviewed and reconciled the history and medication list with the patient today. PAST MEDICAL HISTORY: Past Medical History: Diagnosis Date Anxiety disorder Arthritis 04/2013 Cataract 08/2019 Depression (CMS/HCC) Diabetes mellitus, type 2 (CMS/HCC) Hyperlipidemia (CMS/HCC) Major depression, single episode (CMS/HCC) Menopausal and postmenopausal disorder Peptic ulceration RAD (reactive airway disease), mild intermittent, uncomplicated (CMS/HCC) Seasonal allergic rhinitis SURGICAL HISTORY: Past Surgical History: Procedure Laterality Date APPENDECTOMY 1981 CARPAL TUNNEL RELEASE 02/01/2023 CYST REMOVAL 04/14/2018 (L) 2ND / 3RD TOES CYST REMOVAL 04/14/2018 DE QUERVAIN'S RELEASE 02/01/2023 HYSTERECTOMY IR INJECTION NERVE BLOCK 02/01/2023 IR INJECTION NERVE BLOCK IR INJECTION NERVE BLOCK 02/01/2023 IR INJECTION NERVE BLOCK NASAL SINUS SURGERY TONSILLECTOMY 1970 TOTAL ABDOMINAL HYSTERECTOMY 2006 SOCIAL HISTORY: Social History Tobacco Use Smoking status: Never Smokeless tobacco: Never Vaping Use Vaping status: Unknown Substance Use Topics Alcohol use: Never Comment: caffeine several cans of diet coke Drug use: Never Depression: At risk (10/20/2023) PHQ-2 PHQ-2 Score: 6 FAMILY HISTORY: Family History Problem Relation Name Age of Onset Arthritis Mother Lee Ann Pacheco Hearing loss Mother Lee Ann Pacheco Miscarriages / Stillbirths Mother Lee Ann Pacheco Diabetes Father Inocencio Junior Heart disease Father Inocencio Pacheco Arthritis Maternal Grandmother Cristina Garcia Stroke Maternal Grandmother Cristina Garcia Vision loss Maternal Grandmother Cristina Garcia Heart disease Paternal Grandmother Chelsea Dougherty MEDICATIONS: Current Outpatient Medications Medication Instructions atorvastatin (LIPITOR) 10 mg, Oral, Daily calcium carbonate (Os-Rubio) 1250 (500 Ca) MG tablet Every 12 hours Cholecalciferol (Vitamin D) 50 MCG (1999 UT) capsule Oral esomeprazole (NEXIUM) 20 mg, Daily before breakfast fexofenadine (Breanne) 180 MG tablet Every 24 hours fluticasone (Flonase) 50 MCG/ACT nasal spray 1 spray, Each Nostril, Daily, Shake gently. Before first use, prime pump. After use, clean tip and replace cap. ibuprofen 200 mg, 2 times daily Lancets 28G misc 1 Device, Does not apply, 2 times daily meloxicam (MOBIC) 15 mg, Daily RT metFORMIN (GLUCOPHAGE) 500 mg, Oral, 2 times daily with meals venlafaxine (EFFEXOR) 37.5 mg, Oral, 2 times daily ALLERGIES: No Known Allergies REVIEW OF SYMPTOMS: The ROS was neg. No chest pain or dyspnea. Denies any GI issues. Weight stable. No swellng. Denies any issues with meds. PHYSICAL EXAM: Visit Vitals BP 122/82 Pulse 86 Wt 186 lb SpO2 96% BMI 29.13 kg/m Smoking Status Never BSA 2 m BP Readings from Last 3 Encounters: 06/27/24 122/82 03/08/24 128/66 03/01/24 122/78 Wt Readings from Last 3 Encounters: 06/27/24 186 lb 03/08/24 185 lb 03/05/24 185 lb Physical exam- No focal neuro signs. No enlarged Lymph Nodes, no thyromegaly/ nodules, HRRR, LCTA, benign ABD exam w/ no bruits. Carotid pulse wnl, no bruits. Pulses intact and palp in all extremities, no edema ASSESSMENT AND PLAN: Assessment/Plan Problem List Items Addressed This Visit GERD (gastroesophageal reflux disease) Hyperlipidemia, unspecified (CMS/HCC) Recurrent major depressive disorder, in partial remission (HCC) ([facility]) Type 2 diabetes mellitus with other specified complication ([facility]) Other Visit Diagnoses Pain of left hip - Primary Need for immunization against influenza Relevant Orders Flu vaccine, trivalent, adjuvanted, preservative free She is seen today for a routine check up. A1c is elevated at 7.2%. She s on metformin 500 twice a day. She wants to work on a weight loss diet before we make any medication adjustments. Cholesterol is excellent. She s taking stand for primary prevention. Blood pressure is controlled. Her only real issue is that she s having this left hip pain. Yesterday she went to see a sports medicine doctor in [place] and was diagnosed with bursitis and tendinitis. No films were done. She s very uncomfortable with ambulation, so I m gonna x-ray your left hip and then arrange physical therapy, which is what his recommendation yesterday was also. He also gave her more oxygen 15 mg daily which she ll use in place of the ibuprofen. Having no acid reflux issues or G.I. complaints today. No cardio pulmonary issues. Vital signs are stable. I m gonna schedule her back to see me in four months and recheck her A1c and determine whether we need to do any more aggressive medication for weight loss and diabetes. Denies anyretinopathy, but has been told she has macular degeneration and is being referred to specialist for further evaluation. Flu shot today. No other change of medication. This note was Dictated and not read. documented in this encounter [facility] 06-26-2024 History of Presen t illness Narrative Chief Complaint Patient presents with Left Hip - Pain 63 y.o. female c/o L hip pain intermittent since 2006 increased in last 3-6 months, NKI. Pain located lateral hip and groin. Described as aching and dull, agg with walking on incline and stairs, rising from sitting, standing. Denies n/t, Reports catching. PHx of Injury - fall on ice in broke pelvis in 2006. Tx: PT, heat, ibu, tylenol History of Present Illness Elvira Avalos is a 63 y.o. female who presents today as a new patient for left hip pain. Mechanism of injury: none. Prior history of related problems: no prior problems with this area in the past. Previous history of evaluation for this problem: no Previous imaging for this problem: no Treatments tried: physical therapy, Tylenol, heat, and OTC NSAIDs Sport/Activity : none Review of Systems Review of Systems Physical Exam Physical Exam Left Hip Exam Tenderness The patient is experiencing tenderness in the greater trochanter (and piriformis). Range of Motion The patient has normal left hip ROM. Muscle Strength Left hip normal muscle strength: giveway strength. Abduction: 3 Assessment and Plan ICD-10-CM 1. Greater trochanteric bursitis of left hip M70.62 AMB REFERRAL TO PHYSICAL THERAPY Meloxicam 15 MG tablet 2. Tendinopathy of left gluteus medius M67.952 AMB REFERRAL TO PHYSICAL THERAPY Meloxicam 15 MG tablet 3. Iliotibial band syndrome of left side M76.32 AMB REFERRAL TO PHYSICAL THERAPY Meloxicam 15 MG tablet 4. Weakness of left hip R29.898 AMB REFERRAL TO PHYSICAL THERAPY Meloxicam 15 MG tablet - The diagnoses, activity, and exercise restrictions were discussed with the patient in detail at today's visit. GTPS, glute tendinopathy. Start formal PT and HEP. Follow up week before she leaves for [place] which is in 4-5 weeks. Will discuss steroids at that time, PO vs injection. Start Meloxicam. - Discussed other modalities including: activity as tolerated, avoidance of inciting activities, ice, meds - Mobic daily, and bracing - none. - Referral to PT for a comprehensive program of physical therapy and rehabilitation specifically addressing this patient's deficits. - Gave handout from : to begin a home exercise program - See orders for this visit. Return in about 4 weeks (around 07/24/2024). Homero De Jesus DO, PGY-4 Primary Care Sports Medicine Fellow [facility] Patient was seen and evaluated with the Sports Medicine fellow at today's visit. I performed all essential elements of the history and physical exam at today's visit. I have confirmed the diagnosis at today's visit. I have determined the plan of care for today's visit. Please refer to the fellow's note for further details from today's visit. I have reviewed the note following the visit have added edits as appropriate to my evaluation and plan of care. The diagnoses for today's visit include: ICD-10-CM 1. Greater trochanteric bursitis of left hip M70.62 AMB REFERRAL TO PHYSICAL THERAPY Meloxicam 15 MG tablet 2. Tendinopathy of left gluteus medius M67.952 AMB REFERRAL TO PHYSICAL THERAPY Meloxicam 15 MG tablet 3. Iliotibial band syndrome of left side M76.32 AMB REFERRAL TO PHYSICAL THERAPY Meloxicam 15 MG tablet 4. Weakness of left hip R29.898 AMB REFERRAL TO PHYSICAL THERAPY Meloxicam 15 MG tablet - The diagnoses, activity, and exercise restrictions were discussed with the patient in detail at today's visit. Will begin med and PT. - Activity/exercise restrictions discussed with patient. Specific restrictions include: none. - Discussed other modalities including: activity as tolerated, avoidance of inciting activities, ice, meds - Mobic daily and will stop other NSAIDs, and bracing - none. - Meloxicam will be initiated for control of pain and inflammation. Medication to be used only as instructed. Patient informed of potential side effects and recommended to take this medication with food. - Referral to PT for a comprehensive program of physical therapy and rehabilitation specifically addressing this patient's deficits. - Gave handout from: Sports Medicine Patient Advisor on Iliotibial Band Syndrome and Trochanteric Bursitis to begin a home exercise program - Compliance with the stated regimen was recommended. - Discussed return to activity and prognosis with patient. - See orders for this visit. Return in about 4 weeks (around 07/24/2024) for possible injection before she leaves [facility]. Carlos Thorpe MD, CAQSM Ems Coordinator - Clinical [facility] Sports Medicine documented in this encounter [facility] 06-26-2024 Instructions Carlos Thorpe MD - 06/26/2024 8:30 AM EST Images from the original note were not included. documented in this encounter [facility] 03-08-2024 History of Presen t illness Narrative [...] left palm 3 weeks ago at the [facility]. Pt presents for suture removal today. Pt [...] No s/s infection. Musculoskeletal: left Hand: FROM Cloth Hauler intact: Swelling: none Palpable tenderness: none Extremities: [...] yes Risks discussed: Wound separation and pain [place] protocol: Procedure explained and questions answered to [...] plan of care. documented in this encounter [facility] 03-05-2024 History of Presen t illness Narrative [...] left palm 16 days ago at the [facility]. Pt presents for suture removal today. Pt [...] No s/s infection. Musculoskeletal: left Hand: FROM Cloth Hauler intact: Swelling: none Palpable tenderness: none Extremities: [...] plan of care. documented in this encounter [facility] 03-01-2024 History of Presen t illness Narrative [...] she got the sutures placed in at [facility]. Pt states she is currently not having [...] No s/s infection. Musculoskeletal: left Hand: FROM Cloth Hauler intact: Swelling: none Palpable tenderness: none Extremities: [...] Stop ointments. Cleanse with H2O2 daily. Leave LASHA. Immediate eval if new, worsening sx otherwise follow up this Tuesday for recheck and suture removal. documented in this encounter [facility] 05-26-2023 History of Presen t illness Narrative [...] release. Right ulnar carpal injection. DOS 02/01/23 EEK: Elvira is a 62 y.o. patient is [...] attending for review documented in this encounter [facility] 02-24-2023 History of Presen t illness [...] release. Right ulnar carpal injection. DOS 02/01/23 EEK: Elvira is a 62 y.o. patient is [...] attending for review documented in this encounter [facility] 02-15-2023 History of Presen t illness Narrative [...] perform this imaging 1st prior to proceeding. [facility] Referral: Neck and back [...] TUNNEL RELEASE Right 02/01/2023 Laterality: Right; Surgeon: Josh Mccann MD; Location: [facility]IOP DECOMPRESSION TRANSPOSITION ULNAR NERVE ELBOW Right 02/01/2023 Laterality: Right; Surgeon: Josh Mccann MD; Location: [facility] DECOMPRESSION MAJOR PERIPHERAL NERVE Right 02/01/2023 Laterality: Right; Surgeon: Josh Mccann MD; Location: [facility] INCISION TENDON SHEATH WRIST Right 02/01/2023 Laterality: Right; Surgeon: Josh Mccann MD; Location: [facility] ASPIRATION OR INJECTION INTERMEDIATE JOINT BURSA Right 02/01/2023 Laterality: Right; Surgeon: Josh Mccann MD; Location: [facility]IOP Social [...] discussed/communicated with the referring physician/ clinician. Ermias Toro MD Interventional Pain Management Department of Anesthesiology This note was dictated using medical dictation software [employer]. This note has been proofread for errors but typos and grammatical errors from dictation may still be present. Fred Mansfield MD Department of Anesthesiology documented in this encounter [facility] 02-15-2023 Emergency department Note ED Attending Chief [...] TUNNEL RELEASE Right 02/01/2023 Laterality: Right; Surgeon: Josh Mccann MD; Location: [facility] DECOMPRESSION TRANSPOSITION ULNAR NERVE ELBOW Right 02/01/2023 Laterality: Right; Surgeon: Josh Mccann MD; Location: [facility] DECOMPRESSION MAJOR PERIPHERAL NERVE Right 02/01/2023 Laterality: Right; Surgeon: Josh Mccann MD; Location: [facility] INCISION TENDON SHEATH WRIST Right 02/01/2023 Laterality: Right; Surgeon: Josh Mccann MD; Location: [facility] ASPIRATION OR INJECTION INTERMEDIATE JOINT BURSA Right 02/01/2023 Laterality: Right; Surgeon: Josh Mccann MD; Location: [facility] [...] performed during the hospital encounter of 02/15/23 [facility] 7 - ED Result Value [...] 3.83 (H) 1.16 - 3.51 K/uL Abs [place] Auto 1.03 (H) 0.22 - 0.87 K/uL [...] Disposition: Home This note was dictated with [employer] dictation software. Every effort was made to [...] no drainage visualized. documented in this encounter [facility] 02-15-2023 Physician Emergency department Note ED [...] 02/15/23 1447 Helio Miller MD 02/15/23 1447 [facility] Work Phone: 02-15-2023 Hospital Discharg e instructions Alexx Fraser MD - 02/15/2023 11:46 AM EDT Please follow up in hand clinic after antibiotics are given. The following attachments cannot be sent through Care Everywhere.De Quervain's: Tendon Release: Post-op (Mauritanian)documented in this encounter [facility] 02-15-2023 Physician Emergency department Note EMERGENCY [...] TUNNEL RELEASE Right 02/01/2023 Laterality: Right; Surgeon: Josh Mccann MD; Location: [facility] DECOMPRESSION TRANSPOSITION ULNAR NERVE ELBOW Right 02/01/2023 Laterality: Right; Surgeon: Josh Mccann MD; Location: [facility] PERIOP DECOMPRESSION MAJOR PERIPHERAL NERVE Right 02/01/2023 Laterality: Right; Surgeon: Josh Mccann MD; Location: [facility] PERIOP INCISION TENDON SHEATH WRIST Right 02/01/2023 Laterality: Right; Surgeon: Josh Mccann MD; Location: [facility] PERIOP ASPIRATION OR INJECTION INTERMEDIATE JOINT BURSA Right 02/01/2023 Laterality: Right; Surgeon: Josh Mccann MD; Location: [facility] CURRENT MEDICATIONS Current Outpatient Medications [...] performed during the hospital encounter of 02/15/23 [facility] 7 - ED Result Value [...] 3.83 (H) 1.16 - 3.51 K/uL Abs [place] Auto 1.03 (H) 0.22 - 0.87 K/uL [...] Disposition: Home This note was dictated with [employer] dictation software. Every effort was made to correct edits but please excuse any incorrections. Medical Decision Making De Quervain's tenosynovitis, right: chronic illness or injury with exacerbation, progression, or side effects of treatment Amount and/or Complexity of Data Reviewed Labs: ordered. Risk Prescription drug management. Alexx Fraser MD PGY-2 Emergency Medicine Alexx Fraser MD Resident 02/15/23 1101 [facility] 02-14-2023 Emergency department Note Pt arrives with complaint of concern for infection at right wrist surgical site. Pt states surgery to area for Quervain tenosynovitis. Pt states today increased redness and tender to touch. Pt arrives with skin pen applied to area. Area with redness, no drainage visualized. [facility] 02-01-2023 History of Presen t illness Narrative 10:50 AM Reviewed AVS, discharge instructions, nerve block, sling, prescription, follow-up appointment, and when to call the office with patient and patient's . All questions answered. Peripheral IV access removed. Prescription for oxycodone sent to patient's pharmacy. Patient states readiness for discharge. Kenisha Armstrong RN documented in this encounter [facility] 02-01-2023 Hospital Discharg e instructions Tati MercedesDIONE - 02/01/2023 10:13 AM EDT [facility] Home Care after Hand or Upper Extremity [...] your doctor s office during office hours. [facility] [address], [address] [place] [address] Phone: [phone]). If after hours, call or the hospital power house control room operator at and ask for the Hand Resident confidential investigator or go to your local or [facility] Emergency room. documented in this encounter [facility] 02-01-2023 Nurse Surgical operation note Patient transferred to PACU via cart. Report given to CHRISTINE Sims. [facility] 02-01-2023 Nurse Note Patient transferred to PACU via cart. Report given to CHRISTINE Sims. documented in this encounter [facility] 02-01-2023 Nurse Note Timeout completed at the bedside correct pt, correct MRN, correct birthday, correct procedure and allergies reviewed pt is comfortable 2liters nasal cannula applied [facility] 02-01-2023 Miscellaneous Notes Timeout completed at the bedside correct pt, correct MRN, correct birthday, correct procedure and allergies reviewed pt is comfortable 2liters nasal cannula applied documented in this encounter [facility] 01-27-2023 Instructions Monika Suazo RN - 01/27/2023 [...] take Herbal Medication (including multi-vitamin, fish oil ([place]-3), garlic, Glucosamine - Chondroitin ,gingko, ginseng, Vitamin [...] hair or NAILS, including makeup and nail qatari - Do NOT shave, or pluck hair from anywhere near the surgical site 48 hours prior to surgery. Diet Instructions - NO food or drink after midnight the night before surgery (No Candy, Mints and/or Gum) - [place] your teeth and rinse your mouth the morning of surgery. YOU ARE REQUIRED TO HAVE A RESPONSIBLE ADULT DRIVE YOU TO YOUR PROCEDURE, STAY DURING YOUR SURGERY , AND LISTEN TO DISCHARGE INSTRUCTIONS - Please call [phone] to update a nurse if you start [...] for your surgery. Please arrive at [address] [facility], [place] [address] on the first floor for surgery documented in this encounter [facility] 01-27-2023 Surgery Preoperative evaluation and management note [...] # to reach you at between 7am-3pm: [phone] May leave detailed message regarding surgery details Ok to leave message with another individual: Name and relationship to patient: Contact phone number: Comment: Surgical Transportation Ride & caregiver name day of procedure: sheldon avalos Relationship to patient: Patient History Patient has a family doctor Name:Helio Brice [address] [place] [address] Last visit this summer Corticosteroid Use Steroid [...] Alcohol use: Not Currently Drug use: Never [facility] 01-27-2023 Surgical operatio n note Procedure Information [...] # to reach you at between 7am-3pm: [phone] May leave detailed message regarding surgery details Ok to leave message with another individual: Name and relationship to patient: Contact phone number: Comment: Surgical Transportation Ride & caregiver name day of procedure: sheldon maksimfredy Relationship to patient: Patient History Patient has a family doctor Name:Helio Brice [address] [place] [address] Last visit this summer Corticosteroid Use Steroid [...] Drug use: Never documented in this encounter [facility] 01-27-2023 History of Presen t illness Narrative Chief Complaint Patient presents with Right Wrist - Follow-up EMG results HISTORY OF PRESENT ILLNESS Elvira Avalos presents to the [facility] for follow up of right upper extremity pain. We sent her for an EMG. Past Medical History: Diagnosis Date Arthritis Depression Diabetes mellitus Migraine Past Surgical History: Procedure Laterality Date ENDOSCOPY CARPAL TUNNEL RELEASE Right 02/01/2023 Laterality: Right; Surgeon: Josh Mccann MD; Location: [facility] PERIOP DECOMPRESSION TRANSPOSITION ULNAR NERVE ELBOW Right 02/01/2023 Laterality: Right; Surgeon: Josh Mccann MD; Location: [facility] PERIOP DECOMPRESSION MAJOR PERIPHERAL NERVE Right 02/01/2023 Laterality: Right; Surgeon: Josh Mccann MD; Location: [facility] PERIOP INCISION TENDON SHEATH WRIST Right 02/01/2023 Laterality: Right; Surgeon: Josh Mccann MD; Location: [facility] PERIOP ASPIRATION OR INJECTION INTERMEDIATE JOINT BURSA Right 02/01/2023 Laterality: Right; Surgeon: Josh Mccann MD; Location: [facility] PERIOP [...] questions or concerns. documented in this encounter [facility] 01-24-2023 History of Presen t illness Narrative Chief Complaint Patient presents with Right Wrist - Pain RHD right wrsit pain-- Pt fell down the stairs on 11/2021 fell onto this arm.Hasd a subsepquent fall since. Was told she had DeQ syndrome. Has been wearing splint for a few weeks, helps somewhat. EEK: Elvira Avalos is a 62 y.o. right handed female who has been sent to [facility] for an evaluation of right [...] the first dorsal compartment with activity. 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 Images not available at this [...] De Quervain's tenosynovitis Right wrist pain Sincerely, Josh Mccann M.D. Professor of Orthopaedics [facility] documented in this encounter [facility] Evaluation note Diagnosis Pre-op evaluation- Primary Preoperative examination, unspecified Lesion of ulnar nerve Carpal tunnel syndrome [facility] Diagnosis Carpal tunnel syndrome on right Carpal tunnel syndrome Lesion of ulnar nerve Carpal tunnel syndrome [facility] Diagnosis Carpal tunnel syndrome on right- Primary Carpal tunnel syndrome De Quervain's tenosynovitis Radial styloid tenosynovitis Right wrist pain Pain in joint, forearm Lesion of ulnar nerve Carpal tunnel syndrome [facility] Diagnosis Post-operative pain- Primary Other acute postoperative pain Lesion of ulnar nerve Carpal tunnel syndrome Carpal tunnel syndrome of right wrist Carpal tunnel syndrome Lesion of right ulnar nerve Lesion of ulnar nerve De Quervain's disease (radial styloid tenosynovitis) Radial styloid tenosynovitis documented [facility] Diagnosis Carpal tunnel syndrome on right- Primary Carpal tunnel syndrome [facility] Diagnosis De Quervain's tenosynovitis, right- Primary Radial styloid tenosynovitis documented [facility] Diagnosis Cervical radiculopathy- Primary Brachial neuritis or radiculitis nos documented [facility] Diagnosis Cervical radiculopathy Brachial neuritis or radiculitis nos documented [facility] Diagnosis Carpal tunnel syndrome on right- Primary Carpal tunnel syndrome Radial tunnel syndrome, right De Quervain's tenosynovitis, right Radial styloid tenosynovitis Cubital tunnel syndrome on right Lesion of ulnar nerve [facility] Diagnosis Right wrist pain- Primary Pain in joint, forearm [facility] Diagnosis Laceration of left hand, foreign body presence unspecified, subsequent encounter- Primary documented in this encounter [facility]* Diagnosis Type 2 diabetes mellitus with other specified complication, without long-term current use of insulin ([facility])- Primary Mixed hyperlipidemia (CMS/HCC) Mixed hyperlipidemia Recurrent major depressive disorder, in partial remission (HCC) ([facility]) Elevated TSH Other abnormal blood chemistry documented [facility] this encounter [facility]* Diagnosis Greater trochanteric bursitis of left hip- Primary Enthesopathy of hip region Tendinopathy of left gluteus medius Enthesopathy of hip region Iliotibial band syndrome of left side Other disorder of muscle, ligament, and fascia Weakness of left hip [facility] Diagnosis Pain of left hip- Primary Type 2 diabetes mellitus with other specified complication, without long-term current use of insulin (CMS/HCC) Need for immunization against influenza Need for prophylactic vaccination and inoculation against influenza Mixed hyperlipidemia (CMS/HCC) Mixed hyperlipidemia Recurrent major depressive disorder, in partial remission (HCC) ([facility]) Gastroesophageal reflux disease without esophagitis Esophageal reflux SMD (senile macular degeneration) Macular degeneration (senile) of retina, unspecified Medication management Breast cancer screening by mammogram documented in this encounter [facility]* Diagnosis Left hip pain- Primary Pain in joint, pelvic region and thigh Greater trochanteric bursitis of left hip documented in this encounter [facility]* Diagnosis Left hip pain- Primary Pain in joint, pelvic region and thigh Greater trochanteric bursitis of left hip documented in this encounter [facility]* Diagnosis Left hip pain- Primary Pain in joint, pelvic region and thigh Greater trochanteric bursitis of left hip documented in this encounter [facility]* Diagnosis Left hip pain- Primary Pain in joint, pelvic region and thigh Greater trochanteric bursitis of left hip documented in this encounter [facility]* Diagnosis Pain of left hip- Primary documented in this encounter [facility]* Diagnosis Pain of left hip- Primary Left hip pain Pain in joint, pelvic region and thigh Greater trochanteric bursitis of left hip documented in this encounter [facility]* Diagnosis Rash- Primary Rash and other nonspecific skin eruption documented in this encounter [facility]* Diagnosis Pain, neck- Primary Neck pain Cervicalgia documented in this encounter [facility]* Diagnosis Pain, neck- Primary Neck pain Cervicalgia documented in this encounter [facility]* Diagnosis Pain, neck- Primary Neck pain Cervicalgia documented in this encounter [facility]* Diagnosis Pain, neck- Primary documented in this encounter [facility]* Diagnosis Pain, neck- Primary Neck pain Cervicalgia documented in this encounter [facility]* Diagnosis Pain, neck- Primary Neck pain Cervicalgia documented in this encounter [facility]* Diagnosis Pain, neck- Primary Neck pain Cervicalgia documented [facility] this encounter [facility] N[facility]* Rehabilitation - Outpatient (Routine) - Authorized Specialty Diagnoses / Procedures Referred By Lyle andrade Referred To Contact Physical Therapy Diagnoses Pain of left hip Procedures OK OFFICE/OUTPATIENT NEW [facility] 60 MINUTES Helio Brice, DO [address] [address] Phone: tel: fax: [facility] [address] [address] Phone: tel: fax: Referral ID Status Reason Start Date Expiration Date Visits Requested Visits Authorized [id number] Authorized Specialty Services Required 06/27/2024 12/24/2024 10 10 [facility] N[facility]* Rehabilitation - Outpatient (Routine) - Authorized Specialty Diagnoses / Procedures Referred By Contac t Referred To Contact Physical Therapy Diagnoses Pain of left hip Procedures OK OFFICE/OUTPATIENT NEW [facility] 60 MINUTES Helio Brice, DO [address] [address] Phone: tel: fax: [facility] [address] [address] Phone: tel: fax: Referral ID Status Reason Start Date Expiration Date Visits Requested Visits Authorized [id number] Authorized Specialty Services Required 06/27/2024 06/19/2025 10 30 [facility] N[facility]* Rehabilitation - Outpatient (Routine) - Closed Specialty Diagnoses / Procedures Referred By Contac t Referred To Contact Physical Therapy Diagnoses Pain of left hip Procedures OK OFFICE/OUTPATIENT NEW [facility] 60 MINUTES Helio Brice, DO [address] [address] Phone: tel: fax: [facility] [address] [address] Phone: tel: fax: Referral ID Status Reason Start Date Expiration Date V isits Requested Visits Authorized [id number] Closed Specialty Services Required 06/27/2024 06/19/2025 10 30 [facility] N[facility]* Consultation (Routine) - Authorized Specialty Diagnoses / Procedures Referred By Contac t Referred To Contact Physical Therapy Diagnoses Neck pain Procedures OK OFFICE/OUTPATIENT NEW [facility] 60 MINUTES Helio Brice DO [address] [place] [address] Phone: tel: fax: Ana Ramirez, PT Referral ID Status Reason Start Date Expiration Date Visits Requested Visits Authorized [id number] Authorized Consult and Treat 12/07/2024 06/03/2025 10 10 [facility] N[facility]* Consultation (Routine) - Authorized Specialty Diagnoses / Procedures Referred By Contac t Referred To Contact Physical Therapy Diagnoses Neck pain Procedures OK OFFICE/OUTPATIENT NEW [facility] 60 MINUTES Helio Brice, [address] [place] [address] Phone: tel: fax: Ana Ramirez, FRANNIE Referral ID Status Reason Start Date Expiration Date Visits Requested Visits Authorized [id number] Authorized Consult and Treat 12/07/2024 06/19/2025 10 10 [facility] N[facility]* Consultation (Routine) - Authorized Specialty Diagnoses / Procedures Referred By Contac t Referred To Contact Physical Therapy Diagnoses Neck pain Procedures OK OFFICE/OUTPATIENT NEW [facility] 60 MINUTES Helio Brice, [address] [place] [address] Phone: tel: fax: Ana Ramirez, PT Referral ID Status Reason Start Date Expiration Date Visits Requested Visits Authorized [id number] Authorized Consult and Treat 12/07/2024 06/19/2025 10 20 [facility] Summary Purpose Family History No Family History Records FoundNo Family History Records FoundNo Family History Records FoundNo Family History Records FoundNo Family History Records FoundNo Family History Records FoundNo Family History Records FoundNo Family History Records Found Advance Directives No Advanced Directives Records FoundDocuments on File Type Date Recorded Patient Apn Expl anation Advance Directives and Living Will 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 of 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 Documents on File Type Date Recorded Patient Apn Expl anation Advance Directives and Living Will Power of 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 Reason for Referral Specialty Diagnoses / Procedures Referred By Contac t Referred To Contact Diagnoses Carpal tunnel syndrome on right Procedures EMG & NERVE CONDUCTION Josh Mccann MD [address] [place] [address] Referral ID Status Reason Start Date Expiration Date V isits Requested Visits Authorized [id number] New Request 01/24/2023 02/18/2024 1 1 Specialty Diagnoses / Procedures Referred By Contac t Referred To Contact Procedures US IMAGING OR German Chang MD [address] [place] [address] [address] [place] [address] Referral ID Status Reason Start Date Expiration Date V isits Requested Visits Authorized [id number] New Request 02/01/2023 02/26/2024 1 1 Specialty Diagnoses / Procedures Referred By Contac t Referred To Contact Diagnoses Cervical radiculopathy Procedures MRI SPINE CERVICAL WITHOUT CONTRAST OK MRI, CERV SPINE Ermias Toro MD [address] [place] [address] Referral ID Status Reason Start Date Expiration Date V isits Requested Visits Authorized [id number] Auth Not Needed 02/15/2023 03/11/2024 1 1 Referral ID Status Reason Start Date Expiration Date Visits Re quested Visits Authorized [id number] Closed 02/15/2023 03/11/2024 1 1 Specialty Diagnoses / Procedures Referred By Contac t Referred To Contact Physical Therapy Diagnoses Greater trochanteric bursitis of left hip Tendinopathy of left gluteus medius Iliotibial band syndrome of left side Weakness of left hip Carlos Thorpe MD [address] [place] [address] Referral ID Status Reason Start Date Expiration Date V isits Requested Visits Authorized [id number] New Request 06/26/2024 07/21/2025 1 1 Scheduling Instructions Log into [employer] 2[employer]0 to schedule your appointment at one of our convenient locations or please call [phone] Additional Source Comments INFORMATION SOURCE (unrecogn ized section and content) DATE CREATED AUTHOR 03/22/2019 Geremias Diaz [facility] ical Center DATE CREATED AUTHOR AUTHOR'S ORGANIZ ATION 12/30/2021 [facility] DATE CREATED AUTHOR AUTHOR'S ORGANIZ ATION 04/13/2022 [facility] DATE CREATED AUTHOR AUTHOR'S ORGANIZ ATION 09/21/2022 [facility] DATE CREATED AUTHOR AUTHOR'S ORGANIZ ATION 01/07/2023 [facility] DATE CREATED AUTHOR AUTHOR'S ORGANIZ ATION 07/02/2024 [facility] DATE CREATED AUTHOR AUTHOR'S ORGANIZ ATION 07/12/2024 [facility] DATE CREATED AUTHOR AUTHOR'S ORGANIZ ATION 02/02/2025 [facility] dical Specialists EPIC Reason for Visit (unrecogniz ed section and content) Status Reason Specialty Diagnoses / Procedures Referred By Contact Referred To Contact Closed Physical Therapy Diagnoses Other female genital prolapse Other muscle spasm Procedures PT EVAL AND TREAT Yessica Zhang MD [address] [place] [address] Dr [address] [facility] Floor 9 [address] [facility] [place] [address] Fozia Ruiz, PT Reason Comments Preoperative Assessment Specialty Diagnoses / Procedures Referred By Lyle andrade Referred To Contact Diagnoses Carpal tunnel syndrome on right Procedures EMG & NERVE CONDUCTION Josh Mccann MD [address] [facility] [address] [place] [address] Referral ID Status Reason Start Date Expiration Date V isits Requested Visits Authorized [id number] New Request 01/24/2023 02/18/2024 1 1 Reason [...] Wrist pain Procedures NEW HAND MYCHART OPEN Josh Mccann MD [address] [address] Referral ID Status Reason Start Date Expiration Date V isits Requested Visits Authorized [id number] New Request 01/24/2023 02/18/2024 1 1 Specialty Diagnoses / Procedures Referred By Contac t Referred To Contact Diagnoses Lesion of ulnar nerve Carpal tunnel syndrome 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] Carpal tunnel syndrome [G56.00] Procedures OK WRIST ARTHROSCOP,RELEASE XVERS LIG OK REVISE ULNAR NERVE AT ELBOW OK REVISE/REPAIR ARM/LEG NERVE OK INCIS TENDON SHEATH,RADIAL STYLOID OK ARTHROCENTESIS ASPIR&/INJ INTERM JT/BURS W/O US ENDOSCOPY CARPAL TUNNEL RELEASE DECOMPRESSION TRANSPOSITION ULNAR NERVE ELBOW DECOMPRESSION MAJOR PERIPHERAL NERVE INCISION TENDON SHEATH WRIST ASPIRATION OR INJECTION INTERMEDIATE JOINT BURSA Josh Mccann MD [address] [phone] [facility] [address] [place] [id number] Referral ID Status Reason Start Date Expiration Date Visits Re quested Visits Authorized [id number] 1 1 Reason Comments Follow-up EMG results Reason Comments Post-Op Problem Reason Comments New Patient Right side, numbness in the back of the arm, scapula right side, OT believes the start of winging. EMG study done 3 weeks ago Specialty Diagnoses / Procedures Referred By Contac t Referred To Contact Spine Diagnoses Neck pain Laurie Nuñez PAC [address] [phone] Referral ID Status Reason Start Date Expiration Date V isits Requested Visits Authorized [id number] New Request 02/08/2023 03/04/2024 1 1 Specialty Diagnoses / Procedures Referred By Contac t Referred To Contact Diagnoses Cervical radiculopathy Procedures MRI SPINE CERVICAL WITHOUT CONTRAST [place] MRI, CERV SPINE Ermias Toro MD [address] [place] [address] Referral ID Status Reason Start Date Expiration Date Visits Re quested Visits Authorized [id number] Closed 02/15/2023 03/11/2024 1 1 Reason Comments [...] an RX to take with them to [place]. They will be staying with their grand kids for an extended period of time and would like to have an antibiotic just incase. Specialty Diagnoses / Procedures Referred By Lyle t Referred To Contact Physical Therapy Diagnoses Other female genital prolapse Procedures HC PT THERAPEUTIC EXERCISE,EA 15 MIN HC PT EVAL LOW COMPLEX Helio Brice DO [address] [place] [address] Fozia Ruiz PT Referral ID Status Reason Start Date Expiration Date V isits Requested Visits Authorized [id number] Authorized 06/06/2024 06/19/2025 1 99 Reason Comments Pain 63 y.o. female c/o L hip pain intermittent since 2006 increased in last 3-6 months, NKI. Pain located lateral hip and groin. Described as aching and dull, agg with walking on incline and stairs, rising from sitting, standing. Denies n/t, Reports catching. PHx of Injury - fall on ice in broke pelvis in 2006. Tx: PT, heat, ibu, tylenol Reason Comments 3 month follow up Pt is being seen toshelly waldrop for her 3 month follow up. Pt had lab work done in preparations for todays visit, results and recommendations will be reviewed with them. Reason Onset Date Comments Cx PT today 01/14/2025 Care Teams (unrecognized sec tion and content) Help Desk Support Relationship Specialty Start Date End Date Helio Brice DO [address] [place], [place] [phone] PCP - General 01/24/23 Help Desk Support Relationship Specialty Start Date End Date Helio Brice DO [address] [place] [address] PCP - General 01/24/23 Help Desk Support Relationship Specialty Start Date End Date Helio Brice DO [address] [place] [address] PCP - General 01/24/23 Help Desk Support Relationship Specialty Start Date End Date Helio Brice DO [address] [place] [address] PCP - General 01/24/23 Help Desk Support Relationship Specialty Start Date End Date Helio Brice DO [address] [place] [address] PCP - General 01/24/23 Help Desk Support Relationship Specialty Start Date End Date Helio Brice DO [address] [place] [address] PCP - General 01/24/23 Help Desk Support Relationship Specialty Start Date End Date Helio Brice DO [address] [address] PCP - General 01/24/23 Help Desk Support Relationship Specialty Start Date End Date Helio Brice DO [address] [address] PCP - General 01/24/23 Help Desk Support Relationship Specialty Start Date End Date Helio Brice DO [address] [place] [address] PCP - General 01/24/23 Help Desk Support Relationship Specialty Start Date End Date Helio Brice DO [address] [place] [address] PCP - General 01/24/23 Help Desk Support Relationship Specialty Start Date End Date Helio Brice DO [address] [place] [address] PCP - General Internal Medicine 12/06/22 Help Desk Support Relationship Specialty Start Date End Date Helio Brice DO [address] [place] [address] PCP - General Internal Medicine 12/06/22 Help Desk Support Relationship Specialty Start Date End Date Helio Brice DO [address] [place] [address] PCP - General Internal Medicine 03/20/19 Help Desk Support Relationship Specialty Start Date End Date Helio Brice DO [address] [place] [address] PCP - General Internal Medicine 12/06/22 Help Desk Support Relationship Specialty Start Date End Date Helio Brice DO [address] [place] [address] PCP - General 01/24/23 Help Desk Support Relationship Specialty Start Date End Date Helio Brice DO [address] [place] [address] PCP - General Internal Medicine 12/06/22 Help Desk Support Relationship Specialty Start Date End Date Helio Brice DO [address] [place] [address] PCP - General Internal Medicine 12/06/22 Help Desk Support Relationship Specialty Start Date End Date Helio Brice DO [address] [place] [address] PCP - General Internal Medicine 12/06/22 Help Desk Support Relationship Specialty Start Date End Date Helio Brice DO [address] [place] [address] PCP - General Internal Medicine 12/06/22 Help Desk Support Relationship Specialty Start Date End Date Helio Brice DO [address] [place] [address] PCP - General Internal Medicine 12/06/22 Help Desk Support Relationship Specialty Start Date End Date Helio Brice DO [address] [place] [address] PCP - General Internal Medicine 12/06/22 Help Desk Support Relationship Specialty Start Date End Date Helio Brice DO [address] [place] [address] PCP - General Internal Medicine 03/20/19 Help Desk Support Relationship Specialty Start Date End Date Helio Brice DO [address] [place] [address] PCP - General Internal Medicine 12/06/22 Help Desk Support Relationship Specialty Start Date End Date Helio Brice DO [address] [place] [address] PCP - General Internal Medicine 12/06/22 Help Desk Support Relationship Specialty Start Date End Date Helio Brice DO [address] [place] [address] PCP - General Internal Medicine 12/06/22 Help Desk Support Relationship Specialty Start Date End Date Helio Brice DO [address] [place] [address] PCP - General Internal Medicine 12/06/22 Help Desk Support Relationship Specialty Start Date End Date Helio Brice DO [address] [place] [address] PCP - General Internal Medicine 12/06/22 Help Desk Support Relationship Specialty Start Date End Date Helio Brice DO [address] [place] [address] PCP - General Internal Medicine 12/06/22 Help Desk Support Relationship Specialty Start Date End Date Helio Brice DO [address] [place] [address] PCP - General Internal Medicine 12/06/22 Help Desk Support Relationship Specialty Start Date End Date Helio Brice DO [address] [place] [address] PCP - General Internal Medicine 12/06/22 Help Desk Support Relationship Specialty Start Date End Date Helio Brice DO [address] [place] [address] PCP - General Internal Medicine 12/06/22 Help Desk Support Relationship Specialty Start Date End Date Saroj Penn MD [address] [place] [address] PCP - General Internal Medicine 01/08/25 Help Desk Support Relationship Specialty Start Date End Date Saroj Penn MD [address] [place] [address] PCP - General Internal Medicine 01/08/25 Help Desk Support Relationship Specialty Start Date End Date Saroj Penn MD [address] [place] [address] PCP - General Internal Medicine 01/08/25 Help Desk Support Relationship Specialty Start Date End Date Saroj Penn MD [address] [place] [address] PCP - General Internal Medicine 01/08/25 Help Desk Support Relationship Specialty Start Date End Date Saroj Penn MD [address] [place] [address] PCP - General Internal Medicine 01/08/25 Help Desk Support Relationship Specialty Start Date End Date Saroj Penn MD [address] [place] [address] PCP - General Internal Medicine 01/08/25 Help Desk Support Relationship Specialty Start Date End Date Saroj Penn MD [address] [place] [address] PCP - General Internal Medicine 01/08/25 Help Desk Support Relationship Specialty Start Date End Date Saroj Penn MD [address] [place] [address] PCP - General Internal Medicine 01/08/25 Help Desk Support Relationship Specialty Start Date End Date Saroj Penn MD [address] [place] [address] PCP - General Internal Medicine 01/08/25 Help Desk Support Relationship Specialty Start Date End Date Saroj Penn MD [address] [place] [address] PCP - General Internal Medicine 01/08/25 Help Desk Support Relationship Specialty Start Date End Date Saroj Penn MD [address] [place] [address] PCP - General Internal Medicine 01/08/25 Help Desk Support Relationship Specialty Start Date End Date Saroj Penn MD [address] [place] [address] PCP - General Internal Medicine 01/08/25 Scheduled Active and Recently Administ ered Medications [...] discontinue of medication order)0855 (Given - Provider: CRISTY Zepeda) Gabapentin (NEURONTIN) capsule 300 mg 300 mg, [...] Provider: Logan Forbes MD)1011 (Stopped - Provider: CRISTY Zepeda) PRN Medication Order 01/30/2023 01/31/2023 02/01/2023 dexAMETHasone PF (DECADRON) injection (CANCELED) NEEDED, Starting on Tue02/01/23 at 0921, Until Tue02/01/23 at 1013, Intra-op/Intra-Proc 0921 (Canceled Entry - Provider: Josh Mccann MD - Comment: On field for [...] BE BASED ON THE PRIMARY CLINICAL RECORDS. [employer] provides no warranty or guarantee of the accuracy or completeness of information in this document.
--- OUTSIDE RECORDS SUMMARY | 2025-02-08 08:00 | XMS_ITS | Encounter Summary ---
Author Organization [facility] Address [address] [place] [address] Care Team Providers Care Tube Tester Name Role Phone Saroj Penn MD Primary Care Provider [phone] Encounter Details Date Type Department Care Team (Latest Contact Info) Description 01/31/2025 Travel Social History Tobacco Use Types Packs/Day [...] Medicine [address] [place] [address] Stephane Cope, DIRECTOR BLOOD BANK [address] [facility] [address] [place] [address] 02/20/2025 1:00 PM EDT Treatment [facility] [address] [facility] [address] [place] [address] Tereza Coppola, CUTTING AND SPLICING SUPERVISOR 02/22/2025 1:30 PM EDT Treatment [facility] [address] [facility] [address] [place] [address] Tereza Coppola, CUTTING AND SPLICING SUPERVISOR 02/26/2025 11:00 AM EDT Treatment [facility] [address] [facility] [address] [place] [address] Tereza Coppola, CUTTING AND SPLICING SUPERVISOR documented as of this encounter Visit Diagnoses Not on filedocumented in this encounter Care Teams Tube Tester Relationship Specialty Start Date End Date Saroj Penn MD [address] [facility] [address] [place] [address] PCP - General Internal Medicine 01/08/25 documented as of this encounter
--- OUTSIDE RECORDS SUMMARY | 2025-02-08 08:00 | XMS_ITS | Clinical Summary ---
Author Organization [facility] Address [address] [place] [address] Phone Care Team Providers Care Private Eye Name Role Phone JúniorHelio DO Primary Care Provider [phone] Social History Tobacco Use Types Packs/Day Years Used Date Smoking Tobacco: Never Assessed Comments Unknown Sex and Gender Information Value Date Recorded Sex Assigned at Not on file Legal Sex Female 11:36 AM EDT Gender Identity Not on file Sexual Orientation Not on file Plan of Treatment Health Maintenance Due Date Last Done Comments CT Colonography 1958 Colonoscopy 1958 Colorectal Cancer Screening 1958 FIT-DNA (Cologuard) 1958 FIT 1958 Lipid Panel 1958 Sigmoidoscopy 1958 Yearly Adult Physical 1958 MMR Vaccines (1 of 1 - Stand yasmani series) 1959 Hepatitis C Screening 1976 DTaP/Tdap/Td Vaccines (1 - Tdap) 1980 Mammogram 1998 Pneumococcal Vaccine (1 of 1 - PCV) 2008 Zoster Vaccines (1 of 2) 2008 Bone Density Scan 2023 COVID-19 Vaccine (1 - 2023-2 5 season) 2024 Influenza Vaccine (#1) 2025 RSV High Risk: (Elderly (60+ ) or Population) (1 - 1-dose 75+ series) 2033 HIB Vaccines Aged Out No longer eligi ble based on patient's age to complete this topic HPV Vaccines Aged Out No longer eligi ble based on patient's age to complete this topic Hepatitis A Vaccines Aged Out No long er eligible based on patient's age to complete this topic Hepatitis B Vaccines Aged Out No long er eligible based on patient's age to complete this topic IPV Vaccines Aged Out No longer eligi ble based on patient's age to complete this topic Meningococcal Vaccine Aged Out No yumiko sanjiv eligible based on patient's age to complete this topic Rotavirus Vaccines Aged Out No longer eligible based on patient's age to complete this topic Care Teams Private Eye Relationship Specialty Start Date End Date Helio Callejas DO [address] [facility] [address] [place] [address] PCP - General 09/16/22
[2025-02-08 08:42] LABS: Alanine Aminotransferase 23 U/L (14-59); Albumin Globulin Ratio 1.2; Albumin Level 3.9 g/dL (3.4-5.0); Alkaline Phosphatase 184 U/L (46-116); Anion Gap 11.6; Aspartate Amino Transferase 15 U/L (15-37); Blood Urea Nitrogen 14.0 mg/dL (7.0-18.0); Calcium 8.9 mg/dL (8.5-10.1); Carbon Dioxide 29.6 mmol/L (21.0-32.0); Chloride 104 mmol/L (98-107); Cholesterol 193 mg/dL (<=200); Estimated GFR (African America >60 (>=60 mL/min/1.73m^2); Estimated GFR (Non-African Ame >60 (>=60 mL/min/1.73m^2); Globulin 3.2 g/dL; Glucose 184 mg/dL (74-106); HDL Cholesterol 117 mg/dL (40-60); Potassium 4.2 mmol/L (3.5-5.1); Sodium 141 mmol/L (136-145); Total Protein 7.1 g/dL (6.4-8.2); Triglycerides 58 mg/dL (<=150); VLDL CHOLESTEROL 11.6 mg/dL
== END 2025-02-08 07:56 | disposition home or self-care (01) ==
LOC: LAB 07:57
PROVIDERS: PCP Internal Medicine; Visit Provider Internal Medicine
DX: E78.2 Mixed hyperlipidemia (principal); E11.69 Type 2 diabetes mellitus with other specified complication
CPT/HCPCS: 36415; 80053; 80061; 83036